=== PATIENT | female | born 1995 | race Caucasian/White ===

== ENCOUNTER → 2020-02-21 | Outpatient (CLI) | payer SELFPAY ==
[2020-02-21 08:56] VITALS: BMI 30.7
== END | disposition home or self-care (01) ==
PROVIDERS: PCP Student in an Organized Health Care Education/Training Program; Visit Provider Obstetrics & Gynecology
DX: Z12.4 Encounter for screening for malignant neoplasm of cervix (principal)

== ENCOUNTER → 2020-09-17 14:52 | Outpatient (CLI) | payer SELFPAY ==
[2020-09-17 14:34] VITALS: BMI 30.7
[2020-09-17 15:07] LABS: Absolute Lymphocyte Count 2.16 X10^3/uL (0.83-4.51); Absolute Neutrophil Count 3.4 X10^3/uL (2.0-7.7); Basophil# 0.04 X10^3/uL; Basophil% 0.6 % (0-1); Eosinophils% 6.1 % (0-5); Hematocrit 40.8 % (37-47); Hemoglobin 14.1 g/dL (12.0-15.0); Lymphocyte # 2.16 X10^3/ul (0.83-4.51); Lymphocyte % 33.1 % (19-41); Mean Corp Hgb Conc 34.6 g/dL (32-36); Mean Corpuscular Hgb 28.8 pg (27.0-32.0); Mean Corpuscular Volume 83.3 fL (81-99); Mean Platelet Vol. 9.4 fl (6.2-12.0); Monocyte# 0.49 X10^3/uL; Monocyte% 7.5 % (0-10); NRBC Flagged by Analyzer 0 % (0-5); Neutrophil # 3.42 X10^3/uL (2.7-7.7); Neutrophil % 52.5 % (47-70); Platelet Count 296 K/mm3 (150-450); RBC Distribution Width CV 11.9 % (11.6-14.6); RBC Distribution Width SD 35.8 fl (35.1-43.9); White Blood Count 6.5 K/mm3 (4.4-11.0)
[2020-09-17 15:28] LABS: Prolactin 11.8 ng/mL; Thyroid Stim Hormone (TSH) 1.94 uIU/mL (0.358-3.74)
== END ==
PROVIDERS: PCP Student in an Organized Health Care Education/Training Program; Referring Provider Nurse Practitioner Women's Health; Visit Provider Nurse Practitioner Women's Health
DX: N93.9 Abnormal uterine and vaginal bleeding, unspecified (principal); Z13.29 Encounter for screening for other suspected endocrine disorder
CPT/HCPCS: 36415; 84146; 84443; 85025

== ENCOUNTER → 2021-02-05 10:19 | Outpatient (CLI) | payer SELFPAY ==
[2021-02-05 11:36] LABS: hCG Titer Quant., Serum 29 mIU/mL (1-3)
== END ==
PROVIDERS: Nurse Practitioner Women's Health; PCP Student in an Organized Health Care Education/Training Program; Referring Provider Obstetrics & Gynecology; Visit Provider Obstetrics & Gynecology
DX: O20.0 Threatened abortion (principal)
CPT/HCPCS: 36415; 84702; 86850; 86900; 86901

== ENCOUNTER 2021-02-06 10:43 | Emergency (ER) | payer SELFPAY ==
[2021-02-06 10:44] VITALS: BP 137/85; PULSE 97; RESP 16; TEMP 35.6; O2SAT 97; BMI 30.9
--- NOTE | 2021-02-06 12:13 | US_ITS ---
STUDY: FIRST TRIMESTER OBSTETRICAL ULTRASOUND REASON FOR EXAM: Female, 25 years old miscarriage -- BLEEDING CRAMPING HCG 17 LMP: 12/28/2020. TECHNIQUE: Transvaginal TECHNICAL QUALITY: Adequate. PRIOR ULTRASOUND: None. FINDINGS: There is no demonstrated intrauterine gestational sac. There is no demonstrated yolk sac. The placenta is non-visualized. There is no demonstrated embryo ( pole). The estimated gestation age (EGA) by LMP is 5 weeks, 5 days. The estimated date of delivery (LIZ) by LMP is 10/04/2021. The uterus measures 7.6 cm x 4.5 cm x 4.2 cm. The endometrium measures 3.2 mm. There is no demonstrated uterine fibroid. The cervix is closed. The right ovary measures 4 cm x 2.1 cm x 1.8 cm. There is no right ovarian cyst. There is no visualized right adnexal mass or complex lesion. The left ovary measures 3 cm x 2.4 cm x 1.7 cm. There is no left ovarian cyst. There is no visualized left adnexal mass or complex lesion. There is no fluid in the cul de sac. US/Transvaginal w/Preg US IMPRESSION: No intrauterine gestation is seen. Beta hCG follow-up is recommended. Electronically Signed: Theodore Johnston MD at 14:05 EST , Service support ,
--- NOTE | 2021-02-06 12:13 | ED.VIS.FEGU ---
HPI HPI - Female History of Present Illness Chief Complaint: Vag Bld, Preg Informant: patient Narrative Narrative: 25-year-old female at approximately 5 and half weeks presenting to the emergency room with vaginal bleeding. Patient is seen by Dr. Baires. Due to some spotting she had an hCG level drawn yesterday as an outpatient that was only 29. She states that she started to experiencing cramping and bleeding this morning. She believes she is seeing some tissue. 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 Works at [employer] ED Constitutional Constitutional ED: Denies chills or weight loss Eyes Eyes: Denies change in vision or diplopia ENT ENT ED: Denies ear pain, rhinorrhea or sore throat Cardiovascular Cardiovascular: Denies chest pain, orthopnea, palpitations or racing heartbeat Respiratory/Chest Respiratory/Chest: Denies cough, dyspnea or orthopnea Gastrointestinal Gastrointestinal: Denies abdominal pain, diarrhea, nausea or vomiting Genitourinary Genitourinary ED: Reports other Details: Abnormal vaginal bleeding pelvic cramping ; Denies dysuria, hematuria or urinary frequency Musculoskeletal Musculoskeletal: Denies arthralgias or myalgias Integumentary Denies abscess or rash Neurologic Neurologic: Denies headache(s) or weakness Psychiatric Psychiatric: Denies anxiety, depression, suicidal ideation or suicidal thoughts Endocrine Endocrinology: Denies polydipsia, polyphagia or polyuria Allergic/Immunologic Allergic/Immunologic ED: Denies mouth swelling, tongue swelling or urticaria EXAM Physical Exam Const Vital Signs: 02/06/21 10:44 02/06/21 12:19 02/06/21 14:03 Temperature 96.0 F L Temperature Source Temporal Pulse Rate 97 72 65 Respiratory Rate 16 Blood Pressure 137/85 H 132/86 H Blood Pressure Mean 102 101 Pulse Ox 97 98 98 Oxygen Delivery Method Room Air Room Air Room Air Positive well nourished and well developed General Appearance ED: well developed HEENT Reports normocephalic, head/scalp atraumatic, TM's clear and moist mucous membranes Negative for trauma Tympanic Membrane ED: Yes TM's clear Eyes PERRL and EOMs intact bilaterally Neck no lymphadenopathy, supple and no JVD Resp normal respiratory effort and clear to auscultation bilaterally Cardio regular rate, regular rhythm and no murmurs GI normal to inspection, nondistended, normoactive bowel sounds and non-tender Palpation: soft Back/Spine no CVA tenderness and normal ROM Extremity normal to inspection General Extremety ED: Negative for edema General Extremity: Negative for edema Neuro oriented x3 and CN's II-XII intact bilaterally Sensorium / Orientation: alert Motor Exam: strength 5/5 throughout Psych mental status grossly normal Mood & Affect: Negative for depressed or tearful Skin no rashes or lesions noted and no wounds MDM MDM MDM Narrative Medical decision making narrative: hCG is down to 17 with a hemoglobin of 13.5. Pelvic ultrasound shows no intrauterine gestation. The lining of the endometrium is rather thinned. I spoke with on-call museum technician Dr. Landaverde. Plan will be outpatient follow-up return if worsening or concerns. Patient is comfortable with this plan. Lab Data Attestation: I reviewed the patient's lab results. Labs: Laboratory Results - last 24 hr 02/06/21 02/06/21 12:25 12:25 Hgb 13.5 Hct 38.4 HCG, Quant 17 H Radiography Diagnostic Testing: Clinical Impression(s) from Imaging Studies Obstetrics Ultrasound 02/06/21 12:13 IMPRESSION: No intrauterine gestation is seen. Beta hCG follow-up is recommended. Electronically Signed: Theodore Johnston MD at 14:05 EST , Service support , Discharge Plan Triage Chief Complaint: Vag Bld, Preg ED Provider: Walter Sanchez Dx/Rx/DC Orders Clinical Impression: Complete miscarriage Instructions: ED MISCARRIAGE Completed Prescriptions: No Action multivitamin Tablet 1 tab PO DAILY RF: 0 Primary Care Provider: Krystina Murphy Referrals: Lauren Tyson DO [STAFF PHYSICIAN] - As soon as possible Krystina Murphy MD [Primary Care Provider] - Disposition Disposition: Home, Self Care
[2021-02-06 12:19] VITALS: PULSE 72; O2SAT 98
[2021-02-06 12:40] LABS: Hematocrit 38.4 % (37-47); Hemoglobin 13.5 g/dL (12.0-15.0)
[2021-02-06 13:14] LABS: hCG Titer Quant., Serum 17 mIU/mL (1-3)
[2021-02-06 14:03] VITALS: BP 132/86; PULSE 65; O2SAT 98
[2021-02-06 14:55] VITALS: BP 139/85; PULSE 74; RESP 14; O2SAT 98
== END 2021-02-06 14:58 | disposition home or self-care (01) ==
PROVIDERS: Emergency Provider Emergency Medicine; PCP Student in an Organized Health Care Education/Training Program
DX: O03.9 Complete or unspecified spontaneous abortion without complication (principal)
CPT/HCPCS: 76817; 84702; 85014; 85018; 99283; A4216

== ENCOUNTER → 2021-08-18 | Outpatient (CLI) | payer SELFPAY ==
[2021-08-18 16:47] LABS: hCG Titer Quant., Serum 268 mIU/mL (1-3)
== END | disposition home or self-care (01) ==
PROVIDERS: PCP Student in an Organized Health Care Education/Training Program; Referring Provider Nurse Practitioner Women's Health; Visit Provider Nurse Practitioner Women's Health
DX: N91.2 Amenorrhea, unspecified (principal)
CPT/HCPCS: 36415; 84702

== ENCOUNTER → 2021-08-20 | Outpatient (CLI) | payer SELFPAY ==
[2021-08-20 16:40] LABS: hCG Titer Quant., Serum 851 mIU/mL (1-3)
== END | disposition home or self-care (01) ==
PROVIDERS: PCP Student in an Organized Health Care Education/Training Program; Referring Provider Nurse Practitioner Women's Health; Visit Provider Nurse Practitioner Women's Health
DX: N91.2 Amenorrhea, unspecified (principal)
CPT/HCPCS: 36415; 84702

== ENCOUNTER → 2021-09-11 | Outpatient (CLI) | payer SELFPAY | END | disposition home or self-care (01) | LOC: PAVLAB 12:22 | PROVIDERS: PCP Student in an Organized Health Care Education/Training Program; Visit Provider Obstetrics & Gynecology | DX: O20.0 Threatened abortion (principal); Z3A.00 Weeks of gestation of pregnancy not specified | CPT/HCPCS: 36415; 84702 ==

== ENCOUNTER → 2021-09-11 | Outpatient (CLI) | payer SELFPAY ==
--- NOTE | 2021-09-11 15:37 | US_ITS ---
STUDY: FIRST TRIMESTER OBSTETRICAL ULTRASOUND REASON FOR EXAM: Female, 25 years old viability--HIGH HCGS 193,000 LMP: 07/18/2021 TECHNIQUE: Transvaginal TECHNICAL QUALITY: Adequate. PRIOR ULTRASOUND: None. FINDINGS: There is visualization of a single gestational sac in a normal intrauterine position. The mean sac diameter (MSD) measures 27 mm, indicating an estimated gestational age (EGA) of 7 weeks, 5 days. The gestational sac shape is within normal limits. There is a visualized yolk sac. The yolk sac measures 4 mm. The placenta is non-visualized. There is visualization of a live embryo. The crown-rump length (CRL) measures 15 mm, indicating an estimated gestational age (EGA) of 7 weeks, 5 days. There is demonstrated cardiac activity with a heart rate of 166 bpm. The estimated gestation age (EGA) by LMP is 7 weeks, 6 days. The estimated date of delivery (LIZ) by LMP is 04/24/2022. The estimated gestation age (EGA) by US is 7 weeks, 5 days. The estimated date of delivery (LIZ) by US is 04/25/2022. The uterus measures 9.8 x 6.0 x 7.5 cm. There is no demonstrated uterine fibroid. The cervix is closed. The right ovary measures 4.2 x 1.2 x 2.6 cm. There is no right ovarian cyst. There is no visualized right adnexal mass or complex lesion. The left ovary measures 2.6 x 2.0 x 2.6 cm. There is no left ovarian cyst. There is no visualized left adnexal mass or complex lesion. There is no fluid in the cul de sac. US/Transvaginal w/Preg US IMPRESSION: Living intrauterine of 7 weeks 5 days as described above. Electronically Signed: Reilly Almaraz MD at 16:48 EDT ,
== END | disposition home or self-care (01) ==
PROVIDERS: PCP Student in an Organized Health Care Education/Training Program; Referring Provider Obstetrics & Gynecology; Visit Provider Obstetrics & Gynecology
DX: O20.0 Threatened abortion (principal); Z3A.01 Less than 8 weeks gestation of pregnancy
CPT/HCPCS: 76817

== ENCOUNTER → 2021-09-18 | Outpatient (CLI) | payer SELFPAY ==
[2021-09-18 15:08] LABS: Absolute Lymphocyte Count 2.36 X10^3/uL (0.83-4.51); Absolute Neutrophil Count 6.5 X10^3/uL (2.0-7.7); Basophil# 0.04 X10^3/uL; Basophil% 0.4 % (0-1); Eosinophil# 0.33 X10^3/uL; Eosinophils% 3.3 % (0-5); Hematocrit 34.6 % (37-47); Lymphocyte # 2.36 X10^3/ul (0.83-4.51); Lymphocyte % 23.7 % (19-41); Mean Corp Hgb Conc 34.7 g/dL (32-36); Mean Corpuscular Hgb 29.5 pg (27.0-32.0); Mean Platelet Vol. 9.3 fl (6.2-12.0); Monocyte# 0.69 X10^3/uL; Monocyte% 6.9 % (0-10); NRBC Flagged by Analyzer 0 % (0-5); Neutrophil # 6.51 X10^3/uL (2.7-7.7); Neutrophil % 65.4 % (47-70); Platelet Count 263 K/mm3 (150-450); RBC Distribution Width CV 12.1 % (11.6-14.6); RBC Distribution Width SD 37.2 fl (35.1-43.9); Red Blood Count 4.07 M/mm3 (4.2-5.4)
[2021-09-18 16:14] LABS: HIV - WCH Non-Reactive (Nonreactive); Hepatitis B Surface Antigen Non-Reactive (Nonreactive); Hepatitis C Antibody Non-Reactive (Nonreactive); Rubella IgG Reactive (Nonreactive); Syphilis Antibodies Non-reactive
[2021-09-22 20:07] LABS: Chlamydia By Nucleic Acid AMP Negative (Negative)
[2021-09-23 12:00] LABS: HPV Reflexed? NOT INDICATED
[2021-09-23 13:51] LABS: Gonococcus By Nucleic Acid AMP Negative (Negative)
== END | disposition home or self-care (01) ==
LOC: PAVLAB 14:45
PROVIDERS: PCP Student in an Organized Health Care Education/Training Program; Referring Provider Obstetrics & Gynecology; Visit Provider Obstetrics & Gynecology
DX: Z34.90 Encounter for supervision of normal pregnancy, unspecified, unspecified trimester (principal)
CPT/HCPCS: 36415; 85025; 86703; 86762; 86780; 86803; 86850; 86900; 86901; 87086; 87088; 87340; 87491; 87591; 88175; G0145

== ENCOUNTER → 2022-01-21 | Outpatient (CLI) | payer SELFPAY ==
[2022-01-21 11:39] LABS: Absolute Lymphocyte Count 1.72 X10^3/uL (0.83-4.51); Absolute Neutrophil Count 7.2 X10^3/uL (2.0-7.7); Basophil# 0.03 X10^3/uL; Basophil% 0.3 % (0-1); Eosinophil# 0.26 X10^3/uL; Eosinophils% 2.6 % (0-5); Hematocrit 33.6 % (37-47); Hemoglobin 11.5 g/dL (12.0-15.0); Lymphocyte # 1.72 X10^3/ul (0.83-4.51); Lymphocyte % 17.4 % (19-41); Mean Corp Hgb Conc 34.2 g/dL (32-36); Mean Corpuscular Hgb 30.5 pg (27.0-32.0); Mean Corpuscular Volume 89.1 fL (81-99); Monocyte# 0.58 X10^3/uL; Monocyte% 5.9 % (0-10); NRBC Flagged by Analyzer 0 % (0-5); Neutrophil % 72.9 % (47-70); Platelet Count 232 K/mm3 (150-450); RBC Distribution Width CV 12.6 % (11.6-14.6); RBC Distribution Width SD 40.6 fl (35.1-43.9); Red Blood Count 3.77 M/mm3 (4.2-5.4); White Blood Count 9.9 K/mm3 (4.4-11.0)
[2022-01-21 12:28] LABS: ALB/GLOB Ratio 0.8 RATIO (0.9-2.4); AST(SGOT) 19 U/L (15-37); Alanine Aminotransfer ALT/SGPT 35 U/L (13-56); Alkaline Phosphatase 68 U/L (45-117); Anion Gap 10 (5-15); BUN 12 mg/dL (7-18); BUN/Creat Ratio 22.2 RATIO (10-20); Calcium,Total 9.2 mg/dL (8.5-10.1); Chloride 107 mmol/L (98-107); Creatinine, Serum 0.54 mg/dL (0.55-1.02); EST Glomerular Filtration Rate 144 mL/min (>60); Est Glom Filt Rate - Afr Amer 174 mL/min (>60); Glucose 102 mg/dL (74-106); Potassium 3.9 mmol/L (3.5-5.1); Sodium Level 139 mmol/L (136-145)
== END | disposition home or self-care (01) ==
PROVIDERS: PCP Student in an Organized Health Care Education/Training Program; Referring Provider Nurse Practitioner Women's Health; Visit Provider Nurse Practitioner Women's Health
DX: O26.899 Other specified pregnancy related conditions, unspecified trimester (principal); Z3A.00 Weeks of gestation of pregnancy not specified; R10.11 Right upper quadrant pain
CPT/HCPCS: 36415; 80053; 85025

== ENCOUNTER → 2022-02-03 | Outpatient (CLI) | payer SELFPAY ==
[2022-02-03 09:54] LABS: Absolute Lymphocyte Count 1.61 X10^3/uL (0.83-4.51); Absolute Neutrophil Count 6.6 X10^3/uL (2.0-7.7); Basophil# 0.02 X10^3/uL; Basophil% 0.2 % (0-1); Eosinophil# 0.22 X10^3/uL; Eosinophils% 2.4 % (0-5); Hematocrit 32.7 % (37-47); Hemoglobin 10.9 g/dL (12.0-15.0); Lymphocyte # 1.61 X10^3/ul (0.83-4.51); Lymphocyte % 17.8 % (19-41); Mean Corp Hgb Conc 33.3 g/dL (32-36); Mean Corpuscular Hgb 29.9 pg (27.0-32.0); Mean Corpuscular Volume 89.6 fL (81-99); Mean Platelet Vol. 10.3 fl (6.2-12.0); Monocyte# 0.46 X10^3/uL; Monocyte% 5.1 % (0-10); NRBC Flagged by Analyzer 0 % (0-5); Neutrophil # 6.64 X10^3/uL (2.7-7.7); Neutrophil % 73.5 % (47-70); Platelet Count 225 K/mm3 (150-450); RBC Distribution Width CV 12.4 % (11.6-14.6); RBC Distribution Width SD 40.3 fl (35.1-43.9); Red Blood Count 3.65 M/mm3 (4.2-5.4)
[2022-02-03 10:21] LABS: Glucose Challenge Gest 1H 50g 149 mg/dL (70-140)
== END | disposition home or self-care (01) ==
LOC: PAVLAB 09:21
PROVIDERS: PCP Student in an Organized Health Care Education/Training Program; Referring Provider Nurse Practitioner Women's Health; Visit Provider Nurse Practitioner Women's Health
DX: Z13.1 Encounter for screening for diabetes mellitus (principal); Z34.90 Encounter for supervision of normal pregnancy, unspecified, unspecified trimester
CPT/HCPCS: 36415; 82950; 85025

== ENCOUNTER → 2022-02-10 | Outpatient (CLI) | payer SELFPAY ==
[2022-02-10 07:45] LABS: Glucose GTT-Gestation. Fasting 99 mg/dL (<105)
[2022-02-10 08:33] LABS: Glucose GTT-Gestational 1 Hr 191 mg/dL (<190)
[2022-02-10 09:25] LABS: Glucose GTT-Gestational 2 Hr 136 mg/dL (<165)
[2022-02-10 10:41] LABS: Glucose GTT-Gestational 3 Hr 114 L (<145)
== END | disposition home or self-care (01) ==
PROVIDERS: PCP Student in an Organized Health Care Education/Training Program; Referring Provider Nurse Practitioner Women's Health; Visit Provider Nurse Practitioner Women's Health
DX: Z13.1 Encounter for screening for diabetes mellitus (principal)
CPT/HCPCS: 36415; 82951; 82952

== ENCOUNTER 2022-03-19 11:25 | Outpatient (CLI) | payer OTHER, SELFPAY ==
[2022-03-19 11:51] VITALS: BP 128/68; PULSE 82; TEMP 36.7
[2022-03-19] MEDS: Lactated Ringers 1,000 ML 999 ML IV (12:20)
[2022-03-19 12:38] VITALS: BMI 34.4
[2022-03-19 13:17] VITALS: BP 124/82; PULSE 99
[2022-03-19] MEDS: NIFEdipine 10 MG Capsule PO (13:21)
[2022-03-19] MEDS: Betamethasone/Betamethasone 30 MG/5 ML Vial 12 MG IM (13:22)
[2022-03-19 13:32] LABS: Red Blood Cells-Urine 0 SEEN /hpf (0-5)
[2022-03-19 13:39] LABS: Color, Urine Yellow (Yellow); Glucose, Dipstick Normal (Normal); Ketone-Dipstick Negative (Negative); Leukocyte Esterase-Dipstick 25 /ul (Negative); Nitrite-Dipstick Negative (Negative); Occult Blood-Urine 25 /ul (Negative); Protein-Dipstick 30 mg/dl (Negative); Urine Bilirubin Dipstick Negative (Negative); Urine Clarity Clear (Clear); Urine Urobilinogen 1 mg/dl (Normal)
[2022-03-19 13:59] VITALS: PULSE 89; O2SAT 98
[2022-03-19 13:59] LABS: Bacteria 2+ /hpf (None Seen); Squamous Epithelial Cells - UA 0-5 SEEN /hpf (5-10)
[2022-03-19 14:00] LABS: Mucous, Urine 4+ /hpf (<or=2+); White Blood Cells 0-5 SEEN /hpf (0-5)
--- NOTE | 2022-03-19 14:52 | OB.TRI.HP_ITS ---
HPI - General HPI Narrative DAE DOAN, is a 26 @ 34 weeks 6 days who was sent to L&D after being seen in my office for prolonged monitoring to rule out labor. She complained of a brown discharge and some contractions. when checked in the office she was found to be 2/70/-2. Maternal Data Information LIZ Calculator Estimated Delivery Date Method Current WG Current Estimate 04/24/22 LMP (Certain) 34w 6d PFSH PFSH Medical History Abnormal glucose affecting Abnormal uterine bleeding (AUB) Home Medications nifedipine 10 mg capsule 20 mg PO Q6H 2 days #16 caps 03/19/22 [Rx Last Taken Unknown] vitamins-iron fumarate 65 mg iron-folic acid 1 mg tablet 1 tab PO DAILY 03/19/22 [History Last Taken 03/18/22 22:00] Allergy/AdvReac Type Severity Reaction Status Date / Time No Known Allergies Allergy Verified 03/19/22 10:40 Family History Mother Afib Social History adopted: No household members: spouse housing: house number of children: 0 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 status: employed 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 pets and animals: No leisure activities: other history of recent travel: Yes details: cruise [employer] out of state: Yes out of country: Yes sexually active: Yes Smoking Status: Never smoker alcohol intake: former details: social substance use type: does not use well-balanced diet: daily or most days caffeine: Yes eating out: rarely or never during the past year weight has: decreased > 10 lbs what type of physical activity do you participate in: none fabiola/taoist: Yazdanism seatbelt use: always do you feel safe at home: Yes additional social history: [employer]- [employer] student and works at [employer] 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 [employer] History 2 Elective abortions Hx Para 0 Spontaneous abortions 1 Hx # Term Pregnancies Ectopic pregnancies Hx # Pregnancies Multiple births # of living children Visit Details Expected Delivery Route/Plan Labor Preferences- CB/BF classes: yes labor support person: Pineda labor intervention preferences: [] pain management options preferred: epidural cut cord/dad catch: cord : yes PP control planned: discussed discussed possible routes of delivery and associated risks: [] special requests: [] Plans Covid status: discussed Flu vaccine: discussed Tdap vaccine: given Rhogam: na LARC form signed:yes Problem list reviewed and updated with the most current plan of care details and appropriate orders placed. Relevant counseling for the gestational age provided. Continue routine care and follow up unless otherwise noted in visit notes/problem list details OB Flowsheet Initial Weight: Not Recorded Date -?-?-?-?-?-?-?-?-?-?-?-?- EGA Weight BP Urine Prot -?-?-?-?-?-?-?-?-?-?-?-?- Glucose FHR FuHt Pres Dilation -?-?-?-?-?-?-?-?-?-?-?-?- Effaced St Visit Note 09/18/21 -?-?-?-?-?-?-?-?-?-?-?-?- 8w 6d 175 lb 108/60 -?-?-?-?-?-?-?-?-?-?-?-?- 170 -?-?-?-?-?-?-?-?-?-?-?-?- SM- CRL 1.9cm co ns with LMP 10/23/21 -?-?-?-?-?-?-?-?-?-?-?-?- 13w 6d 177 lb 6 oz 130/78 Nega tive -?-?-?-?-?-?-?--?-?-?-?-?- Negative 160 -?-?-?-?-?-?-?-?-?-?-?-?- SM- feeling bett er no vb cramping 11/20/21 -?-?-?-?-?-?-?-?-?-?-?-?- 17w 6d 181 lb 6 oz 124/79 -?-?-?-?-?-?-?-?-?-?-?-?- 147 -?-?-?-?-?-?-?-?-?-?-?-?- JV- anatomy scan scheduled, no complaints today, no fm yet. 12/15/21 -?-?-?-?-?-?-?-?-?-?-?-?- 21w 3d 186 lb 120/82 Negative -?-?-?-?-?-?-?-?-?-?-?-?- Negative 146 -?-?-?-?-?-?-?-?-?-?-?-?- -No Vb, LOF. G ood FM. 01/21/22 -?-?-?-?-?-?-?-?-?-?-?-?- 26w 5d 195 lb 110/76 Negative -?-?-?-?-?-?-?-?-?-?-?-?- Negative 153 -?-?-?-?-?-?-?-?-?-?-?-?- -No VB, LOF. G ood FM. Has had off and on RUQ pain and some itching of abdomen Will get labs today 02/03/22 -?-?-?-?-?-?-?-?-?-?-?-?- 28w 4d 199 lb 2 oz 130/72 Nega tive -?-?-?-?-?-?-?-?-?-?-?-?- Negative 139 28 -?-?-?-?-?-?-?-?-?-?-?-?- -No VB, LOF Go od FM. GCT pending. RUQ pain resolved except occa. tdap. 02/17/22 -?-?-?-?-?-?-?-?-?-?-?-?- 30w 4d 197 lb 8 oz 112/73 Nega tive -?-?-?-?-?-?-?-?-?-?-?-?- Negative 129 29 -?-?-?-?-?-?-?-?-?-?-?-?- JV- no lof, vagi nal bleeding, or dec fm. no complaints. passed her 3 hr. 03/04/22 -?-?-?-?-?-?-?-?-?-?-?-?- 32w 5d 203 lb 2 oz 143/83 Nega tive -?-?-?-?-?-?-?-?-?-?-?-?- Negative 136 32 -?-?-?-?-?-?-?-?-?-?-?-?- LC- no lof/vb/ct x. good fm. +sciatic pain, comfort techniques reviewed. 03/19/22 -?-?-?-?-?-?-?-?-?-?-?-?- 34w 6d 201 lb 6 oz 136/87 Nega tive -?-?-?-?-?-?-?-?-?-?-?-?- Negative 140 34 2 -?-?-?-?-?-?-?-?-?-?-?-?- 70 JV- pt c omplains of spotting and on and off contractions. after exam noted (brown dc and dilation) sending to L&D for monitoring, possible steroids. ROS Constitutional Constitutional: Reports systems reviewed and no addt'l complaints, except as documented Gastrointestinal Gastrointestinal: Denies bloating, constipation, cramping, diarrhea, nausea or vomiting Genitourinary Genitourinary: Reports other Details: Denies vaginal odor, vaginal bleeding, or vaginal discharge ; Denies difficulty urinating or flank pain NST FHR Rate Baby A Baseline: 140 Variability:: Moderate Accelerations:: 15 x 15 Decelerations:: None NST Reactive:: Yes FHR Category:: Category I Assessment & Plan (1) Threatened labor: COMMENT: to L&D for monitoring, possible fluids and steroids 34 weeks 6 days PLAN: procardia, steroids, fluids, and prolonged monitoring did not slow contractions, however cervix did not change sending home on procardia 10 mg q 6 hrs x 48 hrs and return tomorrow for second dose of celestone ptl precautions discussed. no work x 2 weeks. (2) Supervision of normal : COMMENT: PRR , LIZ 04/24/22, Spouse Walter (3) Abnormal uterine bleeding (AUB): Charges/Coding Multi Select Codes Urinary/Genital Urinary/Genital CPT Codes: 82229-25 non-stress test Interp
== END 2022-03-19 15:04 | disposition home or self-care (01) ==
LOC: WPOUT 11:30 → WP 11:58
PROVIDERS: Obstetrics & Gynecology; PCP Student in an Organized Health Care Education/Training Program; Referring Provider Obstetrics & Gynecology; Visit Provider Obstetrics & Gynecology
DX: O47.03 False labor before 37 completed weeks of gestation, third trimester (principal); Z3A.34 34 weeks gestation of pregnancy
CPT/HCPCS: 96365; 59025; 59050; 81001; 87070; 87205; 96372; 99221; J7120; G0378; J0702

== ENCOUNTER 2022-03-20 13:00 | Outpatient (CLI) | payer OTHER, SELFPAY ==
[2022-03-20 13:41] VITALS: BMI 35.5
[2022-03-20] MEDS: Betamethasone/Betamethasone 30 MG/5 ML Vial 12 MG IM (13:43)
--- NOTE | 2022-03-20 20:27 | PCM.PN.BLA ---
Progress Note patient presents to L&D for her second dose of celestone only. she expresses no concerns and the nurse administered the injection. follow up in office next week
== END 2022-03-20 13:50 | disposition home or self-care (01) ==
LOC: WP 13:07 → WPOUT 13:07
PROVIDERS: Visit Provider Obstetrics & Gynecology
DX: O09.213 Supervision of pregnancy with history of pre-term labor, third trimester (principal); Z3A.34 34 weeks gestation of pregnancy
CPT/HCPCS: 96372; J0702

== ENCOUNTER → 2022-03-27 | Outpatient (CLI) | payer OTHER, SELFPAY | END | disposition home or self-care (01) | LOC: LABSPEC 12:21 | PROVIDERS: Visit Provider Registered Nurse | DX: Z34.90 Encounter for supervision of normal pregnancy, unspecified, unspecified trimester (principal) | CPT/HCPCS: 87081 ==

== ENCOUNTER → 2022-04-14 | Outpatient (CLI) | payer OTHER, SELFPAY ==
[2022-04-14 11:54] LABS: Absolute Neutrophil Count 8.5 X10^3/uL (2.0-7.7); Basophil# 0.03 X10^3/uL; Basophil% 0.3 % (0-1); Eosinophils% 1.8 % (0-5); Hematocrit 33.7 % (37-47); Hemoglobin 11.7 g/dL (12.0-15.0); Lymphocyte % 15.3 % (19-41); Mean Corp Hgb Conc 34.7 g/dL (32-36); Mean Corpuscular Hgb 29.9 pg (27.0-32.0); Mean Corpuscular Volume 86.2 fL (81-99); Mean Platelet Vol. 10.2 fl (6.2-12.0); Monocyte# 0.67 X10^3/uL; NRBC Flagged by Analyzer 0 % (0-5); Neutrophil # 8.49 X10^3/uL (2.7-7.7); Neutrophil % 76.2 % (47-70); Platelet Count 219 K/mm3 (150-450); RBC Distribution Width CV 13.6 % (11.6-14.6); RBC Distribution Width SD 42.1 fl (35.1-43.9); Red Blood Count 3.91 M/mm3 (4.2-5.4); White Blood Count 11.1 K/mm3 (4.4-11.0)
[2022-04-14 12:04] LABS: Fibrinogen 431 mg/dl (203-444)
== END | disposition home or self-care (01) ==
LOC: PAVLAB 11:43
PROVIDERS: PCP Student in an Organized Health Care Education/Training Program; Referring Provider Obstetrics & Gynecology; Visit Provider Obstetrics & Gynecology
DX: R10.9 Unspecified abdominal pain (principal)
CPT/HCPCS: 36415; 85025; 85384

== ENCOUNTER 2022-04-24 05:54 | Inpatient (IN) | payer OTHER, SELFPAY ==
[2022-04-24] VITALS (28 sets, daily range): BP systolic 108–145; BP diastolic 59–95; PULSE 63–112; RESP 16; TEMP 36.6; O2SAT 95–99; BMI 36.7
[2022-04-24] MEDS: LACTATED RINGERS 500 ML 999 ML IV (07:45)
[2022-04-24 08:06] LABS: Absolute Lymphocyte Count 1.67 X10^3/uL (0.83-4.51); Absolute Neutrophil Count 7.4 X10^3/uL (2.0-7.7); Basophil# 0.03 X10^3/uL; Basophil% 0.3 % (0-1); Eosinophil# 0.16 X10^3/uL; Eosinophils% 1.6 % (0-5); Hematocrit 31.1 % (37-47); Hemoglobin 10.8 g/dL (12.0-15.0); Lymphocyte # 1.67 X10^3/ul (0.83-4.51); Lymphocyte % 16.5 % (19-41); Mean Corp Hgb Conc 34.7 g/dL (32-36); Mean Corpuscular Hgb 29.8 pg (27.0-32.0); Mean Corpuscular Volume 85.7 fL (81-99); Mean Platelet Vol. 10.9 fl (6.2-12.0); Monocyte# 0.79 X10^3/uL; Monocyte% 7.8 % (0-10); NRBC Flagged by Analyzer 0 % (0-5); Neutrophil # 7.42 X10^3/uL (2.7-7.7); Platelet Count 215 K/mm3 (150-450); RBC Distribution Width CV 13.8 % (11.6-14.6); Red Blood Count 3.63 M/mm3 (4.2-5.4); White Blood Count 10.2 K/mm3 (4.4-11.0)
--- NOTE | 2022-04-24 08:07 | HP.PCM.OB_ITS ---
HPI - General General Date of Admission: 04/24/22 HPI Narrative DAE DOAN, is a 26 y/o @ 40 weeks who presents to L&D for IOL, however has been ashley since 3 am and has already made cervical change per nurses, since her office visit wednesday. She is now being admitted for active labor management. Patient is requesting epidural. Maternal Data Information LIZ Calculator Estimated Delivery Date Method Current WG Current Estimate 04/24/22 LMP (Certain) 40w 0d PFSH PFSH Medical History Abnormal glucose affecting Abnormal uterine bleeding (AUB) Home Medications vitamins-iron fumarate 65 mg iron-folic acid 1 mg tablet 1 tab PO DAILY 03/19/22 [History Last Taken 04/23/22] Allergy/AdvReac Type Severity Reaction Status Date / Time No Known Allergies Allergy Verified 04/24/22 07:00 Family History Mother Afib Social History adopted: No household members: spouse housing: house number of children: 0 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 status: employed 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 pets and animals: No leisure activities: other history of recent travel: Yes details: cruise [employer] out of state: Yes out of country: Yes sexually active: Yes Smoking Status: Never smoker alcohol intake: former details: social substance use type: does not use well-balanced diet: daily or most days caffeine: Yes eating out: rarely or never during the past year weight has: decreased > 10 lbs what type of physical activity do you participate in: none fabiola/episcopalian: Lutheran seatbelt use: always do you feel safe at home: Yes additional social history: [employer]- [employer] student and works at [employer] 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 Works at [employer] History 2 Elective abortions Hx Para 0 Spontaneous abortions 1 Hx # Term Pregnancies Ectopic pregnancies Hx # Pregnancies Multiple births # of living children Visit Details Expected Delivery Route/Plan Labor Preferences- CB/BF classes: yes labor support person: Pineda labor intervention preferences: [] pain management options preferred: epidural cut cord/dad catch: cord : yes PP control planned: discussed discussed possible routes of delivery and associated risks: [] special requests: [] Plans Covid status: discussed Flu vaccine: discussed Tdap vaccine: given Rhogam: na LARC form signed:yes Problem list reviewed and updated with the most current plan of care details and appropriate orders placed. Relevant counseling for the gestational age provided. Continue routine care and follow up unless otherwise noted in visit notes/problem list details OB Flowsheet Initial Weight: Not Recorded Date -?-?-?-?-?-?-?-?-?-?-?-?- EGA Weight BP Urine Prot -?-?-?-?-?-?-?-?-?-?-?-?- Glucose FHR FuHt Pres Dilation -?-?-?-?-?-?-?-?-?-?-?-?- Effaced St Visit Note 09/18/21 -?-?-?-?-?-?-?-?-?-?-?-?- 8w 6d 175 lb 108/60 -?-?-?-?-?-?-?-?-?-?-?-?- 170 -?-?-?-?-?-?-?-?-?-?-?-?- SM- CRL 1.9cm co ns with LMP 10/23/21 -?-?-?-?-?-?-?-?-?-?-?-?- 13w 6d 177 lb 6 oz 130/78 Nega tive -?-?-?-?-?-?-?-?-?-?-?-?- Negative 160 -?-?-?-?-?-?-?-?-?-?-?-?- SM- feeling bett er no vb cramping 11/20/21 -?-?-?-?-?-?-?-?-?-?-?-?- 17w 6d 181 lb 6 oz 124/79 -?-?-?-?-?-?-?-?-?-?-?-?- 147 -?-?-?-?-?-?-?-?-?-?-?-?- JV- anatomy scan scheduled, no complaints today, no fm yet. 12/15/21 -?-?-?-?-?-?-?-?-?-?-?-?- 21w 3d 186 lb 120/82 Negative -?-?-?-?-?-?-?-?-?-?-?-?- Negative 146 -?-?-?-?-?-?-?-?-?-?-?-?- MH-No Vb, LOF. G ood FM. 01/21/22 -?-?-?-?-?-?-?-?-?-?-?-?- 26w 5d 195 lb 110/76 Negative -?-?-?-?-?-?-?-?-?-?-?-?- Negative 153 -?-?-?-?-?-?-?-?-?-?-?-?- -No VB, LOF. G ood FM. Has had off and on RUQ pain and some itching of abdomen Will get labs today 02/03/22 -?-?-?-?-?-?-?-?-?-?-?-?- 28w 4d 199 lb 2 oz 130/72 Nega tive -?-?-?-?-?-?-?-?-?-?-?-?- Negative 139 28 -?-?-?-?-?-?-?-?-?-?-?-?- -No VB, LOF Go od FM. GCT pending. RUQ pain resolved except occa. tdap. 02/17/22 -?-?-?-?-?-?-?-?-?-?-?-?- 30w 4d 197 lb 8 oz 112/73 Nega tive -?-?-?-?-?-?-?-?-?-?-?-?- Negative 129 29 -?-?-?-?-?-?-?-?-?-?-?-?- JV- no lof, vagi nal bleeding, or dec fm. no complaints. passed her 3 hr. 03/04/22 -?-?-?-?-?-?-?-?-?-?-?-?- 32w 5d 203 lb 2 oz 143/83 Nega tive -?-?-?-?-?-?-?-?-?-?-?-?- Negative 136 32 -?-?-?-?-?-?-?-?-?-?-?-?- LC- no lof/vb/ct x. good fm. +sciatic pain, comfort techniques reviewed. 03/19/22 -?-?-?-?-?-?-?-?-?-?-?-?- 34w 6d 201 lb 6 oz 136/87 Nega tive -?-?-?-?-?-?-?-?-?-?-?-?- Negative 140 34 2 -?-?-?-?-?-?-?-?-?-?-?-?- 70 JV- pt c omplains of spotting and on and off contractions. after exam noted (brown dc and dilation) sending to L&D for monitoring, possible steroids. 03/27/22 -?-?-?-?-?-?-?-?-?-?--?-?- 36w 0d 201 lb 2 oz 107/76 Nega tive -?-?-?-?-?-?-?-?-?-?-?-?- Negative 140 35 2 -?-?-?-?-?-?-?-?-?-?-?-?- 70 LC-some ctx on wednesday, none today. good fm. no vb/lof. unchanged CE. ok to return to work. GBS obtained today 04/08/22 -?-?-?-?-?-?-?-?-?-?-?-?- 37w 5d 206 lb 4 oz 125/83 Nega tive -?-?-?-?-?-?-?-?-?-?-?-?- Negative 144 35 2 -?-?-?-?-?-?-?-?-?-?-?-?- 80 -2 JV- no lof , vaginal bleeding, or dec fm. no complaints. GBS neg 04/14/22 -?-?-?-?-?-?-?-?-?-?-?-?- 38w 4d 206 lb 130/88 Negative -?-?-?-?-?-?-?-?-?-?-?-?- Negative 140 37 2 -?-?-?-?-?-?-?-?-?-?-?-?- SM- no vb lof go od fm no regular ctx SM- no vb lof good fm no reg ular ctx having left 04/22/22 -?-?-?-?-?-?-?-?-?-?-?-?- 39w 5d 210 lb 117/82 Negative -?-?-?-?-?-?-?-?-?-?-?-?- Negative 141 38 Cephalic 3 .5 -?-?-?-?-?-?-?-?-?-?-?-?- 90 -1 JV- no lof , vaginal bleeding, or dec fm. pt and her are strongly requesting a 40 week IOL. we are set for monday 04/24 for IOL if labor does not happen before then ROS Constitutional Constitutional: Denies change in weight, fatigue, fever(s), headache(s), poor appetite or weakness Eyes Eyes: Denies blurry vision, change in vision, seeing flashes or spots in vision ENT HEENT: Denies dizziness, headache(s), loss taste/smell or sore throat Cardiovascular Cardiovascular: Denies chest pain, dizziness, dyspnea, irregular heart rhythm, leg edema, palpitations, rapid heart rate or vomiting Respiratory/Chest Respiratory/Chest: Denies chest tightness, cough, dyspnea or breast pain Gastrointestinal Gastrointestinal: Denies abdominal pain, anorexia, constipation, cramping, diarrhea, hemorrhoids, vomiting or weight changes Genitourinary Genitourinary: Denies dysuria, flank pain, genital lesions, genital pain, urinary frequency or urinary urgency Musculoskeletal Musculoskeletal: Denies back pain, difficulty walking, joint pain, limited range of motion, muscle cramps or numbness Integumentary Integumentary: Denies lesions or unusual bruising Neurologic Neurologic: Denies abnormal movements, abnormal speech, dizziness, numbness, seizure-like activity or syncope Psychiatric Psychiatric: Denies anxiety, behavioral changes, change in appetite, change in libido, cognitive impairment, confusion, depression, difficulty concentrating, hallucinations or suicidal thoughts Endocrine Endocrinology: Denies excessive sweating, polydipsia or polyuria Hematologic/Lymphatic Hematologic/Lymphatic: Denies easy bleeding, easy bruising or lymphadenopathy Allergic/Immunologic Allergic/Immunologic: Denies itchy eyes, lip swelling, seasonal rhinorrhea, rhinitis, throat swelling, tongue swelling, eczemia, wheezing or asthma Vital Signs Vital Signs Vital Signs: Weight Weight: 214 lb Body Mass Index (BMI) 36.7 Physical Exam Const alert, oriented x3, no apparent distress and healthy appearing General Appearance: cooperative; Negative for anxious HEENT normocephalic Face and Sinus: normal facial exam Eyes EOMs intact bilaterally and no scleral icterus General Eye: normal appearance of both eyes Neck full ROM and supple Lymph Lymphatic: no lymphadenopathy noted Chest Chest: abnormal inspection of the chest Resp normal respiratory effort Effort and Inspection: able to speak in complete sentences Cardio regular rate GI soft to palpation and non-tender Inspection: gravid Palpation: soft; Negative for tender external exam normal Amniotic Fluid: ROM+plus Back/Spine no CVA tenderness Extremity normal to inspection, full ROM and no clubbing, cyanosis or edema General Extremity: Negative for calf tenderness or edema Skin Lesions: no lesions Rashes: no rashes Psych mental status grossly normal Labs Labs Labs: Blood Type A POSITIVE Antibody Screen NEGATIVE Hct 31.1 % (37-47) L Hgb 10.8 g/dL (12.0-15.0) L Obstetrics US Syphilis Total Ab Non-reactive Rubella IgG Antibody Reactive (Nonreactive) Hep Bs Antigen Non-Reactive (Nonreactive) Chlamydia DNA (JAIMIE) Negative (Negative) Neisseria gonorrhoeae DNA (JAIMIE) Negative (Negative) HIV 1&2 Antibody Non-Reactive (Nonreactive) Glucose 1 Hr 50 gm 149 mg/dL (70-140) H Miscellaneous Test Assessment & Plan (1) Threatened labor: COMMENT: to L&D for monitoring, possible fluids and steroids 34 weeks 6 days (2) Abnormal glucose affecting : COMMENT: needs 3 hr GTT (3) RUQ abdominal pain: COMMENT: Transient with mild itching abdomen:CMP, CBC and bile acids ordered. BILE ACIDS NORMAL (4) Hx of one miscarriage: COMMENT: Miscarriage 02/25 @ 5weeks (5) Supervision of normal : COMMENT: PRR , LIZ 04/24/22, Spouse Walter (6) : QUALIFIERS: Weeks of gestation: 39 weeks Qualified Code(s): Z3A.39 - 39 weeks gestation of COMMENT: GBS neg, anatomy nl, discussed NIPT & Carrier testing- declined (7) Abnormal uterine bleeding (AUB): PLAN: Plan Patient presents IAL, plan expectant management for , pitocin/AROM PRN if needed. Pain management: plans epidural. GBS negative Management of any complications: none I have reviewed the [facility] and made any clinically relevant updates.
[2022-04-24] MEDS: Lactated Ringers 1,000 ML 50 ML IV ×2 (09:07→12:51)
[2022-04-24] MEDS: fentaNYL-bupivacaine (epidural) 100 ML BAG EPIDURAL (09:07)
[2022-04-24] MEDS: Oxytocin 15 Units/NS 250ml 15 UNITS/250 ML IV.SOLN 2 UNITS IV (10:10)
[2022-04-24] MEDS: Oxytocin 15 Units/NS 250ml 15 UNITS/250 ML IV.SOLN 999 UNITS IV (15:50)
[2022-04-24] MEDS: Methylergonovine 0.2 MG/ML Ampul IM (15:55)
[2022-04-24] MEDS: Acetaminophen 500 MG Tablet 1000 MG PO ×2 (16:43→22:46)
--- NOTE | 2022-04-24 17:21 | OP.PCM_ITS ---
Assessment & Plan (1) Abnormal glucose affecting : COMMENT: needs 3 hr GTT (2) Supervision of normal : COMMENT: PRR , LIZ 04/24/22, Spouse Walter (3) : QUALIFIERS: Weeks of gestation: 39 weeks Qualified Code(s): Z3A.39 - 39 weeks gestation of COMMENT: GBS neg, anatomy nl, discussed NIPT & Carrier testing- declined Maternal Data Information LIZ Calculator Estimated Delivery Date Method Current WG Current Estimate 04/24/22 LMP (Certain) 40w 0d Final LIZ: 04/24/22 Final LIZ Source: LMP Gestational age: 40 weeks Vaginal Delivery Maternal Presentation Maternal Presentation: Active Labor Type of Induction: Amniotomy Operative Information Date of Procedure: 04/24/22 Pre-Operative Diagnosis: @ 40 weeks, early active labor Post-Operative Diagnosis: @ 40 weeks, early active labor Surgery / Procedure Performed: Spontaneous Vaginal Delivery Type of Anesthesia: Epidural Drain: Matos to straight drain Estimated Blood Loss: 300 Findings Description of Procedure: Patient began pushing and delivered the head in the RONN presentation. The head was delivered atraumatically. The anterior and posterior shoulders delivered without complication followed by the rest of the infant and the was placed on the maternal abdomen. Delayed cord clamping was employed for approximately 60 seconds. Cord was clamped and cut and gentle traction was applied to the cord and the placenta delivered spontaneously immediately f ollowing it was noted to be intact with three-vessel cord. The perineum and vagina were inspected and noted to have a second degree laceration. EBL was 300cc. Patient and infant tolerated delivery well. Presentation: Vertex Amniotic Membrane Rupture Type: Artificial Amniotic Fluid Description: Thick meconium Placental Delivery Description: Spontaneous Placenta Disposition: [facility] Cord Vessel Description: 3 Vessels Cord Entanglement: None A Gender: Male (1 minute): 8 (5 minute): 9 Delayed Cord Clamping: Yes Post Vaginal Delivery Medications Given After Delivery: IV Pitocin and IM Methergin Episiotomy Description: None Laceration: 2nd degree Multi Select Codes Urinary/Genital Urinary/Genital CPT Codes: 75888 Vaginal Delivery global pkg
[2022-04-24] MEDS: Naproxen 500 MG Tablet PO (18:15)
[2022-04-25 00:31] VITALS: BP 121/66; PULSE 96; RESP 16; TEMP 36.6
[2022-04-25] MEDS: Naproxen 500 MG Tablet PO ×2 (02:35→10:24)
[2022-04-25 04:35] VITALS: BP 123/57; PULSE 86; RESP 16; TEMP 36.7
[2022-04-25] MEDS: Acetaminophen 500 MG Tablet 1000 MG PO ×2 (04:49→12:29)
[2022-04-25 08:25] VITALS: BP 116/63; PULSE 92; RESP 16; TEMP 36.4
--- NOTE | 2022-04-25 09:03 | PCM.PN.OB ---
Subjective Subjective Patient doing well without complaints. Tolerating PO. Ambulating and voiding without difficulty. Feeding well. Denies chest pain, shortness of breath, calf pain/swelling, fevers, chills, lightheadedness. Objective Data Objective Data Vital Signs: Vital Signs Temp Pulse Resp BP Pulse Ox O2 Del Method 97.6 F L 92 16 116/63 98 Room Air 04/25/22 08:25 04/25/22 08:25 04/25/22 08:25 04/25/22 08:25 04/24/22 08:48 04/25/22 08:25 Oxygen Delivery Method Room Air Weight: 214 lb Body Mass Index (BMI) 36.7 Intake & Output: Intake and Output for Last 24 Hours 04/23/22 04/24/22 04/25/22 23:59 23:59 23:59 Intake Total 1407.57 / 1407.57 Output Total 800 / 800 Balance 607.57 / 607.57 Lab / Micro Data Result Diagrams: 04/24/22 07:40 Labs: Laboratory Results - last 24 hr 04/24/22 07:40: Blood Type A POSITIVE, Antibody Screen NEGATIVE ROS Constitutional Constitutional: Denies chills, fatigue, fever(s), poor appetite or weakness Eyes Eyes: Denies blurry vision, change in vision, seeing flashes or spots in vision ENT HEENT: Denies dizziness, headache(s), loss taste/smell or sore throat Cardiovascular Cardiovascular: Denies chest pain, dizziness, dyspnea, irregular heart rhythm, palpitations or rapid heart rate Respiratory/Chest Respiratory/Chest: Denies chest tightness, cough, dyspnea or breast pain Gastrointestinal Gastrointestinal: Denies abdominal pain, constipation or vomiting Genitourinary Genitourinary: Denies dysuria or flank pain Musculoskeletal Musculoskeletal: Denies difficulty walking, joint pain, limited range of motion or numbness Neurologic Neurologic: Denies abnormal movements, abnormal speech, dizziness, numbness, seizure-like activity or syncope Psychiatric Psychiatric: Denies anxiety, behavioral changes, change in appetite, confusion, depression or suicidal thoughts Physical Exam Const alert, oriented x3 and no apparent distress General Appearance: cooperative and comfortable Resp normal respiratory effort Cardio regular rate GI normal to inspection, nondistended, normoactive bowel sounds GI Narrative: uterus is firm below umbilicus Palpation: soft Back/Spine no CVA tenderness and thoraco-lumbar ROM normal Extremity normal to inspection, no clubbing, cyanosis or edema, no calf tenderness and no pedal edema Psych mental status grossly normal, thought process normal, cooperative, affect normal, speech normal, activity/motor behavior normal, denies homicidal ideation and denies suicidal ideation Assessment & Plan (1) Threatened labor: COMMENT: to L&D for monitoring, possible fluids and steroids 34 weeks 6 days (2) Abnormal glucose affecting : COMMENT: needs 3 hr GTT (3) RUQ abdominal pain: COMMENT: Transient with mild itching abdomen:CMP, CBC and bile acids ordered. BILE ACIDS NORMAL (4) Hx of one miscarriage: COMMENT: Miscarriage 02/25 @ 5weeks (5) Supervision of normal : COMMENT: PRR , LIZ 04/24/22, Spouse Walter (6) : QUALIFIERS: Weeks of gestation: 39 weeks Qualified Code(s): Z3A.39 - 39 weeks gestation of COMMENT: GBS neg, anatomy nl, discussed NIPT & Carrier testing- declined (7) Abnormal uterine bleeding (AUB): PLAN: Plan s/p PPD # 1 1. routine post delivery care 2. breast feeding- support given 3. rh positive 4. rubella immune 5. patient would like to go home today
--- NOTE | 2022-04-25 09:04 | DCINST_ITS ---
Discharge Instructions Diet Discharge Diet: No restrictions Activity Discharge Activity: Return to Normal Activity, May Not Drive (while taking narcotic pain medications.) and May Shower May resume sexual activity in: 4-6 weeks Dressing / Incision Call your doctor if your incision/area has: Continuous Slow Oozing, Sudden Increased Bleeding, Increased Pain/ Swelling, Increased Redness and Foul Smelling Discharge Follow Up Care Please Follow Up With: Lauren Tyson, When: Call [phone] to make an appointment with your doctor in 6 weeks. If you had elevated blood pressure or 4th degree laceration, you will need to be seen in 2 weeks. Test Results: Test results from this visit will be discussed in further detail at your follow- up appointment, if applicable. Discharge Plan Admission Admit Date/Time: 04/24/22 05:54 Primary Reason for Your Visit: vaginal delivery Attending Provider: Lauren Tyson Primary Care Provider: Krystina Murphy Discharge Orders/Prescriptions Prescriptions: New naproxen 500 mg tablet 500 mg PO BID PRN (Reason: pain) Qty: 30 0RF Continued vit-iron fum-folic ac 65 mg iron- 1 mg Tablet 1 tab PO DAILY Referrals / Follow Up: Krystina Murphy MD [Primary Care Provider] - Disposition Disposition (needs filled in before D/C Order can be placed): Home, Self Care
[2022-04-25] MEDS: Senna/Docusate Sodium 1 Tablet PO (10:24)
[2022-04-25 12:30] VITALS: BP 115/50; PULSE 102; RESP 16; TEMP 36.4
[2022-04-25 17:00] VITALS: BP 116/64; PULSE 98; RESP 14; TEMP 36.8
== END 2022-04-25 17:45 | disposition home or self-care (01) | DRG 807 ==
PROVIDERS: Admitting Provider Obstetrics & Gynecology; PCP Student in an Organized Health Care Education/Training Program; Visit Provider Obstetrics & Gynecology
DX: O77.0 Labor and delivery complicated by meconium in amniotic fluid (principal); Z37.0 Single live birth; O99.814 Abnormal glucose complicating childbirth; O70.1 Second degree perineal laceration during delivery; Z3A.40 40 weeks gestation of pregnancy
CPT/HCPCS: 59025; 59050; 85025; 86850; 86900; 86901; 99221; J7120; G0378

== ENCOUNTER → 2023-06-09 | Outpatient (CLI) | payer SELFPAY ==
[2023-06-15 19:15] LABS: HPV Reflexed? NOT INDICATED
== END | disposition home or self-care (01) ==
LOC: LABSPEC 16:11
PROVIDERS: PCP Student in an Organized Health Care Education/Training Program; Referring Provider Registered Nurse; Visit Provider Registered Nurse
DX: Z12.4 Encounter for screening for malignant neoplasm of cervix (principal)
CPT/HCPCS: 88175; G0145

== ENCOUNTER → 2024-03-03 | Outpatient (CLI) | payer SELFPAY ==
[2024-03-03 12:13] LABS: Absolute Lymphocyte Count 1.98 X10^3/uL (0.83-4.51); Absolute Neutrophil Count 3.2 X10^3/uL (2.0-7.7); Basophil# 0.05 X10^3/uL; Basophil% 0.8 % (0-1); Eosinophil# 0.39 X10^3/uL; Eosinophils% 6.5 % (0-5); Hematocrit 36.8 % (37-47); Hemoglobin 12.2 g/dL (12.0-15.0); Lymphocyte # 1.98 X10^3/ul (0.83-4.51); Lymphocyte % 32.8 % (19-41); Mean Corp Hgb Conc 33.2 g/dL (32-36); Mean Corpuscular Hgb 28.1 pg (27.0-32.0); Mean Corpuscular Volume 84.8 fL (81-99); Mean Platelet Vol. 9.7 fl (6.2-12.0); Monocyte# 0.38 X10^3/uL; Monocyte% 6.3 % (0-10); NRBC Flagged by Analyzer 0 % (0-5); Neutrophil # 3.22 X10^3/uL (2.7-7.7); Neutrophil % 53.4 % (47-70); Platelet Count 271 K/mm3 (150-450); RBC Distribution Width CV 12.4 % (11.6-14.6); RBC Distribution Width SD 38.5 fl (35.1-43.9); Red Blood Count 4.34 M/mm3 (4.2-5.4)
[2024-03-03 12:48] LABS: Vitamin D,25 Hydroxy 24.5 ng/mL
[2024-03-03 12:54] LABS: ALB/GLOB Ratio 1.1 RATIO (0.9-2.4); AST(SGOT) 26 U/L (15-37); Alanine Aminotransfer ALT/SGPT 44 U/L (13-56); Albumin, Serum 3.7 g/dL (3.2-5.0); Alkaline Phosphatase 54 U/L (45-117); Anion Gap 5 (5-15); BUN 16 mg/dL (7-18); BUN/Creat Ratio 23.6 RATIO (10-20); Calcium,Total 9.1 mg/dL (8.5-10.1); Chloride 110 mmol/L (98-107); Creatinine, Serum 0.68 mg/dL (0.55-1.02); EST Glomerular Filtration Rate 109 mL/min (>60); Est Glom Filt Rate - Afr Amer 132 mL/min (>60); Globulin 3.4 g/dL (2.2-4.2); Glucose 95 mg/dL (74-106); Protein, Total 7.1 g/dL (6.4-8.2); Sodium Level 142 mmol/L (136-145)
== END | disposition home or self-care (01) ==
PROVIDERS: PCP Family Medicine; Referring Provider Family Medicine; Visit Provider Family Medicine
DX: I49.9 Cardiac arrhythmia, unspecified (principal)
CPT/HCPCS: 36415; 80053; 82306; 84443; 85025

== ENCOUNTER → 2024-05-15 | Outpatient (CLI) | payer SELFPAY ==
[2024-05-15 11:36] LABS: hCG Titer Quant., Serum 6998 mIU/mL (<9 non-preg)
== END | disposition home or self-care (01) ==
LOC: PAVLAB 10:30
PROVIDERS: PCP Family Medicine; Referring Provider Advanced Practice Midwife; Visit Provider Advanced Practice Midwife
DX: O26.859 Spotting complicating pregnancy, unspecified trimester (principal); Z3A.00 Weeks of gestation of pregnancy not specified
CPT/HCPCS: 36415; 84702

== ENCOUNTER → 2024-05-17 | Outpatient (CLI) | payer SELFPAY ==
[2024-05-17 13:29] LABS: hCG Titer Quant., Serum 12708 mIU/mL (<9 non-preg)
== END | disposition home or self-care (01) ==
LOC: BWCLAB 10:57
PROVIDERS: Advanced Practice Midwife; PCP Family Medicine; Referring Provider Obstetrics & Gynecology; Visit Provider Obstetrics & Gynecology
DX: O26.859 Spotting complicating pregnancy, unspecified trimester (principal); Z3A.00 Weeks of gestation of pregnancy not specified
CPT/HCPCS: 36415; 84702

== ENCOUNTER → 2024-05-19 | Outpatient (CLI) | payer SELFPAY ==
[2024-05-19 12:48] LABS: hCG Titer Quant., Serum 19847 mIU/mL (<9 non-preg)
== END | disposition home or self-care (01) ==
PROVIDERS: Advanced Practice Midwife; PCP Family Medicine; Referring Provider Obstetrics & Gynecology; Visit Provider Obstetrics & Gynecology
DX: O26.859 Spotting complicating pregnancy, unspecified trimester (principal); Z3A.00 Weeks of gestation of pregnancy not specified
CPT/HCPCS: 36415; 84702

== ENCOUNTER → 2024-05-25 | Outpatient (CLI) | payer SELFPAY ==
--- NOTE | 2024-05-25 12:31 | US_ITS ---
PROCEDURE: TRANSVAGINAL W/PREG US 05/25/2024 REASON FOR EXAM: DATING US TECHNIQUE: Transvaginal ultrasound. FINDINGS: Comments: LMP: April 02, 2024. Number of Gestational Sacs: 1 Gestational Sac Shape: Normal Number of Fetuses: 1 Heart Rate: 127 beats per minute (average) Yolk Sac: Present and unremarkable. Placenta: Presently not well-visualized Amniotic Fluid Volume: Subjectively normal for gestational age. Uterine Abnormalities: Maternal uterus is unremarkable. Ovaries / Adnexa: Small corpus luteum cysts seen in both ovaries. DIMENSIONS: Parameter Measurement / EGA Madeline Rump Length: 7 mm/6 weeks 5 days Gestational Sac: 2.3 cm/7 weeks 2 days Yolk Sac: Visualized./ ESTIMATED GESTATIONAL AGE: By Ultrasound: 7 weeks and 0 days By LMP: 7 weeks and 4 days ESTIMATED DATE OF DELIVERY: By Ultrasound: January 11, 2025 By LMP: January 07, 2025. US/Transvaginal w/Preg US IMPRESSION: Single live intrauterine gestation with a mean gestational age of 7 weeks and 0 days. Corpus luteum cysts seen in both ovaries. Reading Location: [place] [id number]
== END | disposition home or self-care (01) ==
LOC: US 12:30
PROVIDERS: PCP Family Medicine; Referring Provider Obstetrics & Gynecology; Visit Provider Obstetrics & Gynecology
DX: N91.2 Amenorrhea, unspecified (principal)
CPT/HCPCS: 76817

== ENCOUNTER → 2024-06-05 | Outpatient (CLI) | payer SELFPAY ==
[2024-06-05 12:21] LABS: Absolute Lymphocyte Count 1.67 X10^3/uL (0.83-4.51); Absolute Neutrophil Count 4.9 X10^3/uL (2.0-7.7); Basophil# 0.03 X10^3/uL; Basophil% 0.4 % (0-1); Eosinophil# 0.16 X10^3/uL; Eosinophils% 2.2 % (0-5); Hematocrit 38.1 % (37-47); Hemoglobin 13.1 g/dL (12.0-15.0); Lymphocyte # 1.67 X10^3/ul (0.83-4.51); Lymphocyte % 23.3 % (19-41); Mean Corp Hgb Conc 34.4 g/dL (32-36); Mean Corpuscular Hgb 29.4 pg (27.0-32.0); Mean Corpuscular Volume 85.4 fL (81-99); Mean Platelet Vol. 10.1 fl (6.2-12.0); Monocyte# 0.44 X10^3/uL; Monocyte% 6.1 % (0-10); NRBC Flagged by Analyzer 0 % (0-5); Neutrophil # 4.86 X10^3/uL (2.7-7.7); Neutrophil % 67.7 % (47-70); Platelet Count 261 K/mm3 (150-450); RBC Distribution Width CV 12.8 % (11.6-14.6); RBC Distribution Width SD 39.6 fl (35.1-43.9); Red Blood Count 4.46 M/mm3 (4.2-5.4); White Blood Count 7.2 K/mm3 (4.4-11.0)
[2024-06-05 12:50] LABS: HIV Nonreactive (Nonreactive); Hepatitis B Surface Antigen Nonreactive (Nonreactive); Hepatitis C Antibody Nonreactive (Nonreactive); Syphilis Antibodies Nonreactive (Nonreactive)
[2024-06-05 12:53] LABS: Rubella IgG REAC (Nonreactive)
[2024-06-05 13:17] LABS: Hemoglobin A1c 5.2 % (<=5.6)
[2024-06-07 05:07] LABS: Chlamydia By Nucleic Acid AMP Negative (Negative); Gonococcus By Nucleic Acid AMP Negative (Negative)
== END | disposition home or self-care (01) ==
PROVIDERS: PCP Family Medicine; Referring Provider Obstetrics & Gynecology; Visit Provider Obstetrics & Gynecology
DX: O09.90 Supervision of high risk pregnancy, unspecified, unspecified trimester (principal); Z3A.00 Weeks of gestation of pregnancy not specified
CPT/HCPCS: 36415; 83036; 85025; 86703; 86762; 86780; 86803; 86850; 86900; 86901; 87086; 87088; 87340; 87491; 87591

== ENCOUNTER → 2024-10-16 | Outpatient (CLI) | payer SELFPAY ==
--- OUTSIDE RECORDS SUMMARY | 2024-10-16 08:55 | XMS RPT_ITS | CCD ---
Author Organization [facility] Care Team Providers Care Supervisor Orchard Name Role Phone ROMIE VARELA Admitting Unavailable ROMIE VARELA Attending Unavailable ROMIE VARELA Primary Care Unavailable KRYSTINA MURPHY MD Admitting Unavailable KRYSTINA MURPHY MD Attending Unavailable KRYSTINA MURPHY MD Primary Care Unavailable KRYSTINA MURPHY MD Consulting Unavailable PROVIDER, UNKNOWN Consulting Unavailable PROVIDER, UNKNOWN Consulting Unavailable Unavailable Primary Care Provider UnavailDr. Krystina Harris Primary Care Provider Dr. Krystina Murphy Referring Provider Dr. Leslie Baires Attending Provider Dr. Krystina Murphy Primary Care Provider Dr. Krystina Murphy Referring Provider Dr. Lauren Tyson Attending Provider Livan SPORTS COORDINATOR, SPORTS COORDINATOR-C Jennifer Attending Provider Dr. Krystina Murphy Primary Care Provider Dr. Krystina Murphy Referring Provider Dr. Lauren Tyson Attending Provider HAKEEM Avila Attending Provider Dr. Leslie aBires Referring Provider Dr. Leslie Baires Other Provider Dr. Krystina Murphy Primary Care Provider Dr. Krystina Murphy Referring Provider Livan SPORTS COORDINATOR, SPORTS COORDINATOR-C Jennifer Attending Provider Dr. Lauren Tyson Attending Provider [phone] Dr. Lauren Tyson Other Provider Dr. Leslie Baires Attending Provider [phone] Dr. Lauren Tyson Admit Provider Dr. Krystina Murphy Primary Care Provider Dr. Krystina Murphy Referring Provider HAKEEM Avila Attending Provider Adelina MORRIS, Dominick Primary Care Provider Dominick Awad MD Attending Provider Dominick Awad MD Referring Provider Deanna Clark CNM Attending Provider [phone] Deanna Clark CNM Referring Provider [phone] Dr. Leslie Baires MD Attending Provider Dr. Leslie Baires MD Referring Provider Adelina MORRIS, Dominick Primary Care Provider Dominick Awad MD Referring Provider Dr. Lauren Tyson DO Attending Provider [place] SPORTS COORDINATOR-C, Jennifer Attending Provider CAROLYN ESPARZA Attending Unavailable LAUREN GUZMAN Referring Unavailab le DOMINICK AWAD Primary Care Unavailable Dominick Awad MD Primary Care Provider Dr. Leslie Baires MD Attending Provider [phone] Dr. Leslie Baires MD Referring Provider [phone] Deanna Clark CNM Attending Provider Dominick Awad Primary Care Unavailable Deanna Clark Attending Unavailable Deanna Clark Referring Unavailable Dominick Awad Primary Care Unavailable Leslie Baires Attending Unavailable Leslie Baires Referring Unavailable Adelina, Chalalek Primary Care Unavailable Marcanthony, Leslie Attending Unavailable Marcanthony, Leslie Referring Unavailable Marcanthony, Leslie Attending Unavailable Marcanthony, Leslie Referring Unavailable Adelina, Chalon Primary Care Unavailable Marcanthony, Leslie Referring Unavailable Marcanthony, Leslie Attending Unavailable Adelina, Chalon Primary Care Unavailable Adelina, Chalon Primary Care Unavailable Adelina, Chalon Attending Unavailable Adelina, Chalon Referring Unavailable Deanna Clark Attending Unavailable Adelina, Chalon Referring Unavailable Adelina, Chalon Primary Care Unavailable Marcanthony, Leslie Attending Unavailable Adelina, Chalon Referring Unavailable Adelina, Chalon Primary Care Unavailable Kalisetti, Krystina Primary Care Unavailable Kalisetti, Krystina Referring Unavailable Dusty SPORTS COORDINATOR, Lu Godwin Attending Unavailabl e Marcanthony, Leslie Attending Unavailable Adelina, Chalon Referring Unavailable Adelina, Chalon Primary Care Unavailable Lauren Tyson Attending Unavailabl e Adelina, Chalon Referring Unavailable Adelina, Chalon Primary Care Unavailable Livan SPORTS COORDINATOR, Jennifer Attending Unavailable Adelina, Chalon Referring Unavailable Adelina, Chalon Primary Care Unavailable Medications Current Medications Medication Drug Class(es) Dates Sig (Normalized) Sig (Original) amoxicillin 500 mg oral capsule (1 source) Penicillin-class Antibacterial Start: 06-12-2021 End: 06-19-2021 take 1 capsule by mouth twice daily amoxicillin (POLYMOX, AMOXIL) 500 mg capsule Take 1 capsule by mouth twice daily for 7 days. 14 capsule 0 06/12/2021 06/19/2021 Active Comment on above: Take 1 capsule by [facility] twice daily for 7 days. cholecalciferol 0.025 mg oral capsule (7 sources) Vitamin D Start: 05-25-2024 take 1 capsule by mouth once daily Cholecalciferol (Vitamin D3) 25 mcg (1,000 unit) capsule Active 25 ug PO daily May 25, 2024 12:00am NIFEdipine 10 mg oral capsule (2 sources) Dihydropyridine Calcium Channel Rox Start: 03-19-2022 take 20 mg by mouth every six hours Nifedipine Active 20 MG PO EVERY 6 HOURS 16 2 March 19, 2022 12:00am Elias-Fela Solis (Nk) (4 sources) Start: 09-18-2021 Elias-Fela Solis (Nk) Active September 17, 2021 11:00pm Start: 09-18-2021 Elias-Fela Solis (Nk) A ctive September 18, 2021 12:00am Vit-Iron Fum-Folic Ac (2 sources) Start: 03-19-2022 take 1 tablet by mouth once daily before mealtime Vit-Iron Fum-Folic Ac Active 1 TABLET PO DAILY March 19, 2022 1:00am Start: 03-19-2022 take 1 tablet by amllorie th once daily before mealtime Vit-Iron Fum-Folic Ac Active 1 TABLET PO DAILY March 19, 2022 12:00am Vit-Iron Fum-Folic Ac (Prena-Tab) 65 mg iron- 1 mg Tablet (2 sources) Start: 03-19-2022 take 1 tablet by mouth once daily before mealtime Vit-Iron Fum-Folic Ac (Prena-Tab) 65 mg iron- 1 mg Tablet Active 1 TABLET PO DAILY March 19, 2022 12:00am Vit-Iron Fum-Folic Ac 65 mg iron- 1 mg Tablet (7 sources) Start: 03-19-2022 Vit-I yandel Fum-Folic Ac 65 mg iron- 1 mg Tablet Active 1 {tbl} PO DAILY March 19, 2022 1:00am Start: 03-19-2022 Vit-I yandel Fum-Folic Ac 65 mg iron- 1 mg Tablet Active 1 {tbl} PO DAILY March 19, 2022 1:00am promethazine hydrochloride 12.5 mg oral tablet (3 sources) Phenothiazine Start: 07-03-2024 take 1 tablet by mouth every six hours as needed for nausea and vomiting Promethazine 12.5 mg tablet Active 12.5 mg PO EVERY 6 HOURS as needed for nausea and vomiting 60 0 July 03, 2024 12:00am Completed/Discontinued Medications Medication Drug Class(es) Dates Sig (Normalized) Sig (Original) cephalexin 500 mg oral capsule (7 sources) Cephalosporin Antibacterial Start: 12-07-2023 End: 12-12-2023 take 1 capsule by mouth three times daily Cephalexin 500 mg capsule Discontinued 500 mg PO THREE TIMES A DAY 15 5 0 December 07, 2023 12:00am December 11, 2023 12:00am December 12, 2023 12:08am doxycycline monohydrate 100 mg oral capsule (7 sources) Tetracycline-class Drug Start: 12-07-2023 End: 12-14-2023 take 1 capsule by mouth twice daily Doxycycline Monohydrate 100 mg capsule Discontinued 100 mg PO TWICE A DAY 14 7 0 December 07, 2023 12:00am December 13, 2023 12:00am December 14, 2023 12:08am Multivitamin preparation (11 sources) Start: 09-17-2020 End: 09-17-2021 take 1 tablet by mouth once daily Multivitamin Discontinued 1 TABLET PO DAILY September 16, 2020 11:00pm September 17, 2021 3:06pm Start: 09-17-2020 End: 09-17-2021 take 1 tablet by mouth once daily Multivitamin Discontinued 1 TABLET PO DAILY September 17, 2020 12:00am September 17, 2021 4:06pm Start: 09-17-2020 take 1 tablet by mallorie th once daily Multivitamin Active 1 TABLET PO DAILY September 17, 2020 12:00am Multivitamin tablet (7 sources) Start: 09-17-2020 End: 09-17-2021 Multivitamin tablet Discontinued 1 {tbl} PO DAILY September 17, 2020 12:00am September 17, 2021 4:06pm naproxen 500 mg oral tablet (9 sources) Nonsteroidal Anti-inflammatory Drug Start: 04-25-2022 End: 06-03-2022 take 1 tablet by mouth twice daily as needed for pain Naproxen 500 mg tablet Discontinued 500 mg PO TWICE A DAY as needed for pain 30 0 April 25, 2022 1:00am June 03, 2022 3:29pm Problems Active Problems Problem Classification Problem Date Documented Date Episodic/Chronic Abdominal pain (20 sources) Right upper quadrant pain; Translations: [Right upper quadrant pain] Episodic Comment on above: Transient with mild itching abdomen:CMP, CBC and bile acids ordered. BILE ACIDS NORMAL Cardiac dysrhythmias (9 sources) Other specified cardiac arrhythmias; Translations: [Other specified cardiac dysrhythmias] Onset: 06-17-2007 06-17-2007 Chronic Comment on above: Holter monitor normal Diabetes or abnormal glucose tolerance complicating ; childbirth; or the puerperium (20 sources) Abnormal glucose level; Translations: [Abnormal glucose complicating ] Episodic Comment on above: needs 3 hr GTT Early or threatened labor (20 sources) Threatened premature labor - not delivered ; Translations: [False labor before 37 completed weeks of gestation, unspecified trimester] Episodic Comment on above: to L&D for monitorin g, possible fluids and steroids 34 weeks 6 days Immunizations and screening for infectious disease (2 sources) Contact with and (suspected) exposure to other viral communicable diseases; Translations: [Contact with and (suspected) exposure to other viral communicable diseases] Onset: 07-21-2019 Episodic Menstrual disorders (1 source) Amenorrhea, unspecified; Translations: [Amenorrhea, unspecified] Onset: 06-02-2024 Chronic Other circulatory disease (1 source) Personal history of other diseases of the circulatory system; Translations: [Personal history of other diseases of the circulatory system] Onset: 08-17-2019 Episodic Other complications of (17 sources) Maternal obesity complicating , childbirth and the puerperium, antepartum; Translations: [Obesity complicating , unspecified trimester] 06-05-2024 Chronic Comment on above: bmi 30 hga1c ordered encouraged healthy weight gain Other complications of (1 source) Obesity complicating , second trimester; Translations: [Obesity complicating , second trimester] Onset: 08-24-2024 Chronic Other complications of (1 source) Obesity complicating , unspecified trimester; Translations: [Obesity complicating , unspecified trimester] Onset: 07-03-2024 Chronic Other complications of (20 sources) High risk ; Translations: [Supervision of high risk , unspecified, unspecified trimester] 05-25-2024 Episodic Comment on above: , LIZ 01/07/25 PC : Robin SO: Pineda PRR, , LIZ PC: Robin SO: Pineda PRR, , LIZ boy shabbir PC: Robin SO: Pineda Other complications of (7 sources) Spotting per vagina in ; Translations: [Spotting complicating , unspecified trimester] 05-15-2024 Episodic Comment on above: HCGx2 Other complications of (1 source) Supervision of high risk , unspecified, second trimester; Translations: [Supervision of high risk , unspecified, second trimester] Onset: 09-18-2024 Episodic Other complications of (1 source) Supervision of high risk , unspecified, unspecified trimester; Translations: [Supervision of high risk , unspecified, unspecified trimester] Onset: 07-03-2024 Episodic Other connective tissue disease (7 sources) Pain in hallux; Translations: [Pain in right toe(s)] 05-25-2024 Episodic Other female genital disorders (18 sources) Abnormal uterine bleeding; Translations: [Abnormal uterine and vaginal bleeding, unspecified] 09-17-2020 Chronic Other female genital disorders (20 sources) Abnormal uterine and vaginal bleeding, unspecified; Translations: [Unspecified disorders of menstruation and other abnormal bleeding from female genital tract] Chronic Other lower respiratory disease (1 source) Cough; Translations: [Cough] Episodic Residual codes; unclassified (7 sources) H/O: 1 miscarriage; Translations: [Personal history of other complications of , childbirth and the puerperium] 09-17-2021 Episodic Residual codes; unclassified (12 sources) H/O: miscarriage; Translations: [Personal history of other complications of , childbirth and the puerperium] 09-17-2021 Episodic Comment on above: Miscarriage 02/25 @ 5weeks Residual codes; unclassified (1 source) 19 weeks gestation of ; Translations: [19 weeks gestation of ] Onset: 08-24-2024 Episodic Residual codes; unclassified (1 source) 12 weeks gestation of ; Translations: [12 weeks gestation of ] Onset: 07-03-2024 Episodic Skin and subcutaneous tissue infections (7 sources) Cellulitis of right toe; Translations: [Cellulitis of great toe of right foot] 05-25-2024 Episodic Spondylosis; intervertebral disc disorders; other back problems (8 sources) Pain in the coccyx; Translations: [Sacrococcygeal disorders, not elsewhere classified] 06-03-2022 Episodic Spontaneous (18 sources) Complete miscarriage; Translations: [Complete or unspecified spontaneous without complication] 02-14-2021 Episodic Unclassified (1 source) Invalid ICD10 Description; Translations: [Invalid ICD10 Description] Onset: 07-21-2019 Past or Other Problems Problem Classification Problem Date Documented Date Episodic/Chronic Allergic reactions (1 source) Inflammatory dermatosis; Translations: [Irritant contact dermatitis, unspecified cause] Onset: 11-26-2011 11-26-2011 Episodic Other complications of (1 source) Spotting complicating , unspecified trimester; Translations: [Spotting complicating , unspecified trimester] Onset: 06-05-2024 Episodic Other and delivery including normal (20 sources) Normal ; Translations: [Encounter for supervision of normal , unspecified, unspecified trimester] Onset: 06-05-2024 Episodic Comment on above: PRR , LIZ , Spouse Walter NIPT w gender & juarez ier - undecided GBS neg, anatomy nl, discussed NIPT & Carrier testing- declined NIPT w gender & juarez ier - declined NIPT w gender & juarez ier - declined, normal anatomy - consistent dates Other skin disorders (1 source) Acne vulgaris; Translations: [Acne vulgaris] Onset: 11-26-2011 11-26-2011 Episodic Other skin disorders (1 source) Changes in skin texture; Translations: [Other skin changes] Onset: 02-29-2012 02-29-2012 Episodic Residual codes; unclassified (20 sources) Personal history of other complications of , childbirth and the puerperium; Translations: [Personal history of other genital system and obstetric disorders] Onset: 06-05-2024 Episodic Residual codes; unclassified (1 source) 9 weeks gestation of ; Translations: [9 weeks gestation of ] Onset: 06-05-2024 Episodic Residual codes; unclassified (1 source) 39 weeks gestation of ; Translations: [39 weeks gestation of ] Onset: 06-05-2024 Episodic Results Test Name Value Interpretation Reference Range Facility Bus Driver/Monitor Office Visit Reporton 09-18-2024 Bus Driver/Monitor Office Visit Report [facility] [address], [address] [place] [address] OFFICE VISIT Date of Service: 09/18/24 MR#: [id number] Acct: [id number] Name: DAE DOAN Rep #: [id number] 3 : 1995 Provider: Dr. Leslie sanchez MD Age/Sex: 28/F Location: [facility] [place] Status: Signed Intake Vital Signs 08/01/24 09:42 08/24/24 11:49 09/18/24 14:01 Height 5 ft 4 in 5 ft 4 in 5 ft 4 in Weight: 190 lb 2 oz BMI 32.6 BP 121/77 H Intake Visit Reasons: 23wk ob Inspector Sheet Metal Parts Required: No Is patient in pain?: No Allergies No Known Allergies Allergy (Verified 09/18/24 14:02) Medications ???Medication ???Instructions ???Recorded ???Confirmed ???Type vitamins-iron fumarate 65 1 tab PO DAILY 3 09/18/24 History mg iron-folic acid 1 mg tablet cholecalciferol (vitamin D3) 25 25 mcg PO QDAY 05/25/24 09/18/24 H istory mcg (1,000 unit) capsule promethazine 12.5 mg tablet 12.5 mg PO Q6H PRN nausea and 06/0709/18/24 Rx vomiting #60 tabs Last Menstrual Period: 04/02/24 Zika: Zika virus screening: Negative : No PFSH PFSH Medical History care and examination Coccyx pain Pelvic and perineal pain Cellulitis of great toe of right foot Pain of right great toe Abnormal glucose affecting Abnormal uterine bleeding (AUB) Family History Mother Afib Brother Seizures Social History adopted: No household members: spouse housing: house number of children: 0 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 status: employed 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 pets and animals: No leisure activities: other history of recent travel: Yes details: cruise [place] out of state: Yes out of country: Yes sexually active: Yes Smoking Status: Never smoker alcohol intake: former details: social substance use type: does not use well-balanced diet: daily or most days caffeine: Yes Type: tea eating out: rarely or never during the past year weight has: decreased > 10 lbs what type of physical activity do you participate in: none fabiola/advent: Sabianist seatbelt use: always do you feel safe at home: Yes additional social history: [employer]- [employer] student and works at [employer] 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 Works at [employer] History 3 Elective abortions Hx Para 1 Spontaneous abortions 1 Hx # Term Pregnancies Ectopic pregnancies Hx # Pregnancies Multiple births # of living children 1 Past Pregnancies Del. Date Name GA/Weeks Outcome Route Bth Weight Infant Gen Labor Lgth Anesthesia Del [place] Provider FOB 04/24/22 Robin 40 Kaylee Langston HPI 23wk ob Details: DAE DOAN is a 28 year old who presents for routine OB visit. OB Visit LIZ Calculator Estimated Delivery Date Method Current WG Current Estimate 01/13/25 Ultrasound #1 23w 2d Other Estimates 01/07/25 LMP (Certain) 24w 1d 01/15/25 Ultrasound #2 23w 0d Expected Delivery Route/Plan Labor Preferences- CB/BF classes: [] labor support person: [] labor intervention preferences: [] pain management options preferred: [] cut cord/dad catch: [] : [] PP control planned: [] discussed possible routes of delivery and associated risks: [] special requests: [] Specific Issue/Plans Covid status: [] Flu vaccine: [] Tdap vaccine: [] Rhogam: [] LARC form signed: [] Problem list reviewed and updated with the most current plan of care details and appropriate orders placed. Relevant counseling for the gestational age provided. Continue routine care and follow up unless otherwise noted in visit notes/problem list details Initial Weight: 167 lb Date -???-???-???-???-??? -???-???-???-???-??? -???-???- EGA Weight BP Urine Prot -???-???-???-???-??? -???-???-???-???-??? -???-???- Glucose FHR FuHt Pres Dilation -???-???-???-???-??? -???-???-???-???-??? -???-???- Effaced St Visit Note 06/05/24 -???-???-???-???-??? -???-???-???-???-??? -???-???- 8w 2d 179 lb 6 oz (+12 lb 6 oz) 133/84 -???-???-???-???-??? -???-???-???-???-??? -???-???- 165 -???-???-???-???-??? -???-???-???-???-??? -???-???- Sm- CRL cons with US based LIZ 07/03/24 -???-???-???-???-??? -???-???-???-???-??? -???-???- 12w 2d 181 lb 12.8 oz (+14 lb 12.8 oz) 135/81 Negative -???-???-???-???-??? -???-???-???-???-??? -???-???- Negative 160 -???-???-???-???-??? -???-???-???-???-??? -???-???- JV- no cramp ing or spotting. planning anatomy scan with MFM. JV- no cramping or spotting. plann ing anatomy scan w (more content not included)... Normal [facility] - Chemistry and C hemistry - challengeOrdered By: Deanna Clark on 08-24-2024 Glucose Ql (U) Negative [facility] - UrinalysisOrder ed By: Deanna Clark on 08-24-2024 Protein Ql (U) Negative [facility] Bus Driver/Monitor Office Visit Reporton 08-24-2024 Bus Driver/Monitor Office Visit Report [facility] [address], [address] [place] [address] OFFICE VISIT Date of Service: 08/24/24 MR#: [id number] Acct: [id number] Name: DAE DOAN Rep #: [id number] 0 : 1995 Provider: HAKEEM Jamison ams Age/Sex: 28/F Location: [facility] [place] Status: Signed Intake Vital Signs 06/05/24 10:31 08/01/24 09:42 08/24/24 11:49 Height 5 ft 4 in 5 ft 4 in 5 ft 4 in Weight: 184 lb 8 oz 185 lb 2 oz BMI 31.6 31.7 BP 126/78 H 115/74 Intake Visit Reasons: 19wk ob *pt on vacation from 08/26 to 09/02 Chief Complaint: 19 Week OB Inspector Sheet Metal Parts Required: No Is patient in pain?: No Allergies No Known Allergies Allergy (Verified 08/24/24 11:49) Medications ???Medication ???Instructions ???Recorded ???Confirmed ???Type vitamins-iron fumarate 65 1 tab PO DAILY 3 08/24/24 History mg iron-folic acid 1 mg tablet cholecalciferol (vitamin D3) 25 25 mcg PO QDAY 05/25/24 08/24/24 H istory mcg (1,000 unit) capsule promethazine 12.5 mg tablet 12.5 mg PO Q6H PRN nausea and 06/0708/24/24 Rx vomiting #60 tabs Last Menstrual Period: 04/02/24 Zika: Zika virus screening: Negative : No PFSH PFSH Medical History care and examination Coccyx pain Pelvic and perineal pain Cellulitis of great toe of right foot Pain of right great toe Abnormal glucose affecting Abnormal uterine bleeding (AUB) Family History Mother Afib Brother Seizures Social History adopted: No household members: spouse housing: house number of children: 0 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 status: employed 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 pets and animals: No leisure activities: other history of recent travel: Yes details: cruise [place] out of state: Yes out of country: Yes sexually active: Yes Smoking Status: Never smoker alcohol intake: former details: social substance use type: does not use well-balanced diet: daily or most days caffeine: Yes Type: tea eating out: rarely or never during the past year weight has: decreased > 10 lbs what type of physical activity do you participate in: none fabiola/advent: Sabianist seatbelt use: always do you feel safe at home: Yes additional social history: [employer]ined[employer]- college student and works at [employer] 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 Date Name GA/Weeks Outcome Route Bth Weight Infant Gen Labor Lgth Anesthesia Del Locatn Provider FOB 04/24/22 Luke 40 Vande Velde HPI 19wk ob *pt on vacation from 08/26 to 09/02 Details: DAE DOAN is a 28 year old who presents for routine OB visit. OB Visit LIZ Calculator Estimated Delivery Date Method Current WG Current Estimate 01/13/25 Ultrasound #1 19w 5d Other Estimates 01/07/25 LMP (Certain) 20w 4d 01/15/25 Ultrasound #2 19w 3d Expected Delivery Route/Plan Labor Preferences- CB/BF classes: [] labor support person: [] labor intervention preferences: [] pain management options preferred: [] cut cord/dad catch: [] : [] PP control planned: [] discussed possible routes of delivery and associated risks: [] special requests: [] Specific Issue/Plans Covid status: [] Flu vaccine: [] Tdap vaccine: [] Rhogam: [] LARC form signed: [] Problem list reviewed and updated with the most current plan of care details and appropriate orders placed. Relevant counseling for the gestational age provided. Continue routine care and follow up unless otherwise noted in visit notes/problem list details Initial Weight: 167 lb Date -???-???-???-???-??? -???-???-???-???-??? -???-???- EGA Weight BP Urine Prot -???-???-???-???-??? -???-???-???-???-??? -???-???- Glucose FHR FuHt Pres Dilation -???-???-???-???-??? -???-???-???-???-??? -???-???- Effaced St Visit Note 06/05/24 -???-???-???-???-??? -???-???-???-???-??? -???-???- 8w 2d 179 lb 6 oz (+12 lb 6 oz) 133/84 -???-???-???-???-??? -???-???-???-???-??? -???-???- 165 -???-???-???-???-??? -???-???-???-???-??? -???-???- Sm- CRL cons with US based LIZ 07/03/24 -???-???-???-???-??? -???-???-???-???-??? -???-???- 12w 2d 181 lb 12.8 oz (+14 lb 12.8 oz) 135/81 Negative -???-???-???-???-??? -???-???-???-???-??? -???-???- Negative 160 -???-???-???-???-??? -???-???-???-???-??? -???-? (more content not included)... Normal [facility] - Chemistry and C hemistry - challengeOrdered By: Jennifer Licona on 08-01-2024 Glucose Ql (U) Negative [facility] - UrinalysisOrder ed By: Jennifer Licona on 08-01-2024 Protein Ql (U) Negative [facility] Bus Driver/Monitor Office Visit Reporton 08-01-2024 Bus Driver/Monitor Office Visit Report [facility] [address] [place] [address], [address] [place] [address] OFFICE VISIT Date of Service: 08/01/24 MR#: [id number] Acct: [id number] Name: DAE DOAN Rep #: [id number] : 1995 Provider: ASHLI raymundo Age/Sex: 28/F Location: [facility] [place] Status: Signed Intake Vital Signs 06/05/24 10:31 07/03/24 10:21 08/01/24 09:42 Height 5 ft 4 in 5 ft 4 in 5 ft 4 in Weight: 184 lb 8 oz BMI 31.6 BP 126/78 H Intake Visit Reasons: 16wk ob Chief Complaint: 16 Week OB Inspector Sheet Metal Parts Required: No Is patient in pain?: No Allergies No Known Allergies Allergy (Verified 08/01/24 09:42) Medications ???Medication ???Instructions ???Recorded ???Confirmed ???Type vitamins-iron fumarate 65 1 tab PO DAILY 3 08/01/24 History mg iron-folic acid 1 mg tablet cholecalciferol (vitamin D3) 25 25 mcg PO QDAY 05/25/24 08/01/24 H istory mcg (1,000 unit) capsule promethazine 12.5 mg tablet 12.5 mg PO Q6H PRN nausea and 06/0708/01/24 Rx vomiting #60 tabs Last Menstrual Period: 04/02/24 Zika: Zika virus screening: Negative : No PFSH PFSH Medical History care and examination Coccyx pain Pelvic and perineal pain Cellulitis of great toe of right foot Pain of right great toe Abnormal glucose affecting Abnormal uterine bleeding (AUB) Family History Mother Afib Brother Seizures Social History adopted: No household members: spouse housing: house number of children: 0 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 status: employed 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 pets and animals: No leisure activities: other history of recent travel: Yes details: cruise [place] out of state: Yes out of country: Yes sexually active: Yes Smoking Status: Never smoker alcohol intake: former details: social substance use type: does not use well-balanced diet: daily or most days caffeine: Yes Type: tea eating out: rarely or never during the past year weight has: decreased > 10 lbs what type of physical activity do you participate in: none fabiola/advent: Sabianist seatbelt use: always do you feel safe at home: Yes additional social history: [employer] student and works at [employer] 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 Works at [employer] History 3 Elective abortions Hx Para 0 Spontaneous abortions 1 Hx # Term Pregnancies Ectopic pregnancies Hx # Pregnancies Multiple births # of living children 1 Past Pregnancies Del. Date Name GA/Weeks Outcome Route Bth Weight Infant Gen Labor Lgth Anesthesia Del Locatn Provider FOB 04/24/22 [place] 40 Bjorne Velde HPI 16wk ob Details: DAE DOAN is a 28 year old who presents for routine OB visit. OB Visit LIZ Calculator Estimated Delivery Date Method Current WG Current Estimate 01/13/25 Ultrasound #1 16w 3d Other Estimates 01/07/25 LMP (Certain) 17w 2d 01/15/25 Ultrasound #2 16w 1d Expected Delivery Route/Plan Labor Preferences- CB/BF classes: [] labor support person: [] labor intervention preferences: [] pain management options preferred: [] cut cord/dad catch: [] : [] PP control planned: [] discussed possible routes of delivery and associated risks: [] special requests: [] Specific Issue/Plans Covid status: [] Flu vaccine: [] Tdap vaccine: [] Rhogam: [] LARC form signed: [] Problem list reviewed and updated with the most current plan of care details and appropriate orders placed. Relevant counseling for the gestational age provided. Continue routine care and follow up unless otherwise noted in visit notes/problem list details Initial Weight: 167 lb Date -???-???-???-???-??? -???-???-???-???-??? -???-???- EGA Weight BP Urine Prot -???-???-???-???-??? -???-???-???-???-??? -???-???- Glucose FHR FuHt Pres Dilation -???-???-???-???-??? -???-???-???-???-??? -???-???- Effaced St Visit Note 06/05/24 -???-???-???-???-??? -???-???-???-???-??? -???-???- 8w 2d 179 lb 6 oz (+12 lb 6 oz) 133/84 -???-???-???-???-??? -???-???-???-???-??? -???-???- 165 -???-???-???-???-??? -???-???-???-???-??? -???-???- Sm- CRL cons with US based LIZ 07/03/24 -???-???-???-???-??? -???-???-???-???-??? -???-???- 12w 2d 181 lb 12.8 oz (+14 lb 12.8 oz) 135/81 Negative -???-???-???-???-??? -???-???-???-???-??? -???-???- Negative 160 -???-???-???-???-??? -???-???-???-???-??? -???-???- JV- no cramp ing or spotting. planning anatomy scan with MFM. JV- no cramping or spot (more content not included)... Normal [facility] - Chemistry and C hemistry - challengeOrdered By: Lauren Langston on 07-03-2024 Glucose Ql (U) Negative [facility] - UrinalysisOrder ed By: Lauren Langston on 07-03-2024 Protein Ql (U) Negative [facility] Bus Driver/Monitor Office Visit Reporton 07-03-2024 Bus Driver/Monitor Office Visit Report [facility] [address], [address] [place] [address] OFFICE VISIT Date of Service: 07/03/24 MR#: [id number] Acct: [id number] Name: DAE DOAN Rep #: [id number] : 1995 Provider: Dr. 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 Required: No Is patient in pain?: No Allergies No Known Allergies Allergy (Verified 07/03/24 10:19) Medications ???Medication ???Instructions ???Recorded ???Confirmed ???Type vitamins-iron fumarate 65 1 tab PO DAILY 3 07/03/24 History mg iron-folic acid 1 mg tablet cholecalciferol (vitamin D3) 25 25 mcg PO QDAY 05/25/24 07/03/24 H istory mcg (1,000 unit) capsule promethazine 12.5 mg tablet 12.5 mg PO Q6H PRN nausea and 06/0707/03/24 Rx vomiting #60 tabs Last Menstrual Period: 04/02/24 Zika: Zika virus screening: Negative : No PFSH PFSH Medical History care and examination Coccyx pain Pelvic and perineal pain Cellulitis of great toe of right foot Pain of right great toe Abnormal glucose affecting Abnormal uterine bleeding (AUB) Family History Mother Afib Brother Seizures Social History adopted: No household members: spouse housing: house number of children: 0 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 status: employed 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 pets and animals: No leisure activities: other history of recent travel: Yes details: cruise [place] out of state: Yes out of country: Yes sexually active: Yes Smoking Status: Never smoker alcohol intake: former details: social substance use type: does not use well-balanced diet: daily or most days caffeine: Yes Type: tea eating out: rarely or never during the past year weight has: decreased > 10 lbs what type of physical activity do you participate in: none fabiola/advent: Sabianist seatbelt use: always do you feel safe at home: Yes additional social history: [employer] student and works at [employer] 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 Date Name GA/Weeks Outcome Route Bth Weight [facility] [place] 39 Vande Velde HPI 12WK OB Details: DAE DOAN is a 28 year old who presents for routine OB visit. OB Visit LIZ Calculator Estimated Delivery Date Method Current WG Current Estimate 01/13/25 Ultrasound #1 12w 2d Other Estimates 01/07/25 LMP (Certain) 13w 1d 01/15/25 Ultrasound #2 12w 0d Expected Delivery Route/Plan Labor Preferences- CB/BF classes: [] labor support person: [] labor intervention preferences: [] pain management options preferred: [] cut cord/dad catch: [] : [] PP control planned: [] discussed possible routes of delivery and associated risks: [] special requests: [] Specific Issue/Plans Covid status: [] Flu vaccine: [] Tdap vaccine: [] Rhogam: [] LARC form signed: [] Problem list reviewed and updated with the most current plan of care details and appropriate orders placed. Relevant counseling for the gestational age provided. Continue routine care and follow up unless otherwise noted in visit notes/problem list details Initial Weight: 167 lb Date -???-???-???-???-??? -???-???-???-???-??? -???-???- EGA Weight BP Urine Prot -???-???-???-???-??? -???-???-???-???-??? -???-???- Glucose FHR FuHt Pres Dilation -???-???-???-???-??? -???-???-???-???-??? -???-???- Effaced St Visit Note 06/05/24 -???-???-???-???-??? -???-???-???-???-??? -???-???- 8w 2d 179 lb 6 oz (+12 lb 6 oz) 133/84 -???-???-???-???-??? -???-???-???-???-??? -???-???- 165 -???-???-???-???-??? -???-???-???-???-??? -???-???- Sm- CRL cons with US based LIZ 07/03/24 -???-???-???-???-??? -???-???-???-???-??? -???-???- 12w 2d 181 lb 12.8 oz (+14 lb 12.8 oz) 135/81 Negative -???-???-???-???-??? -???-???-???-???-??? -???-???- Negative 160 -???-???-???-???-??? -???-???-???-???-??? -???-???- JV- no cramp ing or spotting. planning anatomy scan with MFM. JV- no crampi (more content not included)... Normal [facility] Chlamydia/GC JAIMIE aptimaon CHLAMY,NUC ACID Negative Normal Negative [facility] Comment on above: Performed By: #### L 7000.1800, M100.2200 ####[facility] [address] [place], [address] GC BY NUC ACID Negative Normal Negative [facility] Comment on above: Result Comment: Perf ormed at: =G - [facility] [address] [place], [place] [id number] Senior It Security Analyst: Laura Fall MD, Phone: [phone] Performed By: #### L 7000.1800, M100.2200 ####[facility] [address] [place], [address] Urine Cultureon 06-07-2024 URC Below infection level. Mixed Gram Positive Organisms [place] Count 1000-10,000 MIXC Mixed contaminants. Submit a new specimen if indicated. Normal [facility] Comment on above: Performed By: #### L 7000.1800, M100.2200 ####[facility] [address] [place], [address] Absolute lymphocyte countOrd ered By: Leslie Baires on 06-05-2024 Lymphocytes Auto (Unsp spec) [#/Vol] 1.67 10*3/uL 0.83-4.51 [facility] Absolute neutrophil countOrd ered By: Leslie Baires on 06-05-2024 Neutrophils (Bld) [#/Vol] 4.9 10*3/uL 2.0-7.7 [facility] Automated lymphocyte count a s percentage of total leukocytesOrdered By: Leslie Baires on 06-05-2024 Lymphocytes/100 WBC Auto (Unsp spec) 23.3 % 19-41 [facility] Basophil percentageOrdered B y: Leslie Baires on 06-05-2024 Basophils/100 WBC (Bld) 0.4 % 0-1 [facility] C. trachomatis rRNA JAIMIE+prob e Ql (Unsp spec)Ordered By: Leslie Baires on 06-05-2024 Chlamydia DNA (JAIMIE) Negative Negative [facility] CBC W/Diff, Automatedon 05-08 Absolute Lymph 1.67 X10 3/uL Normal 0.83-4.51 [facility] Comment on above: Performed By: #### L 509.4006, L100.0100, L501.9985, L3890.6301, L3890.6006, L509.8002, L3890.6102, BTS #### [facility] [address] [place], [address] Absolute Neut 4.9 X10 3/uL Normal 2.0-7.7 [facility] Comment on above: Performed By: #### L 509.4006, L100.0100, L501.9985, L3890.6301, L3890.6006, L509.8002, L3890.6102, BTS #### [facility] [address] [place], [address] Basophils/100 WBC (Bld) 0.4 % Normal 0-1 [facility] Comment on above: Performed By: #### L 509.4006, L100.0100, L501.9985, L3890.6301, L3890.6006, L509.8002, L3890.6102, BTS #### [facility] [address] [place], [address] Eosinophils/100 WBC (Bld) 2.2 % Normal 0-5 [facility] Comment on above: Performed By: #### L 509.4006, L100.0100, L501.9985, L3890.6301, L3890.6006, L509.8002, L3890.6102, BTS #### [facility] [address] [place], [address] Erythrocyte distribution width (RBC) [Ratio] 12.8 % Normal 11.6-14.6 [facility] Comment on above: Performed By: #### L 509.4006, L100.0100, L501.9985, L3890.6301, L3890.6006, L509.8002, L3890.6102, BTS #### [facility] [address] [place], [address] Hematocrit (Bld) [Volume fraction] 38.1 % Normal 37-47 [facility] Comment on above: Performed By: #### L 509.4006, L100.0100, L501.9985, L3890.6301, L3890.6006, L509.8002, L3890.6102, BTS #### [facility] [address] [place], [address] Hemoglobin (Bld) [Mass/Vol] 13.1 g/dL Normal 12.0-15.0 [facility] Comment on above: Performed By: #### L 509.4006, L100.0100, L501.9985, L3890.6301, L3890.6006, L509.8002, L3890.6102, BTS #### [facility] [address] [place], [address] IG% 0.300 Normal 0.0-0.9 [facility] Comment on above: Result Comment: IG% - Immature Granulocytes (promyelocytes, myelocytes and metamyelocytes) > 1% indicates that a LEFT SHIFT is Present. Performed By: #### L 509.4006, L100.0100, L501.9985, L3890.6301, L3890.6006, L509.8002, L3890.6102, BTS #### [facility] [address] [place], [address] Lymphocytes/100 WBC (Bld) 23.3 % Normal 19-41 [facility] Comment on above: Performed By: #### L 509.4006, L100.0100, L501.9985, L3890.6301, L3890.6006, L509.8002, L3890.6102, BTS #### [facility] [address] [place], [address] MCH (RBC) [Entitic mass] 29.4 pg Normal 27.0-32.0 [facility] Comment on above: Performed By: #### L 509.4006, L100.0100, L501.9985, L3890.6301, L3890.6006, L509.8002, L3890.6102, BTS #### [facility] [address] [place], [address] MCHC (RBC) [Mass/Vol] 34.4 g/dL Normal 32-36 [facility] Comment on above: Performed By: #### L 509.4006, L100.0100, L501.9985, L3890.6301, L3890.6006, L509.8002, L3890.6102, BTS #### [facility] [address] [place], [address] MCV (RBC) [Entitic vol] 85.4 fL Normal 81-99 [facility] Comment on above: Performed By: #### L 509.4006, L100.0100, L501.9985, L3890.6301, L3890.6006, L509.8002, L3890.6102, BTS #### [facility] [address] [place], [address] Monocytes/100 WBC (Bld) 6.1 % Normal 0-10 [facility] Comment on above: Performed By: #### L 509.4006, L100.0100, L501.9985, L3890.6301, L3890.6006, L509.8002, L3890.6102, BTS #### [facility] [address] [place], [address] Neutrophils/100 WBC (Bld) 67.7 % Normal 47-70 [facility] Comment on above: Performed By: #### L 509.4006, L100.0100, L501.9985, L3890.6301, L3890.6006, L509.8002, L3890.6102, BTS #### [facility] [address] [place], [address] Nucleated RBC (Bld) [#/Vol] 0 10*3/uL Normal 0-5 [facility] Comment on above: Performed By: #### L 509.4006, L100.0100, L501.9985, L3890.6301, L3890.6006, L509.8002, L3890.6102, BTS #### [facility] [address] [place], [address] Platelet mean volume (Bld) [Entitic vol] 10.1 fL Normal 6.2-12.0 [facility] Comment on above: Performed By: #### L 509.4006, L100.0100, L501.9985, L3890.6301, L3890.6006, L509.8002, L3890.6102, BTS #### [facility] [address] [place], [address] Platelets (Bld) [#/Vol] 261 10*3/uL Normal 150-450 [facility] Comment on above: Performed By: #### L 509.4006, L100.0100, L501.9985, L3890.6301, L3890.6006, L509.8002, L3890.6102, BTS #### [facility] [address] [place], [address] RBC (Bld) [#/Vol] 4.46 10*6/uL Normal 4.2-5.4 [facility] Comment on above: Performed By: #### L 509.4006, L100.0100, L501.9985, L3890.6301, L3890.6006, L509.8002, L3890.6102, BTS #### [facility] [address] [place], [address] RDW SD 39.6 fl Normal 35.1-43.9 [facility] Comment on above: Performed By: #### L 509.4006, L100.0100, L501.9985, L3890.6301, L3890.6006, L509.8002, L3890.6102, BTS #### [facility] [address] [place], [address] WBC (Bld) [#/Vol] 7.2 10*3/uL Normal 4.4-11.0 [facility] Comment on above: Performed By: #### L 509.4006, L100.0100, L501.9985, L3890.6301, L3890.6006, L509.8002, L3890.6102, BTS #### [facility] [address] [place], [address] Chlamydia trachomatis rRNA d etection by probe and target amplification methodOrdered By: Leslie Baires on 06-05-2024 C. trachomatis rRNA JAIMIE+probe Ql (Unsp spec) Negative Negative [facility] Eosinophil percentageOrdered By: Leslie Baires on 06-05-2024 Eosinophils/100 WBC (Bld) 2.2 % 0-5 [facility] Erythrocyte distribution wid th (RBC) [Ratio]Ordered By: Leslie Baires on 06-05-2024 Erythrocyte distribution width (RBC) [Entitic vol] 39.6 fL 35.1-43.9 [facility] Erythrocyte distribution wid th ratioOrdered By: Leslie Baires on 06-05-2024 Erythrocyte distribution width (RBC) [Ratio] 12.8 % 11.6-14.6 [facility] Erythrocyte distribution wid th standard deviationOrdered By: Leslie Baires on 06-05-2024 Erythrocyte distribution width (RBC) [Ratio] 39.6 fl 35.1-43.9 [facility] HBV surface Ag Ql (S)Ordered By: Leslie Baires on 06-05-2024 Hepatitis B Surface Antigen Non-Reactive Nonreactive [facility] Comment on above: Reactive: Presumptiv e evidence of HBV. Repeatedly reactive samples must be confirmed using a neutralization test (ElecBib + Tucks HBsAg Confirmatory Test)Non-Reactive: HBsAg not detected; does not exclude the possibility of exposure to HBV Hematocrit Auto (Bld) [Volum e fraction]Ordered By: Leslie Baires on 06-05-2024 Hematocrit (Bld) [Volume fraction] 38.1 % 37-47 [facility] Hemoglobin A1con 06-05-2024 HbA1c (Bld) [Mass fraction] 5.2 % Low <=5.6 [facility] Comment on above: Performed By: #### L 509.4006, L100.0100, L501.9985, L3890.6301, L3890.6006, L509.8002, L3890.6102, BTS ####[facility] [address] [place], [place], [id number] Hemoglobin A1c percentageOrd ered By: Leslie Baires on 06-05-2024 HbA1c (Bld) [Mass fraction] 5.2 % Low >5.7 [facility] Hemoglobin measurementOrdere d By: Leslie Baires on 06-05-2024 Hemoglobin (Bld) [Mass/Vol] 13.1 g/dL 12.0-15.0 [facility] Hepatitis C antibodyOrdered By: Leslie Baires on 06-05-2024 Hepatitis C Antibody Non-Reactive Nonreactive [facility] Comment on above: Reactive: Presumptiv e evidence of antibodies to HCV. Follow CDC recommendations for supplemental testing.Non-Reactive: Antibodies to HCV were not detected; does not exclude the possibility of exposure to HCVReactive Results are presumptive evidence of antibodies to HCV. Follow CDC recommendations for supplemental testing.Order confirmation testing: HCV Quant by PCR testing - HCVPCR lc#[id number] Non Reactive: < 0.8 Equivocal: >/= 0.8 to < 1.0 Reactive: >/= 1.0The CDC requires that a reactive/equivocal HCV antibody result be sent out for confirmation. HCV Quant by PCR testing. Immature granulocytes/100 WB C Auto (Bld)Ordered By: Leslie Baires on 06-05-2024 Immature granulocytes/100 WBC (Bld) 0.300 % 0.0-0.9 [facility] Comment on above: IG% - Immature Granu locytes (promyelocytes, myelocytes and metamyelocytes) > 1% indicates that a LEFT SHIFT is Present. L3890.6006on 06-05-2024 HIV Non-Reactive Normal Nonreactive [facility] Comment on above: Result Comment: Non- Reactive Reactive Repeatedly reactive samples must be confirmed according to CDC recommended confirmatory algorithms. The subresults for either HIVAG or AHIV can be used as an aid in the selection of the confirmation algorithm for reactive samples. Send out specimens with Reactive results to [facility] for confirmation. Order the HIV antibody detection and differentiation: lc#[id number] Performed By: #### L 509.4006, L100.0100, L501.9985, L3890.6301, L3890.6006, L509.8002, L3890.6102, BTS #### [facility] [address] [facility] [place], [place], [id number] L3890.6102on 06-05-2024 HEP B Surf Ag Non-Reactive Normal Nonreactive [facility] Comment on above: Result Comment: Reac tive: Presumptive evidence of HBV. Repeatedly reactive samples must be confirmed using a neutralization test (Ele[employer]ys HBsAg Confirmatory Test) Non-Reactive: HBsAg not detected; does not exclude the possibility of exposure to HBV Performed By: #### L 509.4006, L100.0100, L501.9985, L3890.6301, L3890.6006, L509.8002, L3890.6102, BTS #### [facility] [address] [facility] [place], [address] L3890.6301on 06-05-2024 Hepatitis C Ab Non-Reactive Normal Nonreactive [facility] Comment on above: Result Comment: Reac tive: Presumptive evidence of antibodies to HCV. Follow CDC recommendations for supplemental testing. Non-Reactive: Antibodies to HCV were not detected; does not exclude the possibility of exposure to HCV Reactive Results are presumptive evidence of antibodies to HCV. Follow CDC recommendations for supplemental testing. Order confirmation testing: HCV Quant by PCR testing - HCVPCR lc#[id number] Non Reactive: < 0.8 Equivocal: >/= 0.8 to < 1.0 Reactive: >/= 1.0 The [facility] requires that a reactive/equivocal HCV antibody result be sent out for confirmation. HCV Quant by PCR testing. Performed By: #### L 509.4006, L100.0100, L501.9985, L3890.6301, L3890.6006, L509.8002, L3890.6102, BTS #### [facility] [address] [facility] [place], [address] L509.4006on 06-05-2024 Rubella IgG REAC Normal [facility] Comment on above: Result Comment: Anti body Result: Interpretation Non-Reactive: Non-Immune Reactive: Immune The following results were obtained with the Elecsys Rubella IgG assay. Results from assays of other manufacturers cannot be used interchangeably. Performed By: #### L 509.4006, L100.0100, L501.9985, L3890.6301, L3890.6006, L509.8002, L3890.6102, BTS #### [facility] [address] [facility] [place], [address] L509.8002on 06-05-2024 Syphilis Abs Non-Reactive Normal Nonreactive [facility] Comment on above: Performed By: #### L 509.4006, L100.0100, L501.9985, L3890.6301, L3890.6006, L509.8002, L3890.6102, BTS #### [facility] [address] [place], [address] Laboratory - Microbiology an d Antimicrobial susceptibilityOrdered By: Leslie Baires on 06-05-2024 HBV surface Ag Ql (S) Non-Reactive Nonreactive [facility] Comment on above: Reactive: Presumptiv e evidence of HBV. Repeatedly reactive samples must be confirmed using a neutralization test (ElecBib + Tucks HBsAg Confirmatory Test)Non-Reactive: HBsAg not detected; does not exclude the possibility of exposure to HBV Lymphocytes Auto (Unsp spec) [#/Vol]Ordered By: Leslie Baires on 06-05-2024 Lymphocytes (Bld) [#/Vol] 1.67 10*3/uL 0.83-4.51 [facility] Lymphocytes/100 WBC Auto (Un sp spec)Ordered By: Leslie Baires on 06-05-2024 Lymphocytes/100 WBC (Bld) 23.3 % 19-41 [facility] MCV (mean corpuscular volume ) determinationOrdered By: Leslie Baires on 06-05-2024 MCV (RBC) [Entitic vol] 85.4 fL 81-99 [facility] Mean corpuscular hemoglobin (MCH) determinationOrdered By: Leslie Baires on 06-05-2024 MCH (RBC) [Entitic mass] 29.4 pg 27.0-32.0 [facility] Mean corpuscular hemoglobin concentration (MCHC) determinationOrdered By: Leslie Baires on 06-05-2024 MCHC (RBC) [Mass/Vol] 34.4 g/dL 32-36 [facility] Mean platelet volume determi nationOrdered By: Leslie Baires on 06-05-2024 Platelet mean volume (Bld) [Entitic vol] 10.1 fL 6.2-12.0 [facility] Monocyte percentageOrdered B y: Leslie Baires on 06-05-2024 Monocytes/100 WBC (Bld) 6.1 % 0-10 [facility] Neisseria gonorrhoeae nuclei c acid detection by amplified probe techniqueOrdered By: Leslie Baires on 03-31-2025 N. gonorrhoeae DNA JAIMIE+probe Ql (Unsp spec) Negative Negative [facility] Comment on above: Performed at: =[address] [id number] Director: Laura Fall MD, Phone: [phone] Neutrophil percentageOrdered By: Leslie Baires on 06-05-2024 Neutrophils/100 WBC (Bld) 67.7 % 47-70 [facility] No Panel InformationOrdered By: Leslie Baires on 06-05-2024 HIV (1&2) Antibody Non-Reactive Nonreactive [facility] Comment on above: Non-ReactiveReactive Repeatedly reactive samples must be confirmed according to CDC recommended confirmatory algorithms. The subresults for either HIVAG or AHIV can be used as an aid in the selection of the confirmation algorithm for reactive samples.Send out specimens with Reactive results to [facility] for confirmation.Order the HIV antibody detection and differentiation: #[id number] Nucleated red blood cell per centageOrdered By: Leslie Baires on 06-05-2024 Nucleated RBC/100 WBC (Bld) [Ratio] 0 % 0-5 [facility] Bus Driver/Monitor Office Visit Reporton 06-05-2024 Bus Driver/Monitor Office Visit Report [facility] [address], [address] [place] [address] OFFICE VISIT Date of Service: 06/05/24 MR#: [id number] Acct: [id number] Name: DAE DOAN Rep #: [id number] : 1995 Provider: Dr. Leslie sanchez MD Age/Sex: 28/F Location: [facility] [place] Status: Signed Intake Vital Signs 12/07/23 12:23 05/08/24 16:13 06/05/24 10:31 Height 5 ft 4 in 5 ft 4 in 5 ft 4 in Weight: 179 lb 6 oz 179 lb 6 oz BMI 30.7 30.7 BP 133/84 H Intake Visit Reasons: 9WK NOB LMP 04/02 LIZ 01/07 Chief Complaint: NEW OB LMP 07/18/21 Inspector [employer] Parts Required: No Is patient in pain?: No Feel stressed/tense/nervo us/anxious/difficult y sleeping: not at all Allergies No Known Allergies Allergy (Verified 06/05/24 10:29) Medications ???Medication ???Instructions ???Recorded ???Confirmed ???Type vitamins-iron fumarate 65 1 tab PO DAILY 3 12/07/23 History mg iron-folic acid 1 mg tablet cholecalciferol (vitamin D3) 25 25 mcg PO QDAY 05/25/24 History mcg (1,000 unit) capsule Last Menstrual Period: 04/02/24 Zika: Zika virus screening: Negative : No PFSH PFSH Medical History (Updated 06/05/24 @ 10:[address] 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 pets and animals: No leisure activities: other history of recent travel: Yes details: cruise [place] out of state: Yes out of country: Yes sexually active: Yes Smoking Status: Never smoker alcohol intake: former details: social substance use type: does not use well-balanced diet: daily or most days caffeine: Yes Type: tea eating out: rarely or never during the past year weight has: decreased > 10 lbs what type of physical activity do you participate in: none fabiola/advent: Sabianist seatbelt use: always do you feel safe at home: Yes additional social history: [employer] student and works at [employer] 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 Date Name GA/Weeks Outcome Route Bth Weight Gen Labor Lgth Anesthesia Del Locatn Provider FOB 04/24/22 Robin 40 Bjorne Ivis HPI 9WK NOB LMP 04/02 LIZ 01/07 Details: ADE DOAN is a 28 year old who presents for New OB visit. OB Visit LIZ Calculator Estimated Delivery Date Method Current WG Current Estimate 01/13/25 Ultrasound #1 8w 2d Other Estimates 01/07/25 LMP (Certain) 9w 1d 01/15/25 Ultrasound #2 8w 0d Comments: HIV: Urine Culture: Sequential Screen: NIPT Screen: Estimated Due Date: 01/07/25 Expected Delivery Route/Plan Labor Preferences- CB/BF classes: [] labor support person: [] labor intervention preferences: [] pain management options preferred: [] cut cord/dad catch: [] : [] PP control planned: [] discussed possible routes of delivery and associated risks: [] special requests: [] Specific Issue/Plans Covid status: [] Flu vaccine: [] Tdap vaccine: [] Rhogam: [] LARC form signed: [] Problem list reviewed and updated with the most current plan of care details and appropriate orders placed. Relevant counseling for the gestational age provided. Continue routine care and follow up unless otherwise noted in visit notes/problem list details Initial Weight: Not Recorded Date -???-???-???-???-??? -???-???-???-???-??? -???-???- EGA Weight BP Urine Prot -???-???-???-???-??? -???-???-???-???-??? -???-???- Glucose FHR FuHt Pres Dilation -???-???-???-???-??? -???-???-???-???-??? -???-???- Effaced St Visit Note 06/05/24 -???-???-???-???-??? -???-???-???-???-??? -???-???- 8w 2d 179 lb 6 oz 133/84 -???-???-???-???-??? -???-???-???-???-??? -???-???- 165 -???-???-???-???-??? -???-???-???-???-??? -???-???- Sm- CRL cons with US based LIZ Menstrual History Last Menstrual Period: 04/02/24 Reported LMP: definite Normal amount/duration: No Frequency in days: 31-32 days On hormonal BC at conception: No hCG+: 05/04/24 Antepartum Record Genetic (more content not included)... Normal [facility] Platelet countOrdered By: Roel Baires on 06-05-2024 Platelets (Bld) [#/Vol] 261 10*3/uL 150-450 [facility] RBC Auto (Bld) [#/Vol]Ordere d By: Leslie Baires on 06-05-2024 RBC (Bld) [#/Vol] 4.46 10*6/uL 4.2-5.4 [facility] Rubella immune status determ ination by IgG antibody assayOrdered By: Leslie Baires on 06-05-2024 Rubella IgG Antibody REAC Nonreactive [facility] Comment on above: Antibody Result: Int erpretationNon-Reactive: Non-ImmuneReactive: ImmuneThe following results were obtained with the [employer] Rubella IgG assay. Results from assays of other manufacturers cannot be used interchangeably. T. pallidum abOrdered By: Roel Baires on 06-05-2024 Syphilis Total Antibody Non-Reactive Nonreactiv e [facility] Type AND Screenon 06-05-2024 Ab SCREEN GEL Negative Normal [facility] Comment on above: Order Comment: PN Performed By: #### L 509.4006, L100.0100, L501.9985, L3890.6301, L3890.6006, L509.8002, L3890.6102, BTS ####[facility] [address] [place], [place], [id number] Urine cultureOrdered By: Ryan Baires on 06-05-2024 Bacteria identified Cx Nom (U) Positive Abnormal [facility] White blood cell (WBC) count Ordered By: Leslie Baires on 06-05-2024 WBC (Bld) [#/Vol] 7.2 10*3/uL 4.4-11.0 [facility] Transvaginal w/Preg USon Transvaginal w/Preg US [facility] Imaging Services [address] [place] [address] Transvaginal w/Preg US MR#: [id number] Acct: [id number] Name: DAE DOAN Rep #: [id number] : 1995 F 28 From: Theodore emery MD PCP: Dr. Dominick Awad MD Status: REG CLI Study: Transvaginal w/Preg US Date of Exam: 05/25/24 Exam# [id number] Ordering Dr: Leslie Baires PROCEDURE: TRANSVAGINAL W/PREG US 05/25/2024 REASON FOR EXAM: DATING US TECHNIQUE: Transvaginal ultrasound. FINDINGS: Comments: LMP: April 02, 2024. Number of Gestational Sacs: 1 Gestational Sac Shape: Normal Number of Fetuses: 1 Heart Rate: 127 beats per minute (average) Yolk Sac: Present and unremarkable. Placenta: Presently not well-visualized Amniotic Fluid Volume: Subjectively normal for gestational age. Uterine Abnormalities: Maternal uterus is unremarkable. Ovaries / Adnexa: Small corpus luteum cysts seen in both ovaries. DIMENSIONS: Parameter Measurement / EGA [place] Rump Length: 7 mm/6 weeks 5 days Gestational Sac: 2.3 cm/7 weeks 2 days Yolk Sac: Visualized./ ESTIMATED GESTATIONAL AGE: By Ultrasound: 7 weeks and 0 days By LMP: 7 weeks and 4 days ESTIMATED DATE OF DELIVERY: By Ultrasound: January 11, 2025 By LMP: January 07, 2025. US/Transvaginal w/Preg US IMPRESSION: Single live intrauterine gestation with a mean gestational age of 7 weeks and 0 days. Corpus luteum cysts seen in both ovaries. Reading Location: [place] [address] CC: Dr. Dominick Awad MD; Dr. Leslie Baires MD Supervisor [place]: Signed Normal [facility] HCG ( test) QlOrder ed By: Deanna Clark on 05-19-2024 Human Chorionic Gonadotropin, Quant mIU/mL High <9 [facility] Comment on above: Gestational Age0.2-1 Week: 5-50 mIU/mL1-2 Weeks: 50-500 mIU/mL2-3 Weeks: 100-5000 mIU/mL3-4 Weeks: 500-10,000 mIU/mL4-5 Weeks:1000-50,000 mIU/mL5-6 Weeks: 10,000-100,000 mIU/mL6-8 Weeks: 15,000-200,000 mIU/mL2-3 Months:10,000-100,000 mIU/mL Serum human chorionic gonado tropin detection for pregnancyOrdered By: Deanna Clark on 05-19-2024 HCG ( test) Ql mIU/mL High <9 [facility] Comment on above: Gestational Age0.2-1 Week: 5-50 mIU/mL1-2 Weeks: 50-500 mIU/mL2-3 Weeks: 100-5000 mIU/mL3-4 Weeks: 500-10,000 mIU/mL4-5 Weeks:1000-50,000 mIU/mL5-6 Weeks: 10,000-100,000 mIU/mL6-8 Weeks: 15,000-200,000 mIU/mL2-3 Months:10,000-100,000 mIU/mL hCG Titer Quant., Serumon HCG QUANT. mIU/mL High <9 non-preg [facility] Comment on above: Result Comment: Gest ational Age 0.2-1 Week: 5-50 mIU/mL 1-2 Weeks: 50-500 mIU/mL 2-3 Weeks: 100-5000 mIU/mL 3-4 Weeks: 500-10,000 mIU/mL 4-5 Weeks:1000-50,000 mIU/mL 5-6 Weeks: 10,000-100,000 mIU/mL 6-8 Weeks: 15,000-200,000 mIU/mL 2-3 Months:10,000-100,000 mIU/mL Performed By: #### L 700.8000 #### [facility] [address] [place], [place], [address] HCG ( test) QlOrder ed By: Deanna Clark on 05-17-2024 Human Chorionic Gonadotropin, Quant 56204 mIU/mL High <9 [facility] Comment on above: Gestational Age0.2-1 Week: 5-50 mIU/mL1-2 Weeks: 50-500 mIU/mL2-3 Weeks: 100-5000 mIU/mL3-4 Weeks: 500-10,000 mIU/mL4-5 Weeks:1000-50,000 mIU/mL5-6 Weeks: 10,000-100,000 mIU/mL6-8 Weeks: 15,000-200,000 mIU/mL2-3 Months:10,000-100,000 mIU/mL Serum human chorionic gonado tropin detection for pregnancyOrdered By: Deanna Clark on 05-17-2024 HCG ( test) Ql [address] mIU/mL High <9 [facility] Comment on above: Gestational Age0.2-1 Week: 5-50 mIU/mL1-2 Weeks: 50-500 mIU/mL2-3 Weeks: 100-5000 mIU/mL3-4 Weeks: 500-10,000 mIU/mL4-5 Weeks:1000-50,000 mIU/mL5-6 Weeks: 10,000-100,000 mIU/mL6-8 Weeks: 15,000-200,000 mIU/mL2-3 Months:10,000-100,000 mIU/mL hCG Titer Quant., Serumon HCG QUANT. 57381 mIU/mL High <9 non-preg [facility] Comment on above: Result Comment: Gest ational Age 0.2-1 Week: 5-50 mIU/mL 1-2 Weeks: 50-500 mIU/mL 2-3 Weeks: 100-5000 mIU/mL 3-4 Weeks: 500-10,000 mIU/mL 4-5 Weeks:1000-50,000 mIU/mL 5-6 Weeks: 10,000-100,000 mIU/mL 6-8 Weeks: 15,000-200,000 mIU/mL 2-3 Months:10,000-100,000 mIU/mL Performed By: #### L 700.8000 #### [facility] [address] [place], [address] HCG ( test) QlOrder ed By: Deanna Clark on 05-15-2024 Human Chorionic Gonadotropin, Quant 6998 mIU/mL High <9 [facility] Comment on above: Gestational Age0.2-1 Week: 5-50 mIU/mL1-2 Weeks: 50-500 mIU/mL2-3 Weeks: 100-5000 mIU/mL3-4 Weeks: 500-10,000 mIU/mL4-5 Weeks:1000-50,000 mIU/mL5-6 Weeks: 10,000-100,000 mIU/mL6-8 Weeks: 15,000-200,000 mIU/mL2-3 Months:10,000-100,000 mIU/mL Serum human chorionic gonado tropin detection for pregnancyOrdered By: Deanna Clark on 05-15-2024 HCG ( test) Ql 6998 mIU/mL High <9 [facility] Comment on above: Gestational Age0.2-1 Week: 5-50 mIU/mL1-2 Weeks: 50-500 mIU/mL2-3 Weeks: 100-5000 mIU/mL3-4 Weeks: 500-10,000 mIU/mL4-5 Weeks:1000-50,000 mIU/mL5-6 Weeks: 10,000-100,000 mIU/mL6-8 Weeks: 15,000-200,000 mIU/mL2-3 Months:10,000-100,000 mIU/mL hCG Titer Quant., Serumon HCG QUANT. 6998 mIU/mL High <9 non-preg [facility] Comment on above: Result Comment: Gest ational Age 0.2-1 Week: 5-50 mIU/mL 1-2 Weeks: 50-500 mIU/mL 2-3 Weeks: 100-5000 mIU/mL 3-4 Weeks: 500-10,000 mIU/mL 4-5 Weeks:1000-50,000 mIU/mL 5-6 Weeks: 10,000-100,000 mIU/mL 6-8 Weeks: 15,000-200,000 mIU/mL 2-3 Months:10,000-100,000 mIU/mL Performed By: #### L 914.4461 ####[facility] [address] [place], [address] 68-SZ-Apykzul DOrdered By: Zain Awad on 03-03-2024 Vitamin D 25-Hydroxy 24.5 ng/mL [facility] Comment on above: Vitamin D 25(OH) Sta tus Range Deficiency <20 ng/mL (50nmol/L) Insufficiency 20 - 30 ng/mL (50 - 75 nmol/L) Sufficiency 30 - 100 ng/mL (75 - 250 nmol/L) Toxicity >100 ng/mL (>250 nmol/L) Absolute neutrophil countOrd ered By: Dominick Awad on 03-03-2024 Neutrophils (Bld) [#/Vol] 3.2 10*3/uL 2.0-7.7 [facility] Albumin to globulin ratioOrd ered By: Dominick Awad on 03-03-2024 Albumin/Globulin [Mass ratio] 1.1 {ratio} 0.9-2.4 [facility] Basophil percentageOrdered B y: Dominick Awad on 03-03-2024 Basophils/100 WBC (Bld) 0.8 % 0-1 [facility] Bilirubin, totalOrdered By: Dominick Awad on 03-03-2024 Bilirubin [Mass/Vol] 1.30 mg/dL High 0.20-1.00 [facility] Comment on above: For patients on eltr ombopag therapy, use of Dimension [place] TBIL is not recommended. Blood urea nitrogen (BUN)/cr eatinine ratioOrdered By: Dominick Awad on 03-03-2024 Urea nitrogen/Creatinine [Mass ratio] 23.6 mg/mg High 10-20 [facility] CBC W/Diff, Automatedon 02-06 Absolute Lymph 1.98 X10 3/uL Normal 0.83-4.51 [facility] Comment on above: Order Comment: Order Date: 03/03/24Order Info: 0184-1 - CBCD Performed By: #### L 500.4050, L501.9520, L506.1000, L100.0100 ####[facility] [address] [place], [address] Absolute Neut 3.2 X10 3/uL Normal 2.0-7.7 [facility] Comment on above: Order Comment: Order Date: 03/03/24Order Info: 0184-1 - CBCD Performed By: #### L 500.4050, L501.9520, L506.1000, L100.0100 ####[facility] [address] [place], [address] Basophils/100 WBC (Bld) 0.8 % Normal 0-1 [facility] Comment on above: Order Comment: Order Date: 03/03/24Order Info: 4- - CBCD Performed By: #### L 500.4050, L501.9520, L506.1000, L100.0100 ####[facility] [address] [place], [address] Eosinophils/100 WBC (Bld) 6.5 % High 0-5 [facility] Comment on above: Order Comment: Order Date: 03/03/24Order Info: 183- - CBCD Performed By: #### L 500.4050, L501.9520, L506.1000, L100.0100 ####[facility] [address] [place], [address] Erythrocyte distribution width (RBC) [Ratio] 12.4 % Normal 11.6-14.6 [facility] Comment on above: Order Comment: Order Date: 03/03/24Order Info: 0184-1 - CBCD Performed By: #### L 500.4050, L501.9520, L506.1000, L100.0100 ####[facility] [address] [place], [address] Hematocrit (Bld) [Volume fraction] 36.8 % Low 37-47 [facility] Comment on above: Order Comment: Order Date: 03/03/24Order Info: 018-1 - CBCD Performed By: #### L 500.4050, L501.9520, L506.1000, L100.0100 ####[facility] [address] [place], [address] Hemoglobin (Bld) [Mass/Vol] 12.2 g/dL Normal 12.0-15.0 [facility] Comment on above: Order Comment: Order Date: 03/03/24Order Info: 018- - CBCD Performed By: #### L 500.4050, L501.9520, L506.1000, L100.0100 ####[facility] [address] [place], [address] IG% 0.200 Normal 0.0-0.9 [facility] Comment on above: Order Comment: Order Date: 03/03/24Order Info: 018- - CBCD Result Comment: IG% - Immature Granulocytes (promyelocytes, myelocytes and metamyelocytes) > 1% indicates that a LEFT SHIFT is Present. Performed By: #### L 500.4050, L501.9520, L506.1000, L100.0100 ####[facility] [address] [place], [address] Lymphocytes/100 WBC (Bld) 32.8 % Normal 19-41 [facility] Comment on above: Order Comment: Order Date: 03/03/24Order Info: 018- - CBCD Performed By: #### L 500.4050, L501.9520, L506.1000, L100.0100 ####[facility] [address] [place], [address] MCH (RBC) [Entitic mass] 28.1 pg Normal 27.0-32.0 [facility] Comment on above: Order Comment: Order Date: 03/03/24Order Info: 018- - CBCD Performed By: #### L 500.4050, L501.9520, L506.1000, L100.0100 ####[facility] [address] [place], [address] MCHC (RBC) [Mass/Vol] 33.2 g/dL Normal 32-36 [facility] Comment on above: Order Comment: Order Date: 03/03/24Order Info: 0184-1 - CBCD Performed By: #### L 500.4050, L501.9520, L506.1000, L100.0100 ####[facility] [address] [place], [address] MCV (RBC) [Entitic vol] 84.8 fL Normal 81-99 [facility] Comment on above: Order Comment: Order Date: 03/03/24Order Info: 183- - CBCD Performed By: #### L 500.4050, L501.9520, L506.1000, L100.0100 ####[facility] [address] [place], [address] Monocytes/100 WBC (Bld) 6.3 % Normal 0-10 [facility] Comment on above: Order Comment: Order Date: 03/03/24Order Info: 183- - CBCD Performed By: #### L 500.4050, L501.9520, L506.1000, L100.0100 ####[facility] [address] [place], [address] Neutrophils/100 WBC (Bld) 53.4 % Normal 47-70 [facility] Comment on above: Order Comment: Order Date: 03/03/24Order Info: 0184-1 - CBCD Performed By: #### L 500.4050, L501.9520, L506.1000, L100.0100 ####[facility] [address] [place], [address] Nucleated RBC (Bld) [#/Vol] 0 10*3/uL Normal 0-5 [facility] Comment on above: Order Comment: Order Date: 03/03/24Order Info: 0184-1 - CBCD Performed By: #### L 500.4050, L501.9520, L506.1000, L100.0100 ####[facility] [address] [place], [address] Platelet mean volume (Bld) [Entitic vol] 9.7 fL Normal 6.2-12.0 [facility] Comment on above: Order Comment: Order Date: 03/03/24Order Info: 018- - CBCD Performed By: #### L 500.4050, L501.9520, L506.1000, L100.0100 ####[facility] [address] [place], [address] Platelets (Bld) [#/Vol] 271 10*3/uL Normal 150-450 [facility] Comment on above: Order Comment: Order Date: 03/03/24Order Info: 018- - CBCD Performed By: #### L 500.4050, L501.9520, L506.1000, L100.0100 ####[facility] [address] [place], [address] RBC (Bld) [#/Vol] 4.34 10*6/uL Normal 4.2-5.4 [facility] Comment on above: Order Comment: Order Date: 03/03/24Order Info: 018- - CBCD Performed By: #### L 500.4050, L501.9520, L506.1000, L100.0100 ####[facility] [address] [place], [address] RDW SD 38.5 fl Normal 35.1-43.9 [facility] Comment on above: Order Comment: Order Date: 03/03/24Order Info: 0184-1 - CBCD Performed By: #### L 500.4050, L501.9520, L506.1000, L100.0100 ####[facility] [address] [place], [address] WBC (Bld) [#/Vol] 6.0 10*3/uL Normal 4.4-11.0 [facility] Comment on above: Order Comment: Order Date: 03/03/24Order Info: 0184-1 - CBCD Performed By: #### L 500.4050, L501.9520, L506.1000, L100.0100 ####[facility] [address] [place], [address] Carbon dioxide measurementOr dered By: Dominick Awad on 03-03-2024 CO2 [Moles/Vol] 27.0 mmol/L 21.0-32.0 [facility] Chloride measurementOrdered By: Dominick Awad on 03-03-2024 Chloride [Moles/Vol] 110 mmol/L High 98-107 [facility] Comprehensive Metabolic Prof ilon 03-03-2024 Albumin [Mass/Vol] 3.7 g/dL Normal 3.2-5.0 [facility] Comment on above: Order Comment: Order Date: 03/03/24Order Info: 0786-1 - CMPOrder Info: 3016-3 - TSH Performed By: #### L 500.4050, L501.9520, L506.1000, L100.0100 ####[facility] [address] [place], [address] Albumin/Globulin [Mass ratio] 1.1 {ratio} Normal 0.9-2.4 [facility] Comment on above: Order Comment: Order Date: 03/03/24Order Info: 0786-1 - CMPOrder Info: 3016-3 - TSH Performed By: #### L 500.4050, L501.9520, L506.1000, L100.0100 ####[facility] [address] [place], [address] ALK P 54 U/L Normal 45-117 [facility] Comment on above: Order Comment: Order Date: 03/03/24Order Info: 0786-1 - CMPOrder Info: 3016-3 - TSH Performed By: #### L 500.4050, L501.9520, L506.1000, L100.0100 ####[facility] [address] [place], [address] ALT [Catalytic activity/Vol] 44 U/L Normal 13-56 [facility] Comment on above: Order Comment: Order Date: 03/03/24Order Info: 0786-1 - CMPOrder Info: 3016-3 - TSH Performed By: #### L 500.4050, L501.9520, L506.1000, L100.0100 ####[facility] [address] [place], [address] AST [Catalytic activity/Vol] 26 U/L Normal 15-37 [facility] Comment on above: Order Comment: Order Date: 03/03/24Order Info: 0786- - CMPOrder Info: 3015-3 - TSH Performed By: #### L 500.4050, L501.9520, L506.1000, L100.0100 ####[facility] [address] [place], [address] Bilirubin [Mass/Vol] 1.30 mg/dL High 0.20-1.00 [facility] Comment on above: Order Comment: Order Date: 03/03/24Order Info: 0786- - CMPOrder Info: 3016-3 - TSH Result Comment: For patients on eltrombopag therapy, use of Dimension [place] TBIL is not recommended. Performed By: #### L 500.4050, L501.9520, L506.1000, L100.0100 ####[facility] [address] [place], [address] BUN/CRE 23.6 RATIO High 10-20 [facility] Comment on above: Order Comment: Order Date: 03/03/24Order Info: 0786-1 - CMPOrder Info: 3016-3 - TSH Performed By: #### L 500.4050, L501.9520, L506.1000, L100.0100 ####[facility] [address] [place], [address] CA,Total 9.1 mg/dL Normal 8.5-10.1 [facility] Comment on above: Order Comment: Order Date: 03/03/24Order Info: 0786 - CMPOrder Info: 3015-05 - TSH Performed By: #### L 500.4050, L501.9520, L506.1000, L100.0100 ####[facility] [address] [place], [address] Chloride [Moles/Vol] 110 mmol/L High 98-107 [facility] Comment on above: Order Comment: Order Date: 03/03/24Order Info: 785-03 - CMPOrder Info: 3015-05 - TSH Performed By: #### L 500.4050, L501.9520, L506.1000, L100.0100 ####[facility] [address] [place], [address] CO2 [Moles/Vol] 27.0 mmol/L Normal 21.0-32.0 [facility] Comment on above: Order Comment: Order Date: 03/03/24Order Info: 0786 - CMPOrder Info: 3015-05 - TSH Performed By: #### L 500.4050, L501.9520, L506.1000, L100.0100 ####[facility] [address] [place], [address] Creatinine [Mass/Vol] 0.68 mg/dL Normal 0.55-1.02 [facility] Comment on above: Order Comment: Order Date: 03/03/24Order Info: 07 - CMPOrder Info: 3015-05 - TSH Result Comment: The validity of the calculated GFR GFRAA in patients over 70 years has not been determined. Clinical correlation is essential. Performed By: #### L 500.4050, L501.9520, L506.1000, L100.0100 ####[facility] [address] [place], [address] EST GFR - AA 132 mL/min Normal >60 [facility] Comment on above: Order Comment: Order Date: 03/03/24Order Info: 0786-1 - CMPOrder Info: 3016-3 - TSH Result Comment: Afri can Mac[place] GFR Calc Performed By: #### L 500.4050, L501.9520, L506.1000, L100.0100 ####[facility] [address] [place], [address] GAP 5 Normal 5-15 [facility] Comment on above: Order Comment: Order Date: 03/03/24Order Info: 07- - CMPOrder Info: 3015-05 - TSH Performed By: #### L 500.4050, L501.9520, L506.1000, L100.0100 ####[facility] [address] [place], [address] GFR/1.73 sq M.predicted among non-blacks MDRD (S/P/Bld) [Vol rate/Area] 109 mL/min/{1.73_m2} Normal >60 [facility] Comment on above: Order Comment: Order Date: 03/03/24Order Info: 07-1 - CMPOrder Info: 3015-3 - TSH Result Comment: Non- GFR Calc Performed By: #### L 500.4050, L501.9520, L506.1000, L100.0100 ####[facility] [address] [place], [address] Globulin (S) [Mass/Vol] 3.4 g/dL Normal 2.2-4.2 [facility] Comment on above: Order Comment: Order Date: 03/03/24Order Info: [id number] - CMPOrder Info: 3016-3 - TSH Performed By: #### L 500.4050, L501.9520, L506.1000, L100.0100 ####[facility] [address] [place], [address] Glucose [Mass/Vol] 95 mg/dL Normal 74-106 [facility] Comment on above: Order Comment: Order Date: 03/03/24Order Info: 07 - CMPOrder Info: [id number] - TSH Performed By: #### L 500.4050, L501.9520, L506.1000, L100.0100 ####[facility] [address] [place], [address] Potassium [Moles/Vol] 4.0 mmol/L Normal 3.5-5.1 [facility] Comment on above: Order Comment: Order Date: 03/03/24Order Info: [id number] - CMPOrder Info: 3015-3 - TSH Performed By: #### L 500.4050, L501.9520, L506.1000, L100.0100 ####[facility] [address] [place], [address] Sodium [Moles/Vol] 142 mmol/L Normal 136-145 [facility] Comment on above: Order Comment: Order Date: 03/03/24Order Info: [id number] - CMPOrder Info: [id number] - TSH Performed By: #### L 500.4050, L501.9520, L506.1000, L100.0100 ####[facility] [address] [place], [address] T PROT 7.1 g/dL Normal 6.4-8.2 [facility] Comment on above: Order Comment: Order Date: 03/03/24Order Info: [id number] - CMPOrder Info: 3015-3 - TSH Performed By: #### L 500.4050, L501.9520, L506.1000, L100.0100 ####[facility] [address] [place], [address] Urea nitrogen [Mass/Vol] 16 mg/dL Normal 7-18 [facility] Comment on above: Order Comment: Order Date: 03/03/24Order Info: [id number] - CMPOrder Info: [id number] - TSH Performed By: #### L 500.4050, L501.9520, L506.1000, L100.0100 ####[facility] [address] [place], [address] Eosinophil percentageOrdered By: Dominick Awad on 03-03-2024 Eosinophils/100 WBC (Bld) 6.5 % High 0-5 [facility] Erythrocyte distribution wid th ratioOrdered By: Dominick Awad on 03-03-2024 Erythrocyte distribution width (RBC) [Ratio] 12.4 % 11.6-14.6 [facility] Erythrocyte distribution wid th standard deviationOrdered By: Dominick Awad on 03-03-2024 Erythrocyte distribution width (RBC) [Entitic vol] 38.5 fL 35.1-43.9 [facility] Estimated glomerular filtrat ion rate (GFR) AmericanOrdered By: Dominick Awad on 03-03-2024 Estimated GFR (MDRD) Amer 132 mL/min >60 [facility] Comment on above: GFR Calc Glomerular filtration rate ( GFR) estimationOrdered By: Dominick Awad on 03-03-2024 Estimated GFR (MDRD) Non-Af Amer 109 mL/min >60 [facility] Comment on above: Non- GFR Calc Glucose measurementOrdered B y: Dominick Awad on 03-03-2024 Glucose [Mass/Vol] 95 mg/dL 74-106 [facility] Hematocrit Auto (Bld) [Volum e fraction]Ordered By: Dominick Awad on 03-03-2024 Hematocrit (Bld) [Volume fraction] 36.8 % Low 37-47 [facility] Hemoglobin measurementOrdere d By: Dominick Awad on 03-03-2024 Hemoglobin (Bld) [Mass/Vol] 12.2 g/dL 12.0-15.0 [facility] Immature granulocytes/100 WB C Auto (Bld)Ordered By: Dominick Awad on 03-03-2024 Immature granulocytes/100 WBC (Bld) 0.200 % 0.0-0.9 [facility] Comment on above: IG% - Immature Granu locytes (promyelocytes, myelocytes and metamyelocytes) > 1% indicates that a LEFT SHIFT is Present. Laboratory - Chemistry and C hemistry - challengeOrdered By: Dominick Awad on 03-03-2024 AST [Catalytic activity/Vol] 26 U/L 15-37 [facility] Lymphocytes Auto (Unsp spec) [#/Vol]Ordered By: Dominick Awad on 03-03-2024 Lymphocytes (Bld) [#/Vol] 1.98 10*3/uL 0.83-4.51 [facility] Lymphocytes/100 WBC Auto (Un sp spec)Ordered By: Dominick Awad on 03-03-2024 Lymphocytes/100 WBC (Bld) 32.8 % 19-41 [facility] MCV (mean corpuscular volume ) determinationOrdered By: Dominick Awad on 03-03-2024 MCV (RBC) [Entitic vol] 84.8 fL 81-99 [facility] Mean corpuscular hemoglobin (MCH) determinationOrdered By: Dominick Awad on 03-03-2024 MCH (RBC) [Entitic mass] 28.1 pg 27.0-32.0 [facility] Mean corpuscular hemoglobin concentration (MCHC) determinationOrdered By: Dominick Awad on 03-03-2024 MCHC (RBC) [Mass/Vol] 33.2 g/dL 32-36 [facility] Mean platelet volume determi nationOrdered By: Dominick Awad on 03-03-2024 Platelet mean volume (Bld) [Entitic vol] 9.7 fL 6.2-12.0 [facility] Monocyte percentageOrdered B y: Dominick Awad on 03-03-2024 Monocytes/100 WBC (Bld) 6.3 % 0-10 [facility] Neutrophil percentageOrdered By: Dominick Awad on 03-03-2024 Neutrophils/100 WBC (Bld) 53.4 % 47-70 [facility] Nucleated red blood cell per centageOrdered By: Dominick Awad on 03-03-2024 Nucleated RBC/100 WBC (Bld) [Ratio] 0 % 0-5 [facility] Platelet countOrdered By: Chris Awad on 03-03-2024 Platelets (Bld) [#/Vol] 271 10*3/uL 150-450 [facility] Potassium measurementOrdered By: Dominick Awad on 03-03-2024 Potassium [Moles/Vol] 4.0 mmol/L 3.5-5.1 [facility] RBC Auto (Bld) [#/Vol]Ordere d By: Dominick Awad on 03-03-2024 RBC (Bld) [#/Vol] 4.34 10*6/uL 4.2-5.4 [facility] Serum anion gap measurementO rdered By: Dominick Awad on 03-03-2024 Anion gap [Moles/Vol] 5 mmol/L 5-15 [facility] Serum globulin measurementOr dered By: Dominick Awad on 03-03-2024 Globulin (S) [Mass/Vol] 3.4 g/dL 2.2-4.2 [facility] Serum or plasma alanine morelos otransferase (ALT) measurementOrdered By: Dominick Awad on 03-03-2024 ALT [Catalytic activity/Vol] 44 U/L 13-56 [facility] Serum or plasma albumin keren urement (mass/volume)Ordered By: Dominick Awad on 03-03-2024 Albumin [Mass/Vol] 3.7 g/dL 3.2-5.0 [facility] Serum or plasma alkaline hanna sphatase measurementOrdered By: Dominick Awad on 03-03-2024 ALP [Catalytic activity/Vol] 54 U/L 45-117 [facility] Serum or plasma calcium keren urement (mass/volume)Ordered By: Dominick Awad on 03-03-2024 Calcium [Mass/Vol] 9.1 mg/dL 8.5-10.1 [facility] Serum or plasma creatinine m easurement (mass/volume)Ordered By: Dominick Awad on 03-03-2024 Creatinine [Mass/Vol] 0.68 mg/dL 0.55-1.02 [facility] Comment on above: The validity of the calculated GFR & GFRAA in patients over 70 years has not been determined. Clinical correlation is essential. Serum or plasma urea nitroge n measurement (mass/volume)Ordered By: Renettaalek Awad on 03-03-2024 Urea nitrogen [Mass/Vol] 16 mg/dL 7-18 [facility] Sodium levelOrdered By: Renetta Dimaske on 03-03-2024 Sodium [Moles/Vol] 142 mmol/L 136-145 [facility] TSH QnOrdered By: Dominick Walsh e on 03-03-2024 Thyroid Stimulating Hormone (TSH) 1.960 uIU/mL 0.358-3.740 [facility] Thyroid Stim Hormone (TSH)on 03-03-2024 TSH 1.960 uIU/mL Normal 0.358-3.740 [facility] Comment on above: Order Comment: Order Date: 03/03/24Order Info: [id number] - CMPOrder Info: [id number] - TSH Performed By: #### L 500.4050, L501.9520, L506.1000, L100.0100 ####[facility] [address] [place], [place], [id number] Total proteinOrdered By: Tanya arreguin Adelina on 03-03-2024 Protein [Mass/Vol] 7.1 g/dL 6.4-8.2 [facility] Vitamin D,25 Hydroxyon 03-03 Vitamin D 25-OH 24.5 ng/mL Normal [facility] Comment on above: Order Comment: Order Date: 03/03/24Order Info: [id number] - [id number] Result Comment: Lyndsey min D 25(OH) Status Range Deficiency <20 ng/mL (50nmol/L) Insufficiency 20 - 30 ng/mL (50 - 75 nmol/L) Sufficiency 30 - 100 ng/mL (75 - 250 nmol/L) Toxicity >100 ng/mL (>250 nmol/L) Performed By: #### L 500.4050, L501.9520, L506.1000, L100.0100 ####[facility] [address] [place], [place], [address] White blood cell (WBC) count Ordered By: Dominick Awad on 03-03-2024 WBC (Bld) [#/Vol] 6.0 10*3/uL 4.4-11.0 [facility] Office Visit Reporton 2023 Office Visit Report [facility] [address] OFFICE VISIT Date of Service: 12/07/23 MR#: [id number] Acct: [id number] Patient: DAE DOAN Rep #: [id number] : 1995 Provider: ASHLI rios Age/Sex: 27/F Location: [facility] Status: Signed Intake Vital Signs 06/09/23 13:54 12/07/23 12:23 Height 5 ft 4 in 5 ft 4 in Weight: 180 lb BMI 30.9 BP 134/83 H Blood Pressure Location Lt brachial Position Sitting Pulse 57 L Pulse Source Monitor Temp 98.2 F Temp Source Temporal Pulse Oximetry (%) 100 Intake Visit Reasons: R GREAT TOE/INFECTION Chief Complaint: Right great toe pain Allergies No Known Allergies Allergy (Verified 12/07/23 12:25) Medications ???Medication ???Instructions ???Recorded ???Confirmed ???Type vitamins-iron fumarate 65 1 tab PO DAILY 03/19/22 12/07/23 History mg iron-folic acid 1 mg tablet cephalexin 500 mg capsule 500 mg PO TID 5 days #15 caps 12/07/23 12/07/23 Rx doxycycline monohydrate 100 mg 100 mg PO BID 7 days #14 caps 12/07/23 12/07/23 Rx capsule PFSH Medical History Abnormal glucose affecting Abnormal uterine bleeding (AUB) Family History Mother Afib Social History adopted: No household members: spouse housing: house number of children: 0 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 status: employed 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 pets and animals: No leisure activities: other history of recent travel: Yes details: cruise [place] out of state: Yes out of country: Yes sexually active: Yes Smoking Status: Never smoker alcohol intake: former details: social substance use type: does not use well-balanced diet: daily or most days caffeine: Yes eating out: rarely or never during the past year weight has: decreased > 10 lbs what type of physical activity do you participate in: none fabiola/advent: Sabianist seatbelt use: always do you feel safe at home: Yes additional social history: [employer] student and works at [employer] 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 Works at [employer] History Menstrual Ab spontaneous: 1 HPI HPI Chief Complaint: Right great toe pain Details: DAE DOAN, is a 27 F who presents to the office today for right great toe redness, pain and drainage. She has concern she may have an ingrown toe nail. She states that the pain started last week. It got much worse over the weekend while she was at work. 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 Over the past couple days the pain has gotten worse she is having difficult time putting her foot in a shoe. She has had some redness and started to have a little bit of drainage. She has an appointment with podiatry Wednesday morning. She currently is denying fever, chills, nausea, vomiting. ROS Const Constitutional: Positive for malaise; No chills, fever(s), headache(s) or change in appetite Eyes Eyes: No blurry vision or change in vision ENT ENT: No ear or mastoid pain, headache(s), difficulty swallowing or sore throat Resp Respiratory: No cough or shortness of breath Cardio Cardiology: No chest pain at rest, chest pain with exertion or shortness of breath Gastro GI: No abdominal pain, diarrhea, difficulty swallowing or nausea/dyspepsia Musc Musculoskeletal: No joint pain, limited range of motion or muscle weakness Skin Skin: Positive for sores and skin swelling Neuro Neurology: No behavioral changes or headache(s) Psych Psychiatric: No behavioral changes, No change in appetite and No difficulty concentrating Exam Const General: cooperative, healthy appearing, well developed and well groomed [facility] Head: normocephalic and atraumatic Eyes General: appearance normal, both eyes and all related structures Neck Neck: full ROM Resp Effort Inspection: normal respiratory effort and able to speak in complete sentences Musc Other: Right great toe swelling Skin Other: Right great toe erythema, warmth and swelling on the lateral aspect of the toe nail. Extremely painful to palpation. Unable to express any drainage. Neuro General: patient alert, patient awake and patient oriented x3 Extrem General: full ROM, capillary refill normal and edema (right great toe) Other: Right pedal pulse +2 Psych Appearance: grossly normal and well kempt Mental Status: mental status grossly normal Coding Level of Care Code Off vis,est,level 3 Diagnoses Cellulitis of great toe of right foot L03.031 Pain of right great toe M79.674 Assessment and Plan Assessment and Plan (1) Cellulitis of great toe of r (more content not included)... Normal [facility] Cervical or vagninal specime n microscopic examination by cytology stain (reported asOrdered By: eF Avila on 06-09-2023 Cytology report Cyto stain Doc (Cvx/Vag) Comment . [facility] Comment on above: The Pap smear is a s creening test designed to aid in thedetection of premalignant and malignant conditions of theuterine cervix. It is not a diagnostic procedure andshould not be used as the sole means of detecting cervicalcancer. Both false-positive and false-negative reports dooccur. Laboratory - CytologyOrdered By: Fe Avila on 06-09-2023 [employer] Cyto stain Nom (Cvx/Vag) [ID] Comment . [facility] Comment on above: Mir Barriga totechnologist (ASCP) Laboratory - Miscellaneous t estsOrdered By: Fe Avila on 06-09-2023 Service comment (Unsp spec) [Interp] . . [facility] No Panel InformationOrdered By: Fe Avila on 06-09-2023 Human Papillomavirus Screen Comment . [facility] Comment on above: The HPV DNA reflex zain ivey were not met with this specimenresult therefore, no HPV testing was performed.Performed at: [facility] [address] [id number] Director: Laura Fall MD, Phone: [phone] Thin prep Papanicolaou smear with manual screeningOrdered By: Fe Avila on 06-09-2023 Thin prep Papanicolaou smear with manual screening Comment . [facility] Comment on above: NEGATIVE FOR INTRAEP ITHELIAL LESION OR MALIGNANCY. This liquid based Th inPrep(R) pap test was screened withthe use of an image guided system. Absolute lymphocyte countOrd ered By: Dr. Langston on 04-24-2022 Lymphocytes Auto (Unsp spec) [#/Vol] 1.67 10*3/uL 0.83-4.51 [facility] Basophil percentageOrdered B y: Dr. Langston on 04-24-2022 Basophils/100 WBC (Bld) 0.3 % 0-1 [facility] Eosinophils/100 WBC (Bld) 1.6 % 0-5 [facility] Neutrophils (Bld) [#/Vol] 7.4 10*3/uL 2.0-7.7 [facility] Neutrophils/100 WBC (Bld) 73.0 % 47-70 [facility] WBC (Bld) [#/Vol] 10.2 10*3/uL 4.4-11.0 [facility] Blood erythrocytes count (nu mber/volume)Ordered By: Dr. Langston on 04-24-2022 RBC (Bld) [#/Vol] 3.63 10*6/uL 4.2-5.4 [facility] Blood hemoglobin measurement (mass/volume)Ordered By: Dr. Langston on 04-24-2022 Hemoglobin (Bld) [Mass/Vol] 10.8 g/dL 12.0-15.0 [facility] Blood lymphocytes/100 leukoc ytesOrdered By: Dr. Langston on 04-24-2022 Lymphocytes/100 WBC (Bld) 16.5 % 19-41 [facility] Blood monocytes/100 leukocyt esOrdered By: Dr. Langston on 04-24-2022 Monocytes/100 WBC (Bld) 7.8 % 0-10 [facility] Blood platelet mean volumeOr dered By: Dr. Langston on 04-24-2022 Platelet mean volume (Bld) [Entitic vol] 10.9 fL 6.2-12.0 [facility] Determination of erythrocyte mean corpuscular volume (MCV)Ordered By: Dr. Langston on 04-24-2022 MCV (RBC) [Entitic vol] 85.7 fL 81-99 [facility] Hematocrit Auto (Bld) [Volum e fraction]Ordered By: Dr. Langston on 04-24-2022 Hematocrit (Bld) [Volume fraction] 31.1 % 37-47 [facility] Laboratory - Hematology and Cell countsOrdered By: Dr. Langston on 04-24-2022 Erythrocyte distribution width (RBC) [Entitic vol] 43.0 fL 35.1-43.9 [facility] Erythrocyte distribution width (RBC) [Ratio] 13.8 % 11.6-14.6 [facility] Immature granulocytes/100 WBC (Bld) 0.800 % 0.0-0.9 [facility] Comment on above: IG% - Immature Granu locytes (promyelocytes, myelocytes and metamyelocytes) > 1% indicates that a LEFT SHIFT is Present. MCH (RBC) [Entitic mass] 29.8 pg 27.0-32.0 [facility] Nucleated RBC/100 WBC (Bld) [Ratio] 0 % 0-5 [facility] MCHC Auto (RBC) [Mass/Vol]Or dered By: Dr. Langston on 04-24-2022 MCHC (RBC) [Mass/Vol] 34.7 g/dL 32-36 [facility] Platelets bldOrdered By: Dr. Langston on 04-24-2022 Platelets (Bld) [#/Vol] 215 10*3/uL 150-450 [facility] Laboratory - Chemistry and C hemistry - challengeon 04-22-2022 Glucose Ql (U) Negative [facility] Laboratory - Urinalysison Protein Ql (U) Negative [facility] Absolute lymphocyte countOrd ered By: Dr. Baires on 04-14-2022 Lymphocytes Auto (Unsp spec) [#/Vol] 1.70 10*3/uL 0.83-4.51 [facility] Basophil percentageOrdered B y: Dr. Baires on 04-14-2022 Basophils/100 WBC (Bld) 0.3 % 0-1 [facility] Eosinophils/100 WBC (Bld) 1.8 % 0-5 [facility] Neutrophils (Bld) [#/Vol] 8.5 10*3/uL 2.0-7.7 [facility] Neutrophils/100 WBC (Bld) 76.2 % 47-70 [facility] WBC (Bld) [#/Vol] 11.1 10*3/uL 4.4-11.0 [facility] Blood erythrocytes count (nu mber/volume)Ordered By: Dr. Baires on 04-14-2022 RBC (Bld) [#/Vol] 3.91 10*6/uL 4.2-5.4 [facility] Blood hemoglobin measurement (mass/volume)Ordered By: Dr. Baires on 04-14-2022 Hemoglobin (Bld) [Mass/Vol] 11.7 g/dL 12.0-15.0 [facility] Blood lymphocytes/100 leukoc ytesOrdered By: Dr. Baires on 04-14-2022 Lymphocytes/100 WBC (Bld) 15.3 % 19-41 [facility] Blood monocytes/100 leukocyt esOrdered By: Dr. Baires on 04-14-2022 Monocytes/100 WBC (Bld) 6.0 % 0-10 [facility] Blood platelet mean volumeOr dered By: Dr. Baires on 04-14-2022 Platelet mean volume (Bld) [Entitic vol] 10.2 fL 6.2-12.0 [facility] Determination of erythrocyte mean corpuscular volume (MCV)Ordered By: Dr. Baires on 04-14-2022 MCV (RBC) [Entitic vol] 86.2 fL 81-99 [facility] Hematocrit Auto (Bld) [Volum e fraction]Ordered By: Dr. Baires on 04-14-2022 Hematocrit (Bld) [Volume fraction] 33.7 % 37-47 [facility] Laboratory - Chemistry and C hemistry - challengeon 04-14-2022 Glucose Ql (U) Negative [facility] Laboratory - Hematology and Cell countsOrdered By: Dr. Baires on 04-14-2022 Erythrocyte distribution width (RBC) [Entitic vol] 42.1 fL 35.1-43.9 [facility] Erythrocyte distribution width (RBC) [Ratio] 13.6 % 11.6-14.6 [facility] Immature granulocytes/100 WBC (Bld) 0.400 % 0.0-0.9 [facility] Comment on above: IG% - Immature Granu locytes (promyelocytes, myelocytes and metamyelocytes) > 1% indicates that a LEFT SHIFT is Present. MCH (RBC) [Entitic mass] 29.9 pg 27.0-32.0 [facility] Nucleated RBC/100 WBC (Bld) [Ratio] 0 % 0-5 [facility] Laboratory - Urinalysison Protein Ql (U) Negative [facility] MCHC Auto (RBC) [Mass/Vol]Or dered By: Dr. Baires on 04-14-2022 MCHC (RBC) [Mass/Vol] 34.7 g/dL 32-36 [facility] No Panel InformationOrdered By: Dr. Baires on 04-14-2022 Fibrinogen 431 mg/dl 203-444 [facility] Platelets bldOrdered By: Dr. Baires on 04-14-2022 Platelets (Bld) [#/Vol] 219 10*3/uL 150-450 [facility] Laboratory - Chemistry and C hemistry - challengeon 04-08-2022 Glucose Ql (U) Negative [facility] Laboratory - Urinalysison Protein Ql (U) Negative [facility] No Panel InformationOrdered By: Fe Avila on 03-30-2022 Group B Streptococcus Culture Group B Beta Streptococcus is not isolated. [facility] Laboratory - Chemistry and C hemistry - challengeon 03-27-2022 Glucose Ql (U) Negative [facility] Laboratory - Urinalysison Protein Ql (U) Negative [facility] Thin prep Papanicolaou smear with manual screeningOrdered By: Dr. Langston on 03-22-2022 Thin prep Papanicolaou smear with manual screening Neisseria or beta-hemolytic Streptococcus isolated. [facility] Gram stain for investigation of transfusion reactionOrdered By: Dr. Langston on 03-20-2022 Microscopic observation Gram stain Nom (Unsp spec) [facility] Basophil percentageOrdered B y: Dr. Langston on 03-19-2022 Basophil percentage 0-5 SEEN /hpf 0-5 [facility] Bilirubin Test strip Ql (U)O rdered By: Dr. Langston on 03-19-2022 Bilirubin Ql (U) Negative Negative [facility] Ketones Test strip Ql (U)Ord ered By: Dr. Langston on 03-19-2022 Ketones Ql (U) Negative Negative [facility] Laboratory - Chemistry and C hemistry - challengeon 03-19-2022 Glucose Ql (U) Negative [facility] Laboratory - Urinalysison Protein Ql (U) Negative [facility] Mucus LM Ql (Urine sed)Order ed By: Dr. Langston on 03-19-2022 Mucus Ql (Urine sed) 4+ /hpf [facility] Nitrite Test strip Ql (U)Ord ered By: Dr. Langston on 03-19-2022 Nitrite Ql (U) Negative Negative [facility] Protein Test strip Ql (U)Ord ered By: Dr. Langston on 03-19-2022 Protein Ql (U) 30 mg/dl Negative [facility] Squamous epithelial cells de tection in urine sediment by light microscopyOrdered By: Dr. Langston on 03-19-2022 Epithelial cells.squamous LM Ql (Urine sed) 0-5 SEEN /hpf 5-10 [facility] Urine blood detectionOrdered By: Dr. Langston on 03-19-2022 RBC Ql (U) 25 /ul Negative [facility] RBC Ql (U) 0 SEEN /hpf 0-5 [facility] Urine clarityOrdered By: Dr. Langston on 03-19-2022 Clarity (U) Clear Clear [facility] Urine color determinationOrd ered By: Dr. Langston on 03-19-2022 Color (U) Yellow Yellow [facility] Urine glucose detectionOrder ed By: Dr. Langston on 03-19-2022 Glucose Ql (U) Normal mg/dl Normal [facility] Urine leukocyte esterase det ection by dipstickOrdered By: Dr. Langston on 03-19-2022 Leukocyte esterase Test strip Ql (U) 25 /ul Negative [facility] Urine pHOrdered By: Dr. Uri godwin on 03-19-2022 pH (U) 6.0 [pH] 5.0 - 8.0 [facility] Urine sediment bacteria coun t by microscopy (number/high power field)Ordered By: Dr. Langston on 03-19-2022 Bacteria LM.HPF (Urine sed) [#/Area] 2 /[HPF] None Seen [facility] Urine specific gravity measu rementOrdered By: Dr. Langston on 03-19-2022 Specific gravity (U) [Rel density] 1.020 1.002-1.030 [facility] Urobilinogen Auto test strip Ql (U)Ordered By: Dr. Langston on 03-19-2022 Urobilinogen Ql (U) 1 mg/dl Normal [facility] Laboratory - Chemistry and C hemistry - challengeon 03-04-2022 Glucose Ql (U) Negative [facility] Laboratory - Urinalysison Protein Ql (U) Negative [facility] Laboratory - Chemistry and C hemistry - challengeon 02-17-2022 Glucose Ql (U) Negative [facility] Laboratory - Urinalysison Protein Ql (U) Negative [facility] Quantitative serum or plasma 3 hour gestational glucose tolerance panelOrdered By: Jennifer Licona on 02-10-2022 Glucose tolerance 3 hours gestational panel See comment [facility] Comment on above: FASTING 99 Col: 08/27 0656GLUCOSE TOLERANCE TEST FOR Reference Interval GESTATIONAL DIABETES Fasting <105 mg/dL 1 hour <190 mg/dl 2 hour <165 mg/dl 3 hour <145 mg/dl 1 HR GLU 191 H Col: 02/10/22 0802 2 HR GLU 136 Col: 02/10/22 0902 3 HR GLU 114 Col: 02/10/22 1002 Absolute lymphocyte countOrd ered By: Jennifer Licona on 02-03-2022 Lymphocytes Auto (Unsp spec) [#/Vol] 1.61 10*3/uL 0.83-4.51 [facility] Basophil percentageOrdered B y: Jennifer Licona on 02-03-2022 Basophils/100 WBC (Bld) 0.2 % 0-1 [facility] Eosinophils/100 WBC (Bld) 2.4 % 0-5 [facility] Neutrophils (Bld) [#/Vol] 6.6 10*3/uL 2.0-7.7 [facility] Neutrophils/100 WBC (Bld) 73.5 % 47-70 [facility] WBC (Bld) [#/Vol] 9.0 10*3/uL 4.4-11.0 [facility] Blood erythrocytes count (nu mber/volume)Ordered By: Jennifer Licona on 02-03-2022 RBC (Bld) [#/Vol] 3.65 10*6/uL 4.2-5.4 [facility] Blood hemoglobin measurement (mass/volume)Ordered By: Jennifer Licona on 02-03-2022 Hemoglobin (Bld) [Mass/Vol] 10.9 g/dL 12.0-15.0 [facility] Blood lymphocytes/100 leukoc ytesOrdered By: Jennifer Licona on 02-03-2022 Lymphocytes/100 WBC (Bld) 17.8 % 19-41 [facility] Blood monocytes/100 leukocyt esOrdered By: Jennifer Licona on 02-03-2022 Monocytes/100 WBC (Bld) 5.1 % 0-10 [facility] Blood platelet mean volumeOr dered By: Jennifer Licona on 02-03-2022 Platelet mean volume (Bld) [Entitic vol] 10.3 fL 6.2-12.0 [facility] Determination of erythrocyte mean corpuscular volume (MCV)Ordered By: Jennifer Licona on 02-03-2022 MCV (RBC) [Entitic vol] 89.6 fL 81-99 [facility] Gestational diabetes screen 1-hour screen with 50g oral glucose loadOrdered By: Jennifer Licona on 02-03-2022 Glucose 1 Hr post 50 g glucose PO [Mass/Vol] 149 mg/dL 70-140 [facility] Hematocrit Auto (Bld) [Volum e fraction]Ordered By: Jennifer Licona on 02-03-2022 Hematocrit (Bld) [Volume fraction] 32.7 % 37-47 [facility] Laboratory - Chemistry and C hemistry - challengeon 02-03-2022 Glucose Ql (U) Negative [facility] Laboratory - Hematology and Cell countsOrdered By: Jennifer Licona on 02-03-2022 Erythrocyte distribution width (RBC) [Entitic vol] 40.3 fL 35.1-43.9 [facility] Erythrocyte distribution width (RBC) [Ratio] 12.4 % 11.6-14.6 [facility] Immature granulocytes/100 WBC (Bld) 1.000 % 0.0-0.9 [facility] Comment on above: IG% - Immature Granu locytes (promyelocytes, myelocytes and metamyelocytes) > 1% indicates that a LEFT SHIFT is Present. MCH (RBC) [Entitic mass] 29.9 pg 27.0-32.0 [facility] Nucleated RBC/100 WBC (Bld) [Ratio] 0 % 0-5 [facility] Laboratory - Urinalysison Protein Ql (U) Negative [facility] MCHC Auto (RBC) [Mass/Vol]Or dered By: Jennifer Licona on 02-03-2022 MCHC (RBC) [Mass/Vol] 33.3 g/dL 32-36 [facility] Platelets bldOrdered By: Rachele villa Livan on 02-03-2022 Platelets (Bld) [#/Vol] 225 10*3/uL 150-450 [facility] Absolute lymphocyte countOrd ered By: Jennifer Licona on 01-21-2022 Lymphocytes Auto (Unsp spec) [#/Vol] 1.72 10*3/uL 0.83-4.51 [facility] Basophil percentageOrdered B y: Jennifer Licona on 01-21-2022 Basophils/100 WBC (Bld) 0.3 % 0-1 [facility] Bilirubin [Mass/Vol] 0.80 mg/dL 0.20-1.00 [facility] Comment on above: For patients on eltr ombopag therapy, use of Dimension [place] TBIL is not recommended. Chloride [Moles/Vol] 107 mmol/L 98-107 [facility] Eosinophils/100 WBC (Bld) 2.6 % 0-5 [facility] Glucose [Mass/Vol] 102 mg/dL 74-106 [facility] Comment on above: Fasting Glucose resu lt from 100 to 125 mg/dL suggests IMPAIRED HOMEOSTASIS per A.D.A. criteria. Neutrophils (Bld) [#/Vol] 7.2 10*3/uL 2.0-7.7 [facility] Neutrophils/100 WBC (Bld) 72.9 % 47-70 [facility] Potassium [Moles/Vol] 3.9 mmol/L 3.5-5.1 [facility] Protein [Mass/Vol] 7.0 g/dL 6.4-8.2 [facility] Sodium [Moles/Vol] 139 mmol/L 136-145 [facility] WBC (Bld) [#/Vol] 9.9 10*3/uL 4.4-11.0 [facility] Blood erythrocytes count (nu mber/volume)Ordered By: Jennifer Licona on 01-21-2022 RBC (Bld) [#/Vol] 3.77 10*6/uL 4.2-5.4 [facility] Blood hemoglobin measurement (mass/volume)Ordered By: Jennifer Licona on 01-21-2022 Hemoglobin (Bld) [Mass/Vol] 11.5 g/dL 12.0-15.0 [facility] Blood lymphocytes/100 leukoc ytesOrdered By: Jennifer Licona on 01-21-2022 Lymphocytes/100 WBC (Bld) 17.4 % 19-41 [facility] Blood monocytes/100 leukocyt esOrdered By: Jennifer Licona on 01-21-2022 Monocytes/100 WBC (Bld) 5.9 % 0-10 [facility] Blood platelet mean volumeOr dered By: Jennifer Licona on 01-21-2022 Platelet mean volume (Bld) [Entitic vol] 10.0 fL 6.2-12.0 [facility] Determination of erythrocyte mean corpuscular volume (MCV)Ordered By: Jennifer Licona on 01-21-2022 MCV (RBC) [Entitic vol] 89.1 fL 81-99 [facility] Hematocrit Auto (Bld) [Volum e fraction]Ordered By: Jennifer Licona on 01-21-2022 Hematocrit (Bld) [Volume fraction] 33.6 % 37-47 [facility] Laboratory - Chemistry and C hemistry - challengeOrdered By: Jennifer Licona on 01-21-2022 ALP [Catalytic activity/Vol] 68 U/L 45-117 [facility] ALT [Catalytic activity/Vol] 35 U/L 13-56 [facility] CO2 [Moles/Vol] 22.0 mmol/L 21.0-32.0 [facility] Globulin (S) [Mass/Vol] 4.0 g/dL 2.2-4.2 [facility] Urea nitrogen/Creatinine [Mass ratio] 22.2 mg/mg 10-20 [facility] Laboratory - Chemistry and C hemistry - challengeon 01-21-2022 Glucose Ql (U) Negative [facility] Laboratory - Hematology and Cell countsOrdered By: Jennifer Licona on 01-21-2022 Erythrocyte distribution width (RBC) [Entitic vol] 40.6 fL 35.1-43.9 [facility] Erythrocyte distribution width (RBC) [Ratio] 12.6 % 11.6-14.6 [facility] Immature granulocytes/100 WBC (Bld) 0.900 % 0.0-0.9 [facility] Comment on above: IG% - Immature Granu locytes (promyelocytes, myelocytes and metamyelocytes) > 1% indicates that a LEFT SHIFT is Present. MCH (RBC) [Entitic mass] 30.5 pg 27.0-32.0 [facility] Nucleated RBC/100 WBC (Bld) [Ratio] 0 % 0-5 [facility] Laboratory - Urinalysison Protein Ql (U) Negative [facility] MCHC Auto (RBC) [Mass/Vol]Or dered By: Jennifer Licona on 01-21-2022 MCHC (RBC) [Mass/Vol] 34.2 g/dL 32-36 [facility] No Panel InformationOrdered By: Jennifer Licona on 01-21-2022 Estimated GFR (MDRD) Amer 174 mL/min >60 [facility] Comment on above: GFR Calc Estimated GFR (MDRD) Non-Af Amer 144 mL/min >60 [facility] Comment on above: Non- GFR Calc Miscellaneous Test See comment [facility] Comment on above: TEST RESULT LIMITSBi le Acids, Fractionated LCMS Ursodeoxycholic Acids <0.10 umol/L Reference Range: All Ages: <1.9 Cholic Acids 1.2 umol/L Reference Range: All Ages: <2.2 Chenodeoxycholic Acids 0.40 umol/L Reference Range: All Ages: <5.8 Deoxycholic Acids 0.80 umol/L Reference Range: All Ages: <3.3 Total Bile Acids 2.4 umol/L This test was developed and its performance characteristics determined by [facility]. It has not been cleared or approved by the Food and Drug Administration. Reference Range: All Ages: <9.2 TESTING PERFORMED AT [facility]. ORIGINAL REPORT ON FILE IN LAB CONTAINS ADDITIONAL TEST SITE INFORMATION. Platelets bldOrdered By: Rachele Licona on 01-21-2022 Platelets (Bld) [#/Vol] 232 10*3/uL 150-450 [facility] Serum or plasma albumin keren urement (mass/volume)Ordered By: Jennifer Licona on 01-21-2022 Albumin [Mass/Vol] 3.0 g/dL 3.2-5.0 [facility] Serum or plasma albumin/glob ulin mass ratioOrdered By: Jennifer Licona on 01-21-2022 Albumin/Globulin [Mass ratio] 0.8 {ratio} 0.9-2.4 [facility] Serum or plasma calcium keren urement (mass/volume)Ordered By: Jennifer Licona on 01-21-2022 Calcium [Mass/Vol] 9.2 mg/dL 8.5-10.1 [facility] Serum or plasma creatinine m easurement (mass/volume)Ordered By: Jennifer Licona on 01-21-2022 Creatinine [Mass/Vol] 0.54 mg/dL 0.55-1.02 [facility] Comment on above: The validity of the calculated GFR & GFRAA in patients over 70 years has not been determined. Clinical correlation is essential. Serum or plasma urea nitroge n measurement (mass/volume)Ordered By: Jennifer Licona on 01-21-2022 Urea nitrogen [Mass/Vol] 12 mg/dL 7-18 [facility] Thin prep Papanicolaou smear with manual screeningOrdered By: Jennifer Licona on 01-21-2022 Thin prep Papanicolaou smear with manual screening 19 U/L 15-37 [facility] Thin prep Papanicolaou smear with manual screening 10 5-15 [facility] Laboratory - Chemistry and C hemistry - challengeon 12-15-2021 Glucose Ql (U) Negative [facility] Work Phone: Laboratory - Urinalysison Protein Ql (U) Negative [facility] Work Phone: Laboratory - Chemistry and C hemistry - challengeon 10-23-2021 Glucose Ql (U) Negative [facility] Work Phone: Laboratory - Urinalysison Protein Ql (U) Negative [facility] Work Phone: Absolute lymphocyte counton 09-18-2021 Lymphocytes Auto (Unsp spec) [#/Vol] 2.36 10*3/uL 0.83-4.51 [facility] Work Phone: Basophil percentageon 2021 Basophils/100 WBC (Bld) 0.4 % 0-1 [facility] Work Phone: Eosinophils/100 WBC (Bld) 3.3 % 0-5 [facility] Work Phone: Neutrophils (Bld) [#/Vol] 6.5 10*3/uL 2.0-7.7 [facility] Work Phone: Neutrophils/100 WBC (Bld) 65.4 % 47-70 [facility] Work Phone: WBC (Bld) [#/Vol] 10.0 10*3/uL 4.4-11.0 [facility] Work Phone: Blood erythrocytes count (nu mber/volume)on 09-18-2021 RBC (Bld) [#/Vol] 4.07 10*6/uL 4.2-5.4 [facility] Work Phone: [phone] Blood hemoglobin measurement (mass/volume)on 09-18-2021 Hemoglobin (Bld) [Mass/Vol] 12.0 g/dL 12.0-15.0 [facility] Work Phone: [phone] Blood lymphocytes/100 leukoc yteson 09-18-2021 Lymphocytes/100 WBC (Bld) 23.7 % 19-41 [facility] Work Phone: [phone] Blood monocytes/100 leukocyt eson 09-18-2021 Monocytes/100 WBC (Bld) 6.9 % 0-10 [facility] Work Phone: [phone] Blood platelet mean volumeon 09-18-2021 Platelet mean volume (Bld) [Entitic vol] 9.3 fL 6.2-12.0 [facility] Work Phone: [phone] Determination of erythrocyte mean corpuscular volume (MCV)on 09-18-2021 MCV (RBC) [Entitic vol] 85.0 fL 81-99 [facility] Work Phone: [phone] HIV 1 and HIV-2 antibody ass ay with HIV-1 p24 antigen detectionon 09-18-2021 HIV 1+2 Ab+HIV1 p24 Ag IA Ql Non-Reactive Nonreactive [facility] Work Phone: [phone] Hematocrit Auto (Bld) [Volum e fraction]on 09-18-2021 Hematocrit (Bld) [Volume fraction] 34.6 % 37-47 [facility] Work Phone: [phone] Laboratory - Hematology and Cell countson 09-18-2021 Erythrocyte distribution width (RBC) [Entitic vol] 37.2 fL 35.1-43.9 [facility] Work Phone: [phone] Erythrocyte distribution width (RBC) [Ratio] 12.1 % 11.6-14.6 [facility] Work Phone: [phone] Immature granulocytes/100 WBC (Bld) 0.300 % 0.0-0.9 [facility] Work Phone: [phone] Comment on above: IG% - Immature Granu locytes (promyelocytes, myelocytes and metamyelocytes) > 1% indicates that a LEFT SHIFT is Present. MCH (RBC) [Entitic mass] 29.5 pg 27.0-32.0 [facility] Work Phone: [phone] Nucleated RBC/100 WBC (Bld) [Ratio] 0 % 0-5 [facility] Work Phone: [phone] MCHC Auto (RBC) [Mass/Vol]on 09-18-2021 MCHC (RBC) [Mass/Vol] 34.7 g/dL 32-36 [facility] Work Phone: No Panel Informationon 09-18 Hepatitis B Surface Antigen Non-Reactive Nonreactive [facility] Work Phone: [phone] Hepatitis C Antibody Non-Reactive Nonreactive [facility] Work Phone: [phone] Comment on above: Non Reactive: < 0.8 Equivocal: >/= 0.8 to < 1.0 Reactive: >/= 1.0The CDC recommends that a reactive/equivocal HCV antibody result be followed up by the HCV Nucleic Acid Amplificationtest (786240) Rubella IgG Antibody Reactive Nonreactive [facility] Work Phone: Comment on above: Antibody Results Int erpretation of Immune Status Non Reactive Presumed Non-Immune Equivocal Equivocal Reactive Presumed Immune Platelets bldon 09-18-2021 Platelets (Bld) [#/Vol] 263 10*3/uL 150-450 [facility] Work Phone: [phone] Serum Treponema species anti body detectionon 09-18-2021 Treponema sp Ab Ql (S) Non-Reactive [facility] Work Phone: [phone] Serum or plasma choriogonado tropin detectionon 09-11-2021 HCG ( test) Ql 933192 mIU/mL <4 [facility] Work Phone: [phone] Comment on above: hCG levels with Gest ational AgeGestational Age hCG mIU/mL (IU/L)0.2 - 1 week 5 - 501-2 weeks 50 - 5002-3 weeks 100 - 40646-7 weeks 500 - 608891-7 weeks 1000 - 796848-1 weeks 22263 - 100,0006-8 weeks 86708 - 200,0002-3 months 30093 - 100,000 Serum or plasma choriogonado tropin detectionon 08-20-2021 HCG ( test) Ql 851 mIU/mL <4 [facility] Work Phone: Comment on above: hCG levels with Gest ational AgeGestational Age hCG mIU/mL (IU/L)0.2 - 1 week 5 - 501-2 weeks 50 - 5002-3 weeks 100 - 37772-2 weeks 500 - 835920-2 weeks 1000 - 350673-9 weeks 32568 - 100,0006-8 weeks 49131 - 200,0002-3 months 86837 - 100,000 Serum or plasma choriogonado tropin detectionon 08-18-2021 HCG ( test) Ql 268 mIU/mL <4 [facility] Work Phone: Comment on above: hCG levels with Gest ational AgeGestational Age hCG mIU/mL (IU/L)0.2 - 1 week 5 - 501-2 weeks 50 - 5002-3 weeks 100 - 54930-9 weeks 500 - 626888-6 weeks 1000 - 772221-3 weeks 12439 - 100,0006-8 weeks 59460 - 200,0002-3 months 92499 - 100,000 CNOVon 06-12-2021 CNOV Office Visit (UCWSTR) DAE MIDDLETON ([id number]) 1995 F Date Time Provider Department 06/12/21 7:45 PM ROMANA ROCHA [facility] During your visit today, we recorded the following information about you: Temperature Pulse Respiration Blood pressure 98.2 degrees 71/minute 18/minute 122/80 Weight 75.8 kg Romana Rocha APRN.CNP 06/12/2021 7:47 PM Signed CC: Patient presents with: Cough: cough, St, MINA and bilateral ear pain x 1 week HPI: Dae Middleton is a 25 year old female who presents to the office with complaint of respiratory symptoms, cough, nonproductive, sore throat and ear symptoms for a week. Symptoms are worsening Associated symptoms includes ear pain and ear pressure . Denies fever, nausea, vomiting and diarrhea. Treatments tried include nothing so far. with no relief of symptoms. Sick contacts: unknown. History of asthma, frequent episodes of bronchitis, chronic bronchitis, bronchiectasis or COPD: No Smoker: No Seasonal/environment al allergies: No The ROS is otherwise negative. The patient's pmh, medications, allergies, and past visits are reviewed. PHYSICAL EXAM: BP 122/80 Pulse 71 Temp 36.8 ?C (98.2 ?F) (Tympanic) Resp 18 Wt 75.8 kg (167 lb 3.2 oz) LMP 12/16/2013 SpO2 98% General appearance: alert, cooperative, pleasant, in no acute distress Head: Normocephalic Eyes: EOM's intact, conjunctiva pink and moist, no icterus, sclera white, non-injected Ears: Right ear: External ear/canal- Normal, TM - clear with good landmarks. Left ear: External ear/canal- Normal, TM - clear with good landmarks Oropharynx:moist without lesions, No erythema, exudates or tonsillar hypertrophy. Heart: Negative. RRR without obvious murmur, gallop, or rubs. No ectopy. Lungs: clear to auscultation, without rales or wheeze, good air exchange PAST MEDICAL HISTORY Diagnosis Date - Cardiac dysrhythmia, unspecified - PMH - PAST MEDICAL HISTORY OF Color Vision - Normal PAST SURGICAL HISTORY Procedure Laterality Date - NONE ALLERGIES Patient has no known allergies. MEDICATIONS amoxicillin (POLYMOX, AMOXIL) 500 mg capsule Take 1 capsule by mouth twice daily for 7 days. FAMILY HISTORY Problem Relation Age of Onset - None Mother - None Father - Heart Sister sister had heart murmur as Social History Tobacco Use - Smoking status: Never Smoker - Smokeless tobacco: Never Used Substance Use Topics - Alcohol use: No - Drug use: No ASSESSMENT/PLAN: 1. Cough - ICD9: 786.2, ICD10: R05.9 Prescription instructions reviewed with patient as applicable. Amoxicillin bid for 7 days. Potential red flag symptoms discussed with the patient. Reviewed appropriate action plan to take if red flag symptoms occur. Patient agreeable to treatment plan. Romana Rocha APRN.ART HISTORY PROFESSOR Referring Provider: GINA UNGER [[id number]] Allergies As of Date: 06/12/2021 (No Known Allergies) Date Reviewed: 06/12/2021 Reviewed by: Rosa Smith LPN - Fully Assessed Reason for Visit: Cough [28] Cmt: cough, St, MINA and bilateral ear pain x 1 week Primary Visit Diagnosis:Cough [R05.9] Order(s):amoxicillin (POLYMOX, AMOXIL) 500 mg capsuleTake 1 capsule by mouth twice daily for 7 days.Disp: 14 capsuleRfl: 0 Prescriptions as of 06/12/2021 - amoxicillin (POLYMOX, AMOXIL) 500 mg capsule Take 1 capsule by mouth twice daily for 7 days. Problem List As Of Date 06/12/2021 Noted Resolved CARDIAC DYSRHYTHMIAS NEC [I49.8] 06/17/2007 Acne Vulgaris: Grade III to IV Inflammatory [L7*11/26/2011 Irritant dermatitis: potential [L24.9] 11/26/2011 Postinflammatory skin changes [R23.8] 02/29/2012 Prescriptions ordered this encounter Disp Refills Start End AMOXICILLIN 500 MG CAPSULE 14 c* 0 06/12/2021 06/19/2021 Route: ORAL Sig: Take 1 capsule by mouth twice daily for 7 days. Encounter Status:Closed by ROMANA ROCHA on 06/12/21 Normal [facility] CBC + DIFFon 08-17-2019 Basophils (Bld) [#/Vol] 0.00 x10EE3/UL Normal 0.00 - 0 .10 [facility] Comment on above: Performed By: #### 2 [id number] #### [address] [address] Basophils/100 WBC (Bld) 0.9 % Normal 0.0 - 2.0 [facility] Comment on above: Performed By: #### 2 14408 #### [address] [address] CBC + DIFF Normal [facility] Comment on above: Result Comment: CBC- COMPLETE BLOOD COUNT Performed By: #### 2 00502 #### [place] [address],[place] [address] Eosinophils (Bld) [#/Vol] 0.60 x10EE3/UL High 0.00 - 0.50 [facility] Comment on above: Performed By: #### 2 55521 #### [facility],[address] [place], [place] [id number] Eosinophils/100 WBC (Bld) 12.6 % High 0.0 - 7.0 [facility] Comment on above: Performed By: #### 2 96972 #### [facility],[address] [place] [address] Erythrocyte distribution width (RBC) [Ratio] 13.7 % Normal 12.0 - 15.6 [facility] Comment on above: Performed By: #### 2 04836 #### [place] [address] Hematocrit (Bld) [Volume fraction] 39.0 % Normal 34.0 - 46.0 [facility] Comment on above: Performed By: #### 2 80611 #### [place] [id number] Hemoglobin (Bld) [Mass/Vol] 13.3 g/dL Normal 12.0 - 16.0 [facility] Comment on above: Performed By: #### 2 83332 #### [facility],[address] [place] [address] Lymphocytes (Bld) [#/Vol] 1.80 x10EE3/UL Normal 0.80 - 2.80 [facility] Comment on above: Performed By: #### 2 04674 #### [address] [address] Lymphocytes/100 WBC (Bld) 37.8 % Normal 20.0 - 45.0 [facility] Comment on above: Performed By: #### 2 09356 #### [place] [id number] MANUAL DIFF N/A Normal [facility] Comment on above: Performed By: #### 2 52481 #### [facility],[address] [place] [address] MCH (RBC) [Entitic mass] 29 pg Normal 27 - 33 [facility] Comment on above: Performed By: #### 2 48244 #### [facility],[address] [place] [address] MCHC (RBC) [Mass/Vol] 34 X10 3 Normal 32 - 36 [facility] Comment on above: Performed By: #### 2 69547 #### [facility],[address] [place], [place] [id number] MCV (RBC) [Entitic vol] 84 fL Normal 80 - 99 [facility] Comment on above: Performed By: #### 2 31734 #### [facility],[address] [place], [place] [phone] Monocytes (Bld) [#/Vol] 0.30 x10EE3/UL Normal 0.20 - 1 .00 [facility] Comment on above: Performed By: #### 2 22289 #### [facility],[address] [place] [address] MONOS % 7.0 % Normal 0.0 - 10.0 [facility] Comment on above: Performed By: #### 2 23141 #### [facility],[address] [place], [place] [phone] Morphology Keshawn (Bld) [Interp] N/A Normal [facility] Comment on above: Performed By: #### 2 90604 #### [facility],[address] [place], [place] [phone] Neutrophils (Bld) [#/Vol] 2.00 x10EE3/UL Normal 1.50 - 7.10 [facility] Comment on above: Performed By: #### 2 14599 #### [facility],[address] [place] [address] Neutrophils/100 WBC (Bld) 41.7 % Low 46.0 - 76.0 [facility] Comment on above: Performed By: #### 2 65970 #### [facility],[address] [place], [place] [phone] Platelet mean volume (Bld) [Entitic vol] 8.2 fL Normal 6.6 - 10.5 [facility] Comment on above: Result Comment: AUTO MATED DIFFERENTIAL Performed By: #### 2 23239 #### [facility],[address] [place], [place] [phone] Platelets (Bld) [#/Vol] 262 x10EE3/UL Normal 150 - 450 [facility] Comment on above: Performed By: #### 2 88374 #### [facility],[address] [place] [address] RBC (Bld) [#/Vol] 4.65 x 10EE6/UL Normal 4.10 - 5.30 [facility] Comment on above: Performed By: #### 2 74640 #### [facility],[address] [place] [address] WBC (Bld) [#/Vol] 4.8 x 10EE3/UL Normal 4.5 - 10.8 [facility] Comment on above: Performed By: #### 2 00194 #### [facility],[address] [place], [place] [id number] CMP with eGFRon 08-17-2019 Age - Reported 23 years Normal [facility] Comment on above: Performed By: #### 2 27126 #### [facility],[address] [place] [address] Albumin [Mass/Vol] 4.4 g/dL Normal 3.4 - 4.8 [facility] Comment on above: Performed By: #### 2 80844 #### [facility],[address] [place], [place] [phone] Albumin/Globulin [Mass ratio] 1.6 {ratio} Normal 0.9 - 1.6 [facility] Comment on above: Performed By: #### 2 80435 #### [facility],[address] [place] [address]1975 ALK PHOS 42 U/L Normal 38 - 126 [facility] Comment on above: Performed By: #### 2 75294 #### [facility],[address] [place] [address]309 ALT/SGPT 12 U/L Normal 8 - 35 [facility] Comment on above: Performed By: #### 2 39691 #### [facility],[address] [place] [address] Anion gap [Moles/Vol] 10 mmol/L Normal 10 - 20 [facility] Comment on above: Performed By: #### 2 36037 #### [facility],[address] [place] [address]130 AST/SGOT 14 U/L Normal 13 - 39 [facility] Comment on above: Performed By: #### 2 70334 #### [facility],[address] [place] [address] B/C RATIO 24 ratio Normal 0 - 30 [facility] Comment on above: Performed By: #### 2 93395 #### [facility],[address] [place] [address] Bilirubin [Mass/Vol] 1.4 mg/dL Normal 0.0 - 1.5 [facility] Comment on above: Performed By: #### 2 78083 #### [facility],[address] [place] [address] Calcium [Mass/Vol] 9.5 mg/dL Normal 8.6 - 10.2 [facility] Comment on above: Performed By: #### 2 50751 #### [facility],[address] [place] [address] Chloride [Moles/Vol] 103 mmol/L Normal 98 - 107 [facility] Comment on above: Performed By: #### 2 14935 #### [facility],[address] [place] [address] CO2 [Moles/Vol] 27.4 mmol/L Normal 21.0 - 31.0 [facility] Comment on above: Performed By: #### 2 80761 #### [facility],[address] [place] [address] Creatinine [Mass/Vol] 0.7 mg/dL Normal 0.6 - 1.2 [facility] Comment on above: Performed By: #### 2 79627 #### [facility],[address] [place] [address] GFR/1.73 sq M predicted among non-blacks MDRD (S/P/Bld) [Vol rate/Area] Normal [facility] Comment on above: Result Comment: COMP REHENSIVE METABOLIC PANEL Performed By: #### 2 [id number] #### [facility],[address] [place] [address] 73886 GFR/1.73 sq M predicted among non-blacks MDRD (S/P/Bld) [Vol rate/Area] mL/min/{1.73_m2} Normal 60 - 999 [facility] Comment on above: Result Comment: ACCO RDING TO THE NATIONAL KIDNEY DISEASE EDUCATION PROGRAM(NKDE), A NORMAL eGFR IS A VALUE GREATER THAN OR EQUAL TO 60 ML/MIN/1.73 SQ METERS. CHRONIC KIDNEY DISEASE: <60mL/MIN/1.73 SQ METERS KIDNEY FAILURE: <15mL/MIN/1.73 SQ METERS THIS TEST SHOULD ONLY BE USED FOR PATIENTS 18 YEARS OF AGE AND OLDER. Performed By: #### 2 [id number] #### [facility],[address] [place] [address] 72374 Globulin (S) [Mass/Vol] 2.7 g/dL Normal 1.5 - 3.8 [facility] Comment on above: Performed By: #### 2 [id number] #### [facility] [place] [address] 84669 Glucose [Mass/Vol] 101 mg/dL Normal 74 - 106 [facility] Comment on above: Performed By: #### 2 [id number] #### [facility],[address] [place] [address] 60924 Potassium [Moles/Vol] 4.1 mmol/L Normal 3.5 - 5.1 [facility] Comment on above: Performed By: #### 2 [id number] #### [facility],[address] [place] [address] 29470 Protein [Mass/Vol] 7.1 g/dL Normal 6.4 - 8.3 [facility] Comment on above: Performed By: #### 2 [id number] #### [facility],[address] [place] [address] 61110 Sodium [Moles/Vol] 136 mmol/L Normal 136 - 145 [facility] Comment on above: Performed By: #### 2 [id number] #### [facility],[address] [place] [address] 96643 Urea nitrogen [Mass/Vol] 17 mg/dL Normal 6 - 20 [facility] Comment on above: Performed By: #### 2 [id number] #### [facility],[address] [place] [address] 94568 LIPID PROFILEon 08-17-2019 Cholesterol [Mass/Vol] 182 mg/dL Normal 0 - 200 [facility] Comment on above: Performed By: #### 2 [id number] #### [facility],[address] [place] [address] 17255 Cholesterol in HDL [Mass/Vol] 40 mg/dL Normal 40 - 60 [facility] Comment on above: Performed By: #### 2 [id number] #### [facility],[address] [place] [address] 54137 Cholesterol in LDL [Mass/Vol] 123 mg/dL Normal 0 - 129 [facility] Comment on above: Performed By: #### 2 [id number] #### [facility],[address] [place] [address] 86651 Cholesterol.total/Choles terol in HDL [Mass ratio] 4.6 {ratio} Normal 0.0 - 5.0 [facility] Comment on above: Performed By: #### 2 [id number] #### [facility],[address] [place] [address] 04867 Lipid 1996 panel Normal [facility] Comment on above: Result Comment: LIPI D PROFILE Performed By: #### 2 [id number] #### [facility],[address] [place] [address] 95906 Triglyceride [Mass/Vol] 96 mg/dL Normal 0 - 150 [facility] Comment on above: Performed By: #### 2 [id number] #### [facility],[address] [place] [address] 17395 CORONAVIRUS [CCL]on 07-22-19 COVID 19 Result SPORTS COORDINATOR Positive Abnormal [facility] Comment on above: Result Comment: Posi tive for COVID19 (SARS CoV2) by PCR.(*) This test was developed and its performance characteristics determined by [facility] [place]. This test has been authorized by FDA under an Emergency Use Authorization (EUA). This test has been validated in accordance with the FDA's Guidance Document Policy for Diagnostics Testing in Laboratories Certified to Perform High Complexity Testing under CLIA prior to Emergency use Authorization for Coronavirus Disease 2019 during the Public Health Emergency issued on May 06, 2019. [facility] [address] [place] [address] Tahir Rodriguez III, M.D. [id number] Performed By: #### 2 [id number] #### [facility],[address] [place] [address] 59149 COVID 19 Source SPORTS COORDINATOR SPORTS COORDINATOR SWAB Normal [facility] Comment on above: Result Comment: Call ed to and read back by: Mike Clark [facility] 07/22/192022 Terese Millard Performed By: #### 2 [id number] #### [facility],[address] [place] [address] 77605 Coronavirus 2019on 0 COVID 19 Source SPORTS COORDINATOR Normal [facility] Comment on above: Result Comment: SPORTS COORDINATOR S WAB Called to and read back by: Mike Clark [facility] 07/22/192022 ELena Millard COVID 19 Result SPORTS COORDINATOR Abnormal Negative for COVID19 (SARS CoV2) by PCR. [facility] Comment on above: Result Comment: Posi tive for This test was developed and its performance characteristics determined by [facility]'s [facility] [place]. This test has been authorized by FDA under an Emergency Use Authorization (EUA). This test has been validated in accordance with the FDA's Guidance Document Policy for Diagnostics Testing in Laboratories Certified to Perform High Complexity Testing under CLIA prior to Emergency use Authorization for Coronavirus Disease 2019 during the Public Health Emergency issued on May 06, 2019. COVID19 (SARS This test was developed and its performance characteristics determined by [facility] [place]. This test has been authorized by FDA under an Emergency Use Authorization (EUA). This test has been validated in accordance with the FDA's Guidance Document Policy for Diagnostics Testing in Laboratories Certified to Perform High Complexity Testing under CLIA prior to Emergency use Authorization for Coronavirus Disease 2019 during the Public Health Emergency issued on May 06, 2019. CoV2) by This test was developed and its performance characteristics determined by [facility] [place]. This test has been authorized by FDA under an Emergency Use Authorization (EUA). This test has been validated in accordance with the FDA's Guidance Document Policy for Diagnostics Testing in Laboratories Certified to Perform High Complexity Testing under CLIA prior to Emergency use Authorization for Coronavirus Disease 2019 during the Public Health Emergency issued on May 06, 2019. PCR.(*) This test was developed and its performance characteristics determined by [facility] [place]. This test has been authorized by FDA under an Emergency Use Authorization (EUA). This test has been validated in accordance with the FDA's Guidance Document Policy for Diagnostics Testing in Laboratories Certified to Perform High Complexity Testing under CLIA prior to Emergency use Authorization for Coronavirus Disease 2019 during the Public Health Emergency issued on May 06, 2019. Culture, urine Bacteria identified Cx Nom (U) Positive [facility] Work Phone: Gram stain for investigation of transfusion reaction Microscopic observation Gram stain Nom (Unsp spec) [facility] Work Phone: Vital Signs Date Time Vital Sign Value Performing Clinician Faci lity 09-18-2024 14:01-0400 Body height 162.56 cm Dominick Awad MD Work Phone: [facility] 09-18-2024 14:01-0400 Body mass index (BMI) [Ratio] 32.6 kg/m2 Dominick Awad MD Work Phone: [facility] 09-18-2024 14:01-0400 Body weight 86.23 kg Dominick Awad MD Work Phone: [facility] 09-18-2024 14:01-0400 Diastolic blood pressure 77 mm[Hg] Dominick Awad MD Work Phone: [facility] 09-18-2024 14:01-0400 Systolic blood pressure 121 mm[Hg] Dominick Awad MD Work Phone: [facility] 08-24-2024 11:49-0400 Body height 162.56 cm Dominick Awad MD Work Phone: [facility] 08-24-2024 11:49-0400 Body mass index (BMI) [Ratio] 31.7 kg/m2 Dominick Awad MD Work Phone: [facility] 08-24-2024 11:49-0400 Body weight 83.97 kg Dominick Awad MD Work Phone: [facility] 08-24-2024 11:49-0400 Diastolic blood pressure 74 mm[Hg] Dominick Awad MD Work Phone: [facility] 08-24-2024 11:49-0400 Systolic blood pressure 115 mm[Hg] Dominick Awad MD Work Phone: [facility] 08-01-2024 09:42-0400 Body height 162.56 cm Dominick Awad MD Work Phone: [facility] 08-01-2024 09:42-0400 Body mass index (BMI) [Ratio] 31.6 kg/m2 Dominick Awad MD Work Phone: [facility] 08-01-2024 09:42-0400 Body weight 83.68 kg Dominick Awad MD Work Phone: [facility] 08-01-2024 09:42-0400 Diastolic blood pressure 78 mm[Hg] Dominick Awad MD Work Phone: 3(432)637-693616 [address] 08-01-2024 09:42-0400 Systolic blood pressure 126 mm[Hg] Dominick Awad MD Work Phone: 6(287)178-969616 [address] 07-03-2024 10:40-0400 Body weight 82.46 kg Dominick Awad MD Work Phone: 5(746)011-001216 [address] 07-03-2024 10:20-0400 Diastolic blood pressure 81 mm[Hg] Dominick Awad MD Work Phone: [facility] 07-03-2024 10:20-0400 Systolic blood pressure 135 mm[Hg] Dominick Awad MD Work Phone: 1(118)822-568116 [address] 06-05-2024 10:31-0400 Body height 162.56 cm Dominick Awad MD Work Phone: [facility] 06-05-2024 10:31-0400 Body mass index (BMI) [Ratio] 30.7 kg/m2 Dominick Awad MD Work Phone: [facility] 06-05-2024 10:31-0400 Body weight 81.36 kg Dominick Awad MD Work Phone: 6(440)328-178354 [place] [address] 06-05-2024 10:31-0400 Diastolic blood pressure 84 mm[Hg] Dominick Awad MD Work Phone: 8(578)300-607154 [place] [address] 06-05-2024 10:31-0400 Systolic blood pressure 133 mm[Hg] Dominick Awad MD Work Phone: [facility] 06-09-2023 13:54-0400 Body height 162.[address] Krystina Murphy Work Phone: [facility] 06-09-2023 13:53-0400 Body mass index (BMI) [Ratio] 32.8 kg/m2 Dr. Krystina Murphy Work Phone: [facility] 06-09-2023 13:53-0400 Body weight 86.[address] Krystina Murphy Work Phone: [facility] 06-09-2023 13:53-0400 Diastolic blood pressure 82 mm[Hg] Dr. Krystina Murphy Work Phone: [facility] 06-09-2023 13:53-0400 Systolic blood pressure 117 mm[Hg] Dr. Krystina Murphy Work Phone: [facility] 04-25-2022 17:00-0500 Body temperature 98.2 [degF] Dr. Krystina Murphy Work Phone: [facility] 04-25-2022 17:00-0500 Diastolic blood pressure 64 mm[Hg] Dr. Krystina Murphy Work Phone: [facility] 04-25-2022 17:00-0500 Heart rate 98 /min Dr. Krystina Murphy Work Phone: [facility] 04-25-2022 17:00-0500 Respiratory rate 14 /min Dr. Krystina Murphy Work Phone: [facility] 04-25-2022 17:00-0500 Systolic blood pressure 116 mm[Hg] Dr. Krystnia Murphy Work Phone: [facility] 04-24-2022 08:48-0500 SaO2% (BldA) [Mass fraction] 98 % Dr. Krystina Murphy Work Phone: [facility] 04-24-2022 06:59-0500 Body height 162.[address] Krystina Murphy Work Phone: [facility] 04-24-2022 06:59-0500 Body mass index (BMI) [Ratio] 36.7 kg/m2 Dr. Krystina Murphy Work Phone: [facility] 04-24-2022 06:59-0500 Body weight 97.[address] Krystina Murphy Work Phone: [facility] 04-22-2022 10:30-0500 Body height 162.[address] Krystina Murphy Work Phone: [facility] 04-22-2022 10:30-0500 Body mass index (BMI) [Ratio] 36 kg/m2 Dr. Krystina Murphy Work Phone: [facility] 04-22-2022 10:30-0500 Body weight 95.[address] Krystina Murphy Work Phone: [facility] 04-22-2022 10:30-0500 Diastolic blood pressure 82 mm[Hg] Dr. Krystina Murphy Work Phone: [facility] 04-22-2022 10:30-0500 Systolic blood pressure 117 mm[Hg] Dr. Krystina Murphy Work Phone: [facility] 04-14-2022 10:43-0500 Body mass index (BMI) [Ratio] 35.3 kg/m2 Dr. Krystina Murphy Work Phone: [facility] 04-14-2022 10:43-0500 Body weight 93.[address] Krystina Murphy Work Phone: [facility] 04-14-2022 10:43-0500 Diastolic blood pressure 88 mm[Hg] Dr. Krystina Murphy Work Phone: [facility] 04-14-2022 10:43-0500 Systolic blood pressure 130 mm[Hg] Dr. Krystina Murphy Work Phone: [facility] 04-08-2022 10:21-0500 Body mass index (BMI) [Ratio] 35.4 kg/m2 Dr. Krystina Murphy Work Phone: [facility] 04-08-2022 10:21-0500 Body weight 93.[address] Krystina Murphy Work Phone: [facility] 04-08-2022 10:21-0500 Diastolic blood pressure 83 mm[Hg] Dr. Krystina Murphy Work Phone: [facility] 04-08-2022 10:21-0500 Systolic blood pressure 125 mm[Hg] Dr. Krystina Murphy Work Phone: [facility] 03-27-2022 10:18-0500 Body mass index (BMI) [Ratio] 34.5 kg/m2 Dr. Krystina Murphy Work Phone: [facility] 03-27-2022 10:18-0500 Body weight 91.[address] Krystina Murphy Work Phone: [facility] 03-27-2022 10:18-0500 Diastolic blood pressure 76 mm[Hg] Dr. Krystina Murphy Work Phone: [facility] 03-27-2022 10:18-0500 Systolic blood pressure 107 mm[Hg] Dr. Krystina Murphy Work Phone: [facility] 03-20-2022 13:41-0500 Body height 162.[address] Krystina Murphy Work Phone: [facility] Work Phone: 03-20-2022 13:41-0500 Body mass index (BMI) [Ratio] 35.5 kg/m2 Dr. Krystina Murphy Work Phone: [facility] 03-20-2022 13:41-0500 Body weight [address] Krystina Murphy Work Phone: [facility] 03-19-2022 13:59-0500 Heart rate 89 /min Dr. Krystina Murphy Work Phone: 9(098)412-795154 [place] [address] 03-19-2022 13:59-0500 SaO2% (BldA) [Mass fraction] 98 % Dr. Krystina Murphy Work Phone: 0(506)728-500054 [place] [address] 03-19-2022 13:17-0500 Diastolic blood pressure 82 mm[Hg] Dr. Krystina Murphy Work Phone: 4(118)959-491591 [address] 03-19-2022 13:17-0500 Systolic blood pressure 124 mm[Hg] Dr. Krystina Murphy Work Phone: 1(960)208-426654 [place] [address] 03-19-2022 12:38-0500 Body mass index (BMI) [Ratio] 34.4 kg/m2 Dr. Krystina Murphy Work Phone: 5(435)841-387354 [place] [address] 03-19-2022 12:38-0500 Body weight 91.[address] Krystina Murphy Work Phone: 6(471)769-571854 [place] [address] 03-19-2022 11:51-0500 Body temperature 98 [degF] Dr. Krystina Murphy Work Phone: 1(662)026-697454 [place] [address] 03-19-2022 10:41-0500 Body mass index (BMI) [Ratio] 34.5 kg/m2 Dr. Krystina Murphy Work Phone: 0(001)374-627154 [place] [address] 03-19-2022 10:41-0500 Body weight 91.[address] Krystina Murphy Work Phone: 7(294)925-372654 [place] [address] 03-19-2022 10:41-0500 Diastolic blood pressure 87 mm[Hg] Dr. Krystina Murphy Work Phone: [facility] 03-19-2022 10:41-0500 Systolic blood pressure 136 mm[Hg] Dr. Krystina Murphy Work Phone: [facility] 03-04-2022 10:36-0500 Body mass index (BMI) [Ratio] 34.8 kg/m2 Dr. Krystina Murphy Work Phone: [facility] 03-04-2022 10:36-0500 Body weight 92.[address] Krystina Murphy Work Phone: 0(797)492-416954 [place] [address] 03-04-2022 10:36-0500 Diastolic blood pressure 83 mm[Hg] Dr. Krystina Murphy Work Phone: [facility] 03-04-2022 10:36-0500 Systolic blood pressure 143 mm[Hg] Dr. Krystina Murphy Work Phone: [facility] 02-17-2022 11:50-0500 Body height 162.[address] Krystina Murphy Work Phone: [facility] Work Phone: 02-17-2022 11:48-0500 Body mass index (BMI) [Ratio] 33.9 kg/m2 Dr. Krystina Murphy Work Phone: [facility] 02-17-2022 11:48-0500 Body weight 89.[address] Krystina Murphy Work Phone: [facility] 02-17-2022 11:48-0500 Diastolic blood pressure 73 mm[Hg] Dr. Krystina Murphy Work Phone: [facility] 02-17-2022 11:48-0500 Systolic blood pressure 112 mm[Hg] Dr. Krystina Murphy Work Phone: [facility] 02-03-2022 09:35-0500 Body height 162.[address] Krystina Murphy Work Phone: [facility] Work Phone: 02-03-2022 09:35-0500 Body mass index (BMI) [Ratio] 34.2 kg/m2 Dr. Krystina Murphy Work Phone: [facility] 02-03-2022 09:35-0500 Body weight 90.[address] Krystina Murphy Work Phone: [facility] 02-03-2022 09:35-0500 Diastolic blood pressure 72 mm[Hg] Dr. Krystina Murphy Work Phone: [facility] 02-03-2022 09:35-0500 Systolic blood pressure 130 mm[Hg] Dr. Krystina Murphy Work Phone: [facility] 01-21-2022 10:50-0500 Body mass index (BMI) [Ratio] 33.5 kg/m2 Dr. Krystina Murphy Work Phone: [facility] 01-21-2022 10:50-0500 Body weight 88.[address] Krystina Murphy Work Phone: [facility] 01-21-2022 10:50-0500 Diastolic blood pressure 76 mm[Hg] Dr. Krystina Murphy Work Phone: [facility] 01-21-2022 10:50-0500 Systolic blood pressure 110 mm[Hg] Dr. Krystina Murphy Work Phone: [facility] 12-15-2021 16:09-0400 Body mass index (BMI) [Ratio] 31.9 kg/m2 Dr. Krystina Murphy Work Phone: [facility] Work Phone: 12-15-2021 16:09-0400 Body weight 84.[address] Krystina Murphy Work Phone: [facility] Work Phone: 12-15-2021 16:09-0400 Diastolic blood pressure 82 mm[Hg] Dr. Krystina Murphy Work Phone: [facility] Work Phone: 12-15-2021 16:09-0400 Systolic blood pressure 120 mm[Hg] Dr. Krystina Murphy Work Phone: [facility] Work Phone: 11-20-2021 13:38-0400 Body mass index (BMI) [Ratio] 31.1 kg/m2 Dr. Krystina Murphy Work Phone: [facility] Work Phone: 11-20-2021 13:38-0400 Body weight 82.[address] Krystina Murphy Work Phone: [facility] Work Phone: 11-20-2021 13:38-0400 Diastolic blood pressure 79 mm[Hg] Dr. Krystina Murphy Work Phone: [facility] Work Phone: 11-20-2021 13:38-0400 Systolic blood pressure 124 mm[Hg] Dr. Krystina Murphy Work Phone: [facility] Work Phone: 10-23-2021 15:48-0400 Body mass index (BMI) [Ratio] 30.4 kg/m2 Dr. Krystina Murphy Work Phone: [facility] Work Phone: 10-23-2021 15:48-0400 Body weight 80.[address] Krystina Murphy Work Phone: [facility] Work Phone: 10-23-2021 15:48-0400 Diastolic blood pressure 78 mm[Hg] Dr. Krystina Murphy Work Phone: [facility] Work Phone: 10-23-2021 15:48-0400 Systolic blood pressure 130 mm[Hg] Dr. Krystina Murphy Work Phone: [facility] Work Phone: 09-18-2021 14:30-0400 Body weight 79.[address] Krystina Murphy Work Phone: [facility] Work Phone: 09-18-2021 13:52-0400 Body height 162.[address] Krystina Murphy Work Phone: [facility] Work Phone: 09-18-2021 13:52-0400 Diastolic blood pressure 60 mm[Hg] Dr. Krystina Murphy Work Phone: [facility] Work Phone: 09-18-2021 13:52-0400 Systolic blood pressure 108 mm[Hg] Dr. Krystina Murphy Work Phone: [facility] Work Phone: 06-12-2021 19:37-0400 Body temperature 98.2 [degF] Romana Rocha APRN.ART HISTORY PROFESSOR Work Phone: [facility] 06-12-2021 19:37-0400 Body weight 75.84 kg Romana Rocha APRN.ART HISTORY PROFESSOR Work Phone: [facility] 06-12-2021 19:37-0400 Diastolic blood pressure 80 mm[Hg] Romana Rocha APRN.ART HISTORY PROFESSOR Work Phone: [facility] 06-12-2021 19:37-0400 Heart rate 71 /min Romana Rocha APRN.ART HISTORY PROFESSOR Work Phone: [facility] 06-12-2021 19:37-0400 Respiratory rate 18 /min Romana Rocha APRN.ART HISTORY PROFESSOR Work Phone: [facility] 06-12-2021 19:37-0400 SaO2% (BldA) [Mass fraction] 98 % Romana Rocha 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 Work Phone: [facility] 06-12-2021 19:37-0400 Systolic blood pressure 122 mm[Hg] Romana Rocha APRN.ART HISTORY PROFESSOR Work Phone: [facility] Encounters Encounter Date Encounter Type Care Provider Facility Start: 09-18-2024 End: 09-18-[address] Leslie Baires MD -[facility] Work Phone: Start: 09-18-2024 End: 09-18-2024 ambulatory Dominick Awad MD Work Phone: -[facility] Start: 08-24-2024 End: 08-24-2024 Patient encounter procedure Deanna lCark CNM -[facility] Work Phone: Start: 08-24-2024 End: 08-24-2024 ambulatory Dominick Awad MD Work Phone: [facility] Work Phone: Start: 08-17-2024 End: 08-17-2024 ambulatory [facility] Start: 08-01-2024 End: 08-01-2024 Patient encounter procedure Jennifer CORNELIUS -[facility] Work Phone: Start: 08-01-2024 End: 08-01-2024 ambulatory Dominick Awad MD Work Phone: [facility] Work Phone: Start: 07-03-2024 End: 07-03-[address] Lauren Tyson DO -[facility] Work Phone: Start: 07-03-2024 End: 07-03-2024 ambulatory Lauren Tyson Facility:[facility] Start: 06-05-2024 End: 06-05-[address] Leslie Baires MD -[facility] Work Phone: Start: 06-05-2024 End: 06-05-2024 ambulatory Dominick Awad MD Work Phone: [facility] Work Phone: Start: 06-05-2024 End: 06-05-2024 ambulatory Leslie Baires Facility:[facility] Start: 05-25-2024 End: 05-25-2024 ambulatory Dominick Awad MD Work Phone: [facility] Work Phone: Start: 05-25-2024 End: 05-25-[address] Leslie Baires MD -Ultrasound, [facility] Work Phone: Start: 05-25-2024 End: 05-25-2024 ambulatory Leslie Baires Facility:[facility] Start: 05-19-2024 End: 05-19-2024 ambulatory Dominick Awad MD Work Phone: [facility] Work Phone: Start: 05-19-2024 End: 05-19-[address] Leslie Baires MD -Lab, [facility] Start: 05-19-2024 End: 05-19-2024 ambulatory Dominick Awad Facility:[facility] Start: 05-17-2024 End: 05-17-[address] Leslie Baires MD -Lab, [facility] Start: 05-17-2024 End: 05-17-2024 ambulatory Dominick Awad Facility:[facility] Start: 05-15-2024 End: 05-15-2024 ambulatory Dominick Awad MD Work Phone: [facility] Work Phone: Start: 05-15-2024 End: 05-15-2024 Patient encounter procedure Deanna Clark CNM -Laboratory, [facility] Start: 05-15-2024 End: 05-15-2024 ambulatory Chalon Adelina Facility:[facility] Start: 03-03-2024 End: 03-03-[address] Dominick Awad MD -Laboratory, [place] Work Phone: Start: 03-03-2024 End: 03-03-2024 ambulatory Dominick Awad Facility:[facility] Start: 12-07-2023 End: 12-07-2023 ambulatory Krystina Murphy Facility:[facility] Start: 06-09-2023 End: 06-09-[address] Krystina Murphy Work Phone: [facility] Work Phone: Start: 06-09-2023 End: 06-09-[address] Krystina Murphy Work Phone: [facility]-Laboratory, Specimen Work Phone: Start: 06-09-2023 End: 06-09-[address] Krystina Murphy Work Phone: [facility] Work Phone: Start: 04-25-2022 Non-patient / Non-visit Dr. Georgia Murphy Work Phone: [facility] Start: 04-24-2022 Non-patient / Non-visit Dr. Georgia Murphy Work Phone: [facility] Start: 04-24-2022 End: 04-25-2022 Evaluation and management of inpatient Dr. Krystina Murphy Work Phone: [facility] Start: 04-22-2022 End: 04-22-[address] Krystina Murphy Work Phone: [facility] Start: 04-14-2022 End: 04-14-[address] Krystina Murphy Work Phone: [facility] Work Phone: Start: 04-14-2022 End: 04-14-[address] Krystina Murphy Work Phone: [facility] [facility] Start: 04-14-2022 End: 04-14-[address] Krystina Murphy Work Phone: [facility] Start: 04-08-2022 End: 04-08-[address] Krystina Murphy Work Phone: [facility] Start: 03-27-2022 End: 03-27-[address] [facility] Start: 03-27-2022 End: 03-27-[address] Krystina Murphy Work Phone: [facility] Start: 03-20-2022 Non-patient / Non-visit Dr. Georgia Murphy Work Phone: [facility] Start: 03-20-2022 End: 03-20-[address] Krystina Murphy Work Phone: [facility] Work Phone: Start: 03-20-2022 End: 03-20-[address] Kryst[facility] Start: 03-19-2022 Non-patient / Non-visit Dr. Georgia Murphy Work Phone: [facility] Start: 03-19-2022 End: 03-19-[address] Krystina Murphy Work Phone: [facility], Outpatients Start: 03-19-2022 End: 03-19-[address] Krystina Murphy Work Phone: [facility] Start: 03-04-2022 End: 03-04-[address] Krystina Murphy Work Phone: [facility] Start: 02-17-2022 End: 02-17-[address] Krystina Murphy Work Phone: [facility] Start: 02-10-2022 End: 02-10-[address] Krystina Murphy Work Phone: [facility] Work Phone: Start: 02-10-2022 End: 02-10-[address] Krystina Murphy Work Phone: [facility]Laboratory Start: 02-03-2022 End: 02-03-[address] Krystina Murphy Work Phone: [facility] Work Phone: Start: 02-03-2022 End: 02-03-[address] Krystina Murphy Work Phone: [facility] Start: 01-21-2022 End: 01-21-[address] Krystina Murphy Work Phone: [facility] Work Phone: Start: 01-21-2022 End: 01-21-[address] Krystina Murphy Work Phone: [facility] Start: 12-15-2021 End: 12-15-[address] Krystina Murphy Work Phone: [facility] Start: 11-20-2021 End: 11-20-[address] Krystina Murphy Work Phone: [facility] Start: 10-23-2021 End: 10-23-[address] Krystina Murphy Work Phone: [facility] Start: 09-18-2021 End: 09-18-[address] Krystina Murphy Work Phone: [facility] Start: 09-11-2021 End: 09-11-2021 Patient encounter procedure [facility] Start: 09-11-2021 End: 09-11-2021 Patient encounter procedure [facility] Start: 08-20-2021 End: 08-20-2021 Patient encounter procedure [facility] Start: 08-18-2021 End: 08-18-2021 Patient encounter procedure [facility] Start: 06-12-2021 End: 06-12-2021 Patient encounter procedure Romana Rocha APRN.[facility] Work Phone: [facility] Comment on above: Cough (Primary Dx) Start: 08-17-2019 Encounter for genera l adult medical examination without abnormal findings [facility] Start: 08-17-2019 End: 08-17-2019 [facility] Start: 07-21-2019 End: 07-21-2019 Patient encounter procedure ROMIE Suresh [facility] Procedures Date Procedure Procedure Detail Performing Clinician Start: 06-05-2024 Urine culture Dominick edmond MD Work Phone: Start: 06-05-2024 Hepatitis C antibody measurement Dominick Awad MD Work Phone: Comment on above: Reactive: Presumptiv e evidence of antibodies to HCV. Follow CDC recommendations for supplemental testing.Non-Reactive: Antibodies to HCV were not detected; does not exclude the possibility of exposure to HCVReactive Results are presumptive evidence of antibodies to HCV. Follow CDC recommendations for supplemental testing.Order confirmation testing: HCV Quant by PCR testing - HCVPCR #[id number] Non Reactive: < 0.8 Equivocal: >/= 0.8 to < 1.0 Reactive: >/= 1.0The CDC requires that a reactive/equivocal HCV antibody result be sent out for confirmation. HCV Quant by PCR testing. Start: 06-05-2024 Rubella IgG measurement Dominick Awad MD Work Phone: Comment on above: Antibody Result: Int erpretationNon-Reactive: Non- ImmuneReactive: ImmuneThe following results were obtained with the [employer] Rubella IgG assay. Results from assays of other manufacturers cannot be used interchangeably. Start: 06-05-2024 Serologic test for syphilis Dominick Awad MD Work Phone: Start: 05-25-2024 Transvaginal obstetr ic ultrasonography Dominick Awad MD Work Phone: Start: 09-11-2021 Transvaginal obstetr ic ultrasonography Cytopathology proced ure, preparation of smear, genital source Dr. Krystina Murphy Work Phone: Group B Streptococcu s Culture Dr. Krystina Murphy Work Phone: Investigation of tra nsfusion reaction Dr. Krystina Murphy Work Phone: Investigation of tra nsfusion reaction Dr. Krystina Murphy Work Phone: Urine culture Dr. Krystina haddad Work Phone: Plan of Treatment Date Care Activity Detail Author Start: 06-09-2023 Microscopic observation [Identifier] in Cervix by Cyto stain.thin prep [facility] Start: 04-25-2022 Patient discharge [facility] Start: 04-24-2022 Administration of medication [facility] Start: 04-24-2022 Application of ice collar, cap or bag [facility] Start: 04-24-2022 Catheterization of vein [facility] Start: 04-24-2022 Introduction of urinary catheter [facility] Start: 04-24-2022 Measuring intake and output [facility] Start: 04-24-[address] [facility] Start: 04-24-2022 Procedure discontinued [facility] Start: 04-24-2022 Provision of activity privileges [facility] Start: 04-24-2022 Vital signs measurements [facility] Start: 04-24-2022 [facility] Start: 04-24-2022 Admission procedure [facility] Start: 03-19-2022 Iv infusion therapy/prophylaxis /dx 1st to 1 hr THER/PROPH/DIAG IV INF INIT [facility] Start: 03-19-2022 Source specific culture [facility] Work Phone: Start: 03-19-2022 Nonstress test [facility] Start: 03-19-2022 Obstetric monitoring [facility] Start: 03-19-2022 Vital signs measurements [facility] Start: 03-19-2022 [facility] Start: 03-19-2022 Patient discharge [facility] Start: 11-06-2021 Influenza vaccination [facility]FLUENZA (Season Ended) [facility] Start: 09-18-2021 Chlamydia deoxyribonucleic acid detection [facility] Work Phone: Start: 09-18-2021 Liquid based cervical cytology screening [facility] Work Phone: Start: 12-20-2015 PAP TESTING PAP TESTING [facility] Start: 2012 HEPATITIS C SCREENING HEPATITIS C SCREENING [facility] Start: 2012 HIV SCREENING HIV SCREENING [facility] Start: 2008 PEDS TO ADULT TRANSITION ANNUAL ASSESSMENT PEDS TO ADULT TRANSITION ANNUAL ASSESSMENT [facility] Start: 2006 Adult depression screening assessment DEPRESSION SCREENING [facility] Start: 2006 PEDS TO ADULT TRANSITION INITIAL DISCUSSION PEDS TO ADULT TRANSITION INITIAL DISCUSSION [facility] Start: 2005 HPV VACCINE (1 - 2-dose series) HPV VACCINE (1 - 2-dose series) [facility] Start: 2005 Urine microalbumin profile DTAP,TDAP,TD (6 - Tdap) [facility] Start: 12-20-1999 COVID-19 VACCINE (1) COVID-19 VACCINE (1) [facility] CBC W Auto Different ial panel - Blood [facility] Cytopathology proced ure, preparation of smear, genital source Genital Culture [facility] Work Phone: Drugs identified in Urine by Screen method [facility] Work Phone: Measurement of gluco se 2 hours after glucose challenge for glucose tolerance test [facility] Neisseria gonorrhoea e rRNA [Presence] in Unspecified specimen by JAIMIE with probe detection [facility] Work Phone: Path report.final Dx Spec [facility] Work Phone: Patient Education Kick Counts Understanding Labor ED False Labor OB Triage: Return to Hospital or Notify Physician if you Experience: [facility] Work Phone: Patient referral [facility] Work Phone: PCR test for Chlamyd ia trachomatis [facility] Work Phone: Serologic test for syphilis [facility] Immunizations Immunization Date Immunization Notes Care Provider Antony hicks 02-03-2022 tetanus toxoid, redu tasai diphtheria toxoid, and acellular pertussis vaccine, adsorbed Dr. Krystina Murphy Work Phone: [facility] 06-18-2001 Chicken Pox (disease) Cornelia Rocha APRN.[employer] H[employer] PROFESSOR Work Phone: [facility] Work Phone: 10-19-2000 diphtheria, tetanus toxoids and acellular pertussis vaccine Romana Rocha APRN.[employer] PROFESSOR Work Phone: [facility] Work Phone: 10-19-2000 hepatitis B vaccine, pediatric or pediatric/adolescent dosage Romana Rocha APRN.[employer] HISTORY PROFESSOR Work Phone: [facility] Work Phone: 10-19-2000 measles, mumps and rubella virus vaccine Romana Rocha APRN.[employer] HISTORY PROFESSOR Work Phone: [facility] Work Phone: 10-19-2000 poliovirus vaccine, inactivated Romana Rocha APRN.[employer] HISTORY PROFESSOR Work Phone: [facility] Work Phone: 03-29-2000 hepatitis B vaccine, pediatric or pediatric/adolescent dosage Romana Rocha APRN.[facility] Work Phone: [facility] Work Phone: 06-27-1998 diphtheria, tetanus toxoids and pertussis vaccine Romana Rocha APRN.[facility] Work Phone: [facility] Work Phone: 06-27-1998 haemophilus influenz ae type b vaccine, HbOC conjugate Romana Rocha APRN.[facility] Work Phone: [facility] Work Phone: 06-27-1998 hepatitis B vaccine, pediatric or pediatric/adolescent dosage Romana Rocha APRN.[facility] Work Phone: [facility] Work Phone: 06-27-1998 trivalent poliovirus vaccine, live, oral Romana Rocha APRN.[facility] Work Phone: [facility] Work Phone: 08-31-1996 measles, mumps and rubella virus vaccine Romana Rocha APRN.[facility] Work Phone: [facility] Work Phone: 02-21-1996 diphtheria, tetanus toxoids and pertussis vaccine Romana Rocha APRN.[facility] Work Phone: [facility] Work Phone: 02-21-1996 haemophilus influenz ae type b vaccine, HbOC conjugate Romana Rocha APRN.[facility] Work Phone: [facility] Work Phone: 09-17-1995 diphtheria, tetanus toxoids and pertussis vaccine Romana Rocha APRN.[facility] Work Phone: [facility] Work Phone: 09-17-1995 haemophilus influenz ae type b vaccine, HbOC conjugate Romana Rocha APRN.[facility] Work Phone: [facility] Work Phone: 09-17-1995 trivalent poliovirus vaccine, live, oral Romana Rocha MAKI.ART HISTORY PROFESSOR Work Phone: [facility] Work Phone: 02-12-1995 diphtheria, tetanus toxoids and pertussis vaccine Romana Rocha MAKI.[employer] HISTORY PROFESSOR Work Phone: [facility] Work Phone: 02-12-1995 haemophilus influenz ae type b vaccine, HbOC conjugate Romana James MAKI.[employer] HISTORY PROFESSOR Work Phone: [facility] Work Phone: 02-12-1995 trivalent poliovirus vaccine, live, oral Romana Rocha MAKI.[employer] HISTORY PROFESSOR Work Phone: [facility] Work Phone: Payers Date Payer Category Payer Unknown [id number] 2023 Self-pay [id number] 1995 Unknown [id number] 2.16.84 [id number] Unknown [id number] Unknown [id number] Unknown [facility] [id number] Unknown [id number] Unknown [id number] 2.16.8 [id number] Unknown [id number] 2.16.8 [id number] Unknown [id number] 2.16.8 [id number] Unknown [id number] 2.16.8 [id number] Unknown [id number] 2.16.8 [id number] Unknown [id number] 2.16.8 [id number] Unknown [id number] 2.16.8 [id number] Unknown [id number] 2.16.8 [id number] Unknown [id number] 2.16.8 [id number] Unknown [id number] 2.16.8 [id number] Unknown [id number] 2.16.8 [id number] Unknown [id number] 2.16.8 [id number] Social History Date Type Detail Facility [facility]: [facility] Start: 06-12-2021 Alcohol intake Current non-dr powers of alcohol (finding) [facility] Start: 1995 Sex Assigned At Not on file [facility] Start: 02-12-2021 End: 06-09-2023 Tobacco smoking status NHIS Unknown if ever smoked [facility] Start: 1995 Sex Assigned At Female [facility] Start: 05-25-2024 End: 06-07-2024 Sex Female (finding) [facility] Goals Date Patient Goal Desired Activity /State Clinical Notes 06-12-2021 to 09-18-2024 Note Date & Type Note Facility 09-18-2024 Progress note [facility] 09-18-2024 Progress note Note Date/Time September 18, 2024 2:42pm [facility] [address], [address] [place] [address] OFFICE VISIT Date of Service: 09/18/24 MR#: [id number] Acct: [id number] Name: DAE DOAN Rep #: [id number] : 1995 Provider: Dr. 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 Is patient in pain?: No Allergies No Known Allergies Allergy (Verified 09/18/24 14:02) Medications ?Medication ?Instructions ?Recorded ?Confirmed ?Type vitamins-iron fumarate 65 1 tab PO DAILY preg tiarra 03/19/22 09/18/24 History mg iron-folic acid 1 mg tablet cholecalciferol (vitamin D3) 25 25 mcg PO QDAY 5 09/18/24 History mcg (1,000 unit) capsule promethazine 12.5 mg tablet 12.5 mg PO Q6H PRN nausea and 07/03/24 09/18/24 Rx vomiting #60 tabs Last Menstrual Period: 04/02/24 Zika: Zika virus screening: Negative : No PFSH PFSH Medical History care and examination Coccyx pain Pelvic and perineal pain Cellulitis of great toe of right foot Pain of right great toe Abnormal glucose affecting Abnormal uterine bleeding (AUB) Family History Mother Afib Brother Seizures Social History adopted: No household members: spouse housing: house number of children: 0 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 status: employed 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 pets and animals: No leisure activities: other history of recent travel: Yes details: cruise [employer] out of state: Yes out of country: Yes sexually active: Yes Smoking Status: Never smoker alcohol intake: former details: social substance use type: does not use well-balanced diet: daily or most days caffeine: Yes Type: tea eating out: rarely or never during the past year weight has: decreased > 10 lbs what type of physical activity do you participate in: none fabiola/advent: Sabianist seatbelt use: always do you feel safe at home: Yes additional social history: [employer] student and works at [employer] 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 Works at [employer] History 3 Elective abortions Hx Para 1 Spontaneous abortions 1 Hx # Term Pregnancies Ectopic pregnancies Hx # Pregnancies Multiple births # of living children 1 Past Pregnancies Del. Date Name GA/Weeks Outcome Route Bth Weight Infant Gen Labor Lgth Anesthesia Del Locatn Provider FOB 04/24/22 Luke 40 Bjorne Velde HPI 23wk ob Details: DAE DOAN is a 28 year old who presents for routine OB visit. OB Visit LIZ Calculator Estimated Delivery Date Method Current WG Current Estimate 01/13/25 Ultrasound #1 23w 2d Other Estimates 01/07/25 LMP (Certain) 24w 1d 01/15/25 Ultrasound #2 23w 0d Expected Delivery Route/Plan Labor Preferences- CB/BF classes: [] labor support person: [] labor intervention preferences: [] pain management options preferred: [] cut cord/dad catch: [] : [] PP control planned: [] discussed possible routes of delivery and associated risks: [] special requests: [] Specific Issue/Plans Covid status: [] Flu vaccine: [] Tdap vaccine: [] Rhogam: [] LARC form signed: [] Problem list reviewed and updated with the most current plan of care details and appropriate orders placed. Relevant counseling for the gestational age provided. Continue routine care and follow up unless otherwise noted in visit notes/problem list details Initial Weight: 167 lb Date -?-?-?-?-?-?-?--?-?-?-?-?- EGA Weight BP Urine Prot -?-?-?-?-?-?-?-?-?-?-?-?- Glucose FHR FuHt Pres Dilation -?-?-?-?-?-?-?-?-?-?-?-?- Effaced St Visit Note 06/05/24 -?-?-?-?-?-?-?-?-?-?-?-?- 8w 2d 179 lb 6 oz (+12 lb 6 oz) 133/84 -?-?-?-?-?-?-?-?-?-?-?-?- 165 -?-?-?-?-?-?-?-?-?-?-?-?- Sm- CRL cons wit h US based LIZ 07/03/24 -?-?-?-?-?-?-?-?-?-?-?-?- 12w 2d 181 lb 12.8 oz (+14 lb 12.8 oz) 135/81 Negative -?-?-?-?-?-?-?-?-?-?-?-?- Negative 160 -?-?-?-?-?-?-?-?-?-?-?-?- JV- no cramping or spotting. planning anatomy scan with MFM. JV- no cramping or spotting. planning anatomy scan with MFM. promethazine sent to [facility] 08/01/24 -?-?-?-?-?-?-?-?-?-?-?-?- 16w 3d 184 lb 8 oz (+17 lb 8 oz) 126/78 Negative -?-?-?-?-?-?-?-?-?-?-?-?- Negative 157 -?-?-?-?-?-?-?-?-?-?-?-?- MH-No VB. No flu tters. Nausea improving. Br US confirm FHT. 08/24/24 -?-?-?-?-?-?-?-?-?-?-?-?- 19w 5d 185 lb 2 oz (+18 lb 2 oz) 115/74 Negative -?-?-?-?-?-?-?-?-?-?-?-?- Negative 140 -?-?-?-?-?-?-?-?-?-?-?-?- KW- no vb/crampi ng. + flutters. declines AFP screening. anatomy US reviewed 09/18/24 -?-?-?-?-?-?-?-?-?-?-?-?- 23w 2d 190 lb 2 oz (+23 lb 2 oz) 121/77 Negative -?-?-?-?-?-?-?-?-?-?-?-?- Negative 140 23 -?-?--?-?-?-?-?-?-?-?-?-?- SM- no vb lof go od fm co some cramping ACOG First Trimester First Trimester: Discussed Second Trimester Second Trimester: Signs and Symptoms of Labor, Selecting a care provider, Reproductive Life Planning & Contreception, Care Planning, Depression/Anxiety and Intimate Partner Violence; Discussed Tobacco Cessation Third Trimester Third Trimester: Pain Management Plans, Labor support person(s), Immediate Larc, Circumcision preference, Movement Monitoring, Signs and Symptoms of Preeclampsia, Labor Signs and Family Medical Leave or Disability Forms Results POC Urinalysis 2 Dip (Clinic) Office Urine Glucose Negative Last Edit by Jennifer Johnson on 09/18/24 14:11 Office Urine Protein Negative Last Edit by Jennifer Johnson on 09/18/24 14:11 Coding Level of Care Code OB Routine Diagnoses Obesity affecting in second trimester, unspecified obesity type O99.212 Obesity type affecting : unspecified obesity Trimester: second trimester Supervision of high risk in second trimester O. Trimester: second trimester 23 weeks gestation of Z3A.23 Weeks of gestation: 23 weeks Assessment and Plan Assessment and Plan (1) Obesity affecting : Status: Acute Qualifiers: Obesity type affecting : unspecified obesity Trimester: second trimester Qualified Code(s): O99.212 - Obesity complicating , second trimester Comment: bmi 30 hga1c ordered encouraged healthy weight gain (2) Supervision of high-risk : Status: Acute Qualifiers: Trimester: second trimester Qualified Code(s): O09.92 - Supervision of high risk , unspecified, second trimester Comment: PRR, , LIZ 01/07/25 marv shea PC: Robin SO: Pineda (3) : Status: Acute Qualifiers: Weeks of gestation: 23 weeks Qualified Code(s): Z3A.23 - 23 weeks gestation of Comment: NIPT w gender & carrier - declined, normal anatomy - consistent dates Orders: Orders POC Urinalysis 2 Dip (Clinic) Today O09.92 - Supervision of high risk , unspecified, second trimester Glucose Challenge Gest 1H 50g Today O09.92 - Supervision of high risk , unspecified, second trimester, Z13.1 - Encounter for screening for diabetes mellitus HIV Today O09.92 - Supervision of high risk , unspecified, second trimester Syphilis Antibodies Today O09.92 - Supervision of high risk , unspecified, second trimester CBC W/Diff, Automated Today O09.92 - Supervision of high risk , unspecified, second trimester 09/18/24 1442 <Electronically signed by Leslie venegas MD> Date _ Leslie Baires [facility] Signature: Date (if applicable) CC: ~ [facility] Work Phone: 1(700) 240-259106-19-2025 Progress [facility] [address], [facility] [address] [place] [address] OFFICE VISIT Date of Service: 08/24/24 MR#: [id number] Acct: [id number] Name: DAE DOAN Rep #: [id number] : 1995 Provider: HAKEEM Clark Age/Sex: 28/F Location: [facility] Status: Signed Intake Vital Signs 06/05/24 10:31 08/01/24 09:42 08/24/24 11:49 Height 5 ft 4 in 5 ft 4 in 5 ft 4 in Weight: 184 lb 8 oz 185 lb 2 oz BMI 31.6 31.7 BP 126/78 H 115/74 Intake Visit Reasons: 19wk ob *pt on vacation from 08/26 to 09/02 Chief Complaint: 19 Week OB Inspector Sheet Metal Parts Required: No Is patient in pain?: No Allergies No Known Allergies Allergy (Verified 08/24/24 11:49) Medications ?Medication ?Instructions ?Recorded ?Confirmed ?Type vitamins-iron fumarate 65 1 tab PO DAILY preg tiarra 03/19/22 08/24/24 H istory mg iron-folic acid 1 mg tablet cholecalciferol (vitamin D3) 25 25 mcg PO QDAY 5 08/24/24 History mcg (1,000 unit) capsule promethazine 12.5 mg tablet 12.5 mg PO Q6H PRN nausea and 07/03/24 08/24/24 Rx vomiting #60 tabs Last Menstrual Period: 04/02/24 Zika: Zika virus screening: Negative : No PFSH PFSH Medical History care and examination Coccyx pain Pelvic and perineal pain Cellulitis of great toe of right foot Pain of right great toe Abnormal glucose affecting Abnormal uterine bleeding (AUB) Family History Mother Afib Brother Seizures Social History adopted: No household members: spouse housing: house number of children: 0 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 status: employed 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 pets and animals: No leisure activities: other history of recent travel: Yes details: cruise [employer] out of state: Yes out of country: Yes sexually active: Yes Smoking Status: Never smoker alcohol intake: former details: social substance use type: does not use well-balanced diet: daily or most days caffeine: Yes Type: tea eating out: rarely or never during the past year weight has: decreased > 10 lbs what type of physical activity do you participate in: none fabiola/advent: Sabianist seatbelt use: always do you feel safe at home: Yes additional social history: [employer] student and works at [employer] 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 Date Name GA/Weeks Outcome Route Bth Weight Gen Labor Lgth Anesthesia Del Locatn Provider FOB 04/24/22 [place] 40 Bjorne Velkehinde HPI 19wk ob *pt on vacation from 08/26 to 09/02 Details: DAE DOAN is a 28 year old who presents for routine OB visit. OB Visit LIZ Calculator Estimated Delivery Date Method Current WG Current Estimate 01/13/25 Ultrasound #1 19w 5d Other Estimates 01/07/25 LMP (Certain) 20w 4d 01/15/25 Ultrasound #2 19w 3d Expected Delivery Route/Plan Labor Preferences- CB/BF classes: [] labor support person: [] labor intervention preferences: [] pain management options preferred: [] cut cord/dad catch: [] : [] PP control planned: [] discussed possible routes of delivery and associated risks: [] special requests: [] Specific Issue/Plans Covid status: [] Flu vaccine: [] Tdap vaccine: [] Rhogam: [] LARC form signed: [] Problem list reviewed and updated with the most current plan of care details and appropriate ordersplaced. Relevant counseling for the gestational age provided. Continue routine care and follow up unless otherwise noted in visit notes/problem list details Initial Weight: 167 lb Date -?-?-?-?-?-?-?-?-?-?-?-?- EGA Weight BP Urine Prot -?-?-?-?-?-?-?-?-?-?-?-?- Glucose FHR FuHt Pres Dilation -?-?-?-?-?-?-?-?-?-?-?-?- Effaced St Visit Note 06/05/24 -?-?-?-?-?-?-?-?-?-?-?-?- 8w 2d 179 lb 6 oz (+12 lb 6 oz) 133/84 -?-?-?-?-?-?-?-?-?-?-?-?- 165 -?-?-?-?-?-?-?-?-?-?-?-?- Sm- CRL cons wit h US based LIZ 07/03/24 -?-?-?-?-?-?-?-?-?-?-?-?- 12w 2d 181 lb 12.8 oz (+14 lb 12.8 oz) 135/81 Negative -?-?-?-?-?-?-?-?-?-?-?-?- Negative 160 -?-?-?-?-?-?-?-?-?-?-?-?- JV- no cramping or spotting. planning anatomy scan with MFM. JV- no cramping or spotting. planning anatomy scan with MFM. promethazine sent to [facility] 08/01/24 -?-?-?-?-?-?-?-?-?-?-?-?- 16w 3d 184 lb 8 oz (+17 lb 8 oz) 126/78 Negative -?-?-?-?-?-?-?-?-?-?-?-?- Negative 157 -?-?-?-?-?-?-?-?-?-?-?-?- MH-No VB. No flu tters. Nausea improving. Br US confirm FHT. 08/24/24 -?-?-?-?-?-?-?-?-?-?-?-?- 19w 5d 185 lb 2 oz (+18 lb 2 oz) 115/74 Negative -?-?-?-?-?-?-?-?-?-?-?-?- Negative 140 -?-?-?-?-?-?-?-?-?-?-?-?- KW- no vb/crampi ng. + flutters. declines AFP screening. anatomy US reviewed ACOG First Trimester First Trimester: Discussed Second Trimester Second Trimester: Signs and Symptoms of Labor, Selecting a care provider, Reproductive Life Planning & Contreception, Care Planning, Depression/Anxiety and Intimate Partner Violence; Discussed Tobacco Cessation Third Trimester Third Trimester: Pain Management Plans, Labor support person(s), Immediate Larc, Circumcision preference, Movement Monitoring, Signs and Symptoms of Preeclampsia, Labor Signs and Family Medical Leave or Disability Forms ROS Const Reports system reviewed and no additional complaints, except as documented Eyes Reports system reviewed and no additional complaints, except as documented ENT Reports system reviewed and no additional complaints, except as documented Card Reports system reviewed and no additional complaints, except as documented Resp Reports system reviewed and no additional complaints, except as documented GI Reports system reviewed and no additional complaints, except as documented, Denies nausea and Denies vomiting Reports system reviewed and no additional complaints, except as documented Musc Reports system reviewed and no additional complaints, except as documented Skin/Breast Reports system reviewed and no additional complaints, except as documented Neuro Yes system reviewed and no additional complaints, except as documented Psych Reports system reviewed and no additional complaints, except as documented Endo Reports system reviewed and no additional complaints, except as documented Silver/Lymph Reports system reviewed and no additional complaints, except as documented Aller/Immun Reports system reviewed and no additional complaints, except as documented Exam Const General: cooperative, healthy appearing and no acute distress Orientation: alert, awake and oriented x3 Neck Neck: normal visual inspection and full ROM Resp Effort & Inspection: normal respiratory effort, able to speak in complete sentences and symmetric chest movement GI Inspection: normal to inspection Palpation: soft and other Other: gravid Skin General: no rashes or lesions noted Neuro General: patient alert, patient awake and patient oriented x3 Cognition: normal cognition Speech: speech normal Gait: normal gait Motor: muscle tone normal throughout Extrem General: normal to inspection and full ROM Psych Appearance: grossly normal Mental Status: mental status grossly normal Mood: congruent mood Affect: normal affect Speech and Movement: speech and movement normal Attitude: cooperative Thought Process: normal Thought Content: normal Judgment: judgment good Results POC Urinalysis 2 Dip (Clinic) Office Urine Glucose Negative Last Edit by Julia Doan on 08/24/24 12 :02 Office Urine Protein Negative Last Edit by Julia Doan on 08/24/24 12 :02 Coding Level of Care Code OB Routine Diagnoses 19 weeks gestation of Z3A.19 Weeks of gestation: 19 weeks Supervision of high risk in second trimester O09.92 Trimester: second trimester Obesity affecting in second trimester, unspecified obesity type O99.212 Obesity type affecting : unspecified obesity Trimester: second trimester Assessment and Plan Assessment and Plan (1) : Status: Acute Qualifiers: Weeks of gestation: 19 weeks Qualified Code(s): Z3A.19 - 19 weeks gestation of Comment: NIPT w gender & carrier - declined, normal anatomy - consistent dates (2) Supervision of high-risk : Status: Acute Qualifiers: Trimester: second trimester Qualified Code(s): O09.92 - Supervision of high risk , unspecified, second trimester Comment: PRR, , LIZ 01/07/25 PC: Robin SO: Pineda (3) Obesity affecting : Status: Acute Qualifiers: Obesity type affecting : unspecified obesity Trimester: second trimester Qualified Code(s): O99.212 - Obesity complicating , second trimester Comment: bmi 30 hga1c ordered encouraged healthy weight gain Orders: Orders POC Urinalysis 2 Dip (Clinic) Today Plan Details Additional Comments: ACOG trimester education reviewed and updated. see problem list details for updated plan management information and see below for orders placed atthis visit. GA appropriate handout given. 08/24/24 1202 s CNM> Date _ Deanna Clark HAKEEM Cosigner Signature: Date (if applicable) CC: ~ [facility]03-31-2025 Evaluation note* Diagnosis Onset Date Resolution Status Admit Date Obesity affecting acute June 05, 2024 10:23am resolved June 05 10:23am Supervision of high-risk acute June 05, 2024 10:23am Hx of one miscarriage resolved Mar 2024 10:23am Supervision of normal resolved June 05, 2024 10:23am [facility] Work Phone: 1(645) 382-912303-31-2025 Evaluation note* Diagnosis Onset Date Resolution Status Admit Date Obesity affecting acute June 05, 2024 10:23am resolved June 05 10:23am Supervision of high-risk acute June 05, 2024 10:23am Hx of one miscarriage resolved Mar 2024 10:23am Supervision of normal resolved June 05, 2024 10:23am Obesity affecting acute July 03, 2024 10:15am acute July 03 10:15am Supervision of high-risk acute July 03, 2024 10:15am Obesity affecting acute August 01, 2024 9:39am acute August 01, 2024 9:39am Supervision of high-risk acute August 01, 2024 9 :39am [facility] Work Phone: 1(457) 211-228003-31-2025 Evaluation note* Diagnosis Onset Date Resolution Status Admit Date Obesity affecting acute June 05, 2024 10:23am resolved June 05 10:23am Supervision of high-risk acute June 05, 2024 10:23am Hx of one miscarriage resolved Mar 2024 10:23am Supervision of normal resolved June 05, 2024 10:23am Obesity affecting acute July 03, 2024 10:15am acute July 03 10:15am Supervision of high-risk acute July 03, 2024 10:15am Obesity affecting acute August 01, 2024 9:39am acute August 01, 2024 9:39am Supervision of high-risk acute August 01, 2024 9 :39am Obesity affecting acute August 24, 2024 11:47am acute August 24 11:47am Supervision of high-risk acute August 24, 2024 11:47am [facility] Work Phone: 1(515) 816-138703-31-2025 Evaluation note* Diagnosis Onset Date Resolution Status Admit Date Obesity affecting acute June 05, 2024 10:23am resolved June 05 10:23am Supervision of high-risk acute June 05, 2024 10:23am Hx of one miscarriage resolved Mar 2024 10:23am Supervision of normal resolved June 05, 2024 10:23am Obesity affecting acute July 03, 2024 10:15am acute July 03 10:15am Supervision of high-risk acute July 03, 2024 10:15am Obesity affecting acute August 01, 2024 9:39am acute August 01, 2024 9:39am Supervision of high-risk acute August 01, 2024 9 :39am Obesity affecting acute August 24, 2024 11:47am acute August 24 11:47am Supervision of high-risk acute August 24, 2024 11:47am Obesity affecting acute September 18, 2024 1:54pm acute September 18 1:54pm Supervision of high-risk acute September 18, 2024 1:54pm [facility] Work Phone: 1(664) 667-654703-20-2025 Radiology Diagnostic study note [facility] Imaging Services [address] [place] [address] Transvaginal w/Preg US MR#: [id number] Acct: [id number] Name: DAE DOAN Rep #: [id number] : 1995 F 28 From: Ángel Johnston MD PCP: Dr. Dominick Awad MD Status: REG CL I Study:Transvaginal w/Preg US Date of Exam: 05/25/24 Exam# [id number] Ordering Dr: Leslie Pillai MD PROCEDURE: TRANSVAGINAL W/PREG US 05/25/2024 REASON FOR EXAM: DATING US TECHNIQUE: Transvaginal ultrasound. FINDINGS: Comments: LMP: April 02, 2024. Number of Gestational Sacs: 1 Gestational Sac Shape: Normal Number of Fetuses: 1 Heart Rate: 127 beats per minute (average) Yolk Sac: Present and unremarkable. Placenta: Presently not well-visualized Amniotic Fluid Volume: Subjectively normal for gestational age. Uterine Abnormalities: Maternal uterus is unremarkable. Ovaries / Adnexa: Small corpus luteum cysts seen in both ovaries. DIMENSIONS: Parameter Measurement / EGA [place] Rump Length: 7 mm/6 weeks 5 days Gestational Sac: 2.3 cm/7 weeks 2 days Yolk Sac: Visualized./ ESTIMATED GESTATIONAL AGE: By Ultrasound: 7 weeks and 0 days By LMP: 7 weeks and 4 days ESTIMATED DATE OF DELIVERY: By Ultrasound: January 11, 2025 By LMP: January 07, 2025. US/Transvaginal w/Preg US IMPRESSION: Single live intrauterine gestation with a mean gestational age of 7 weeks and 0 days. Corpus luteum cysts seen in both ovaries. Reading Location: [facility]--1 CC: Dr. Dominick Awad MD; Dr. Leslie Baires MD ~ Supervisor [place]: Signed [facility]04-03-2024 NotePap Smear Specimen AdequacyApril 2023 4:33pmComment.Satisfactory for evaluation. Endocervical and/or squamous metaplasticcells (endocervical component)are present.[facility] INTERFACED A#[id number] County HospitalComment on above:Satisfactory for evaluation. Endocervical and/or squamous metaplasticcells (endocervical component)are present.04-25-[address] Langston [facility] April 25, 2022 9:05am Note Date/Time April 25, 2022 9:04am [facility] Medical Records Department [address] [place] [address] Instructions for Home/Discharge Instructions 04/25/2204 MR#: [id number] Acct: [id number] Name: DAE DOAN Rep #:[id number] : 1995 26 From: Lauren Tyson DO PCP: Dr. Krystina Murphy MD Status:A DM IN Discharge Instructions Diet Discharge Diet: No restrictions Activity Discharge Activity: Return to Normal Activity, May Not Drive (while taking narcotic pain medications.) and May Shower May resume sexual activity in: 4-6 weeks Dressing / Incision Call your doctor if your incision/area has: Continuous Slow Oozing, Sudden Increased Bleeding, Increased Pain/ Swelling, Increased Redness and Foul Smelling Discharge Follow Up Care Please Follow Up With: Lauren Tyson DO When: Call [phone] to make an appointment with your doctor in 6 weeks. If you had elevated blood pressure or 4th degree laceration, you will need to be seen in 2 weeks. Test Results: Test results from this visit will be discussed in further detail at your follow- up appointment, if applicable. Discharge Plan Admission Admit Date/Time: 04/24/22 05:54 Primary Reason for Your Visit: vaginal delivery Attending Provider: Lauren Tyson Primary Care Provider: Krystina Murphy Discharge Orders/Prescriptions Prescriptions: New naproxen 500 mg tablet 500 mg PO BID PRN (Reason: pain) Qty: 30 0RF Continued vit-iron fum-folic ac 65 mg iron- 1 mg Tablet 1 tab PO DAILY Referrals / Follow Up: Krystina Murphy MD [Primary Care Provider] - Disposition Disposition (needs filled in before D/C Order can be placed): Home, Self Care 04/25/22 09<Electronically signed by Lauren Tyson DO>Lauren Tyson DO CC: Dr. Krystina Murphy MD ~ Signed [facility] Work Phone: 1(418) 205-835002-18-[address] Langston [facility] April 25, 2022 9:04am Note Date/Time April 25, 2022 9:04am [facility] Medical Records Department [address] [place] [address] Progress Note - OBGYN 04/25/22 0903 MR#: [id number] Acct: [id number] Name: DAE DOAN Rep #:[id number] : 1995 26 From: Lauren Tyson DO PCP: Dr. Krystina Murphy MD Status:A DM IN Location: [facility]-2 Subjective Subjective Patient doing well without complaints. Tolerating PO. Ambulating and voiding without difficulty. Feeding well. Denies chest pain, shortness of breath, calf pain/swelling, fevers, chills, lightheadedness. Objective Data Objective Data Vital Signs: Vital Signs Temp Pulse Resp BP Pulse Ox O2 Del Method 97.6 F L 92 16 116/63 98 Room Air 04/25/22 08:25 04/25/22 08:25 04/25/22 08:25 04/25/22 08:25 04/24/22 08:48 04/25/22 08:25 Oxygen Delivery Method Room Air Weight: 214 lb Body Mass Index (BMI) 36.7 Intake & Output: Intake and Output for Last 24 Hours 04/23/22 04/24/22 04/25/22 23:59 23:59 23:59 Intake Total 1407.57 / 1407.57 Output Total 800 / 800 Balance 607.57 / 607.57 Lab / Micro Data Result Diagrams: 04/24/22 07:40 Labs: Laboratory Results - last 24 hr 04/24/22 07:40: Blood Type A POSITIVE, Antibody Screen NEGATIVE ROS Constitutional Constitutional: Denies chills, fatigue, fever(s), poor appetite or weakness Eyes Eyes: Denies blurry vision, change in vision, seeing flashes or spots in vision ENT HEENT: Denies dizziness, headache(s), loss taste/smell or sore throat Cardiovascular Cardiovascular: Denies chest pain, dizziness, dyspnea, irregular heart rhythm, palpitations or rapid heart rate Respiratory/Chest Respiratory/Chest: Denies chest tightness, cough, dyspnea or breast pain Gastrointestinal Gastrointestinal: Denies abdominal pain, constipation or vomiting Genitourinary Genitourinary: Denies dysuria or flank pain Musculoskeletal Musculoskeletal: Denies difficulty walking, joint pain, limited range of motion or numbness Neurologic Neurologic: Denies abnormal movements, abnormal speech, dizziness, numbness, seizure-like activity or syncope Psychiatric Psychiatric: Denies anxiety, behavioral changes, change in appetite, confusion, depression or suicidal thoughts Physical Exam Const alert, oriented x3 and no apparent distress General Appearance: cooperative and comfortable Resp normal respiratory effort Cardio regular rate GI normal to inspection, nondistended, normoactive bowel sounds GI Narrative: uterus is firm below umbilicus Palpation: soft Back/Spine no CVA tenderness and thoraco-lumbar ROM normal Extremity normal to inspection, no clubbing, cyanosis or edema, no calf tenderness and no pedal edema Psych mental status grossly normal, thought process normal, cooperative, affect normal, speech normal, activity/motor behavior normal, denies homicidal ideationand denies suicidal ideation Assessment & Plan (1) Threatened labor: COMMENT: to L&D for monitoring, possible fluids and steroids 34 weeks 6 days (2) Abnormal glucose affecting : COMMENT: needs 3 hr GTT (3) RUQ abdominal pain: COMMENT: Transient with mild itching abdomen:CMP, CBC and bile acids ordered. BILE ACIDS NORMAL (4) Hx of one miscarriage: COMMENT: Miscarriage 02/25 @ 5weeks (5) Supervision of normal : COMMENT: PRR , LIZ 04/24/22, Spouse Walter (6) : QUALIFIERS: Weeks of gestation: 39 weeks Qualified Code(s): Z3A.39 - 39 weeks gestation of COMMENT: GBS neg, anatomy nl, discussed NIPT & Carrier testing- declined (7) Abnormal uterine bleeding (AUB): PLAN: Plan s/p PPD # 1 1. routine post delivery care 2. breast feeding- support given 3. rh positive 4. rubella immune 5. patient would like to go home today 04/25/22 0904 <Electronically signed by Lauren Tyson DO> Cosigner Signature (if applicable): CC: ~ Signed [facility] Work Phone: 1(249) 880-919602-17-2023 Procedure [facility] 04-24-2022 History and physical note Author Dr. Langston [facility] April 24, 2022 8:11am Note Date/Time April 24, 2022 8:11am [facility] Medical Records Department [address] [place] [address] H&P Exam - MAKE UP EDITOR 04/24/22 0807 MR#: [id number] Acct: [id number] Name: DAE DOAN Rep #:[id number] : 1995 26 From: Lauren Tyson DO PCP: Dr. Krystina Murphy MD Status:A DM IN Location: [id number] HPI - General General Date of Admission: 04/24/22 HPI Narrative DAE DOAN, is a 26 y/o @ 40 weeks who presents to L&D for IOL, however has been ashley since 3 am and has already made cervical change per nurses,since her office visit wednesday. She is now being admitted for active labor management. Patient is requesting epidural. Maternal Data Information LIZ Calculator Estimated Delivery Date Method Current WG Current Estimate 04/24/22 LMP (Certain) 40w 0d PFSH PFSH Medical History Abnormal glucose affecting Abnormal uterine bleeding (AUB) Home Medications vitamins-iron fumarate 65 mg iron-folic acid 1 mg tablet 1 tab PO DAILYpregnancy 03/19/22 [History Last Taken 04/23/22] Allergy/AdvReac Type Severity Reaction Status Date / Time No Known Allergies Allergy Verified 04/24/22 07:00 Family History Mother Afib Social History adopted: No household members: spouse housing: house number of children: 0 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 status: employed 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 pets and animals: No leisure activities: other history of recent travel: Yes details: [place] out of state: Yes out of country: Yes sexually active: Yes Smoking Status: Never smoker alcohol intake: former details: social substance use type: does not use well-balanced diet: daily or most days caffeine: Yes eating out: rarely or never during the past year weight has: decreased > 10 lbs what type of physical activity do you participate in: none fabiola/advent: Sabianist seatbelt use: always do you feel safe at home: Yes additional social history: Pineda- college student and works at [employer] 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 Works at [employer] History 2 Elective abortions Hx Para 0 Spontaneous abortions 1 Hx # Term Pregnancies Ectopic pregnancies Hx # Pregnancies Multiple births # of living children Visit Details Expected Delivery Route/Plan Labor Preferences- CB/BF classes: yes labor support person: Pineda labor intervention preferences: [] pain management options preferred: epidural cut cord/dad catch: cord : yes PP control planned: discussed discussed possible routes of delivery and associated risks: [] special requests: [] Plans Covid status: discussed Flu vaccine: discussed Tdap vaccine: given Rhogam: na LARC form signed:yes Problem list reviewed and updated with the most current plan of care details and appropriate orders placed. Relevant counseling for the gestational age provided. Continue routine care and follow up unless otherwise noted in visit notes/problem list details OB Flowsheet Initial Weight: Not Recorded Date -?-?-?-?-?-?-?-?-?-?-?-?- EGA Weight BP Urine Prot -?-?-?-?-?-?-?-?-?-?-?-?- Glucose FHR FuHt Pres Dilation -?-?-?-?-?-?-?-?-?-?-?-?- Effaced St Visit Note 09/18/21 -?-?-?-?-?-?-?-?-?-?-?-?- 8w 6d 175 lb 108/60 -?-?-?-?-?-?-?-?-?-?-?-?- 170 -?-?-?-?-?-?-?-?-?-?-?-?- SM- CRL 1.9cm co ns with LMP 10/23/21 -?-?-?-?-?-?-?-?-?-?-?-?- 13w 6d 177 lb 6 oz 130/78 Nega tive -?-?-?-?-?-?-?-?-?-?-?-?- Negative 160 -?-?-?-?-?-?-?-?-?-?-?-?- SM- feeling bett er no vb cramping 11/20/21 -?-?-?-?-?-?-?-?-?-?-?-?- 17w 6d 181 lb 6 oz 124/79 -?-?-?-?-?-?-?-?-?-?-?-?- 147 -?-?-?-?-?-?-?-?-?-?-?-?- JV- anatomy scan scheduled, no complaints today, no fm yet. 12/15/21 -?-?-?-?-?-?-?-?-?-?-?-?- 21w 3d 186 lb 120/82 Negative -?-?-?-?-?-?-?-?-?-?-?-?- Negative 146 -?-?-?-?-?-?-?-?-?-?-?-?- -No Vb, LOF. G ood FM. 01/21/22 -?-?-?-?-?-?-?-?-?-?-?-?- 26w 5d 195 lb 110/76 Negative -?-?-?-?-?-?-?-?-?-?-?-?- Negative 153 -?-?-?-?-?-?-?-?-?-?-?-?- -No VB, LOF. G ood FM. Has had off and on RUQ pain and some itching of abdomen Will get labs today 02/03/22 -?-?-?-?-?-?-?-?-?-?-?-?- 28w 4d 199 lb 2 oz 130/72 Nega tive -?-?-?-?-?-?-?-?-?-?-?-?- Negative 139 28 -?-?-?-?-?-?-?-?-?-?-?-?- -No VB, LOF Go od FM. GCT pending. RUQ pain resolved except occa. tdap. 02/17/22 -?-?-?-?-?-?-?-?-?-?-?-?- 30w 4d 197 lb 8 oz 112/73 Nega tive -?-?-?-?-?-?-?-?-?-?-?-?- Negative 129 29 -?-?-?-?-?-?-?-?-?-?-?-?- JV- no lof, vagi nal bleeding, or dec fm. no complaints. passed her 3 hr. 03/04/22 -?-?-?-?-?-?-?-?-?-?-?-?- 32w 5d 203 lb 2 oz 143/83 Nega tive -?-?-?-?-?-?-?-?-?-?-?-?- Negative 136 32 -?-?-?-?-?-?-?-?-?-?-?-?- LC- no lof/vb/ct x. good fm. +sciatic pain, comfort techniques reviewed. 03/19/22 -?-?-?-?-?-?-?-?-?-?-?-?- 34w 6d 201 lb 6 oz 136/87 Nega tive -?-?-?-?-?-?-?-?-?-?-?-?- Negative 140 34 2 -?-?-?-?-?-?-?-?-?-?-?-?- 70 JV- pt c omplains of spotting and on and off contractions. after exam noted (brown dc and dilation) sending to L&D for monitoring, possible steroids. 03/27/22 -?-?-?-?-?-?-?--?-?-?-?-?- 36w 0d 201 lb 2 oz 107/76 Nega tive -?-?-?-?-?-?-?-?-?-?-?-?- Negative 140 35 2 -?-?-?-?-?-?-?-?-?-?-?-?- 70 LC-some ctx on wednesday, none today. good fm. no vb/lof. unchanged CE. ok to return to work. GBS obtained today 04/08/22 -?-?-?-?-?-?-?-?-?-?-?-?- 37w 5d 206 lb 4 oz 125/83 Nega tive -?-?-?-?-?-?-?-?-?-?-?-?- Negative 144 35 2 -?-?-?-?-?-?-?-?-?-?-?-?- 80 -2 JV- no lof , vaginal bleeding, or dec fm. no complaints. GBS neg 04/14/22 -?-?-?-?-?-?-?-?-?-?-?-?- 38w 4d 206 lb 130/88 Negative -?-?-?-?-?-?-?-?-?-?-?-?- Negative 140 37 2 -?-?-?-?-?-?-?-?-?-?-?-?- SM- no vb lof go od fm no regular ctx SM- no vb lof good fm no reg ular ctx having left 04/22/22 -?-?-?-?-?-?-?-?-?-?-?-?- 39w 5d 210 lb 117/82 Negative -?-?-?-?-?-?-?-?-?-?-?-?- Negative 141 38 Cephalic 3 .5 -?-?-?-?-?-?-?-?-?-?-?-?- 90 -1 JV- no lof , vaginal bleeding, or dec fm. pt and her are strongly requesting a 40 week IOL. we are set for monday 04/24 for IOL if labor does not happen before then ROS Constitutional Constitutional: Denies change in weight, fatigue, fever(s), headache(s), poor appetite or weakness Eyes Eyes: Denies blurry vision, change in vision, seeing flashes or spots in vision ENT HEENT: Denies dizziness, headache(s), loss taste/smell or sore throat Cardiovascular Cardiovascular: Denies chest pain, dizziness, dyspnea, irregular heart rhythm, leg edema, palpitations, rapid heart rate or vomiting Respiratory/Chest Respiratory/Chest: Denies chest tightness, cough, dyspnea or breast pain Gastrointestinal Gastrointestinal: Denies abdominal pain, anorexia, constipation, cramping, diarrhea, hemorrhoids, vomiting or weight changes Genitourinary Genitourinary: Denies dysuria, flank pain, genital lesions, genital pain, urinary frequency or urinary urgency Musculoskeletal Musculoskeletal: Denies back pain, difficulty walking, joint pain, limited range of motion, muscle cramps or numbness Integumentary Integumentary: Denies lesions or unusual bruising Neurologic Neurologic: Denies abnormal movements, abnormal speech, dizziness, numbness, seizure-like activity or syncope Psychiatric Psychiatric: Denies anxiety, behavioral changes, change in appetite, change in libido, cognitive impairment, confusion, depression, difficulty concentrating, hallucinations or suicidal thoughts Endocrine Endocrinology: Denies excessive sweating, polydipsia or polyuria Hematologic/Lymphatic Hematologic/Lymphatic: Denies easy bleeding, easy bruising or lymphadenopathy Allergic/Immunologic Allergic/Immunologic: Denies itchy eyes, lip swelling, seasonal rhinorrhea, rhinitis, throat swelling, tongue swelling, eczemia, wheezing or asthma Vital Signs Vital Signs Vital Signs: Weight Weight: 214 lb Body Mass Index (BMI) 36.7 Physical Exam Const alert, oriented x3, no apparent distress and healthy appearing General Appearance: cooperative; Negative for anxious HEENT normocephalic Face and Sinus: normal facial exam Eyes EOMs intact bilaterally and no scleral icterus General Eye: normal appearance of both eyes Neck full ROM and supple Lymph Lymphatic: no lymphadenopathy noted Chest Chest: abnormal inspection of the chest Resp normal respiratory effort Effort and Inspection: able to speak in complete sentences Cardio regular rate GI soft to palpation and non-tender Inspection: gravid Palpation: soft; Negative for tender external exam normal Amniotic Fluid: ROM+plus Back/Spine no CVA tenderness Extremity normal to inspection, full ROM and no clubbing, cyanosis or edema General Extremity: Negative for calf tenderness or edema Skin Lesions: no lesions Rashes: no rashes Psych mental status grossly normal Labs Labs Labs: Blood Type A POSITIVE Antibody Screen NEGATIVE Hct 31.1 % (37-47) L Hgb 10.8 g/dL (12.0-15.0) L Obstetrics US Syphilis Total Ab Non-reactive Rubella IgG Antibody Reactive (Nonreactive) Hep Bs Antigen Non-Reactive (Nonreactive) Chlamydia DNA (JAIMIE) Negative (Negative) Neisseria gonorrhoeae DNA (JAIMIE) Negative (Negative) HIV 1&2 Antibody Non-Reactive (Nonreactive) Glucose 1 Hr 50 gm 149 mg/dL (70-140) H Miscellaneous Test Assessment & Plan (1) Threatened labor: COMMENT: to L&D for monitoring, possible fluids and steroids 34 weeks 6 days (2) Abnormal glucose affecting : COMMENT: needs 3 hr GTT (3) RUQ abdominal pain: COMMENT: Transient with mild itching abdomen:CMP, CBC and bile acids ordered. BILE ACIDS NORMAL (4) Hx of one miscarriage: COMMENT: Miscarriage 02/25 @ 5weeks (5) Supervision of normal : COMMENT: PRR , LIZ 04/24/22, Spouse Walter (6) : QUALIFIERS: Weeks of gestation: 39 weeks Qualified Code(s): Z3A.39 - 39 weeks gestation of COMMENT: GBS neg, anatomy nl, discussed NIPT & Carrier testing- declined (7) Abnormal uterine bleeding (AUB): PLAN: Plan Patient presents IAL, plan expectant management for , pitocin/AROM PRN if needed. Pain management: plans epidural. GBS negative Management of any complications: none I have reviewed the [facility] and made any clinically relevant updates. 04/24/22 0811 <Electronically signed by Lauren Tyson DO> Cosigner Signature (if applicable): CC: Dr. Lauren Tyson DO; Dr. Krystina Murphy MD~ Signed [facility] Work Phone: 1(718) 347-734004-07-2022 NoteHNO ID: [id number] Author: Romana Rocha APRN.[facility] Service: ? Author Type: Nurse Practitioner Type: Progress Notes Filed: 06/12/2021 7:47 PM Note Text: CC: Patient presents with: Cough: cough, St, MINA and bilateral ear pain x 1 week HPI: Dae Middleton is a 25 year old female who presents to the office with complaint of respiratory symptoms, cough, nonproductive, sore throat and ear symptoms for a week. Symptoms are worsening Associated symptoms includes ear pain and ear pressure . Denies fever, nausea, vomiting and diarrhea. Treatments tried include nothing so far. with no relief of symptoms. Sick contacts: unknown. History of asthma, frequent episodes of bronchitis, chronic bronchitis, bronchiectasis or COPD: No Smoker: No Seasonal/environmental allergies: No The ROS is otherwise negative. The patient's pmh, medications, allergies, and past visits are reviewed. PHYSICAL EXAM: BP 122/80 Pulse 71 Temp 36.8 ?C (98.2 ?F) (Tympanic) Resp 18 Wt 75.8 kg (167 lb 3.2 oz) LMP 12/16/2013 SpO2 98% General appearance: alert, cooperative, pleasant, in no acute distress Head: Normocephalic Eyes: EOM's intact, conjunctiva pink and moist, no icterus, sclera white, non-injected Ears: Right ear: External ear/canal- Normal, TM - clear with good landmarks. Left ear: External ear/canal- Normal, TM - clear with good landmarks Oropharynx:moist without lesions, No erythema, exudates or tonsillar hypertrophy. Heart: Negative. RRR without obvious murmur, gallop, or rubs. No ectopy. Lungs: clear to auscultation, without rales or wheeze, good air exchange PAST MEDICAL HISTORY Diagnosis Date - Cardiac dysrhythmia, unspecified - PMH - PAST MEDICAL HISTORY OF Color Vision - Normal PAST SURGICAL HISTORY Procedure Laterality Date - NONE ALLERGIES Patient has no known allergies. MEDICATIONS amoxicillin (POLYMOX, AMOXIL) 500 mg capsule Take 1 capsule by mouth twice daily for 7 days. FAMILY HISTORY Problem Relation Age of Onset - None Mother - None Father - Heart Sister sister had heart murmur as Social History Tobacco Use - Smoking status: Never Smoker - Smokeless tobacco: Never Used Substance Use Topics - Alcohol use: No - Drug use: No ASSESSMENT/PLAN: 1. Cough - ICD9: 786.2, ICD10: R05.9 Prescription instructions reviewed with patient as applicable. Amoxicillin bid for 7 days. Potential red flag symptoms discussed with the patient. Reviewed appropriate action plan to take if red flag symptoms occur. Patient agreeable to treatment plan. Romana Rocha APRN.[facility]04-07-2022 History of Present illness Narrative* Rmoana Rocha APRN.KI - 06/12/2021 7:39 PM EDT CC: Patient presents with: Cough: cough, St, MINA and bilateral ear pain x 1 week HPI: Dae Middleton is a 25 year old female who presents to the office with complaint of respiratory symptoms, cough, nonproductive, sore throat and ear symptoms for a week. Symptoms are worsening Associated symptoms includes ear pain and ear pressure . Denies fever, nausea, vomiting and diarrhea. Treatments tried include nothing so far. with no relief of symptoms. Sick contacts: unknown. History of asthma, frequent episodes of bronchitis, chronic bronchitis, bronchiectasis or COPD: No Smoker: No Seasonal/environmental allergies: No The ROS is otherwise negative. The patient's pmh, medications, allergies, and past visits are reviewed. PHYSICAL EXAM: BP 122/80 Pulse 71 Temp 36.8 C (98.2 F) (Tympanic) Resp 18 Wt 75.8 kg (167 lb 3.2 oz) LMP1 SpO2 98% General appearance: alert, cooperative, pleasant, in no acute distress Head: Normocephalic Eyes: EOM's intact, conjunctiva pink and moist, no icterus, sclera white, non-injected Ears: Right ear: External ear/canal- Normal, TM - clear with good landmarks. Left ear: External ear/canal- Normal, TM - clear with good landmarks Oropharynx:moist without lesions, No erythema, exudates or tonsillar hypertrophy. Heart: Negative. RRR without obvious murmur, gallop, or rubs. No ectopy. Lungs: clear to auscultation, without rales or wheeze, good air exchange PAST MEDICAL HISTORY Diagnosis Date Cardiac dysrhythmia, unspecified PMH - PAST MEDICAL HISTORY OF Color Vision - Normal PAST SURGICAL HISTORY Procedure Laterality Date NONE ALLERGIES Patient has no known allergies. MEDICATIONS amoxicillin (POLYMOX, AMOXIL) 500 mg capsule Take 1 capsule by mouth twice daily for 7 days. FAMILY HISTORY Problem Relation Age of Onset None Mother None Father Heart Sister sister had heart murmur as Social History Tobacco Use Smoking status: Never Smoker Smokeless tobacco: Never Used Substance Use Topics Alcohol use: No Drug use: No ASSESSMENT/PLAN: 1. Cough - ICD9: 786.2, ICD10: R05.9 Prescription instructions reviewed with patient as applicable. Amoxicillin bid for 7 days. Potential red flag symptoms discussed with the patient. Reviewed appropriate action plan to take if red flagsymptoms occur. Patient agreeable to treatment plan. Romana Rocha APRN.CNP [facility] Diagnosis Cough- Primary documented in this encounter [facility] noteNo assessment information availableWTogus [facility] Work Phone: evaluation note* Diagnosis Onset Date Resolution Status Hx of one miscarriage acute acute Supervision of normal [facility] Work Phone: evaluation note* Diagnosis Onset Date Resolution Status Abnormal uterine bleeding (AUB) acute Hx of one miscarriage acute acute Supervision of normal acute Abnormal uterine bleeding (AUB) acute Hx of one miscarriage acute acute Supervision of normal acute Hx of one miscarriage acute acute Supervision of normal acute acute RUQ abdominal pain acute Supervision of normal acute acute Supervision of normal [facility] Work Phone: evaluation note* Diagnosis Onset Date Resolution Status Abnormal uterine bleeding (AUB) acute Hx of one miscarriage acute acute Supervision of normal acute Abnormal uterine bleeding (AUB) acute Hx of one miscarriage acute acute Supervision of normal acute Hx of one miscarriage acute acute Supervision of normal acute acute RUQ abdominal pain acute Supervision of normal acute acute Supervision of normal acute Abnormal glucose affecting acute Abnormal uterine bleeding (AUB) acute Hx of one miscarriage acute acute RUQ abdominal pain acute Supervision of normal acute [facility] Work Phone: evaluation note* Diagnosis Onset Date Resolution Status Abnormal uterine bleeding (AUB) acute Hx of one miscarriage acute acute Supervision of normal acute Hx of one miscarriage acute acute Supervision of normal acute acute RUQ abdominal pain acute Supervision of normal acute acute Supervision of normal acute Abnormal glucose affecting acute Abnormal uterine bleeding (AUB) acute Hx of one miscarriage acute acute RUQ abdominal pain acute Supervision of normal acute Abnormal glucose affecting acute Abnormal uterine bleeding (AUB) acute Hx of one miscarriage acute acute RUQ abdominal pain acute Supervision of normal acute Abnormal glucose affecting acute Abnormal uterine bleeding (AUB) acute Hx of one miscarriage acute acute RUQ abdominal pain acute Supervision of normal acute Threatened labor acu te Abnormal uterine bleeding (AUB) acute Supervision of normal acute Threatened labor acu te [facility] Work Phone: Evaluation note* Diagnosis Onset Date Resolution Status acute RUQ abdominal pain acute Supervision of normal acute acute Supervision of normal acute Abnormal glucose affecting acute Abnormal uterine bleeding (AUB) acute Hx of one miscarriage acute acute RUQ abdominal pain acute Supervision of normal acute Abnormal glucose affecting acute Abnormal uterine bleeding (AUB) acute Hx of one miscarriage acute acute RUQ abdominal pain acute Supervision of normal acute Abnormal glucose affecting acute Abnormal uterine bleeding (AUB) acute Hx of one miscarriage acute acute RUQ abdominal pain acute Supervision of normal acute Threatened labor acu te Abnormal uterine bleeding (AUB) acute Supervision of normal acute Threatened labor acu te Abnormal glucose affecting acute Abnormal uterine bleeding (AUB) acute Hx of one miscarriage acute acute RUQ abdominal pain acute Supervision of normal acute Threatened labor acu te Abnormal glucose affecting acute Abnormal uterine bleeding (AUB) acute Hx of one miscarriage acute acute RUQ abdominal pain acute Supervision of normal acute Threatened labor acu te Abnormal glucose affecting acute Abnormal uterine bleeding (AUB) acute Hx of one miscarriage acute acute RUQ abdominal pain acute Supervision of normal acute Threatened labor acu te Abnormal glucose affecting acute Abnormal uterine bleeding (AUB) acute Hx of one miscarriage acute acute RUQ abdominal pain acute Supervision of normal acute Threatened labor acu te [facility] Work Phone: Evaluation note* Diagnosis Onset Date Resolution Status acute RUQ abdominal pain acute Supervision of normal acute acute Supervision of normal acute Abnormal glucose affecting acute Abnormal uterine bleeding (AUB) acute Hx of one miscarriage acute acute RUQ abdominal pain acute Supervision of normal acute Abnormal glucose affecting acute Abnormal uterine bleeding (AUB) acute Hx of one miscarriage acute acute RUQ abdominal pain acute Supervision of normal acute Abnormal glucose affecting acute Abnormal uterine bleeding (AUB) acute Hx of one miscarriage acute acute RUQ abdominal pain acute Supervision of normal acute Threatened labor acu te Abnormal uterine bleeding (AUB) acute Supervision of normal acute Threatened labor acu te Abnormal glucose affecting acute Abnormal uterine bleeding (AUB) acute Hx of one miscarriage acute acute RUQ abdominal pain acute Supervision of normal acute Threatened labor acu te Abnormal glucose affecting acute Abnormal uterine bleeding (AUB) acute Hx of one miscarriage acute acute RUQ abdominal pain acute Supervision of normal acute Threatened labor acu te Abnormal glucose affecting acute Abnormal uterine bleeding (AUB) acute Hx of one miscarriage acute acute RUQ abdominal pain acute Supervision of normal acute Threatened labor acu te Abnormal glucose affecting acute Abnormal uterine bleeding (AUB) acute Hx of one miscarriage acute acute RUQ abdominal pain acute Supervision of normal acute Threatened labor acu te Abnormal glucose affecting acute Abnormal uterine bleeding (AUB) acute Hx of one miscarriage acute acute RUQ abdominal pain acute Supervision of normal acute Threatened labor acu te [facility] Work Phone: Evaluation note* Diagnosis Onset Date Resolution Status Encounter for routine gynecological examination noneactive [facility] Work Phone: Progress note Author Deanna Clark [facility] Note Date/Time August 24, 2024 12:0 2pm [facility] [address] [place] [address], [address] [place] [address] OFFICE VISIT Date of Service: 08/24/24 MR#: [id number] Acct: [id number] Name: DAE DOAN Rep #: [id number] : 1995 Provider: HAKEEM Clark Age/Sex: 28/F Location: [facility] Status: Signed Intake Vital Signs 06/05/24 10:31 08/01/24 09:42 08/24/24 11:49 Height 5 ft 4 in 5 ft 4 in 5 ft 4 in Weight: 184 lb 8 oz 185 lb 2 oz BMI 31.6 31.7 BP 126/78 H 115/74 Intake Visit Reasons: 19wk ob *pt on vacation from 08/26 to 09/02 Chief Complaint: 19 Week OB Inspector [employer] Required: No Is patient in pain?: No Allergies No Known Allergies Allergy (Verified 08/24/24 11:49) Medications ?Medication ?Instructions ?Recorded ?Confirmed ?Type vitamins-iron fumarate 65 1 tab PO DAILY preg tiarra 03/19/22 08/24/24 H istory mg iron-folic acid 1 mg tablet cholecalciferol (vitamin D3) 25 25 mcg PO QDAY 5 08/24/24 History mcg (1,000 unit) capsule promethazine 12.5 mg tablet 12.5 mg PO Q6H PRN nausea and 07/03/24 08/24/24 Rx vomiting #60 tabs Last Menstrual Period: 04/02/24 Zika: Zika virus screening: Negative : No PFSH PFSH Medical History care and examination Coccyx pain Pelvic and perineal pain Cellulitis of great toe of right foot Pain of right great toe Abnormal glucose affecting Abnormal uterine bleeding (AUB) Family History Mother Afib Brother Seizures Social History adopted: No household members: spouse housing: house number of children: 0 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 status: employed 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 pets and animals: No leisure activities: other history of recent travel: Yes details: cruise [place] out of state: Yes out of country: Yes sexually active: Yes Smoking Status: Never smoker alcohol intake: former details: social substance use type: does not use well-balanced diet: daily or most days caffeine: Yes Type: tea eating out: rarely or never during the past year weight has: decreased > 10 lbs what type of physical activity do you participate in: none fabiola/advent: Sabianist seatbelt use: always do you feel safe at home: Yes additional social history: [email or web address]- [employer] student and works at [employer] 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 Date Name GA/Weeks Outcome Route Bth Weight Infant Gen Labor Lgth Anesthesia Del Locatn Provider FOB 04/24/22 Robin 40 Bjorne Ivis HPI 19wk ob *pt on vacation from 08/26 to 09/02 Details: DAE DOAN is a 28 year old who presents for routine OB visit. OB Visit LIZ Calculator Estimated Delivery Date Method Current WG Current Estimate 01/13/25 Ultrasound #1 19w 5d Other Estimates 01/07/25 LMP (Certain) 20w 4d 01/15/25 Ultrasound #2 19w 3d Expected Delivery Route/Plan Labor Preferences- CB/BF classes: [] labor support person: [] labor intervention preferences: [] pain management options preferred: [] cut cord/dad catch: [] : [] PP control planned: [] discussed possible routes of delivery and associated risks: [] special requests: [] Specific Issue/Plans Covid status: [] Flu vaccine: [] Tdap vaccine: [] Rhogam: [] LARC form signed: [] Problem list reviewed and updated with the most current plan of care details and appropriate orders placed. Relevant counseling for the gestational age provided. Continue routine care and follow up unless otherwise noted in visit notes/problem list details Initial Weight: 167 lb Date -?-?-?-?-?-?-?-?-?-?-?-?- EGA Weight BP Urine Prot -?-?-?-?-?-?-?-?-?-?-?-?- Glucose FHR FuHt Pres Dilation -?-?-?-?-?-?-?-?-?-?-?-?- Effaced St Visit Note 06/05/24 -?-?-?-?-?-?-?-?-?-?-?-?- 8w 2d 179 lb 6 oz (+12 lb 6 oz) 133/84 -?-?-?-?-?-?-?-?-?-?-?-?- 165 -?-?-?-?-?-?-?-?-?-?-?-?- Sm- CRL cons wit h US based LIZ 07/03/24 -?-?-?-?-?-?-?-?-?-?-?-?- 12w 2d 181 lb 12.8 oz (+14 lb 12.8 oz) 135/81 Negative -?-?-?-?-?-?-?-?-?-?-?-?- Negative 160 -?-?-?-?-?-?-?-?-?-?-?-?- JV- no cramping or spotting. planning anatomy scan with MFM. SULLIVAN- no cramping or spotting. planning anatomy scan with MFM. promethazine sent to [facility] 08/01/24 -?-?-?-?-?-?-?-?-?-?-?-?- 16w 3d 184 lb 8 oz (+17 lb 8 oz) 126/78 Negative -?-?-?-?-?-?-?-?-?-?-?-?- Negative 157 -?-?-?-?-?-?-?-?-?-?-?-?- MH-No VB. No flu tters. Nausea improving. Br US confirm FHT. 08/24/24 -?-?-?-?-?-?-?-?-?-?-?-?- 19w 5d 185 lb 2 oz (+18 lb 2 oz) 115/74 Negative -?-?-?-?-?-?-?-?-?-?-?-?- Negative 140 -?-?-?-?-?-?-?-?-?-?-?-?- KW- no vb/crampi ng. + flutters. declines AFP screening. anatomy US reviewed ACOG First Trimester First Trimester: Discussed Second Trimester Second Trimester: Signs and Symptoms of Labor, Selecting a care provider, Reproductive Life Planning & Contreception, Care Planning, Depression/Anxiety and Intimate Partner Violence; Discussed Tobacco Cessation Third Trimester Third Trimester: Pain Management Plans, Labor support person(s), Immediate Larc, Circumcision preference, Movement Monitoring, Signs and Symptoms of Preeclampsia, Labor Signs and Family Medical Leave or Disability Forms ROS Const Reports system reviewed and no additional complaints, except as documented Eyes Reports system reviewed and no additional complaints, except as documented ENT Reports system reviewed and no additional complaints, except as documented Card Reports system reviewed and no additional complaints, except as documented Resp Reports system reviewed and no additional complaints, except as documented GI Reports system reviewed and no additional complaints, except as documented, Denies nausea and Denies vomiting Reports system reviewed and no additional complaints, except as documented Musc Reports system reviewed and no additional complaints, except as documented Skin/Breast Reports system reviewed and no additional complaints, except as documented Neuro Yes system reviewed and no additional complaints, except as documented Psych Reports system reviewed and no additional complaints, except as documented Endo Reports system reviewed and no additional complaints, except as documented Silver/Lymph Reports system reviewed and no additional complaints, except as documented Aller/Immun Reports system reviewed and no additional complaints, except as documented Exam Const General: cooperative, healthy appearing and no acute distress Orientation: alert, awake and oriented x3 Neck Neck: normal visual inspection and full ROM Resp Effort & Inspection: normal respiratory effort, able to speak in complete sentences and symmetric chest movement GI Inspection: normal to inspection Palpation: soft and other Other: gravid Skin General: no rashes or lesions noted Neuro General: patient alert, patient awake and patient oriented x3 Cognition: normal cognition Speech: speech normal Gait: normal gait Motor: muscle tone normal throughout Extrem General: normal to inspection and full ROM Psych Appearance: grossly normal Mental Status: mental status grossly normal Mood: congruent mood Affect: normal affect Speech and Movement: speech and movement normal Attitude: cooperative Thought Process: normal Thought Content: normal Judgment: judgment good Results POC Urinalysis 2 Dip (Clinic) Office Urine Glucose Negative Last Edit by Julia Doan on 08/24/24 12 :02 Office Urine Protein Negative Last Edit by Julia Doan on 08/24/24 12 :02 Coding Level of Care Code OB Routine Diagnoses 19 weeks gestation of Z3A.19 Weeks of gestation: 19 weeks Supervision of high risk in second trimester O09.92 Trimester: second trimester Obesity affecting in second trimester, unspecified obesity type O99.212 Obesity type affecting : unspecified obesity Trimester: second trimester Assessment and Plan Assessment and Plan (1) : Status: Acute Qualifiers: Weeks of gestation: 19 weeks Qualified Code(s): Z3A.19 - 19 weeks gestation of Comment: NIPT w gender & carrier - declined, normal anatomy - consistent dates (2) Supervision of high-risk : Status: Acute Qualifiers: Trimester: second trimester Qualified Code(s): O09.92 - Supervision of high risk , unspecified, second trimester Comment: PRR, , LIZ 01/07/25 PC: Robin SO: Pineda (3) Obesity affecting : Status: Acute Qualifiers: Obesity type affecting : unspecified obesity Trimester: second trimester Qualified Code(s): O99.212 - Obesity complicating , second trimester Comment: bmi 30 hga1c ordered encouraged healthy weight gain Orders: Orders POC Urinalysis 2 Dip (Clinic) Today Plan Details Additional Comments: ACOG trimester education reviewed and updated. see problem list details for updated plan management information and see below for orders placed at this visit. GA appropriate handout given. 08/24/24 1202 <Electronically signed by Deanna mccord CNM> Date _ Deanna Clark CNM Cosigner Signature: Date (if applicable) CC: ~ [facility] Work Phone: Reason for referral (narrative)No reason for referral information availableWTogus [facility] Medical Center Work Phone: Summary Purpose Family History No Family History Records Found Relationship Condition Age at Onset Recorded Date/T jaspal mother Atrial fibrillation Unknown Relationship Condition Age at Onset Recorded Date/T jaspal mother Atrial fibrillation Unknown brother Seizure Unknown Advance Directives No Advanced Directives Records Found Advance Directive Response Recorded Date/ Time Living Will No February 06 12:28pm Power of Lion Tamer No February 06, 2021 12:28pm Advance Directive Response Recorded Date/ Time Living Will No February 06 11:28am Power of Lion Tamer No February 06, 2021 11:28am Advance Directive Response Recorded Date/ Time Name of Medical Power of Lion Tamer Tj Doan April 24, 2022 7:42am Living Will Yes April 24 023 7:42am Power of Lion Tamer Yes April 24, 2022 7:42am Advance Directive Response Recorded Date/ Time Living Will Yes April 24 023 8:42am Power of Lion Tamer Yes April 24, 2022 8:42am Chief Complaint and Reason for Visit Chief Complaint E ORDER THREATENED Chief Complaint E ORDER THREATENED NOB LMP 07/18/21 Reason for Visit Hx of one miscarriag e Supervision of normal Chief Complaint 13 WK OB 18 WK OB 22 WK OB 26 WK OB ONE HR GLUCOSE 28 WK OB/GLUCOSE Reason for Visit Abnormal uterine ble eding (AUB) Hx of one miscarriage Supervision of normal Abnormal uterine bleeding (AUB) Hx of one miscarriage Supervision of normal Hx of one miscarriage Supervision of normal RUQ abdominal pain Supervision of normal Supervision of normal Chief Complaint 13 WK OB 18 WK OB 22 WK OB 26 WK OB ONE HR GLUCOSE 28 WK OB/GLUCOSE SCREEN FOR GESTATIONAL DM Reason for Visit Abnormal uterine ble eding (AUB) Hx of one miscarriage Supervision of normal Abnormal uterine bleeding (AUB) Hx of one miscarriage Supervision of normal Hx of one miscarriage Supervision of normal RUQ abdominal pain Supervision of normal Supervision of normal Chief Complaint 13 WK OB 18 WK OB 22 WK OB 26 WK OB ONE HR GLUCOSE 28 WK OB/GLUCOSE SCREEN FOR GESTATIONAL DM 30 WK OB Reason for Visit Abnormal uterine ble eding (AUB) Hx of one miscarriage Supervision of normal Abnormal uterine bleeding (AUB) Hx of one miscarriage Supervision of normal Hx of one miscarriage Supervision of normal RUQ abdominal pain Supervision of normal Supervision of normal Abnormal glucose affecting Abnormal uterine bleeding (AUB) Hx of one miscarriage RUQ abdominal pain Supervision of normal Chief Complaint 18 WK OB 22 WK OB 26 WK OB ONE HR GLUCOSE 28 WK OB/GLUCOSE SCREEN FOR GESTATIONAL DM 30 WK OB 32 WK OB 34 wk ob RULE OUT PRE-TERM LABOR RULE OUT PRE-TERM LABOR CELESTONE INJECTION Reason for Visit Abnormal uterine ble eding (AUB) Hx of one miscarriage Supervision of normal Hx of one miscarriage Supervision of normal RUQ abdominal pain Supervision of normal Supervision of normal Abnormal glucose affecting Abnormal uterine bleeding (AUB) Hx of one miscarriage RUQ abdominal pain Supervision of normal Abnormal glucose affecting Abnormal uterine bleeding (AUB) Hx of one miscarriage RUQ abdominal pain Supervision of normal Abnormal glucose affecting Abnormal uterine bleeding (AUB) Hx of one miscarriage RUQ abdominal pain Supervision of normal Threatened labor Abnormal uterine bleeding (AUB) Supervision of normal Threatened labor Chief Complaint 26 WK OB ONE HR GLUCOSE 28 WK OB/GLUCOSE SCREEN FOR GESTATIONAL DM 30 WK OB 32 WK OB 34 wk ob RULE OUT PRE-TERM LABOR RULE OUT PRE-TERM LABOR CELESTONE INJECTION CELESTONE INJECTION 36 wk 37 WK OB 38 WK OB EORDERS 39 WK OB Reason for Visit RUQ abdominal pain Supervision of normal Supervision of normal Abnormal glucose affecting Abnormal uterine bleeding (AUB) Hx of one miscarriage RUQ abdominal pain Supervision of normal Abnormal glucose affecting Abnormal uterine bleeding (AUB) Hx of one miscarriage RUQ abdominal pain Supervision of normal Abnormal glucose affecting Abnormal uterine bleeding (AUB) Hx of one miscarriage RUQ abdominal pain Supervision of normal Threatened labor Abnormal uterine bleeding (AUB) Supervision of normal Threatened labor Abnormal glucose affecting Abnormal uterine bleeding (AUB) Hx of one miscarriage RUQ abdominal pain Supervision of normal Threatened labor Abnormal glucose affecting Abnormal uterine bleeding (AUB) Hx of one miscarriage RUQ abdominal pain Supervision of normal Threatened labor Abnormal glucose affecting Abnormal uterine bleeding (AUB) Hx of one miscarriage RUQ abdominal pain Supervision of normal Threatened labor Abnormal glucose affecting Abnormal uterine bleeding (AUB) Hx of one miscarriage RUQ abdominal pain Supervision of normal Threatened labor Chief Complaint 26 WK OB ONE HR GLUCOSE 28 WK OB/GLUCOSE SCREEN FOR GESTATIONAL DM 30 WK OB 32 WK OB 34 wk ob RULE OUT PRE-TERM LABOR RULE OUT PRE-TERM LABOR CELESTONE INJECTION CELESTONE INJECTION 36 wk 37 WK OB 38 WK OB EORDERS 39 WK OB VAG DELIVERY INDUCTION VAG DELIVERY Reason for Visit RUQ abdominal pain Supervision of normal Supervision of normal Abnormal glucose affecting Abnormal uterine bleeding (AUB) Hx of one miscarriage RUQ abdominal pain Supervision of normal Abnormal glucose affecting Abnormal uterine bleeding (AUB) Hx of one miscarriage RUQ abdominal pain Supervision of normal Abnormal glucose affecting Abnormal uterine bleeding (AUB) Hx of one miscarriage RUQ abdominal pain Supervision of normal Threatened labor Abnormal uterine bleeding (AUB) Supervision of normal Threatened labor Abnormal glucose affecting Abnormal uterine bleeding (AUB) Hx of one miscarriage RUQ abdominal pain Supervision of normal Threatened labor Abnormal glucose affecting Abnormal uterine bleeding (AUB) Hx of one miscarriage RUQ abdominal pain Supervision of normal Threatened labor Abnormal glucose affecting Abnormal uterine bleeding (AUB) Hx of one miscarriage RUQ abdominal pain Supervision of normal Threatened labor Abnormal glucose affecting Abnormal uterine bleeding (AUB) Hx of one miscarriage RUQ abdominal pain Supervision of normal Threatened labor Abnormal glucose affecting Abnormal uterine bleeding (AUB) Hx of one miscarriage RUQ abdominal pain Supervision of normal Threatened labor Chief Complaint 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 Reason for Visit Encounter for routin e gynecological examination Chief Complaint Admit Date NO CODES- IRREGULAR HEART BEAT March 03, 2024 11:10am Amenorrhea May 25, 2024 12: 27pm Chief Complaint Admit Date NO CODES- IRREGULAR HEART BEAT March 03, 2024 11:10am Amenorrhea May 25, 2024 12: 27pm 9WK NOB LMP 04/02 LIZ 01/07June 05 10:23am Reason for Visit Admit Date Obesity affecting June 05, 2024 10:23am June 05, 2024 10: 23am Supervision of high-risk June 05, 2024 10:23am Hx of one miscarriage June 05, 2024 1 0:23am Supervision of normal June 052024 10:23am Chief Complaint Admit Date Amenorrhea May 25, 2024 12: 27pm 9WK NOB LMP 04/02 LIZ 01/07June 05 10:23am 12WK OB July 03, 2024 10: 15am 16wk ob August 01, 2024 9:39a m Reason for Visit Admit Date Obesity affecting June 05, 2024 10:23am June 05, 2024 10: 23am Supervision of high-risk June 05, 2024 10:23am Hx of one miscarriage June 05, 2024 1 0:23am Supervision of normal June 052024 10:23am Obesity affecting July 03, 2024 10:15am July 03, 2024 10: 15am Supervision of high-risk July 03, 2024 10:15am Obesity affecting August 01 9:39am August 01, 2024 9:39a m Supervision of high-risk July 072024 9:39am Chief Complaint Admit Date Amenorrhea May 25, 2024 12: 27pm 9WK NOB LMP 04/02 LIZ 01/07June 05 10:23am 12WK OB July 03, 2024 10: 15am 16wk ob August 01, 2024 9:39a m 19wk ob *pt on vacation from 08/26 to August 24, 2024 11:47am Reason for Visit Admit Date Obesity affecting June 05, 2024 10:23am June 05, 2024 10: 23am Supervision of high-risk June 05, 2024 10:23am Hx of one miscarriage June 05, 2024 1 0:23am Supervision of normal June 052024 10:23am Obesity affecting July 03, 2024 10:15am July 03, 2024 10: 15am Supervision of high-risk July 03, 2024 10:15am Obesity affecting August 01 9:39am August 01, 2024 9:39a m Supervision of high-risk July 072024 9:39am Obesity affecting August 24 11:47am August 24, 2024 11:4 7am Supervision of high-risk August 24, 2024 11:47am Chief Complaint Admit Date Amenorrhea May 25, 2024 12: 27pm 9WK NOB LMP 04/02 LIZ 01/07June 05 10:23am 12WK OB July 03, 2024 10: 15am 16wk ob August 01, 2024 9:39a m 19wk ob *pt on vacation from 08/26 to August 24, 2024 11:47am 23wk ob September 18, 2024 1:54 pm Reason for Visit Admit Date Obesity affecting June 05, 2024 10:23am June 05, 2024 10: 23am Supervision of high-risk June 05, 2024 10:23am Hx of one miscarriage June 05, 2024 1 0:23am Supervision of normal June 052024 10:23am Obesity affecting July 03, 2024 10:15am July 03, 2024 10: 15am Supervision of high-risk July 03, 2024 10:15am Obesity affecting August 01 9:39am August 01, 2024 9:39a m Supervision of high-risk July 072024 9:39am Obesity affecting August 24 11:47am August 24, 2024 11:4 7am Supervision of high-risk August 24, 2024 11:47am Obesity affecting September 18, 025 1:54pm September 18, 2024 1:54 pm Supervision of high-risk September 18, 2024 1:54pm Additional Source Comments INFORMATION SOURCE (unrecogn ized section and content) DATE CREATED AUTHOR 07/23/2019 [facility] DATE CREATED AUTHOR AUTHOR'S ORGANIZ ATION 08/17/2019 [facility] DATE CREATED AUTHOR AUTHOR'S ORGANIZ ATION 06/15/2021 [facility] DATE CREATED AUTHOR AUTHOR'S ORGANIZ ATION 08/19/2024 [facility] DATE CREATED AUTHOR AUTHOR'S ORGANIZ ATION 09/22/2024 [facility] Source Comments (unrecognize d section and content) In the event this informatio n is protected by the Federal Confidentiality of Alcohol and Drug Abuse Patient Records regulations: The Federal rules restrict any use of the information to criminally investigate or prosecute any alcohol or drug abuse patient.[facility] Reason for Visit (unrecogniz ed section and content) Reason Comments Cough cough, St, [place] and bi lateral ear pain x 1 week Specialty Diagnoses / Procedures Referred By Contac t Referred To Contact URGENT CARE CLINIC Diagnoses Sore throat, headache, cough Procedures Sore throat, headache, cough 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, 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, 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 [address] [place] [address] [facility] [address] [place] [address] Referral ID Status Reason Start Date Expiration Date Visits Requested Visits Authorized [id number] Pending Review OON/Self Pay Override 06/12/2021 09/10/2021 1 1 Goals (unrecognized section and content) Goals may be documented in a n alternate sectionGoals may be documented in an alternate sectionGoals may be documented in an alternate sectionGoals may be documented in an alternate sectionGoals may be documented in an alternate sectionGoals may be documented in an alternate sectionGoals may be documented in an alternate sectionGoals may be documented in an alternate sectionGoals may be documented in an alternate sectionGoals may be documented in an alternate sectionGoals may be documented in an alternate sectionGoals may be documented in an alternate sectionGoals may be documented in an alternate sectionGoals may be documented in an alternate sectionGoals may be documented in an alternate sectionGoals may be documented in an alternate sectionGoals may be documented in an alternate section Care Teams (unrecognized sec tion and content) Team Status: Active Member Role Status Dates Dr. Omega Serna MD Family Provider Active Dr. Krystina Murphy MD Primary Care Provider Active Team Status: Inactive Member Role Status Dates Dr. Krystina Murphy MD Primary Care Provider, Refer ring Provider Active Jennifer Licona SPORTS COORDINATOR, SPORTS COORDINATOR-C Attending Provider Active Team Status: Inactive Member Role Status Dates Dr. Krystina Murphy MD Primary Care Provider, Refer ring Provider Active Dr. Lauren Tyson DO Attending Provider Activ e Team Status: Inactive Member Role Status Dates Dr. Krystina Murphy MD Primary Care Provider, Refer ring Provider Active Fe Avila CNM Attending Provider Active Team Status: Inactive Member Role Status Dates Dr. Krystina Murphy MD Referring Provider Active Dr. Lauren Tyson DO Attending Provider Activ e Team Status: Inactive Member Role Status Dates Dr. Krystina Murphy MD Referring Provider Active Dr. Leslie Baires MD Attending Provider Active Team Status: Active Member Role Status Dates Dr. Krystina Murphy MD Primary Care Provider Active Dr. Leslie Baires MD Referring Provider, Other Provider Active Dr. Lauren Tyson DO Attending Provider Activ e Team Status: Active Member Role Status Dates Dr. Lauren Tyson DO Attending Provider, Othe r Provider Active Team Status: Inactive Member Role Status Dates Fe Avila CNM Attending Provider Active Team Status: Inactive Member Role Status Dates Dr. Krystina Murphy MD Primary Care Provider Active Jennifer Licona SPORTS COORDINATOR, SPORTS COORDINATOR-C Attending Provider, Referring Provider Active Team Status: Inactive Member Role Status Dates Dr. Krystina Murphy MD Primary Care Provider Active Dr. Leslie Baires MD Attending Provider, Referr ing Provider Active Team Status: Inactive Member Role Status Dates Dr. Lauren Tyson DO Attending Provider Activ e Team Status: Active Member Role Status Dates Dr. Krystina Murphy MD Primary Care Provider Active Dr. Lauren Tyson DO Admit Prov ider, Attending Provider, Other Provider Active Team Status: Inactive Member Role Status Dates Dr. Krystina Murphy MD Primary Care Provider Active Dr. Lauren Tyson DO Admit Provider, Attendin g Provider Active Team Status: Inactive Member Role Status Dates Dr. Krystina Murphy MD Primary Care Provider Active Fe Avila CNM Attending Provider, Referring Pr ovider Active Team Status: Active Member Role Status Dates Dominick Awad MD Primary Care Provider Active Team Status: Inactive Member Role Status Dates Dominick Awad MD Primary Care Provider Active St art: March 03, 2024 End: March 03, 2024 Dominick Awad MD Attending Provider Active Start : March 03, 2024 End: March 03, 2024 Dominick Awad MD Referring Provider Active Start : March 03, 2024 End: March 03, 2024 Team Status: Inactive Member Role Status Leeanna Awad MD Primary Care Provider Active St art: May 15, 2024 End: May 15, 2024 Deanna Clark CNM Attending Provider Active S tart: May 15, 2024 End: May 15, 2024 Deanna Clark CNM Referring Provider Active S tart: May 15, 2024 End: May 15, 2024 Team Status: Active Member Role Status Leeanna Awad MD Primary Care Provider Active St art: May 17, 2024 Dr. Leslie Baires MD Attending Provider Active Start: May 17, 2024 Dr. Leslie Baires MD Referring Provider Active Start: May 17, 2024 Team Status: Active Member Role Status Leeanna Awad MD Primary Care Provider Active St art: May 19, 2024 Dr. Leslie Baires MD Attending Provider Active Start: May 19, 2024 Dr. Leslie Baires MD Referring Provider Active Start: May 19, 2024 Team Status: Active Member Role Status Leeanna Awad MD Primary Care Provider Active St art: May 25, 2024 Dr. Leslie Baires MD Attending Provider Active Start: May 25, 2024 Dr. Leslie Baires MD Referring Provider Active Start: May 25, 2024 Team Status: Inactive Member Role Status Leeanna Awad MD Primary Care Provider Active St art: May 17, 2024 End: May 17, 2024 Dr. Leslie Baires MD Attending Provider Active Start: May 17, 2024 End: May 17, 2024 Dr. Leslie Baires MD Referring Provider Active Start: May 17, 2024 End: May 17, 2024 Team Status: Inactive Member Role Status Leeanna Awad MD Primary Care Provider Active St art: May 19, 2024 End: May 19, 2024 Dr. Leslie Baires MD Attending Provider Active Start: May 19, 2024 End: May 19, 2024 Dr. Leslie Baires MD Referring Provider Active Start: May 19, 2024 End: May 19, 2024 Team Status: Inactive Member Role Status Leeanna Awad MD Primary Care Provider Active St art: May 25, 2024 End: May 25, 2024 Dr. Leslie Baires MD Attending Provider Active Start: May 25, 2024 End: May 25, 2024 Dr. Leslie Baires MD Referring Provider Active Start: May 25, 2024 End: May 25, 2024 Team Status: Inactive Member Role Status Leeanna Awad MD Primary Care Provider Active St art: June 05, 2024 End: June 05, 2024 Dominick Awad MD Referring Provider Active Start : June 05, 2024 End: June 05, 2024 Dr. Leslie Baires MD Attending Provider Active Start: June 05, 2024 End: June 05, 2024 Team Status: Inactive Member Role Status Leeanna Awad MD Primary Care Provider Active St art: June 05, 2024 End: June 05, 2024 Dr. Leslie Baires MD Attending Provider Active Start: June 05, 2024 End: June 05, 2024 Dr. Leslie Baires MD Referring Provider Active Start: June 05, 2024 End: June 05, 2024 Team Status: Inactive Member Role Status Leeanna Awad MD Primary Care Provider Active St art: July 03, 2024 End: July 03, 2024 Dominick Awad MD Referring Provider Active Start : July 03, 2024 End: July 03, 2024 Dr. Lauren Tyson DO Attending Provider Activ e Start: July 03, 2024 End: July 03, 2024 Team Status: Inactive Member Role Status Leeanna Awad MD Primary Care Provider Active St art: August 01, 2024 End: August 01, 2024 Dominick Awad MD Referring Provider Active Start : August 01, 2024 End: August 01, 2024 Jennifer Licona NP, SPORTS COORDINATOR-C Attending Provider Active Start: August 01, 2024 End: August 01, 2024 Team Status: Inactive Member Role Status Leeanna Awad MD Primary Care Provider Active St art: August 24, 2024 End: August 24, 2024 Dominick Awad MD Referring Provider Active Start : August 24, 2024 End: August 24, 2024 Deanna Clark CNM Attending Provider Active S tart: August 24, 2024 End: August 24, 2024 Team Status: Active Member Role/Relationship Status Leeanna Awad MD Primary Care Provider Active Team Status: Inactive Member Role/Relationship Status Leeanna Awad MD Primary Care Provider Active St art: May 25, 2024 End: May 25, 2024 Dr. Leslie Baires MD Attending Provider Active Start: May 25, 2024 End: May 25, 2024 Dr. Leslie Baires MD Referring Provider Active Start: May 25, 2024 End: May 25, 2024 Team Status: Inactive Member Role/Relationship Status Leeanna Awad MD Primary Care Provider Active St art: June 05, 2024 End: June 05, 2024 Dominick Awad MD Referring Provider Active Start : June 05, 2024 End: June 05, 2024 Dr. Leslie Baires MD Attending Provider Active Start: June 05, 2024 End: June 05, 2024 Team Status: Inactive Member Role/Relationship Status Leeanna Awad MD Primary Care Provider Active St art: June 05, 2024 End: June 05, 2024 Dr. Leslie Baires MD Attending Provider Active Start: June 05, 2024 End: June 05, 2024 Dr. Leslie Baires MD Referring Provider Active Start: June 05, 2024 End: June 05, 2024 Team Status: Inactive Member Role/Relationship Status Leeanna Awad MD Primary Care Provider Active St art: July 03, 2024 End: July 03, 2024 Dominick Awad MD Referring Provider Active Start : July 03, 2024 End: July 03, 2024 Dr. Lauren Tyson DO Attending Provider Activ e Start: July 03, 2024 End: July 03, 2024 Team Status: Inactive Member Role/Relationship Status Leeanna Awad MD Primary Care Provider Active St art: August 01, 2024 End: August 01, 2024 Dominick Awad MD Referring Provider Active Start : August 01, 2024 End: August 01, 2024 Jennifer Licona NP, SPORTS COORDINATOR-C Attending Provider Active Start: August 01, 2024 End: August 01, 2024 Team Status: Inactive Member Role/Relationship Status Leeanna Awad MD Primary Care Provider Active St art: August 24, 2024 End: August 24, 2024 Dominick Awad MD Referring Provider Active Start : August 24, 2024 End: August 24, 2024 Deanna Clark CNM Attending Provider Active S tart: August 24, 2024 End: August 24, 2024 Team Status: Inactive Member Role/Relationship Status Leeanna Awad MD Primary Care Provider Active St art: September 18, 2024 End: September 18, 2024 Domincik Awad MD Referring Provider Active Start : September 18, 2024 End: September 18, 2024 Dr. Leslie Baires MD Attending Provider Active Start: September 18, 2024 End: September 18, 2024 FOR RECORDS PERTAINING TO PATIENTS WHO ARE OR HAVE BEEN ENROLLED IN A CHEMICAL DEPENDENCY/SUBSTANCEABUSE PROGRAM, SOME INFORMATION MAY BE OMITTED. This clinical summary was aggregated from multiple sources. Caution should be exercised in using it in the provision of clinical care. This summary normalizes information from multiple sources, and as a consequence, information in this document may materially change the coding, format and clinical context of patient data. In addition, data may be omitted in some cases. CLINICAL DECISIONS SHOULD BE BASED ON THE PRIMARY CLINICAL RECORDS. [facility] [employer] [facility]. provides no warranty or guarantee of the accuracy or completeness of information in this document.
--- OUTSIDE RECORDS SUMMARY | 2024-10-16 08:55 | XMS RPT_ITS | CCD ---
Author Organization [facility] Care Team Providers Care Campus Supervisor Name Role Phone ROMIE VARELA Admitting Unavailable ROMIE VARELA Attending Unavailable ROMIE VARELA Primary Care Unavailable KRYSTINA MURPHY MD Admitting Unavailable KRYSTINA MURPHY MD Attending Unavailable KRYSTINA MURPHY MD Primary Care Unavailable KRYSTIAN MURPHY MD Consulting Unavailable PROVIDER, UNKNOWN Consulting Unavailable PROVIDER, UNKNOWN Consulting Unavailable Unavailable Primary Care Provider UnavailDr. Krystina Harris Primary Care Provider Dr. Krystina Murphy Referring Provider Dr. Leslie Baires Attending Provider Dr. Krystina Murphy Primary Care Provider Dr. Krystina Murphy Referring Provider Dr. Lauren Tyson Attending Provider Livan FLOWER CUTTER, FLOWER CUTTER-C Jennifer Attending Provider Dr. Krystina Murphy Primary Care Provider Dr. Krystina Murphy Referring Provider Dr. Lauren Tyson Attending Provider HAKEEM Avila Attending Provider Dr. Leslie Baires Referring Provider Dr. Leslie Baires Other Provider Dr. Krystina Murphy Primary Care Provider Dr. Krystina Murphy Referring Provider Livan FLOWER CUTTER, FLOWER CUTTER-C Jennifer Attending Provider Dr. Lauren Tyson Attending [...] Provider Dr. Leslie Baires MD Referring Provider [phone] Adelina MORRIS, Dominick Primary Care Provider Dominick Awad MD Referring Provider Dr. Lauren Tyson DO Attending Provider Washburn FLOWER CUTTER-C, Jennifer Attending Provider CAROLYN ESPARZA Attending Unavailable LAUREN GUZMAN Referring Unavailab le DOMINICK AWAD Primary Care Unavailable Dominick Awad MD Primary Care Provider Dr. Leslie Baires MD Attending Provider Dr. Leslie Baires MD Referring Provider [phone] Deanna Clark CNM Attending Provider Dominick Awad [...] Care Unavailable Kalisetti, Krystina Referring Unavailable Dusty FLOWER CUTTER, Lu Godwin Attending Unavailabl e Marcanthony, Leslie Attending Unavailable Adelina, Chalon Referring Unavailable Adelina, Chalon Primary Care Unavailable Lauren Tyson Attending Unavailabl e Adelina, Chalon Referring Unavailable Adelina, Chalon Primary Care Unavailable Livan FLOWER CUTTER, Jennifer Attending Unavailable Adelina, Chalon Referring Unavailable [...] Comment on above: Take 1 capsule by [facility] twice daily for 7 days. cholecalciferol 0.025 [...] HOURS 16 2 March 19, 2022 12:00am Hall (Nk) (4 sources) Start: 09-18-2021 Hall (Nk) Active September 17, 2021 11:00pm Start: 09-18-2021 Hall (Nk) A ctive September 18, 2021 12:00am Vit-Iron Fum-Folic Ac (2 sources) Start: 03-19-2022 take 1 tablet by mouth once daily before mealtime Vit-Iron Fum-Folic Ac Active 1 TABLET PO DAILY March 19, 2022 1:00am Start: 03-19-2022 take 1 tablet by mallorie th once daily before mealtime Vit-Iron Fum-Folic [...] Test Name Value Interpretation Reference Range Facility [facility] Office Visit Reporton 09-18-2024 [facility] Office Visit Report [facility] [address], [address] [place] [address] OFFICE VISIT Date of Service: 09/18/24 MR#: [id number] Acct: [id number] Name: DAE DOAN Rep #: [id number] : 1995 Provider: Dr. 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 pets and animals: No leisure activities: other history of recent travel: Yes details: cruise [employer] out of state: Yes out of country: Yes sexually active: Yes Smoking Status: Never smoker alcohol intake: former details: social substance use type: does not use well-balanced diet: daily or most days caffeine: Yes Type: tea eating out: rarely or never during the past year weight has: decreased > 10 lbs what type of physical activity do you participate in: none fabiola/pentecostal: Spiritism seatbelt use: always do you feel safe at home: Yes additional social history: [employer] 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 Normal [facility] Laboratory - Chemistry and C hemistry - challengeOrdered By: Deanna Clark on 08-24-2024 Glucose Ql (U) Negative [facility] - UrinalysisOrder ed By: Deanna Clark on 08-24-2024 Protein Ql (U) Negative [facility] Office Visit Reporton 08-24-2024 [facility] Office Visit Report [facility] [address], [address] [place] [address] OFFICE VISIT Date of Service: 08/24/24 MR#: [id number] Acct: [id number] Name: DAE DOAN Rep #: [id number] : 1995 Provider: HAKEEM Jamison ams Age/Sex: 28/F Location: [facility] [place] Status: Signed Intake Vital Signs 06/05/24 10:31 08/01/24 09:42 08/24/24 11:49 Height 5 ft 4 in 5 ft 4 in 5 ft 4 in Weight: 184 lb 8 oz 185 lb 2 oz BMI 31.6 31.7 BP 126/78 H 115/74 Intake Visit Reasons: 19wk ob *pt on vacation from 08/26 to 09/02 Chief Complaint: 19 Week OB Global Coordinator Required: No Is patient in pain?: No [...] occupational status: employed 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 pets and animals: No leisure activities: other history of recent travel: Yes details: cruise [employer] out of state: Yes out of country: Yes sexually active: Yes Smoking Status: Never smoker alcohol intake: former details: social substance use type: does not use well-balanced diet: daily or most days caffeine: Yes Type: tea eating out: rarely or never during the past year weight has: decreased > 10 lbs what type of physical activity do you participate in: none fabiola/pentecostal: Spiritism seatbelt use: always do you feel safe at home: Yes additional social history: [employer]- 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 -???-???-???-???-??? -???-???- 12w 2d 181 lb 12.8 oz (+14 lb 12.8 oz) 135/81 Negative -???-???-???-???-??? -???-???-???-???-??? -???-???- Negative 160 -???-???-???-???-??? -???-???-???-???-??? -???-? (more content not included)... Normal [facility] - Chemistry and C hemistry - challengeOrdered By: Jennifer Licona on 08-01-2024 Glucose Ql (U) Negative [facility] - UrinalysisOrder ed By: Jennifer Licona on 08-01-2024 Protein Ql (U) Negative [facility] Office Visit Reporton 08-01-2024 [facility] Office Visit Report [facility] [address] [place] [address], [address] [place] [address] OFFICE VISIT Date of Service: 08/01/24 MR#: [id number] Acct: [id number] Name: DAE DOAN Rep #: [id number] : 1995 Provider: ASHLI raymundo Age/Sex: 28/F Location: [facility] [place] Status: Signed Intake Vital Signs 06/05/24 10:31 07/03/24 10:21 08/01/24 09:42 Height 5 ft 4 in 5 ft 4 in 5 ft 4 in Weight: 184 lb 8 oz BMI 31.6 BP 126/78 H Intake Visit Reasons: 16wk ob Chief Complaint: 16 Week OB Global Coordinator Required: No Is patient in pain?: No [...] occupational status: employed 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 pets and animals: No leisure activities: other history of recent travel: Yes details: cruise [employer] out of state: Yes out of country: Yes sexually active: Yes Smoking Status: Never smoker alcohol intake: former details: social substance use type: does not use well-balanced diet: daily or most days caffeine: Yes Type: tea eating out: rarely or never during the past year weight has: decreased > 10 lbs what type of physical activity do you participate in: none fabiola/pentecostal: Spiritism seatbelt use: always do you feel safe at home: Yes additional social history: [employer] 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 Normal [facility] - Chemistry and C hemistry - challengeOrdered By: Lauren Langston on 07-03-2024 Glucose Ql (U) Negative [facility] - UrinalysisOrder ed By: Lauren Langston on 07-03-2024 Protein Ql (U) Negative [facility] Office Visit Reporton 07-03-2024 [facility] Office Visit Report [facility] [address], [address] [place] [address] OFFICE VISIT Date of Service: 07/03/24 MR#: [id number] Acct: [id number] Name: DAE DOAN Rep #: [id number] : 1995 Provider: Dr. 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 pets and animals: No leisure activities: other history of recent travel: Yes details: cruise [employer] out of state: Yes out of country: Yes sexually active: Yes Smoking Status: Never smoker alcohol intake: former details: social substance use type: does not use well-balanced diet: daily or most days caffeine: Yes Type: tea eating out: rarely or never during the past year weight has: decreased > 10 lbs what type of physical activity do you participate in: none fabiola/pentecostal: Spiritism seatbelt use: always do you feel safe at home: Yes additional social history: [employer] 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 Date Name GA/Weeks Outcome Route Bth Weight [facility] Luke 40 Vande [...] no crampi (more content not included)... Normal [facility] Chlamydia/GC JAIMIE aptimaon CHLAMY,NUC ACID Negative Normal Negative [facility] Comment on above: Performed By: #### L 7000.1800, M100.2200 ####[facility] [address] [place], [address] GC BY NUC ACID Negative Normal Negative [facility] Comment on above: Result Comment: Perf ormed at: =G - [facility] [address] [place], [place] [id number] Superintendent Warehouse: Laura Fall MD, Phone: [phone] Performed By: #### L 7000.1800, M100.2200 ####[facility] [address] [place], [address] Urine Cultureon 06-07-2024 URC Below infection level. Mixed Gram Positive Organisms [place] Count 1000-10,000 MIXC Mixed contaminants. Submit a new specimen if indicated. Normal [facility] Comment on above: Performed By: #### L 7000.1800, M100.2200 ####[facility] [address] [place], [address] Absolute lymphocyte countOrd ered By: Leslie Baires on 06-05-2024 Lymphocytes Auto (Unsp spec) [#/Vol] 1.67 10*3/uL 0.83-4.51 [facility] Absolute neutrophil countOrd ered By: Leslie Baires on 06-05-2024 Neutrophils (Bld) [#/Vol] 4.9 10*3/uL 2.0-7.7 [facility] Automated lymphocyte count a s percentage of total leukocytesOrdered By: Leslie Baires on 06-05-2024 Lymphocytes/100 WBC Auto (Unsp spec) 23.3 % 19-41 [facility] Basophil percentageOrdered B y: Leslie Baires on 06-05-2024 Basophils/100 WBC (Bld) 0.4 % 0-1 [facility] C. trachomatis rRNA JAIMIE+prob e Ql (Unsp spec)Ordered By: Leslie Baires on 06-05-2024 Chlamydia DNA (JAIMIE) Negative Negative [facility] CBC W/Diff, Automatedon 05-08 Absolute Lymph 1.67 X10 3/uL Normal 0.83-4.51 [facility] Comment on above: Performed By: #### L 509.4006, L100.0100, L501.9985, L3890.6301, L3890.6006, L509.8002, L3890.6102, BTS #### [facility] [address] [place], [address] Absolute Neut 4.9 X10 3/uL Normal 2.0-7.7 [facility] Comment on above: Performed By: #### L 509.4006, L100.0100, L501.9985, L3890.6301, L3890.6006, L509.8002, L3890.6102, BTS #### [facility] [address] [place], [address] Basophils/100 WBC (Bld) 0.4 % Normal 0-1 [facility] Comment on above: Performed By: #### L 509.4006, L100.0100, L501.9985, L3890.6301, L3890.6006, L509.8002, L3890.6102, BTS #### [facility] [address] [place], [address] Eosinophils/100 WBC (Bld) 2.2 % Normal 0-5 [facility] Comment on above: Performed By: #### L 509.4006, L100.0100, L501.9985, L3890.6301, L3890.6006, L509.8002, L3890.6102, BTS #### [facility] [address] [place], [address] Erythrocyte distribution width (RBC) [Ratio] 12.8 % Normal 11.6-14.6 [facility] Comment on above: Performed By: #### L 509.4006, L100.0100, L501.9985, L3890.6301, L3890.6006, L509.8002, L3890.6102, BTS #### [facility] [address] [place], [address] Hematocrit (Bld) [Volume fraction] 38.1 % Normal 37-47 [facility] Comment on above: Performed By: #### L 509.4006, L100.0100, L501.9985, L3890.6301, L3890.6006, L509.8002, L3890.6102, BTS #### [facility] [address] [place], [address] Hemoglobin (Bld) [Mass/Vol] 13.1 g/dL Normal 12.0-15.0 [facility] Comment on above: Performed By: #### L 509.4006, L100.0100, L501.9985, L3890.6301, L3890.6006, L509.8002, L3890.6102, BTS #### [facility] [address] [place], [address] IG% 0.300 Normal 0.0-0.9 [facility] Comment on above: Result Comment: IG% - Immature Granulocytes (promyelocytes, myelocytes and metamyelocytes) > 1% indicates that a LEFT SHIFT is Present. Performed By: #### L 509.4006, L100.0100, L501.9985, L3890.6301, L3890.6006, L509.8002, L3890.6102, BTS #### [facility] [address] [place], [address] Lymphocytes/100 WBC (Bld) 23.3 % Normal 19-41 [facility] Comment on above: Performed By: #### L 509.4006, L100.0100, L501.9985, L3890.6301, L3890.6006, L509.8002, L3890.6102, BTS #### [facility] [address] [place], [address] MCH (RBC) [Entitic mass] 29.4 pg Normal 27.0-32.0 [facility] Comment on above: Performed By: #### L 509.4006, L100.0100, L501.9985, L3890.6301, L3890.6006, L509.8002, L3890.6102, BTS #### [facility] [address] [place], [address] MCHC (RBC) [Mass/Vol] 34.4 g/dL Normal 32-36 [facility] Comment on above: Performed By: #### L 509.4006, L100.0100, L501.9985, L3890.6301, L3890.6006, L509.8002, L3890.6102, BTS #### [facility] [address] [place], [address] MCV (RBC) [Entitic vol] 85.4 fL Normal 81-99 [facility] Comment on above: Performed By: #### L 509.4006, L100.0100, L501.9985, L3890.6301, L3890.6006, L509.8002, L3890.6102, BTS #### [facility] [address] [place], [address] Monocytes/100 WBC (Bld) 6.1 % Normal 0-10 [facility] Comment on above: Performed By: #### L 509.4006, L100.0100, L501.9985, L3890.6301, L3890.6006, L509.8002, L3890.6102, BTS #### [facility] [address] [place], [address] Neutrophils/100 WBC (Bld) 67.7 % Normal 47-70 [facility] Comment on above: Performed By: #### L 509.4006, L100.0100, L501.9985, L3890.6301, L3890.6006, L509.8002, L3890.6102, BTS #### [facility] [address] [place], [address] Nucleated RBC (Bld) [#/Vol] 0 10*3/uL Normal 0-5 [facility] Comment on above: Performed By: #### L 509.4006, L100.0100, L501.9985, L3890.6301, L3890.6006, L509.8002, L3890.6102, BTS #### [facility] [address] [place], [address] Platelet mean volume (Bld) [Entitic vol] 10.1 fL Normal 6.2-12.0 [facility] Comment on above: Performed By: #### L 509.4006, L100.0100, L501.9985, L3890.6301, L3890.6006, L509.8002, L3890.6102, BTS #### [facility] [address] [place], [address] Platelets (Bld) [#/Vol] 261 10*3/uL Normal 150-450 [facility] Comment on above: Performed By: #### L 509.4006, L100.0100, L501.9985, L3890.6301, L3890.6006, L509.8002, L3890.6102, BTS #### [facility] [address] [place], [address] RBC (Bld) [#/Vol] 4.46 10*6/uL Normal 4.2-5.4 [facility] Comment on above: Performed By: #### L 509.4006, L100.0100, L501.9985, L3890.6301, L3890.6006, L509.8002, L3890.6102, BTS #### [facility] [address] [place], [address] RDW SD 39.6 fl Normal 35.1-43.9 [facility] Comment on above: Performed By: #### L 509.4006, L100.0100, L501.9985, L3890.6301, L3890.6006, L509.8002, L3890.6102, BTS #### [facility] [address] [place], [address] WBC (Bld) [#/Vol] 7.2 10*3/uL Normal 4.4-11.0 [facility] Comment on above: Performed By: #### L 509.4006, L100.0100, L501.9985, L3890.6301, L3890.6006, L509.8002, L3890.6102, BTS #### [facility] [address] [place], [address] Chlamydia trachomatis rRNA d etection by probe and target amplification methodOrdered By: Leslie Baires on 06-05-2024 C. trachomatis rRNA JAIMIE+probe Ql (Unsp spec) Negative Negative [facility] Eosinophil percentageOrdered By: Leslie Baires on 06-05-2024 Eosinophils/100 WBC (Bld) 2.2 % 0-5 [facility] Erythrocyte distribution wid th (RBC) [Ratio]Ordered By: Leslie Baires on 06-05-2024 Erythrocyte distribution width (RBC) [Entitic vol] 39.6 fL 35.1-43.9 [facility] Erythrocyte distribution wid th ratioOrdered By: Leslie Baires on 06-05-2024 Erythrocyte distribution width (RBC) [Ratio] 12.8 % 11.6-14.6 [facility] Erythrocyte distribution wid th standard deviationOrdered By: Leslie Baires on 06-05-2024 Erythrocyte distribution width (RBC) [Ratio] 39.6 fl 35.1-43.9 [facility] HBV surface Ag Ql (S)Ordered By: Leslie Baires on 06-05-2024 Hepatitis B Surface Antigen Non-Reactive Nonreactive [facility] Comment on above: Reactive: Presumptiv e evidence of HBV. Repeatedly reactive samples must be confirmed using a neutralization test ([employer] HBsAg Confirmatory Test)Non-Reactive: HBsAg not detected; does not exclude the possibility of exposure to HBV Hematocrit Auto (Bld) [Volum e fraction]Ordered By: Leslie Baires on 06-05-2024 Hematocrit (Bld) [Volume fraction] 38.1 % 37-47 [facility] Hemoglobin A1con 06-05-2024 HbA1c (Bld) [Mass fraction] 5.2 % Low <=5.6 [facility] Comment on above: Performed By: #### L 509.4006, L100.0100, L501.9985, L3890.6301, L3890.6006, L509.8002, L3890.6102, BTS ####[facility] [address] [place], [place], [id number] Hemoglobin A1c percentageOrd ered By: Leslie Baires on 06-05-2024 HbA1c (Bld) [Mass fraction] 5.2 % Low >5.7 [facility] Hemoglobin measurementOrdere d By: Leslie Baires on 06-05-2024 Hemoglobin (Bld) [Mass/Vol] 13.1 g/dL 12.0-15.0 [facility] Hepatitis C antibodyOrdered By: Leslie Baires on 06-05-2024 Hepatitis C Antibody Non-Reactive Nonreactive [facility] Comment on above: Reactive: Presumptiv e evidence of antibodies to HCV. Follow CDC recommendations for supplemental testing.Non-Reactive: Antibodies to HCV were not detected; does not exclude the possibility of exposure to HCVReactive Results are presumptive evidence of antibodies to HCV. Follow CDC recommendations for supplemental testing.Order confirmation testing: HCV Quant by PCR testing - HCVPCR lc#[id number] Non Reactive: < 0.8 Equivocal: >/= 0.8 to < 1.0 Reactive: >/= 1.0The CDC requires that a reactive/equivocal HCV antibody result be sent out for confirmation. HCV Quant by PCR testing. Immature granulocytes/100 WB C Auto (Bld)Ordered By: Leslie Baires on 06-05-2024 Immature granulocytes/100 WBC (Bld) 0.300 % 0.0-0.9 [facility] Comment on above: IG% - Immature Granu locytes (promyelocytes, myelocytes and metamyelocytes) > 1% indicates that a LEFT SHIFT is Present. L3890.6006on 06-05-2024 HIV Non-Reactive Normal Nonreactive [facility] Comment on above: Result Comment: Non- Reactive Reactive Repeatedly reactive samples must be confirmed according to CDC recommended confirmatory algorithms. The subresults for either HIVAG or AHIV can be used as an aid in the selection of the confirmation algorithm for reactive samples. Send out specimens with Reactive results to [facility] for confirmation. Order the HIV antibody detection and differentiation: lc#[id number] Performed By: #### L 509.4006, L100.0100, L501.9985, L3890.6301, L3890.6006, L509.8002, L3890.6102, BTS #### [facility] [employer] [facility] [employer] [facility] [employer] [facility] [place], [place], [id number] L3890.6102on 06-05-2024 HEP B Surf Ag Non-Reactive Normal Nonreactive [facility] Comment on above: Result Comment: Reac tive: Presumptive evidence of HBV. Repeatedly reactive samples must be confirmed using a neutralization test ([employer] HBsAg Confirmatory Test) Non-Reactive: HBsAg not detected; does not exclude the possibility of exposure to HBV Performed By: #### L 509.4006, L100.0100, L501.9985, L3890.6301, L3890.6006, L509.8002, L3890.6102, BTS #### [facility] [address] [facility] [place], [address] L3890.6301on 06-05-2024 Hepatitis C Ab Non-Reactive Normal Nonreactive [facility] Comment on above: Result Comment: Reac tive: Presumptive evidence of antibodies to HCV. Follow CDC recommendations for supplemental testing. Non-Reactive: Antibodies to HCV were not detected; does not exclude the possibility of exposure to HCV Reactive Results are presumptive evidence of antibodies to HCV. Follow CDC recommendations for supplemental testing. Order confirmation testing: HCV Quant by PCR testing - HCVPCR lc#[id number] Non Reactive: < 0.8 Equivocal: >/= 0.8 to < 1.0 Reactive: >/= 1.0 [facility] requires that a reactive/equivocal HCV antibody result be sent out for confirmation. HCV Quant by PCR testing. Performed By: #### L 509.4006, L100.0100, L501.9985, L3890.6301, L3890.6006, L509.8002, L3890.6102, BTS #### [facility] [address] [facility] [place], [address] L509.4006on 06-05-2024 Rubella IgG REAC Normal [facility] [facility] Comment on above: Result Comment: Anti body Result: Interpretation Non-Reactive: Non-Immune Reactive: Immune The following results were obtained with the Elecsys Rubella IgG assay. Results from assays of other manufacturers cannot be used interchangeably. Performed By: #### L 509.4006, L100.0100, L501.9985, L3890.6301, L3890.6006, L509.8002, L3890.6102, BTS #### [facility] [address] [place], [address] L509.8002on 06-05-2024 Syphilis Abs Non-Reactive Normal Nonreactive [facility] Comment on above: Performed By: #### L 509.4006, L100.0100, L501.9985, L3890.6301, L3890.6006, L509.8002, L3890.6102, BTS #### [facility] [address] [place], [address] Laboratory - Microbiology an d Antimicrobial susceptibilityOrdered By: Leslie Baires on 06-05-2024 HBV surface Ag Ql (S) Non-Reactive Nonreactive [facility] Comment on above: Reactive: Presumptiv e evidence of HBV. Repeatedly reactive samples must be confirmed using a neutralization test ([employer] HBsAg Confirmatory Test)Non-Reactive: HBsAg not detected; does not exclude the possibility of exposure to HBV Lymphocytes Auto (Unsp spec) [#/Vol]Ordered By: Leslie Baires on 06-05-2024 Lymphocytes (Bld) [#/Vol] 1.67 10*3/uL 0.83-4.51 [facility] Lymphocytes/100 WBC Auto (Un sp spec)Ordered By: Leslie Baires on 06-05-2024 Lymphocytes/100 WBC (Bld) 23.3 % 19-41 [facility] MCV (mean corpuscular volume ) determinationOrdered By: Leslie Baires on 06-05-2024 MCV (RBC) [Entitic vol] 85.4 fL 81-99 [facility] Mean corpuscular hemoglobin (MCH) determinationOrdered By: Leslie Baires on 06-05-2024 MCH (RBC) [Entitic mass] 29.4 pg 27.0-32.0 [facility] Mean corpuscular hemoglobin concentration (MCHC) determinationOrdered By: Leslie Baires on 06-05-2024 MCHC (RBC) [Mass/Vol] 34.4 g/dL 32-36 [facility] Mean platelet volume determi nationOrdered By: Leslie Baires on 06-05-2024 Platelet mean volume (Bld) [Entitic vol] 10.1 fL 6.2-12.0 [facility] Monocyte percentageOrdered B y: Leslie Baires on 06-05-2024 Monocytes/100 WBC (Bld) 6.1 % 0-10 [facility] Neisseria gonorrhoeae nuclei c acid detection by amplified probe techniqueOrdered By: Leslie Baires on 03-31-2025 N. gonorrhoeae DNA JAIMIE+probe Ql (Unsp spec) Negative Negative [facility] Comment on above: Performed at: =[address]Curt[address]una [address] [id number] Director: Laura Fall MD, Phone: [phone] Neutrophil percentageOrdered By: Leslie Baires on 06-05-2024 Neutrophils/100 WBC (Bld) 67.7 % 47-70 [facility] No Panel InformationOrdered By: Leslie Baires on 06-05-2024 HIV (1&2) Antibody Non-Reactive Nonreactive [facility] Comment on above: Non-ReactiveReactive Repeatedly reactive samples must be confirmed according to CDC recommended confirmatory algorithms. The subresults for either HIVAG or AHIV can be used as an aid in the selection of the confirmation algorithm for reactive samples.Send out specimens with Reactive results to [facility] for confirmation.Order the HIV antibody detection and differentiation: #[id number] Nucleated red blood cell per centageOrdered By: Leslie Baires on 06-05-2024 Nucleated RBC/100 WBC (Bld) [Ratio] 0 % 0-5 [facility] [employer] Office Visit Reporton 06-05-2024 [employer] Office Visit Report [facility] [address], [address] [place] [address] OFFICE VISIT Date of Service: 06/05/24 MR#: [id number] Acct: [id number] Name: DAE DOAN Rep #: [id number] : 1995 Provider: Dr. 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 pets and animals: No leisure activities: other history of recent travel: Yes details: cruise [employer] out of state: Yes out of country: Yes sexually active: Yes Smoking Status: Never smoker alcohol intake: former details: social substance use type: does not use well-balanced diet: daily or most days caffeine: Yes Type: tea eating out: rarely or never during the past year weight has: decreased > 10 lbs what type of physical activity do you participate in: none fabiola/pentecostal: Spiritism seatbelt use: always do you feel safe at home: Yes additional social history: [employer] 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 Date Name GA/Weeks Outcome Route Bth Weight Gen Labor Lgth Anesthesia Del Locatn Provider FOB 04/24/22 Robin 40 Bjorne Ivis HPI 9WK NOB LMP 04/02 LIZ 01/07 Details: DAE DOAN is a 28 year [...] Record Genetic (more content not included)... Normal [facility] Platelet countOrdered By: Roel Baires on 06-05-2024 Platelets (Bld) [#/Vol] 261 10*3/uL 150-450 [facility] RBC Auto (Bld) [#/Vol]Ordere d By: Leslie Baires on 06-05-2024 RBC (Bld) [#/Vol] 4.46 10*6/uL 4.2-5.4 [facility] Rubella immune status determ ination by IgG antibody assayOrdered By: Leslie Baires on 06-05-2024 Rubella IgG Antibody REAC Nonreactive [facility] Comment on above: Antibody Result: Int erpretationNon-Reactive: Non-ImmuneReactive: ImmuneThe following results were obtained with the Elecsys Rubella IgG assay. Results from assays of other manufacturers cannot be used interchangeably. T. pallidum abOrdered By: Roel Baires on 06-05-2024 Syphilis Total Antibody Non-Reactive Nonreactiv e [facility] Type AND Screenon 06-05-2024 Ab SCREEN GEL Negative Normal [facility] Comment on above: Order Comment: PN Performed By: #### L 509.4006, L100.0100, L501.9985, L3890.6301, L3890.6006, L509.8002, L3890.6102, BTS ####[facility] [address] [place], [place], [id number] Urine cultureOrdered By: Ryan Baires on 06-05-2024 Bacteria identified Cx Nom (U) Positive Abnormal [facility] White blood cell (WBC) count Ordered By: Leslie Baires on 06-05-2024 WBC (Bld) [#/Vol] 7.2 10*3/uL 4.4-11.0 [facility] Transvaginal w/Preg USon Transvaginal w/Preg US [facility] [address] [place] [address] Transvaginal w/Preg US MR#: [id number] Acct: [id number] Name: DAE DOAN Rep #: [id number] : 1995 F 28 From: Theodore emery MD PCP: Dr. Dominick Awad MD Status: REG CLI Study: Transvaginal w/Preg US Date of Exam: 05/25/24 Exam# [id number] Ordering Dr: Leslie Baires PROCEDURE: TRANSVAGINAL W/PREG [...] both ovaries. DIMENSIONS: Parameter Measurement / EGA Eighty Four Rump Length: 7 mm/6 weeks 5 days [...] cysts seen in both ovaries. Reading Location: [place] [address] CC: Dr. Dominick Awad MD; Dr. Leslie Baires MD Supplemental Nurse: Signed Normal [facility] HCG ( test) QlOrder ed By: Deanna Clark on 05-19-2024 Human Chorionic Gonadotropin, Quant mIU/mL High <9 [facility] Comment on above: Gestational Age0.2-1 Week: 5-50 mIU/mL1-2 Weeks: 50-500 mIU/mL2-3 Weeks: 100-5000 mIU/mL3-4 Weeks: 500-10,000 mIU/mL4-5 Weeks:1000-50,000 mIU/mL5-6 Weeks: 10,000-100,000 mIU/mL6-8 Weeks: 15,000-200,000 mIU/mL2-3 Months:10,000-100,000 mIU/mL Serum human chorionic gonado tropin detection for pregnancyOrdered By: Deanna Clark on 05-19-2024 HCG ( test) Ql mIU/mL High <9 [facility] Comment on above: Gestational Age0.2-1 Week: 5-50 mIU/mL1-2 Weeks: 50-500 mIU/mL2-3 Weeks: 100-5000 mIU/mL3-4 Weeks: 500-10,000 mIU/mL4-5 Weeks:1000-50,000 mIU/mL5-6 Weeks: 10,000-100,000 mIU/mL6-8 Weeks: 15,000-200,000 mIU/mL2-3 Months:10,000-100,000 mIU/mL hCG Titer Quant., Serumon HCG QUANT. mIU/mL High <9 non-preg [facility] Comment on above: Result Comment: Gest ational Age 0.2-1 Week: 5-50 mIU/mL 1-2 Weeks: 50-500 mIU/mL 2-3 Weeks: 100-5000 mIU/mL 3-4 Weeks: 500-10,000 mIU/mL 4-5 Weeks:1000-50,000 mIU/mL 5-6 Weeks: 10,000-100,000 mIU/mL 6-8 Weeks: 15,000-200,000 mIU/mL 2-3 Months:10,000-100,000 mIU/mL Performed By: #### L 700.8000 #### [facility] [address] [place], [place], [address] HCG ( test) QlOrder ed By: Deanna Clark on 05-17-2024 Human Chorionic Gonadotropin, Quant 78830 mIU/mL High <9 [facility] Comment on above: Gestational Age0.2-1 Week: 5-50 mIU/mL1-2 Weeks: 50-500 mIU/mL2-3 Weeks: 100-5000 mIU/mL3-4 Weeks: 500-10,000 mIU/mL4-5 Weeks:1000-50,000 mIU/mL5-6 Weeks: 10,000-100,000 mIU/mL6-8 Weeks: 15,000-200,000 mIU/mL2-3 Months:10,000-100,000 mIU/mL Serum human chorionic gonado tropin detection for pregnancyOrdered By: Deanna Clark on 05-17-2024 H[place] ( [place]) [place]l [address] mIU/mL High <9 [facility] Comment on above: Gestational Age0.2-1 Week: 5-50 mIU/mL1-2 Weeks: 50-500 mIU/mL2-3 Weeks: 100-5000 mIU/mL3-4 Weeks: 500-10,000 mIU/mL4-5 Weeks:1000-50,000 mIU/mL5-6 Weeks: 10,000-100,000 mIU/mL6-8 Weeks: 15,000-200,000 mIU/mL2-3 Months:10,000-100,000 mIU/mL hCG Titer Quant., Serumon HCG QUANT. 75888 mIU/mL High <9 non-preg [facility] Comment on above: Result Comment: Gest ational Age 0.2-1 Week: 5-50 mIU/mL 1-2 Weeks: 50-500 mIU/mL 2-3 Weeks: 100-5000 mIU/mL 3-4 Weeks: 500-10,000 mIU/mL 4-5 Weeks:1000-50,000 mIU/mL 5-6 Weeks: 10,000-100,000 mIU/mL 6-8 Weeks: 15,000-200,000 mIU/mL 2-3 Months:10,000-100,000 mIU/mL Performed By: #### L 700.8000 #### [facility] [address] [place], [address] HCG ( test) QlOrder ed By: Deanna Clark on 05-15-2024 Human Chorionic Gonadotropin, Quant 6998 mIU/mL High <9 [facility] Comment on above: Gestational Age0.2-1 Week: 5-50 mIU/mL1-2 Weeks: 50-500 mIU/mL2-3 Weeks: 100-5000 mIU/mL3-4 Weeks: 500-10,000 mIU/mL4-5 Weeks:1000-50,000 mIU/mL5-6 Weeks: 10,000-100,000 mIU/mL6-8 Weeks: 15,000-200,000 mIU/mL2-3 Months:10,000-100,000 mIU/mL Serum human chorionic gonado tropin detection for pregnancyOrdered By: Deanna Clark on 05-15-2024 HCG ( test) Ql 6998 mIU/mL High <9 [facility] Comment on above: Gestational Age0.2-1 Week: 5-50 mIU/mL1-2 Weeks: 50-500 mIU/mL2-3 Weeks: 100-5000 mIU/mL3-4 Weeks: 500-10,000 mIU/mL4-5 Weeks:1000-50,000 mIU/mL5-6 Weeks: 10,000-100,000 mIU/mL6-8 Weeks: 15,000-200,000 mIU/mL2-3 Months:10,000-100,000 mIU/mL hCG Titer Quant., Serumon HCG QUANT. 6998 mIU/mL High <9 non-preg [facility] Comment on above: Result Comment: Gest ational Age 0.2-1 Week: 5-50 mIU/mL 1-2 Weeks: 50-500 mIU/mL 2-3 Weeks: 100-5000 mIU/mL 3-4 Weeks: 500-10,000 mIU/mL 4-5 Weeks:1000-50,000 mIU/mL 5-6 Weeks: 10,000-100,000 mIU/mL 6-8 Weeks: 15,000-200,000 mIU/mL 2-3 Months:10,000-100,000 mIU/mL Performed By: #### L 662.0306 ####[facility] [address] [place], [address] [id number]-Xlwofao DOrdered By: Zain Awad on 03-03-2024 Vitamin D 25-Hydroxy 24.5 ng/mL [facility] Comment on above: Vitamin D 25(OH) Sta tus Range Deficiency <20 ng/mL (50nmol/L) Insufficiency 20 - 30 ng/mL (50 - 75 nmol/L) Sufficiency 30 - 100 ng/mL (75 - 250 nmol/L) Toxicity >100 ng/mL (>250 nmol/L) Absolute neutrophil countOrd ered By: Dominick Awad on 03-03-2024 Neutrophils (Bld) [#/Vol] 3.2 10*3/uL 2.0-7.7 [facility] Albumin to globulin ratioOrd ered By: Dominick Awad on 03-03-2024 Albumin/Globulin [Mass ratio] 1.1 {ratio} 0.9-2.4 [facility] Basophil percentageOrdered B y: Dominick Awad on 03-03-2024 Basophils/100 WBC (Bld) 0.8 % 0-1 [facility] Bilirubin, totalOrdered By: Dominick Awad on 03-03-2024 Bilirubin [Mass/Vol] 1.30 mg/dL High 0.20-1.[address] [facility] Comment on above: For patients on eltr ombopag therapy, use of Dimension [place] TBIL is not recommended. Blood urea nitrogen (BUN)/cr eatinine ratioOrdered By: Dominick Awad on 03-03-2024 Urea nitrogen/Creatinine [Mass ratio] 23.6 mg/mg High 10-20 [facility] CBC W/Diff, Automatedon 02-06 Absolute Lymph 1.98 X10 3/uL Normal 0.83-4.51 [facility] Comment on above: Order Comment: Order Date: 03/03/24Order Info: 0184-1 - CBCD Performed By: #### L 500.4050, L501.9520, L506.1000, L100.0100 ####[facility] [address] [place], [address] Absolute Neut 3.2 X10 3/uL Normal 2.0-7.7 [facility] Comment on above: Order Comment: Order Date: 03/03/24Order Info: 0184-1 - CBCD Performed By: #### L 500.4050, L501.9520, L506.1000, L100.0100 ####[facility] [address] [place], [address] Basophils/100 WBC (Bld) 0.8 % Normal 0-1 [facility] Comment on above: Order Comment: Order Date: 03/03/24Order Info: 4- - CBCD Performed By: #### L 500.4050, L501.9520, L506.1000, L100.0100 ####[facility] [address] [place], [address] Eosinophils/100 WBC (Bld) 6.5 % High 0-5 [facility] Comment on above: Order Comment: Order Date: 03/03/24Order Info: 183- - CBCD Performed By: #### L 500.4050, L501.9520, L506.1000, L100.0100 ####[facility] [address] [place], [address] Erythrocyte distribution width (RBC) [Ratio] 12.4 % Normal 11.6-14.6 [facility] Comment on above: Order Comment: Order Date: 03/03/24Order Info: 0184-1 - CBCD Performed By: #### L 500.4050, L501.9520, L506.1000, L100.0100 ####[facility] [address] [place], [address] Hematocrit (Bld) [Volume fraction] 36.8 % Low 37-47 [facility] Comment on above: Order Comment: Order Date: 03/03/24Order Info: 018-1 - CBCD Performed By: #### L 500.4050, L501.9520, L506.1000, L100.0100 ####[facility] [address] [place], [address] Hemoglobin (Bld) [Mass/Vol] 12.2 g/dL Normal 12.0-15.0 [facility] Comment on above: Order Comment: Order Date: 03/03/24Order Info: 018- - CBCD Performed By: #### L 500.4050, L501.9520, L506.1000, L100.0100 ####[facility] [address] [place], [address] IG% 0.200 Normal 0.0-0.9 [facility] Comment on above: Order Comment: Order Date: 03/03/24Order Info: 018- - CBCD Result Comment: IG% - Immature Granulocytes (promyelocytes, myelocytes and metamyelocytes) > 1% indicates that a LEFT SHIFT is Present. Performed By: #### L 500.4050, L501.9520, L506.1000, L100.0100 ####[facility] [address] [place], [address] Lymphocytes/100 WBC (Bld) 32.8 % Normal 19-41 [facility] Comment on above: Order Comment: Order Date: 03/03/24Order Info: 018- - CBCD Performed By: #### L 500.4050, L501.9520, L506.1000, L100.0100 ####[facility] [address] [place], [address] MCH (RBC) [Entitic mass] 28.1 pg Normal 27.0-32.0 [facility] Comment on above: Order Comment: Order Date: 03/03/24Order Info: 018- - CBCD Performed By: #### L 500.4050, L501.9520, L506.1000, L100.0100 ####[facility] [address] [place], [address] MCHC (RBC) [Mass/Vol] 33.2 g/dL Normal 32-36 [facility] Comment on above: Order Comment: Order Date: 03/03/24Order Info: 0184-1 - CBCD Performed By: #### L 500.4050, L501.9520, L506.1000, L100.0100 ####[facility] [address] [place], [address] MCV (RBC) [Entitic vol] 84.8 fL Normal 81-99 [facility] Comment on above: Order Comment: Order Date: 03/03/24Order Info: 183- - CBCD Performed By: #### L 500.4050, L501.9520, L506.1000, L100.0100 ####[facility] [address] [place], [address] Monocytes/100 WBC (Bld) 6.3 % Normal 0-10 [facility] Comment on above: Order Comment: Order Date: 03/03/24Order Info: 183- - CBCD Performed By: #### L 500.4050, L501.9520, L506.1000, L100.0100 ####[facility] [address] [place], [address] Neutrophils/100 WBC (Bld) 53.4 % Normal 47-70 [facility] Comment on above: Order Comment: Order Date: 03/03/24Order Info: 0184-1 - CBCD Performed By: #### L 500.4050, L501.9520, L506.1000, L100.0100 ####[facility] [address] [place], [address] Nucleated RBC (Bld) [#/Vol] 0 10*3/uL Normal 0-5 [facility] Comment on above: Order Comment: Order Date: 03/03/24Order Info: 0184-1 - CBCD Performed By: #### L 500.4050, L501.9520, L506.1000, L100.0100 ####[facility] [address] [place], [address] Platelet mean volume (Bld) [Entitic vol] 9.7 fL Normal 6.2-12.0 [facility] Comment on above: Order Comment: Order Date: 03/03/24Order Info: 018- - CBCD Performed By: #### L 500.4050, L501.9520, L506.1000, L100.0100 ####[facility] [address] [place], [address] Platelets (Bld) [#/Vol] 271 10*3/uL Normal 150-450 [facility] Comment on above: Order Comment: Order Date: 03/03/24Order Info: 018- - CBCD Performed By: #### L 500.4050, L501.9520, L506.1000, L100.0100 ####[facility] [address] [place], [address] RBC (Bld) [#/Vol] 4.34 10*6/uL Normal 4.2-5.4 [facility] Comment on above: Order Comment: Order Date: 03/03/24Order Info: 018- - CBCD Performed By: #### L 500.4050, L501.9520, L506.1000, L100.0100 ####[facility] [address] [place], [address] RDW SD 38.5 fl Normal 35.1-43.9 [facility] Comment on above: Order Comment: Order Date: 03/03/24Order Info: 0184-1 - CBCD Performed By: #### L 500.4050, L501.9520, L506.1000, L100.0100 ####[facility] [address] [place], [address] WBC (Bld) [#/Vol] 6.0 10*3/uL Normal 4.4-11.0 [facility] Comment on above: Order Comment: Order Date: 03/03/24Order Info: 0184-1 - CBCD Performed By: #### L 500.4050, L501.9520, L506.1000, L100.0100 ####[facility] [address] [place], [address] Carbon dioxide measurementOr dered By: Dominick Awad on 03-03-2024 CO2 [Moles/Vol] 27.0 mmol/L 21.0-32.0 [facility] Chloride measurementOrdered By: Dominick Awad on 03-03-2024 Chloride [Moles/Vol] 110 mmol/L High 98-[address] [facility] Comprehensive Metabolic Prof ilon 03-03-2024 Albumin [Mass/Vol] 3.7 g/dL Normal 3.2-5.0 [facility] Comment on above: Order Comment: Order Date: 03/03/24Order Info: 0786-1 - CMPOrder Info: 3016-3 - TSH Performed By: #### L 500.4050, L501.9520, L506.1000, L100.0100 ####[facility] [address] [place], [address] Albumin/Globulin [Mass ratio] 1.1 {ratio} Normal 0.9-2.4 [facility] Comment on above: Order Comment: Order Date: 03/03/24Order Info: 0786-1 - CMPOrder Info: 3016-3 - TSH Performed By: #### L 500.4050, L501.9520, L506.1000, L100.0100 ####[facility] [address] [place], [address] ALK P 54 U/L Normal 45-117 [facility] Comment on above: Order Comment: Order Date: 03/03/24Order Info: 0786-1 - CMPOrder Info: 3016-3 - TSH Performed By: #### L 500.4050, L501.9520, L506.1000, L100.0100 ####[facility] [address] [place], [address] ALT [Catalytic activity/Vol] 44 U/L Normal 13-56 [facility] Comment on above: Order Comment: Order Date: 03/03/24Order Info: 0786-1 - CMPOrder Info: 3016-3 - TSH Performed By: #### L 500.4050, L501.9520, L506.1000, L100.0100 ####[facility] [address] [place], [address] AST [Catalytic activity/Vol] 26 U/L Normal 15-37 [facility] Comment on above: Order Comment: Order Date: 03/03/24Order Info: 0786- - CMPOrder Info: 3015-3 - TSH Performed By: #### L 500.4050, L501.9520, L506.1000, L100.0100 ####[facility] [address] [place], [address] Bilirubin [Mass/Vol] 1.30 mg/dL High 0.20-1.[address] [facility] Comment on above: Order Comment: Order Date: 03/03/24Order Info: 0786- - CMPOrder Info: 3016-3 - TSH Result Comment: For patients on eltrombopag therapy, use of Dimension [place] TBIL is not recommended. Performed By: #### L 500.4050, L501.9520, L506.1000, L100.0100 ####[facility] [address] [place], [address] BUN/CRE 23.6 RATIO High 10-20 [facility] Comment on above: Order Comment: Order Date: 03/03/24Order Info: 0786-1 - CMPOrder Info: 3016-3 - TSH Performed By: #### L 500.4050, L501.9520, L506.1000, L100.0100 ####[facility] [address] [place], [address] CA,Total 9.1 mg/dL Normal 8.5-10.1 [facility] Comment on above: Order Comment: Order Date: 03/03/24Order Info: 0786 - CMPOrder Info: 3015-05 - TSH Performed By: #### L 500.4050, L501.9520, L506.1000, L100.0100 ####[facility] [address] [place], [address] Chloride [Moles/Vol] 110 mmol/L High 98-[address] [facility] Comment on above: Order Comment: Order Date: 03/03/24Order Info: 785-03 - CMPOrder Info: 3015-05 - TSH Performed By: #### L 500.4050, L501.9520, L506.1000, L100.0100 ####[facility] [address] [place], [address] CO2 [Moles/Vol] 27.0 mmol/L Normal 21.0-32.0 [facility] Comment on above: Order Comment: Order Date: 03/03/24Order Info: 0786 - CMPOrder Info: 3015-05 - TSH Performed By: #### L 500.4050, L501.9520, L506.1000, L100.0100 ####[facility] [address] [place], [address] Creatinine [Mass/Vol] 0.68 mg/dL Normal 0.55-1.02 [facility] Comment on above: Order Comment: Order Date: 03/03/24Order Info: 07 - CMPOrder Info: 3015-05 - TSH Result Comment: The validity of the calculated GFR GFRAA in patients over 70 years has not been determined. Clinical correlation is essential. Performed By: #### L 500.4050, L501.9520, L506.1000, L100.0100 ####[facility] [address] [place], [address] EST GFR - AA 132 mL/min Normal >60 [facility] Comment on above: Order Comment: Order Date: 03/03/24Order Info: 0786-1 - CMPOrder Info: 3016-3 - TSH Result Comment: Afri can Congolese GFR Calc Performed By: #### L 500.4050, L501.9520, L506.1000, L100.0100 ####[facility] [address] [place], [address] GAP 5 Normal 5-15 [facility] Comment on above: Order Comment: Order Date: 03/03/24Order Info: 07- - CMPOrder Info: 3015-05 - TSH Performed By: #### L 500.4050, L501.9520, L506.1000, L100.0100 ####[facility] [address] [place], [address] GFR/1.73 sq M.predicted among non-blacks MDRD (S/P/Bld) [Vol rate/Area] 109 mL/min/{1.73_m2} Normal >60 [facility] Comment on above: Order Comment: Order Date: 03/03/24Order Info: 07-1 - CMPOrder Info: 3015-3 - TSH Result Comment: Non- GFR Calc Performed By: #### L 500.4050, L501.9520, L506.1000, L100.0100 ####[facility] [address] [place], [address] Globulin (S) [Mass/Vol] 3.4 g/dL Normal 2.2-4.2 [facility] Comment on above: Order Comment: Order Date: 03/03/24Order Info: [id number] - CMPOrder Info: [id number] - TSH Performed By: #### L [id number], L501.9520, L506.1000, L100.0100 ####[facility] [address] [place], [address] Glucose [Mass/Vol] 95 mg/dL Normal 74-106 [facility] Comment on above: Order Comment: Order Date: 03/03/24Order Info: 07 - CMPOrder Info: [id number] - TSH Performed By: #### L [id number], L501.9520, L506.1000, L100.0100 ####[facility] [address] [place], [address] Potassium [Moles/Vol] 4.0 mmol/L Normal 3.5-5.1 [facility] Comment on above: Order Comment: Order Date: 03/03/24Order Info: [id number] - CMPOrder Info: [id number] - TSH Performed By: #### L [id number], [id number], L506.1000, L100.0100 ####[facility] [address] [place], [address] Sodium [Moles/Vol] 142 mmol/L Normal 136-145 [facility] Comment on above: Order Comment: Order Date: 03/03/24Order Info: [id number] - CMPOrder Info: [id number] - TSH Performed By: #### L [id number], [id number], L506.1000, L100.0100 ####[facility] [address] [place], [address] T PROT 7.1 g/dL Normal 6.4-8.2 [facility] Comment on above: Order Comment: Order Date: 03/03/24Order Info: [id number] - CMPOrder Info: [id number] - TSH Performed By: #### L [id number], [id number], L506.1000, L100.0100 ####[facility] [address] [place], [address] Urea nitrogen [Mass/Vol] 16 mg/dL Normal 7-18 [facility] Comment on above: Order Comment: Order Date: 03/03/24Order Info: [id number] - CMPOrder Info: [id number] - TSH Performed By: #### L [id number], [id number], L506.1000, L100.0100 ####[facility] [address] [place], [address] Eosinophil percentageOrdered By: Dominick Awad on 03-03-2024 Eosinophils/100 WBC (Bld) 6.5 % High 0-5 [facility] Erythrocyte distribution wid th ratioOrdered By: Dominick Awad on 03-03-2024 Erythrocyte distribution width (RBC) [Ratio] 12.4 % 11.6-14.6 [facility] Erythrocyte distribution wid th standard deviationOrdered By: Dominick Awad on 03-03-2024 Erythrocyte distribution width (RBC) [Entitic vol] 38.5 fL 35.1-43.9 [facility] Estimated glomerular filtrat ion rate (GFR) AmericanOrdered By: Dominick Awad on 03-03-2024 Estimated GFR (MDRD) Amer 132 mL/min >60 [facility] Comment on above: GFR Calc Glomerular filtration rate ( GFR) estimationOrdered By: Dominick Awad on 03-03-2024 Estimated GFR (MDRD) Non-Af Amer 109 mL/min >60 [facility] Comment on above: Non- GFR Calc Glucose measurementOrdered B y: Dominick Awad on 03-03-2024 Glucose [Mass/Vol] 95 mg/dL 74-106 [facility] Hematocrit Auto (Bld) [Volum e fraction]Ordered By: Dominick Awad on 03-03-2024 Hematocrit (Bld) [Volume fraction] 36.8 % Low 37-47 [facility] Hemoglobin measurementOrdere d By: Dominick Awad on 03-03-2024 Hemoglobin (Bld) [Mass/Vol] 12.2 g/dL 12.0-15.0 [facility] Immature granulocytes/100 WB C Auto (Bld)Ordered By: Dominick Awad on 03-03-2024 Immature granulocytes/100 WBC (Bld) 0.200 % 0.0-0.9 [facility] Comment on above: IG% - Immature Granu locytes (promyelocytes, myelocytes and metamyelocytes) > 1% indicates that a LEFT SHIFT is Present. Laboratory - Chemistry and C hemistry - challengeOrdered By: Dominick Awad on 03-03-2024 AST [Catalytic activity/Vol] 26 U/L 15-37 [facility] Lymphocytes Auto (Unsp spec) [#/Vol]Ordered By: Dominick Awad on 03-03-2024 Lymphocytes (Bld) [#/Vol] 1.98 10*3/uL 0.83-4.51 [facility] Lymphocytes/100 WBC Auto (Un sp spec)Ordered By: Dominick Awad on 03-03-2024 Lymphocytes/100 WBC (Bld) 32.8 % 19-41 [facility] MCV (mean corpuscular volume ) determinationOrdered By: Dominick Awad on 03-03-2024 MCV (RBC) [Entitic vol] 84.8 fL 81-99 [facility] Mean corpuscular hemoglobin (MCH) determinationOrdered By: Dominick Awad on 03-03-2024 MCH (RBC) [Entitic mass] 28.1 pg 27.0-32.0 [facility] Mean corpuscular hemoglobin concentration (MCHC) determinationOrdered By: Dominick Awad on 03-03-2024 MCHC (RBC) [Mass/Vol] 33.2 g/dL 32-36 [facility] Mean platelet volume determi nationOrdered By: Dominick Awad on 03-03-2024 Platelet mean volume (Bld) [Entitic vol] 9.7 fL 6.2-12.0 [facility] Monocyte percentageOrdered B y: Dominick Awad on 03-03-2024 Monocytes/100 WBC (Bld) 6.3 % 0-10 [facility] Neutrophil percentageOrdered By: Dominick Awad on 03-03-2024 Neutrophils/100 WBC (Bld) 53.4 % 47-70 [facility] Nucleated red blood cell per centageOrdered By: Dominick Awad on 03-03-2024 Nucleated RBC/100 WBC (Bld) [Ratio] 0 % 0-5 [facility] Platelet countOrdered By: Chris Awad on 03-03-2024 Platelets (Bld) [#/Vol] 271 10*3/uL 150-450 [facility] Potassium measurementOrdered By: Dominick Awad on 03-03-2024 Potassium [Moles/Vol] 4.0 mmol/L 3.5-5.1 [facility] RBC Auto (Bld) [#/Vol]Ordere d By: Dominick Awad on 03-03-2024 RBC (Bld) [#/Vol] 4.34 10*6/uL 4.2-5.4 [facility] Serum anion gap measurementO rdered By: Dominick Awad on 03-03-2024 Anion gap [Moles/Vol] 5 mmol/L 5-15 [facility] Serum globulin measurementOr dered By: Dominick Awad on 03-03-2024 Globulin (S) [Mass/Vol] 3.4 g/dL 2.2-4.2 [facility] Serum or plasma alanine morelos otransferase (ALT) measurementOrdered By: Dominick Awad on 03-03-2024 ALT [Catalytic activity/Vol] 44 U/L 13-56 [facility] Serum or plasma albumin keren urement (mass/volume)Ordered By: Dominick Awad on 03-03-2024 Albumin [Mass/Vol] 3.7 g/dL 3.2-5.0 [facility] Serum or plasma alkaline hanna sphatase measurementOrdered By: Dominick Awad on 03-03-2024 ALP [Catalytic activity/Vol] 54 U/L 45-117 [facility] Serum or plasma calcium keren urement (mass/volume)Ordered By: Dominick Awad on 03-03-2024 Calcium [Mass/Vol] 9.1 mg/dL 8.5-10.1 [facility] Serum or plasma creatinine m easurement (mass/volume)Ordered By: Dominick Awad on 03-03-2024 Creatinine [Mass/Vol] 0.68 mg/dL 0.55-1.02 [facility] Comment on above: The validity of the calculated GFR & GFRAA in patients over 70 years has not been determined. Clinical correlation is essential. Serum or plasma urea nitroge n measurement (mass/volume)Ordered By: Renettaalek Awad on 03-03-2024 Urea nitrogen [Mass/Vol] 16 mg/dL 7-18 [facility] Sodium levelOrdered By: Renetta Dimaske on 03-03-2024 Sodium [Moles/Vol] 142 mmol/L 136-145 [facility] TSH QnOrdered By: Dominick Walsh e on 03-03-2024 Thyroid Stimulating Hormone (TSH) 1.960 uIU/mL 0.358-3.740 [facility] Thyroid Stim Hormone (TSH)on 03-03-2024 TSH 1.960 uIU/mL Normal 0.358-3.740 [facility] Comment on above: Order Comment: Order Date: 03/03/24Order Info: [id number] - CMPOrder Info: [id number] - TSH Performed By: #### L [id number], L501.9520, L506.1000, L100.0100 ####[facility] [address] [place], [place], [id number] Total proteinOrdered By: Tanya arreguin Adelina on 03-03-2024 Protein [Mass/Vol] 7.1 g/dL 6.4-8.2 [facility] Vitamin D,25 Hydroxyon 03-03 Vitamin D 25-OH 24.5 ng/mL Normal [facility] Comment on above: Order Comment: Order Date: 03/03/24Order Info: [id number] - [id number] Result Comment: Lyndsey min D 25(OH) Status Range Deficiency <20 ng/mL (50nmol/L) Insufficiency 20 - 30 ng/mL (50 - 75 nmol/L) Sufficiency 30 - 100 ng/mL (75 - 250 nmol/L) Toxicity >100 ng/mL (>250 nmol/L) Performed By: #### L [id number], L501.9520, L506.1000, L100.0100 ####[facility] [address] [place], [place], [address] White blood cell (WBC) count Ordered By: Dominick Awad on 03-03-2024 WBC (Bld) [#/Vol] 6.0 10*3/uL 4.4-11.0 [facility] Office Visit Reporton 2023 Office Visit Report [facility] [place] [address] OFFICE VISIT Date of Service: 12/07/23 MR#: [id number] Acct: [id number] Patient: DAE DOAN Rep #: [id number] : 1995 Provider: ASHLI rios Age/Sex: 27/F Location: [facility] Status: Signed Intake Vital Signs [...] occupational status: employed 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 [employer] Female Reproductive History Menstrual Ab spontaneous: [...] healthy appearing, well developed and well groomed [facility] Head: normocephalic and atraumatic Eyes General: appearance [...] of r (more content not included)... Normal [facility] Cervical or vagninal specime n microscopic examination by cytology stain (reported asOrdered By: Fe Avila on 06-09-2023 Cytology report Cyto stain Doc (Cvx/Vag) Comment . [facility] Comment on above: The Pap smear is a s creening test designed to aid in thedetection of premalignant and malignant conditions of theuterine cervix. It is not a diagnostic procedure andshould not be used as the sole means of detecting cervicalcancer. Both false-positive and false-negative reports dooccur. Laboratory - CytologyOrdered By: Fe Avila on 06-09-2023 Shop Laborer Cyto stain Nom (Cvx/Vag) [ID] Comment . [facility] Comment on above: Mir Barriga totechnologist (ASCP) Laboratory - Miscellaneous t estsOrdered By: Fe Avila on 06-09-2023 Service comment (Unsp spec) [Interp] . . [facility] No Panel InformationOrdered By: Fe Avila on 06-09-2023 Human Papillomavirus Screen Comment . [facility] Comment on above: The HPV DNA reflex zain ivey were not met with this specimenresult therefore, no HPV testing was performed.Performed at: [facility] [address] [id number] Director: Laura Fall MD, Phone: [phone] Thin prep Papanicolaou smear with manual screeningOrdered By: Fe Avila on 06-09-2023 Thin prep Papanicolaou smear with manual screening Comment . [facility] Comment on above: NEGATIVE FOR INTRAEP ITHELIAL LESION OR MALIGNANCY. This liquid based Th inPrep(R) pap test was screened withthe use of an image guided system. Absolute lymphocyte countOrd ered By: Dr. Langston on 04-24-2022 Lymphocytes Auto (Unsp spec) [#/Vol] 1.67 10*3/uL 0.83-4.51 [facility] Basophil percentageOrdered B y: Dr. Langston on 04-24-2022 Basophils/100 WBC (Bld) 0.3 % 0-1 [facility] Eosinophils/100 WBC (Bld) 1.6 % 0-5 [facility] Neutrophils (Bld) [#/Vol] 7.4 10*3/uL 2.0-7.7 [facility] Neutrophils/100 WBC (Bld) 73.0 % 47-70 [facility] WBC (Bld) [#/Vol] 10.2 10*3/uL 4.4-11.0 [facility] Blood erythrocytes count (nu mber/volume)Ordered By: Dr. Langston on 04-24-2022 RBC (Bld) [#/Vol] 3.63 10*6/uL 4.2-5.4 [facility] Blood hemoglobin measurement (mass/volume)Ordered By: Dr. Langston on 04-24-2022 Hemoglobin (Bld) [Mass/Vol] 10.8 g/dL 12.0-15.0 [facility] Blood lymphocytes/100 leukoc ytesOrdered By: Dr. Langston on 04-24-2022 Lymphocytes/100 WBC (Bld) 16.5 % 19-41 [facility] Blood monocytes/100 leukocyt esOrdered By: Dr. Langston on 04-24-2022 Monocytes/100 WBC (Bld) 7.8 % 0-10 [facility] Blood platelet mean volumeOr dered By: Dr. Langston on 04-24-2022 Platelet mean volume (Bld) [Entitic vol] 10.9 fL 6.2-12.0 [facility] Determination of erythrocyte mean corpuscular volume (MCV)Ordered By: Dr. Langston on 04-24-2022 MCV (RBC) [Entitic vol] 85.7 fL 81-99 [facility] Hematocrit Auto (Bld) [Volum e fraction]Ordered By: Dr. Langston on 04-24-2022 Hematocrit (Bld) [Volume fraction] 31.1 % 37-47 [facility] Laboratory - Hematology and Cell countsOrdered By: Dr. Langston on 04-24-2022 Erythrocyte distribution width (RBC) [Entitic vol] 43.0 fL 35.1-43.9 [facility] Erythrocyte distribution width (RBC) [Ratio] 13.8 % 11.6-14.6 [facility] Immature granulocytes/100 WBC (Bld) 0.800 % 0.0-0.9 [facility] Comment on above: IG% - Immature Granu locytes (promyelocytes, myelocytes and metamyelocytes) > 1% indicates that a LEFT SHIFT is Present. MCH (RBC) [Entitic mass] 29.8 pg 27.0-32.0 [facility] Nucleated RBC/100 WBC (Bld) [Ratio] 0 % 0-5 [facility] MCHC Auto (RBC) [Mass/Vol]Or dered By: Dr. Langston on 04-24-2022 MCHC (RBC) [Mass/Vol] 34.7 g/dL 32-36 [facility] Platelets bldOrdered By: Dr. Langston on 04-24-2022 Platelets (Bld) [#/Vol] 215 10*3/uL 150-450 [facility] Laboratory - Chemistry and C hemistry - challengeon 04-22-2022 Glucose Ql (U) Negative [facility] Laboratory - Urinalysison Protein Ql (U) Negative [facility] Absolute lymphocyte countOrd ered By: Dr. Baires on 04-14-2022 Lymphocytes Auto (Unsp spec) [#/Vol] 1.70 10*3/uL 0.83-4.51 [facility] Basophil percentageOrdered B y: Dr. Baires on 04-14-2022 Basophils/100 WBC (Bld) 0.3 % 0-1 [facility] Eosinophils/100 WBC (Bld) 1.8 % 0-5 [facility] Neutrophils (Bld) [#/Vol] 8.5 10*3/uL 2.0-7.7 [facility] Neutrophils/100 WBC (Bld) 76.2 % 47-70 [facility] WBC (Bld) [#/Vol] 11.1 10*3/uL 4.4-11.0 [facility] Blood erythrocytes count (nu mber/volume)Ordered By: Dr. Baires on 04-14-2022 RBC (Bld) [#/Vol] 3.91 10*6/uL 4.2-5.4 [facility] Blood hemoglobin measurement (mass/volume)Ordered By: Dr. Baires on 04-14-2022 Hemoglobin (Bld) [Mass/Vol] 11.7 g/dL 12.0-15.0 [facility] Blood lymphocytes/100 leukoc ytesOrdered By: Dr. Baires on 04-14-2022 Lymphocytes/100 WBC (Bld) 15.3 % 19-41 [facility] Blood monocytes/100 leukocyt esOrdered By: Dr. Baires on 04-14-2022 Monocytes/100 WBC (Bld) 6.0 % 0-10 [facility] Blood platelet mean volumeOr dered By: Dr. Baires on 04-14-2022 Platelet mean volume (Bld) [Entitic vol] 10.2 fL 6.2-12.0 [facility] Determination of erythrocyte mean corpuscular volume (MCV)Ordered By: Dr. Baires on 04-14-2022 MCV (RBC) [Entitic vol] 86.2 fL 81-99 [facility] Hematocrit Auto (Bld) [Volum e fraction]Ordered By: Dr. Baires on 04-14-2022 Hematocrit (Bld) [Volume fraction] 33.7 % 37-47 [facility] Laboratory - Chemistry and C hemistry - challengeon 04-14-2022 Glucose Ql (U) Negative [facility] Laboratory - Hematology and Cell countsOrdered By: Dr. Baires on 04-14-2022 Erythrocyte distribution width (RBC) [Entitic vol] 42.1 fL 35.1-43.9 [facility] Erythrocyte distribution width (RBC) [Ratio] 13.6 % 11.6-14.6 [facility] Immature granulocytes/100 WBC (Bld) 0.400 % 0.0-0.9 [facility] Comment on above: IG% - Immature Granu locytes (promyelocytes, myelocytes and metamyelocytes) > 1% indicates that a LEFT SHIFT is Present. MCH (RBC) [Entitic mass] 29.9 pg 27.0-32.0 [facility] Nucleated RBC/100 WBC (Bld) [Ratio] 0 % 0-5 [facility] Laboratory - Urinalysison Protein Ql (U) Negative [facility] MCHC Auto (RBC) [Mass/Vol]Or dered By: Dr. Baires on 04-14-2022 MCHC (RBC) [Mass/Vol] 34.7 g/dL 32-36 [facility] No Panel InformationOrdered By: Dr. Baires on 04-14-2022 Fibrinogen 431 mg/dl 203-444 [facility] Platelets bldOrdered By: Dr. Baires on 04-14-2022 Platelets (Bld) [#/Vol] 219 10*3/uL 150-450 [facility] Laboratory - Chemistry and C hemistry - challengeon 04-08-2022 Glucose Ql (U) Negative [facility] Laboratory - Urinalysison Protein Ql (U) Negative [facility] No Panel InformationOrdered By: Fe Avila on 03-30-2022 Group B Streptococcus Culture Group B Beta Streptococcus is not isolated. [facility] Laboratory - Chemistry and C hemistry - challengeon 03-27-2022 Glucose Ql (U) Negative [facility] Laboratory - Urinalysison Protein Ql (U) Negative [facility] Thin prep Papanicolaou smear with manual screeningOrdered By: Dr. Langston on 03-22-2022 Thin prep Papanicolaou smear with manual screening Neisseria or beta-hemolytic Streptococcus isolated. [facility] Gram stain for investigation of transfusion reactionOrdered By: Dr. Langston on 03-20-2022 Microscopic observation Gram stain Nom (Unsp spec) [facility] Basophil percentageOrdered B y: Dr. Langston on 03-19-2022 Basophil percentage 0-5 SEEN /hpf 0-5 [facility] Bilirubin Test strip Ql (U)O rdered By: Dr. Langston on 03-19-2022 Bilirubin Ql (U) Negative Negative [facility] Ketones Test strip Ql (U)Ord ered By: Dr. Langston on 03-19-2022 Ketones Ql (U) Negative Negative [facility] Laboratory - Chemistry and C hemistry - challengeon 03-19-2022 Glucose Ql (U) Negative [facility] Laboratory - Urinalysison Protein Ql (U) Negative [facility] Mucus LM Ql (Urine sed)Order ed By: Dr. Langston on 03-19-2022 Mucus Ql (Urine sed) 4+ /hpf [facility] Nitrite Test strip Ql (U)Ord ered By: Dr. Langston on 03-19-2022 Nitrite Ql (U) Negative Negative [facility] Protein Test strip Ql (U)Ord ered By: Dr. Langston on 03-19-2022 Protein Ql (U) 30 mg/dl Negative [facility] Squamous epithelial cells de tection in urine sediment by light microscopyOrdered By: Dr. Langston on 03-19-2022 Epithelial cells.squamous LM Ql (Urine sed) 0-5 SEEN /hpf 5-10 [facility] Urine blood detectionOrdered By: Dr. Langston on 03-19-2022 RBC Ql (U) 25 /ul Negative [facility] RBC Ql (U) 0 SEEN /hpf 0-5 [facility] Urine clarityOrdered By: Dr. Langston on 03-19-2022 Clarity (U) Clear Clear [facility] Urine color determinationOrd ered By: Dr. Langston on 03-19-2022 Color (U) Yellow Yellow [facility] Urine glucose detectionOrder ed By: Dr. Langston on 03-19-2022 Glucose Ql (U) Normal mg/dl Normal [facility] Urine leukocyte esterase det ection by dipstickOrdered By: Dr. Langston on 03-19-2022 Leukocyte esterase Test strip Ql (U) 25 /ul Negative [facility] Urine pHOrdered By: Dr. Uri godwin on 03-19-2022 pH (U) 6.0 [pH] 5.0 - 8.0 [facility] Urine sediment bacteria coun t by microscopy (number/high power field)Ordered By: Dr. Langston on 03-19-2022 Bacteria LM.HPF (Urine sed) [#/Area] 2 /[HPF] None Seen [facility] Urine specific gravity measu rementOrdered By: Dr. Langston on 03-19-2022 Specific gravity (U) [Rel density] 1.020 1.002-1.030 [facility] Urobilinogen Auto test strip Ql (U)Ordered By: Dr. Langston on 03-19-2022 Urobilinogen Ql (U) 1 mg/dl Normal [facility] Laboratory - Chemistry and C hemistry - challengeon 03-04-2022 Glucose Ql (U) Negative [facility] Laboratory - Urinalysison Protein Ql (U) Negative [facility] Laboratory - Chemistry and C hemistry - challengeon 02-17-2022 Glucose Ql (U) Negative [facility] Laboratory - Urinalysison Protein Ql (U) Negative [facility] Quantitative serum or plasma 3 hour gestational glucose tolerance panelOrdered By: Jennifer Licona on 02-10-2022 Glucose tolerance 3 hours gestational panel See comment [facility] Comment on above: FASTING 99 Col: [...] Auto (Unsp spec) [#/Vol] 1.61 10*3/uL 0.83-4.51 [facility] Basophil percentageOrdered B y: Jennifer Licona on 02-03-2022 Basophils/100 WBC (Bld) 0.2 % 0-1 [facility] Eosinophils/100 WBC (Bld) 2.4 % 0-5 [facility] Neutrophils (Bld) [#/Vol] 6.6 10*3/uL 2.0-7.7 [facility] Neutrophils/100 WBC (Bld) 73.5 % 47-70 [facility] WBC (Bld) [#/Vol] 9.0 10*3/uL 4.4-11.0 [facility] Blood erythrocytes count (nu mber/volume)Ordered By: Jennifer Licona on 02-03-2022 RBC (Bld) [#/Vol] 3.65 10*6/uL 4.2-5.4 [facility] Blood hemoglobin measurement (mass/volume)Ordered By: Jennifer Licona on 02-03-2022 Hemoglobin (Bld) [Mass/Vol] 10.9 g/dL 12.0-15.0 [facility] Blood lymphocytes/100 leukoc ytesOrdered By: Jennifer Licona on 02-03-2022 Lymphocytes/100 WBC (Bld) 17.8 % 19-41 [facility] Blood monocytes/100 leukocyt esOrdered By: Jennifer Licona on 02-03-2022 Monocytes/100 WBC (Bld) 5.1 % 0-10 [facility] Blood platelet mean volumeOr dered By: Jennifer Licona on 02-03-2022 Platelet mean volume (Bld) [Entitic vol] 10.3 fL 6.2-12.0 [facility] Determination of erythrocyte mean corpuscular volume (MCV)Ordered By: Jennifer Licona on 02-03-2022 MCV (RBC) [Entitic vol] 89.6 fL 81-99 [facility] Gestational diabetes screen 1-hour screen with 50g oral glucose loadOrdered By: Jennifer Licona on 02-03-2022 Glucose 1 Hr post 50 g glucose PO [Mass/Vol] 149 mg/dL 70-140 [facility] Hematocrit Auto (Bld) [Volum e fraction]Ordered By: Jennifer Licona on 02-03-2022 Hematocrit (Bld) [Volume fraction] 32.7 % 37-47 [facility] Laboratory - Chemistry and C hemistry - challengeon 02-03-2022 Glucose Ql (U) Negative [facility] Laboratory - Hematology and Cell countsOrdered By: Jennifer Licona on 02-03-2022 Erythrocyte distribution width (RBC) [Entitic vol] 40.3 fL 35.1-43.9 [facility] Erythrocyte distribution width (RBC) [Ratio] 12.4 % 11.6-14.6 [facility] Immature granulocytes/100 WBC (Bld) 1.000 % 0.0-0.9 [facility] Comment on above: IG% - Immature Granu locytes (promyelocytes, myelocytes and metamyelocytes) > 1% indicates that a LEFT SHIFT is Present. MCH (RBC) [Entitic mass] 29.9 pg 27.0-32.0 [facility] Nucleated RBC/100 WBC (Bld) [Ratio] 0 % 0-5 [facility] Laboratory - Urinalysison Protein Ql (U) Negative [facility] MCHC Auto (RBC) [Mass/Vol]Or dered By: Jennifer Licona on 02-03-2022 MCHC (RBC) [Mass/Vol] 33.3 g/dL 32-36 [facility] Platelets bldOrdered By: Rachele villa Livan on 02-03-2022 Platelets (Bld) [#/Vol] 225 10*3/uL 150-450 [facility] Absolute lymphocyte countOrd ered By: Jennifer Licona on 01-21-2022 Lymphocytes Auto (Unsp spec) [#/Vol] 1.72 10*3/uL 0.83-4.51 [facility] Basophil percentageOrdered B y: Jennifer Licona on 01-21-2022 Basophils/100 WBC (Bld) 0.3 % 0-1 [facility] Bilirubin [Mass/Vol] 0.80 mg/dL 0.20-1.[address] [facility] Comment on above: For patients on eltr ombopag therapy, use of Dimension [place] TBIL is not recommended. Chloride [Moles/Vol] 107 mmol/L 98-[address] [facility] Eosinophils/100 WBC (Bld) 2.6 % 0-5 [facility] Glucose [Mass/Vol] 102 mg/dL 74-106 [facility] Comment on above: Fasting Glucose resu lt from 100 to 125 mg/dL suggests IMPAIRED HOMEOSTASIS per A.D.A. criteria. Neutrophils (Bld) [#/Vol] 7.2 10*3/uL 2.0-7.7 [facility] [facility] Neut[facility]/100 WBC (Bld) 72.9 % 47-70 [facility] Potassium [Moles/Vol] 3.9 mmol/L 3.5-5.1 [facility] Protein [Mass/Vol] 7.0 g/dL 6.4-8.2 [facility] Sodium [Moles/Vol] 139 mmol/L 136-145 [facility] WBC (Bld) [#/Vol] 9.9 10*3/uL 4.4-11.0 [facility] Blood erythrocytes count (nu mber/volume)Ordered By: Jennifer Licona on 01-21-2022 RBC (Bld) [#/Vol] 3.77 10*6/uL 4.2-5.4 [facility] Blood hemoglobin measurement (mass/volume)Ordered By: Jennifer Licona on 01-21-2022 Hemoglobin (Bld) [Mass/Vol] 11.5 g/dL 12.0-15.0 [facility] Blood lymphocytes/100 leukoc ytesOrdered By: Jennifer Licona on 01-21-2022 Lymphocytes/100 WBC (Bld) 17.4 % 19-41 [facility] Blood monocytes/100 leukocyt esOrdered By: Jennifer Licona on 01-21-2022 Monocytes/100 WBC (Bld) 5.9 % 0-10 [facility] Blood platelet mean volumeOr dered By: Jennifer Licona on 01-21-2022 Platelet mean volume (Bld) [Entitic vol] 10.0 fL 6.2-12.0 [facility] Determination of erythrocyte mean corpuscular volume (MCV)Ordered By: Jennifer Licona on 01-21-2022 MCV (RBC) [Entitic vol] 89.1 fL 81-99 [facility] Hematocrit Auto (Bld) [Volum e fraction]Ordered By: Jennifer Licona on 01-21-2022 Hematocrit (Bld) [Volume fraction] 33.6 % 37-47 [facility] Laboratory - Chemistry and C hemistry - challengeOrdered By: Jennifer Licona on 01-21-2022 ALP [Catalytic activity/Vol] 68 U/L 45-117 [facility] ALT [Catalytic activity/Vol] 35 U/L 13-56 [facility] CO2 [Moles/Vol] 22.0 mmol/L 21.0-32.0 [facility] Globulin (S) [Mass/Vol] 4.0 g/dL 2.2-4.2 [facility] Urea nitrogen/Creatinine [Mass ratio] 22.2 mg/mg 10-20 [facility] Laboratory - Chemistry and C hemistry - challengeon 01-21-2022 Glucose Ql (U) Negative [facility] Laboratory - Hematology and Cell countsOrdered By: Jennifer Licona on 01-21-2022 Erythrocyte distribution width (RBC) [Entitic vol] 40.6 fL 35.1-43.9 [facility] Erythrocyte distribution width (RBC) [Ratio] 12.6 % 11.6-14.6 [facility] Immature granulocytes/100 WBC (Bld) 0.900 % 0.0-0.9 [facility] Comment on above: IG% - Immature Granu locytes (promyelocytes, myelocytes and metamyelocytes) > 1% indicates that a LEFT SHIFT is Present. MCH (RBC) [Entitic mass] 30.5 pg 27.0-32.0 [facility] Nucleated RBC/100 WBC (Bld) [Ratio] 0 % 0-5 [facility] Laboratory - Urinalysison Protein Ql (U) Negative [facility] MCHC Auto (RBC) [Mass/Vol]Or dered By: Jennifer Licona on 01-21-2022 MCHC (RBC) [Mass/Vol] 34.2 g/dL 32-36 [facility] No Panel InformationOrdered By: Jennifer Licona on 01-21-2022 Estimated GFR (MDRD) Amer 174 mL/min >60 [facility] Comment on above: GFR Calc Estimated GFR (MDRD) Non-Af Amer 144 mL/min >60 [facility] Comment on above: Non- GFR Calc Miscellaneous Test See comment [facility] Comment on above: TEST RESULT LIMITSBi le Acids, Fractionated LCMS Ursodeoxycholic Acids <0.10 umol/L Reference Range: All Ages: <1.9 Cholic Acids 1.2 umol/L Reference Range: All Ages: <2.2 Chenodeoxycholic Acids 0.40 umol/L Reference Range: All Ages: <5.8 Deoxycholic Acids 0.80 umol/L Reference Range: All Ages: <3.3 Total Bile Acids 2.4 umol/L This test was developed and its performance characteristics determined by [facility]. It has not been cleared or approved by the Food and Drug Administration. Reference Range: All Ages: <9.2 TESTING PERFORMED AT [employer]. ORIGINAL REPORT ON FILE IN LAB CONTAINS ADDITIONAL TEST SITE INFORMATION. Platelets bldOrdered By: Rachele Licona on 01-21-2022 Platelets (Bld) [#/Vol] 232 10*3/uL 150-450 [facility] Serum or plasma albumin keren urement (mass/volume)Ordered By: Jennifer Licona on 01-21-2022 Albumin [Mass/Vol] 3.0 g/dL 3.2-5.0 [facility] Serum or plasma albumin/glob ulin mass ratioOrdered By: Jennifer Licona on 01-21-2022 Albumin/Globulin [Mass ratio] 0.8 {ratio} 0.9-2.4 [facility] Serum or plasma calcium keren urement (mass/volume)Ordered By: Jennifer Licona on 01-21-2022 Calcium [Mass/Vol] 9.2 mg/dL 8.5-10.1 [facility] Serum or plasma creatinine m easurement (mass/volume)Ordered By: Jennifer Licona on 01-21-2022 Creatinine [Mass/Vol] 0.54 mg/dL 0.55-1.02 [facility] Comment on above: The validity of the calculated GFR & GFRAA in patients over 70 years has not been determined. Clinical correlation is essential. Serum or plasma urea nitroge n measurement (mass/volume)Ordered By: Jennifer Licona on 01-21-2022 Urea nitrogen [Mass/Vol] 12 mg/dL 7-18 [facility] Thin prep Papanicolaou smear with manual screeningOrdered By: Jennifer Licona on 01-21-2022 Thin prep Papanicolaou smear with manual screening 19 U/L 15-37 [facility] Thin prep Papanicolaou smear with manual screening 10 5-15 [facility] Laboratory - Chemistry and C hemistry - challengeon 12-15-2021 Glucose Ql (U) Negative [facility] Work Phone: Laboratory - Urinalysison Protein Ql (U) Negative [facility] Work Phone: Laboratory - Chemistry and C hemistry - challengeon 10-23-2021 Glucose Ql (U) Negative [facility] Work Phone: Laboratory - Urinalysison Protein Ql (U) Negative [facility] Work Phone: Absolute lymphocyte counton 09-18-2021 Lymphocytes Auto (Unsp spec) [#/Vol] 2.36 10*3/uL 0.83-4.51 [facility] Work Phone: Basophil percentageon 2021 Basophils/100 WBC (Bld) 0.4 % 0-1 [facility] Work Phone: Eosinophils/100 WBC (Bld) 3.3 % 0-5 [facility] Work Phone: Neutrophils (Bld) [#/Vol] 6.5 10*3/uL 2.0-7.7 [facility] Work Phone: Neutrophils/100 WBC (Bld) 65.4 % 47-70 [facility] Work Phone: WBC (Bld) [#/Vol] 10.0 10*3/uL 4.4-11.0 [facility] Work Phone: Blood erythrocytes count (nu mber/volume)on 09-18-2021 RBC (Bld) [#/Vol] 4.07 10*6/uL 4.2-5.4 [facility] Work Phone: [phone] Blood hemoglobin measurement (mass/volume)on 09-18-2021 Hemoglobin (Bld) [Mass/Vol] 12.0 g/dL 12.0-15.0 [facility] Work Phone: [phone] Blood lymphocytes/100 leukoc yteson 09-18-2021 Lymphocytes/100 WBC (Bld) 23.7 % 19-41 [facility] Work Phone: [phone] Blood monocytes/100 leukocyt eson 09-18-2021 Monocytes/100 WBC (Bld) 6.9 % 0-10 [facility] Work Phone: [phone] Blood platelet mean volumeon 09-18-2021 Platelet mean volume (Bld) [Entitic vol] 9.3 fL 6.2-12.0 [facility] Work Phone: [phone] Determination of erythrocyte mean corpuscular volume (MCV)on 09-18-2021 MCV (RBC) [Entitic vol] 85.0 fL 81-99 [facility] Work Phone: [phone] HIV 1 and HIV-2 antibody ass ay with HIV-1 p24 antigen detectionon 09-18-2021 HIV 1+2 Ab+HIV1 p24 Ag IA Ql Non-Reactive Nonreactive [facility] Work Phone: [phone] Hematocrit Auto (Bld) [Volum e fraction]on 09-18-2021 Hematocrit (Bld) [Volume fraction] 34.6 % 37-47 [facility] Work Phone: [phone] Laboratory - Hematology and Cell countson 09-18-2021 Erythrocyte distribution width (RBC) [Entitic vol] 37.2 fL 35.1-43.9 [facility] Work Phone: [phone] Erythrocyte distribution width (RBC) [Ratio] 12.1 % 11.6-14.6 [facility] Work Phone: [phone] Immature granulocytes/100 WBC (Bld) 0.300 % 0.0-0.9 [facility] Work Phone: [phone] Comment on above: IG% - Immature Granu locytes (promyelocytes, myelocytes and metamyelocytes) > 1% indicates that a LEFT SHIFT is Present. MCH (RBC) [Entitic mass] 29.5 pg 27.0-32.0 [facility] Work Phone: [phone] Nucleated RBC/100 WBC (Bld) [Ratio] 0 % 0-5 [facility] Work Phone: [phone] MCHC Auto (RBC) [Mass/Vol]on 09-18-2021 MCHC (RBC) [Mass/Vol] 34.7 g/dL 32-36 [facility] Work Phone: No Panel Informationon 09-18 Hepatitis B Surface Antigen Non-Reactive Nonreactive [facility] Work Phone: [phone] Hepatitis C Antibody Non-Reactive Nonreactive [facility] Work Phone: [phone] Comment on above: Non Reactive: < 0.8 Equivocal: >/= 0.8 to < 1.0 Reactive: >/= 1.0The CDC recommends that a reactive/equivocal HCV antibody result be followed up by the HCV Nucleic Acid Amplificationtest (501628) Rubella IgG Antibody Reactive Nonreactive [facility] Work Phone: Comment on above: Antibody Results Int erpretation of Immune Status Non Reactive Presumed Non-Immune Equivocal Equivocal Reactive Presumed Immune Platelets bldon 09-18-2021 Platelets (Bld) [#/Vol] 263 10*3/uL 150-450 [facility] Work Phone: [phone] Serum Treponema species anti body detectionon 09-18-2021 Treponema sp Ab Ql (S) Non-Reactive [facility] Work Phone: [phone] Serum or plasma choriogonado tropin detectionon 09-11-2021 HCG ( test) Ql 040301 mIU/mL <4 [facility] Work Phone: [phone] Comment on above: hCG levels with Gest ational AgeGestational Age hCG mIU/mL (IU/L)0.2 - 1 week 5 - 501-2 weeks 50 - 5002-3 weeks 100 - 59115-4 weeks 500 - 379500-1 weeks 1000 - 069489-5 weeks 97809 - 100,0006-8 weeks 98735 - 200,0002-3 months 52748 - 100,000 Serum or plasma choriogonado tropin detectionon 08-20-2021 HCG ( test) Ql 851 mIU/mL <4 [facility] Work Phone: Comment on above: hCG levels with Gest ational AgeGestational Age hCG mIU/mL (IU/L)0.2 - 1 week 5 - 501-2 weeks 50 - 5002-3 weeks 100 - 35377-6 weeks 500 - 382327-6 weeks 1000 - 880770-8 weeks 72582 - 100,0006-8 weeks 74665 - 200,0002-3 months 11296 - 100,000 Serum or plasma choriogonado tropin detectionon 08-18-2021 HCG ( test) Ql 268 mIU/mL <4 [facility] Work Phone: Comment on above: hCG levels with Gest ational AgeGestational Age hCG mIU/mL (IU/L)0.2 - 1 week 5 - 501-2 weeks 50 - 5002-3 weeks 100 - 81663-7 weeks 500 - 672005-5 weeks 1000 - 871873-6 weeks 35988 - 100,0006-8 weeks 77689 - 200,0002-3 months 05943 - 100,000 CNOVon 06-12-2021 CNOV Office Visit (UCWSTR) DAE MIDDLETON ([id number]) 1995 F Date Time Provider Department 06/12/21 7:45 PM ROMANA ROCHA [facility] During your visit today, we [...] Patient agreeable to treatment plan. Romana Rocha APRN.[employer] Referring Provider: GINA UNGER [[id number]] Allergies As of Date: 06/12/2021 (No Known [...] Status:Closed by ROMANA ROCHA on 06/12/21 Normal [facility] CBC + DIFFon 08-17-2019 Basophils (Bld) [#/Vol] 0.00 x10EE3/UL Normal 0.00 - 0 .10 [facility] Comment on above: Performed By: #### 2 64298 #### [address] [address] Basophils/100 WBC (Bld) 0.9 % Normal 0.0 - 2.0 [facility] Comment on above: Performed By: #### 2 30616 #### [address] [address] CBC + DIFF Normal [facility] Comment on above: Result Comment: CBC- COMPLETE BLOOD COUNT Performed By: #### 2 82398 #### [place] [address],[place] [address] Eosinophils (Bld) [#/Vol] 0.60 x10EE3/UL High 0.00 - 0.50 [facility] Comment on above: Performed By: #### 2 99597 #### [facility],[address] [place], [place] [id number] Eosinophils/100 WBC (Bld) 12.6 % High 0.0 - 7.0 [facility] Comment on above: Performed By: #### 2 55321 #### [facility],[address] [place] [address] Erythrocyte distribution width (RBC) [Ratio] 13.7 % Normal 12.0 - 15.6 [facility] Comment on above: Performed By: #### 2 08358 #### [place] [address] Hematocrit (Bld) [Volume fraction] 39.0 % Normal 34.0 - 46.0 [facility] Comment on above: Performed By: #### 2 69345 #### [place] [id number] Hemoglobin (Bld) [Mass/Vol] 13.3 g/dL Normal 12.0 - 16.0 [facility] Comment on above: Performed By: #### 2 50064 #### [facility],[address] [place] [address] Lymphocytes (Bld) [#/Vol] 1.80 x10EE3/UL Normal 0.80 - 2.80 [facility] Comment on above: Performed By: #### 2 67206 #### [address] [address] Lymphocytes/100 WBC (Bld) 37.8 % Normal 20.0 - 45.0 [facility] Comment on above: Performed By: #### 2 51647 #### [place] [id number] MANUAL DIFF N/A Normal [facility] Comment on above: Performed By: #### 2 44677 #### [facility],[address] [place] [address] MCH (RBC) [Entitic mass] 29 pg Normal 27 - 33 [facility] Comment on above: Performed By: #### 2 11677 #### [facility],[address] [place] [address] MCHC (RBC) [Mass/Vol] 34 X10 3 Normal 32 - 36 [facility] Comment on above: Performed By: #### 2 92380 #### [facility],[address] [place], [place] [id number] MCV (RBC) [Entitic vol] 84 fL Normal 80 - 99 [facility] Comment on above: Performed By: #### 2 08551 #### [facility],[address] [place], [place] [id number] Monocytes (Bld) [#/Vol] 0.30 x10EE3/UL Normal 0.20 - 1 .00 [facility] Comment on above: Performed By: #### 2 21288 #### [facility],[address] [place] [address] MONOS % 7.0 % Normal 0.0 - 10.0 [facility] Comment on above: Performed By: #### 2 45619 #### [facility],[address] [place], [place] [id number] Morphology Keshawn (Bld) [Interp] N/A Normal [facility] Comment on above: Performed By: #### 2 83726 #### [facility],[address] [place], [place] [id number] Neutrophils (Bld) [#/Vol] 2.00 x10EE3/UL Normal 1.50 - 7.10 [facility] Comment on above: Performed By: #### 2 98598 #### [facility],[address] [place] [address] Neutrophils/100 WBC (Bld) 41.7 % Low 46.0 - 76.0 [facility] Comment on above: Performed By: #### 2 66781 #### [facility],[address] [place], [place] [id number] Platelet mean volume (Bld) [Entitic vol] 8.2 fL Normal 6.6 - 10.5 [facility] Comment on above: Result Comment: AUTO MATED DIFFERENTIAL Performed By: #### 2 97575 #### [facility],[address] [place], [place] [address] Platelets (Bld) [#/Vol] 262 x10EE3/UL Normal 150 - 450 [facility] Comment on above: Performed By: #### 2 26325 #### [facility],[address] [place] [address] RBC (Bld) [#/Vol] 4.65 x 10EE6/UL Normal 4.10 - 5.30 [facility] Comment on above: Performed By: #### 2 98603 #### [facility],[address] [place] [address] WBC (Bld) [#/Vol] 4.8 x 10EE3/UL Normal 4.5 - 10.8 [facility] Comment on above: Performed By: #### 2 24944 #### [facility],[address] [place], [place] [id number] CMP with eGFRon 08-17-2019 Age - Reported 23 years Normal [facility] Comment on above: Performed By: #### 2 87091 #### [facility],[address] [place] [address] Albumin [Mass/Vol] 4.4 g/dL Normal 3.4 - 4.8 [facility] Comment on above: Performed By: #### 2 15511 #### [facility],[address] [place], [place] [id number] Albumin/Globulin [Mass ratio] 1.6 {ratio} Normal 0.9 - 1.6 [facility] Comment on above: Performed By: #### 2 08584 #### [facility],[address] [place] [address] ALK PHOS 42 U/L Normal 38 - 126 [facility] Comment on above: Performed By: #### 2 94474 #### [facility],[address] [place] [address] ALT/SGPT 12 U/L Normal 8 - 35 [facility] Comment on above: Performed By: #### 2 57561 #### [facility],[address] [place] [address] Anion gap [Moles/Vol] 10 mmol/L Normal 10 - 20 [facility] Comment on above: Performed By: #### 2 19331 #### [facility],[address] [place] [address]60 AST/SGOT 14 U/L Normal 13 - 39 [facility] Comment on above: Performed By: #### 2 59456 #### [facility],[address] [place] [address] B/C RATIO 24 ratio Normal 0 - 30 [facility] Comment on above: Performed By: #### 2 30861 #### [facility],[address] [place] [address] Bilirubin [Mass/Vol] 1.4 mg/dL Normal 0.0 - 1.5 [facility] Comment on above: Performed By: #### 2 05710 #### [facility],[address] [place] [address] Calcium [Mass/Vol] 9.5 mg/dL Normal 8.6 - 10.2 [facility] Comment on above: Performed By: #### 2 62322 #### [facility],[address] [place] [address] Chloride [Moles/Vol] 103 mmol/L Normal 98 - 107 [facility] Comment on above: Performed By: #### 2 11873 #### [facility],[address] [place] [address] CO2 [Moles/Vol] 27.4 mmol/L Normal 21.0 - 31.0 [facility] Comment on above: Performed By: #### 2 24550 #### [facility],[address] [place] [address] Creatinine [Mass/Vol] 0.7 mg/dL Normal 0.6 - 1.2 [facility] Comment on above: Performed By: #### 2 86553 #### [facility],[address] [place] [address] GFR/1.73 sq M predicted among non-blacks MDRD (S/P/Bld) [Vol rate/Area] Normal [facility] Comment on above: Result Comment: COMP REHENSIVE METABOLIC PANEL Performed By: #### 2 40884 #### [facility],[address] [place] [address] GFR/1.73 sq M predicted among non-blacks MDRD (S/P/Bld) [Vol rate/Area] mL/min/{1.73_m2} Normal 60 - 999 [facility] Comment on above: Result Comment: ACCO RDING TO THE NATIONAL KIDNEY DISEASE EDUCATION PROGRAM(NKDE), A NORMAL eGFR IS A VALUE GREATER THAN OR EQUAL TO 60 ML/MIN/1.73 SQ METERS. CHRONIC KIDNEY DISEASE: <60mL/MIN/1.73 SQ METERS KIDNEY FAILURE: <15mL/MIN/1.73 SQ METERS THIS TEST SHOULD ONLY BE USED FOR PATIENTS 18 YEARS OF AGE AND OLDER. Performed By: #### 2 65131 #### [facility],[address] [place] [address] Globulin (S) [Mass/Vol] 2.7 g/dL Normal 1.5 - 3.8 [facility] Comment on above: Performed By: #### 2 60485 #### [facility] [place] [address] Glucose [Mass/Vol] 101 mg/dL Normal 74 - 106 [facility] Comment on above: Performed By: #### 2 26958 #### [facility],[address] [place] [address] Potassium [Moles/Vol] 4.1 mmol/L Normal 3.5 - 5.1 [facility] Comment on above: Performed By: #### 2 27563 #### [facility],[address] [place] [address] Protein [Mass/Vol] 7.1 g/dL Normal 6.4 - 8.3 [facility] Comment on above: Performed By: #### 2 46388 #### [facility],[address] [place] [address] Sodium [Moles/Vol] 136 mmol/L Normal 136 - 145 [facility] Comment on above: Performed By: #### 2 46371 #### [facility],[address] [place] [address] Urea nitrogen [Mass/Vol] 17 mg/dL Normal 6 - 20 [facility] Comment on above: Performed By: #### 2 90524 #### [facility],[address] [place] [address] LIPID PROFILEon 08-17-2019 Cholesterol [Mass/Vol] 182 mg/dL Normal 0 - 200 [facility] Comment on above: Performed By: #### 2 06103 #### [facility],[address] [place] [address] Cholesterol in HDL [Mass/Vol] 40 mg/dL Normal 40 - 60 [facility] Comment on above: Performed By: #### 2 76366 #### [facility],[address] [place] [address] Cholesterol in LDL [Mass/Vol] 123 mg/dL Normal 0 - 129 [facility] Comment on above: Performed By: #### 2 74847 #### [facility],[address] [place] [address] Cholesterol.total/Choles terol in HDL [Mass ratio] 4.6 {ratio} Normal 0.0 - 5.0 [facility] Comment on above: Performed By: #### 2 63813 #### [facility],[address] [place] [address] Lipid 1996 panel Normal [facility] Comment on above: Result Comment: LIPI D PROFILE Performed By: #### 2 46968 #### [facility],[address] [place] [address] Triglyceride [Mass/Vol] 96 mg/dL Normal 0 - 150 [facility] Comment on above: Performed By: #### 2 52601 #### [facility],[address] [place] [address] CORONAVIRUS [CCL]on 07-22-19 COVID 19 Result FLOWER CUTTER Positive Abnormal [facility] Comment on above: Result Comment: Posi tive for COVID19 (SARS CoV2) by PCR.(*) This test was developed and its performance characteristics determined by [facility] [place]. This test has been authorized by FDA under an Emergency Use Authorization (EUA). This test has been validated in accordance with the FDA's Guidance Document Policy for Diagnostics Testing in Laboratories Certified to Perform High Complexity Testing under CLIA prior to Emergency use Authorization for Coronavirus Disease 2019 during the Public Health Emergency issued on May 06, 2019. [facility] [address] [place] [address] Tahir Rodriguez III, M.D. [id number] Performed By: #### 2 35997 #### [facility],[address] [place] [address] COVID 19 Source FLOWER CUTTER FLOWER CUTTER SWAB Normal [facility] Comment on above: Result Comment: Call ed to and read back by: Mike Clark [facility] 07/22/192022 Terese Millard Performed By: #### 2 71512 #### [facility],[address] [place] [address] Coronavirus 2019on 0 COVID 19 Source FLOWER CUTTER Normal [facility] Comment on above: Result Comment: FLOWER CUTTER S WAB Called to and read back by: Mike Clark [facility] 07/22/192022 ELena Millard COVID 19 Result FLOWER CUTTER Abnormal Negative for COVID19 (SARS CoV2) by PCR. [facility] Comment on above: Result Comment: Posi tive for This test was developed and its performance characteristics determined by [facility] [place]. This test has been authorized by FDA [...] developed and its performance characteristics determined by [facility] [place]. This test has been authorized by FDA [...] developed and its performance characteristics determined by [facility] [place]. This test has been authorized by FDA [...] developed and its performance characteristics determined by [facility] [place]. This test has been authorized by FDA [...] urine Bacteria identified Cx Nom (U) Positive [facility] Work Phone: Gram stain for investigation of transfusion reaction Microscopic observation Gram stain Nom (Unsp spec) [facility] Work Phone: Vital Signs Date Time Vital Sign Value Performing Clinician Faci lity 09-18-2024 14:01-0400 Body height 162.56 cm Dominick Awad MD Work Phone: [facility] 09-18-2024 14:01-0400 Body mass index (BMI) [Ratio] 32.6 kg/m2 Dominick Awad MD Work Phone: [facility] [facility] 09-18-2024 14:01-0400 Body weight 86.23 kg Dominick Awad MD Work Phone: [facility] 09-18-2024 14:01-0400 Diastolic blood pressure 77 mm[Hg] Dominick Awad MD Work Phone: [facility] 09-18-2024 14:01-0400 Systolic blood pressure 121 mm[Hg] Dominick Awad MD Work Phone: [facility] 08-24-2024 11:49-0400 Body height 162.56 cm Dominick Awad MD Work Phone: [facility] 08-24-2024 11:49-0400 Body mass index (BMI) [Ratio] 31.7 kg/m2 Dominick Awad MD Work Phone: [facility] 08-24-2024 11:49-0400 Body weight 83.97 kg Dominick Awad MD Work Phone: [facility] 08-24-2024 11:49-0400 Diastolic blood pressure 74 mm[Hg] Dominick Awad MD Work Phone: [facility] 08-24-2024 11:49-0400 Systolic blood pressure 115 mm[Hg] Dominick Awad MD Work Phone: [facility] 08-01-2024 09:42-0400 Body height 162.56 cm Dominick Awad MD Work Phone: [facility] 08-01-2024 09:42-0400 Body mass index (BMI) [Ratio] 31.6 kg/m2 Dominick Awad MD Work Phone: [facility] 08-01-2024 09:42-0400 Body weight 83.68 kg Dominick Awad MD Work Phone: [facility] 08-01-2024 09:42-0400 Diastolic blood pressure 78 mm[Hg] Dominick Awad MD Work Phone: 9(818)978-814281 [address] 08-01-2024 09:42-0400 Systolic blood pressure 126 mm[Hg] Dominick Awad MD Work Phone: 0(672)873-749081 [address] 07-03-2024 10:40-0400 Body weight 82.46 kg Dominick Awad MD Work Phone: 5(266)437-375281 [address] 07-03-2024 10:20-0400 Diastolic blood pressure 81 mm[Hg] Dominick Awad MD Work Phone: [facility] 07-03-2024 10:20-0400 Systolic blood pressure 135 mm[Hg] Dominick Awad MD Work Phone: 5(668)878-442181 [address] 06-05-2024 10:31-0400 Body height 162.56 cm Dominick Awad MD Work Phone: [facility] 06-05-2024 10:31-0400 Body mass index (BMI) [Ratio] 30.7 kg/m2 Dominick Awad MD Work Phone: [facility] 06-05-2024 10:31-0400 Body weight 81.36 kg Dominick Awad MD Work Phone: 3(145)230-634866 [place] [address] 06-05-2024 10:31-0400 Diastolic blood pressure 84 mm[Hg] Dominick Awad MD Work Phone: 9(636)303-081966 [place] [address] 06-05-2024 10:31-0400 Systolic blood pressure 133 mm[Hg] Dominick Awad MD Work Phone: [facility] 06-09-2023 13:54-0400 Body height 162.[address] Krystina Murphy Work Phone: [facility] 06-09-2023 13:53-0400 Body mass index (BMI) [Ratio] 32.8 kg/m2 Dr. Krystina Murphy Work Phone: [facility] 06-09-2023 13:53-0400 Body weight 86.[address] Krystina Murphy Work Phone: [facility] 06-09-2023 13:53-0400 Diastolic blood pressure 82 mm[Hg] Dr. Krystina Murphy Work Phone: [facility] 06-09-2023 13:53-0400 Systolic blood pressure 117 mm[Hg] Dr. Krystina Murphy Work Phone: [facility] 04-25-2022 17:00-0500 Body temperature 98.2 [degF] Dr. Krystina Murphy Work Phone: [facility] 04-25-2022 17:00-0500 Diastolic blood pressure 64 mm[Hg] Dr. Krystina Murphy Work Phone: [facility] 04-25-2022 17:00-0500 Heart rate 98 /min Dr. Krystina Murphy Work Phone: [facility] 04-25-2022 17:00-0500 Respiratory rate 14 /min Dr. Krystina Murphy Work Phone: [facility] 04-25-2022 17:00-0500 Systolic blood pressure 116 mm[Hg] Dr. Krystina Murphy Work Phone: [facility] 04-24-2022 08:48-0500 SaO2% (BldA) [Mass fraction] 98 % Dr. Krystina Murphy Work Phone: [facility] 04-24-2022 06:59-0500 Body height 162.[address] Krystina Murphy Work Phone: [facility] 04-24-2022 06:59-0500 Body mass index (BMI) [Ratio] 36.7 kg/m2 Dr. Krystina Murphy Work Phone: [facility] 04-24-2022 06:59-0500 Body weight 97.[address] Krystina Murphy Work Phone: [facility] 04-22-2022 10:30-0500 Body height 162.[address] Krystina Murphy Work Phone: [facility] 04-22-2022 10:30-0500 Body mass index (BMI) [Ratio] 36 kg/m2 Dr. Krystina Murphy Work Phone: [facility] 04-22-2022 10:30-0500 Body weight 95.[address] Krystina Murphy Work Phone: [facility] 04-22-2022 10:30-0500 Diastolic blood pressure 82 mm[Hg] Dr. Krystina Murphy Work Phone: [facility] 04-22-2022 10:30-0500 Systolic blood pressure 117 mm[Hg] Dr. Krystina Murphy Work Phone: [facility] 04-14-2022 10:43-0500 Body mass index (BMI) [Ratio] 35.3 kg/m2 Dr. Krystina Murphy Work Phone: [facility] 04-14-2022 10:43-0500 Body weight 93.[address] Krystina Murphy Work Phone: [facility] 04-14-2022 10:43-0500 Diastolic blood pressure 88 mm[Hg] Dr. Krystina Murphy Work Phone: [facility] 04-14-2022 10:43-0500 Systolic blood pressure 130 mm[Hg] Dr. Krystina Murphy Work Phone: [facility] 04-08-2022 10:21-0500 Body mass index (BMI) [Ratio] 35.4 kg/m2 Dr. Krystina Murphy Work Phone: [facility] 04-08-2022 10:21-0500 Body weight 93.[address] Krystina Murphy Work Phone: [facility] 04-08-2022 10:21-0500 Diastolic blood pressure 83 mm[Hg] Dr. Krystina Murphy Work Phone: [facility] 04-08-2022 10:21-0500 Systolic blood pressure 125 mm[Hg] Dr. Krystina Murphy Work Phone: [facility] 03-27-2022 10:18-0500 Body mass index (BMI) [Ratio] 34.5 kg/m2 Dr. Krystina Murphy Work Phone: [facility] 03-27-2022 10:18-0500 Body weight 91.[address] Krystina Murphy Work Phone: [facility] 03-27-2022 10:18-0500 Diastolic blood pressure 76 mm[Hg] Dr. Krystina Murphy Work Phone: [facility] 03-27-2022 10:18-0500 Systolic blood pressure 107 mm[Hg] Dr. Krystina Murphy Work Phone: [facility] 03-20-2022 13:41-0500 Body height 162.[address] Krystina Murphy Work Phone: [facility] Work Phone: 03-20-2022 13:41-0500 Body mass index (BMI) [Ratio] 35.5 kg/m2 Dr. Krystina Murphy Work Phone: [facility] 03-20-2022 13:41-0500 Body weight [address] Krystina Murphy Work Phone: [facility] 03-19-2022 13:59-0500 Heart rate 89 /min Dr. Krystina Murphy Work Phone: 5(415)214-383379 [place] [address] 03-19-2022 13:59-0500 SaO2% (BldA) [Mass fraction] 98 % Dr. Krystina Murphy Work Phone: 6(812)977-165779 [place] [address] 03-19-2022 13:17-0500 Diastolic blood pressure 82 mm[Hg] Dr. Krystina Murphy Work Phone: 8(305)971-134000 [address] 03-19-2022 13:17-0500 Systolic blood pressure 124 mm[Hg] Dr. Krystina Murphy Work Phone: 3(898)579-010279 [place] [address] 03-19-2022 12:38-0500 Body mass index (BMI) [Ratio] 34.4 kg/m2 Dr. Krystina Murphy Work Phone: 7(707)793-219279 [place] [address] 03-19-2022 12:38-0500 Body weight 91.[address] Krystina Murphy Work Phone: 3(642)456-437379 [place] [address] 03-19-2022 11:51-0500 Body temperature 98 [degF] Dr. Krystina Murphy Work Phone: 3(804)989-234079 [place] [address] 03-19-2022 10:41-0500 Body mass index (BMI) [Ratio] 34.5 kg/m2 Dr. Krystina Murphy Work Phone: 3(945)191-945179 [place] [address] 03-19-2022 10:41-0500 Body weight 91.[address] Krystina Murphy Work Phone: 4(525)539-114979 [place] [address] 03-19-2022 10:41-0500 Diastolic blood pressure 87 mm[Hg] Dr. Krystina Murphy Work Phone: [facility] 03-19-2022 10:41-0500 Systolic blood pressure 136 mm[Hg] Dr. Krystina Murphy Work Phone: [facility] 03-04-2022 10:36-0500 Body mass index (BMI) [Ratio] 34.8 kg/m2 Dr. Krystina Murphy Work Phone: [facility] 03-04-2022 10:36-0500 Body weight 92.[address] Krystina Murphy Work Phone: 8(456)493-314779 [place] [address] 03-04-2022 10:36-0500 Diastolic blood pressure 83 mm[Hg] Dr. Krystina Murphy Work Phone: [facility] 03-04-2022 10:36-0500 Systolic blood pressure 143 mm[Hg] Dr. Krystina Murphy Work Phone: [facility] 02-17-2022 11:50-0500 Body height 162.[address] Krystina Murphy Work Phone: [facility] Work Phone: 02-17-2022 11:48-0500 Body mass index (BMI) [Ratio] 33.9 kg/m2 Dr. Krystina Murphy Work Phone: [facility] 02-17-2022 11:48-0500 Body weight 89.[address] Krystina Murphy Work Phone: [facility] 02-17-2022 11:48-0500 Diastolic blood pressure 73 mm[Hg] Dr. Krystina Murphy Work Phone: [facility] 02-17-2022 11:48-0500 Systolic blood pressure 112 mm[Hg] Dr. Krystina Murphy Work Phone: [facility] 02-03-2022 09:35-0500 Body height 162.[address] Krystina Murphy Work Phone: [facility] Work Phone: 02-03-2022 09:35-0500 Body mass index (BMI) [Ratio] 34.2 kg/m2 Dr. Krystina Murphy Work Phone: [facility] 02-03-2022 09:35-0500 Body weight 90.[address] Krystina Murphy Work Phone: [facility] 02-03-2022 09:35-0500 Diastolic blood pressure 72 mm[Hg] Dr. Krystina Murphy Work Phone: [facility] 02-03-2022 09:35-0500 Systolic blood pressure 130 mm[Hg] Dr. Krystina Murphy Work Phone: [facility] 01-21-2022 10:50-0500 Body mass index (BMI) [Ratio] 33.5 kg/m2 Dr. Krystina Murphy Work Phone: [facility] 01-21-2022 10:50-0500 Body weight 88.[address] Krystina Murphy Work Phone: [facility] 01-21-2022 10:50-0500 Diastolic blood pressure 76 mm[Hg] Dr. Krystina Murphy Work Phone: [facility] 01-21-2022 10:50-0500 Systolic blood pressure 110 mm[Hg] Dr. Krystina Murphy Work Phone: [facility] 12-15-2021 16:09-0400 Body mass index (BMI) [Ratio] 31.9 kg/m2 Dr. Krystina Murphy Work Phone: [facility] Work Phone: 12-15-2021 16:09-0400 Body weight 84.[address] Krystina Murphy Work Phone: [facility] Work Phone: 12-15-2021 16:09-0400 Diastolic blood pressure 82 mm[Hg] Dr. Krystina Murphy Work Phone: [facility] Work Phone: 12-15-2021 16:09-0400 Systolic blood pressure 120 mm[Hg] Dr. Krystina Murphy Work Phone: [facility] Work Phone: 11-20-2021 13:38-0400 Body mass index (BMI) [Ratio] 31.1 kg/m2 Dr. Krystina Murphy Work Phone: [facility] Work Phone: 11-20-2021 13:38-0400 Body weight 82.[address] Krystina Murphy Work Phone: [facility] Work Phone: 11-20-2021 13:38-0400 Diastolic blood pressure 79 mm[Hg] Dr. Krystina Murphy Work Phone: [facility] Work Phone: 11-20-2021 13:38-0400 Systolic blood pressure 124 mm[Hg] Dr. Krystina Murphy Work Phone: [facility] Work Phone: 10-23-2021 15:48-0400 Body mass index (BMI) [Ratio] 30.4 kg/m2 Dr. Krystina Murphy Work Phone: [facility] Work Phone: 10-23-2021 15:48-0400 Body weight 80.[address] Krystina Murphy Work Phone: [facility] Work Phone: 10-23-2021 15:48-0400 Diastolic blood pressure 78 mm[Hg] Dr. Krystina Murphy Work Phone: [facility] Work Phone: 10-23-2021 15:48-0400 Systolic blood pressure 130 mm[Hg] Dr. Krystina Murphy Work Phone: [facility] Work Phone: 09-18-2021 14:30-0400 Body weight 79.[address] Krystina Murphy Work Phone: [facility] Work Phone: 09-18-2021 13:52-0400 Body height 162.[address] Krystina Murphy Work Phone: [facility] Work Phone: 09-18-2021 13:52-0400 Diastolic blood pressure 60 mm[Hg] Dr. Krystina Murphy Work Phone: [facility] Work Phone: 09-18-2021 13:52-0400 Systolic blood pressure 108 mm[Hg] Dr. Krystina Murphy Work Phone: [facility] Work Phone: 06-12-2021 19:37-0400 Body temperature 98.2 [degF] Romana Rocha APRN.[employer] Work Phone: [facility] 06-12-2021 19:37-0400 Body weight 75.84 kg Romana Rocha APRN.[employer] Work Phone: [facility] 06-12-2021 19:37-0400 Diastolic blood pressure 80 mm[Hg] Romana Rocha APRN.[employer] Work Phone: [facility] 06-12-2021 19:37-0400 Heart rate 71 /min Romana Rocha APRN.[employer] Work Phone: [facility] 06-12-2021 19:37-0400 Respiratory rate 18 /min Romana Rocha APRN.[employer] Work Phone: [facility] 06-12-2021 19:37-0400 SaO2% (BldA) [Mass fraction] 98 % Romana Rocha [employer]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 Leslie Baires MD -[facility] Work Phone: Start: 09-18-2024 End: 09-18-2024 ambulatory Dominick Awad MD Work Phone: -[facility] Start: 08-24-2024 End: 08-24-2024 Patient encounter procedure Deanna Clark CNM -[facility] Work Phone: Start: 08-24-2024 End: 08-24-2024 ambulatory Dominick Awad MD Work Phone: [facility] Work Phone: Start: 08-17-2024 End: 08-17-2024 ambulatory CAROLYN [facility] Start: 08-01-2024 End: 08-01-2024 Patient encounter procedure Jennifer CORNELIUS -[facility] Work Phone: Start: 08-01-2024 End: 08-01-2024 ambulatory Dominick Awad MD Work Phone: [facility] Work Phone: Start: 07-03-2024 End: 07-03-[address] Lauren Tyson DO -[facility] Work Phone: Start: 07-03-2024 End: 07-03-2024 ambulatory Lauren Tyson Facility:[facility] [place] Start: 06-05-2024 End: 06-05-[address] Leslie Baires MD -[facility] Work Phone: Start: 06-05-2024 End: 06-05-2024 ambulatory Dominick Awad MD Work Phone: [facility] Work Phone: Start: 06-05-2024 End: 06-05-2024 ambulatory Leslie Baires Facility:[facility] Start: 05-25-2024 End: 05-25-2024 ambulatory Dominick Awad MD Work Phone: [facility] Work Phone: Start: 05-25-2024 End: 05-25-[address] Leslie Baires MD -Ultrasound, [facility] Work Phone: Start: 05-25-2024 End: 05-25-2024 ambulatory Leslie Baires Facility:[facility] Start: 05-19-2024 End: 05-19-2024 ambulatory Dominick Awad MD Work Phone: [facility] Work Phone: Start: 05-19-2024 End: 05-19-[address] Leslie Baires MD -Lab, [facility] Start: 05-19-2024 End: 05-19-2024 ambulatory Dominick Awad Facility:[facility] Start: 05-17-2024 End: 05-17-[address] Leslie Baires MD -Lab, [facility] Start: 05-17-2024 End: 05-17-2024 ambulatory Dominick Awad Facility:[facility] Start: 05-15-2024 End: 05-15-2024 ambulatory Dominick Awad MD Work Phone: [facility] Work Phone: Start: 05-15-2024 End: 05-15-2024 Patient encounter procedure Deanna Clark CNM -[facility], [facility] Start: 05-15-2024 End: 05-15-2024 ambulatory Chalon Adelina Facility:[facility] Start: 03-03-2024 End: 03-03-[address] Dominick Awad MD -Laboratory, [place] Work Phone: Start: 03-03-2024 End: 03-03-2024 ambulatory Dominick Awad Facility:[facility] Start: 12-07-2023 End: 12-07-2023 ambulatory Krystina Murphy Facility:[facility] [place] Start: 06-09-2023 End: 06-09-[address] Krystina Murphy Work Phone: [facility] Work Phone: Start: 06-09-2023 End: 06-09-[address] Krystina Murphy Work Phone: [facility]Laboratory, Specimen Work Phone: Start: 06-09-2023 End: 06-09-[address] Krystina Murphy Work Phone: [facility] Work Phone: Start: 04-25-2022 Non-patient / Non-visit Dr. Georgia Murphy Work Phone: [facility] Start: 04-24-2022 Non-patient / Non-visit Dr. Georgia Murphy Work Phone: [facility] Start: 04-24-2022 End: 04-25-2022 Evaluation and management of inpatient Dr. Krystina Murphy Work Phone: [facility] Start: 04-22-2022 End: 04-22-[address] Krystina Murphy Work Phone: [facility] Start: 04-14-2022 End: 04-14-[address] Krystina Murphy Work Phone: [facility] Work Phone: Start: 04-14-2022 End: 04-14-[address] [facility] Start: 04-14-2022 End: 04-14-[address] Krystina Murphy Work Phone: [facility] Start: 04-08-2022 End: 04-08-[address] Krystina Murphy Work Phone: [facility] Start: 03-27-2022 End: 03-27-[address] [facility] Start: 03-27-2022 End: 03-27-[address] Krystina Murphy Work Phone: [facility] Start: 03-20-2022 Non-patient / Non-visit Dr. Georgia Murphy Work Phone: [facility] Start: 03-20-2022 End: 03-20-[address] Krystina Murphy Work Phone: [facility] Work Phone: Start: 03-20-2022 End: 03-20-[address] [facility] Start: 03-19-2022 Non-patient / Non-visit Dr. Georgia Murphy Work Phone: [facility] Start: 03-19-2022 End: 03-19-[address] Krystina Murphy Work Phone: [facility] Out[facility] Start: 03-19-2022 End: 03-19-[address] Krystina Murphy Work Phone: [facility] Start: 03-04-2022 End: 03-04-[address] Krystina Murphy Work Phone: [facility] Start: 02-17-2022 End: 02-17-[address] Krystina Murphy Work Phone: [facility] Start: 02-10-2022 End: 02-10-[address] Krystina Murphy Work Phone: [facility] Work Phone: Start: 02-10-2022 End: 02-10-[address] Krystina Murphy Work Phone: [facility] Start: 02-03-2022 End: 02-03-[address] Krystina Murphy Work Phone: [facility] Work Phone: Start: 02-03-2022 End: 02-03-[address] Krystina Murphy Work Phone: [facility] Start: 01-21-2022 End: 01-21-[address] Krystina Murphy Work Phone: [facility] Work Phone: Start: 01-21-2022 End: 01-21-[address] Krystina Murphy Work Phone: [facility] Start: 12-15-2021 End: 12-15-[address] Krystina Murphy Work Phone: [facility] Start: 11-20-2021 End: 11-20-[address] Krystina Murphy Work Phone: [facility] Start: 10-23-2021 End: 10-23-[address] Krystina Murphy Work Phone: [facility] Start: 09-18-2021 End: 09-18-[address] Krystina Murphy Work Phone: [facility] Start: 09-11-2021 End: 09-11-2021 Patient encounter procedure [facility] Start: 09-11-2021 End: 09-11-2021 Patient encounter procedure [facility] Start: 08-20-2021 End: 08-20-2021 Patient encounter procedure [facility] Start: 08-18-2021 End: 08-18-2021 Patient encounter procedure [facility] Start: 06-12-2021 End: 06-12-2021 Patient encounter procedure Romana Rocha APRN.[facility] Work Phone: [facility] Comment on above: Cough (Primary Dx) Start: 08-17-2019 Encounter for genera l adult medical examination without abnormal findings [facility] Start: 08-17-2019 End: 08-17-2019 Patient [facility] Start: 07-21-2019 End: 07-21-2019 Patient encounter procedure ROMIE Suresh [facility] Procedures Date Procedure Procedure Detail Performing [...] HCV Quant by PCR testing - HCVPCR #[id number] Non Reactive: < 0.8 Equivocal: >/= 0.8 [...] [Identifier] in Cervix by Cyto stain.thin prep [facility] Start: 04-25-2022 Patient discharge [facility] Start: 04-24-2022 Administration of medication [facility] Start: 04-24-2022 Application of ice collar, cap or bag [facility] Start: 04-24-2022 Catheterization of vein [facility] Start: 04-24-2022 Introduction of urinary catheter [facility] Start: 04-24-2022 Measuring intake and output [facility] Start: 04-24-2022 Notification of physician [facility] Start: 04-24-2022 Procedure discontinued [facility] Start: 04-24-2022 Provision of activity privileges [facility] Start: 04-24-2022 Vital signs measurements [facility] Start: 04-24-2022 [facility] Start: 04-24-2022 Admission procedure [facility] Start: 03-19-2022 Iv infusion therapy/prophylaxis /dx 1st to 1 hr THER/PROPH/DIAG IV INF INIT [facility] Start: 03-19-2022 Source specific culture [facility] Work Phone: Start: 03-19-2022 Nonstress test [facility] Start: 03-19-2022 Obstetric monitoring [facility] Start: 03-19-2022 Vital signs measurements [facility] Start: 03-19-2022 [facility] Start: 03-19-2022 Patient discharge [facility] Start: 11-06-2021 Influenza [facility] Start: 09-18-2021 Chlamydia deoxyribonucleic acid detection [facility] Work Phone: Start: 09-18-2021 Liquid based cervical cytology screening [facility] Work Phone: Start: 12-20-2015 PAP TESTING PAP TESTING [facility] Start: 2012 HEPATITIS C SCREENING HEPATITIS C SCREENING [facility] Start: 2012 HIV SCREENING HIV SCREENING [facility] Start: 2008 PEDS TO ADULT TRANSITION ANNUAL ASSESSMENT PEDS TO ADULT TRANSITION ANNUAL ASSESSMENT [facility] Start: 2006 Adult depression screening assessment DEPRESSION SCREENING [facility] Start: 2006 PEDS TO ADULT TRANSITION INITIAL DISCUSSION PEDS TO ADULT TRANSITION INITIAL DISCUSSION [facility] Start: 2005 HPV VACCINE (1 - 2-dose series) HPV VACCINE (1 - 2-dose series) [facility] Start: 2005 Urine microalbumin profile DTAP,TDAP,TD (6 - Tdap) [facility] Start: 12-20-1999 COVID-19 VACCINE (1) COVID-19 VACCINE (1) [facility] CBC W Auto Different ial panel - Blood [facility] Cytopathology proced ure, preparation of smear, genital source Genital Culture [facility] Work Phone: Drugs identified in Urine by Screen method [facility] Work Phone: Measurement of gluco se 2 hours after glucose challenge for glucose tolerance test [facility] Neisseria gonorrhoea e rRNA [Presence] in Unspecified specimen by JAIMIE with probe detection [facility] Work Phone: Path report.final Dx Spec [facility] Work Phone: Patient Education [facility] Understanding Labor ED False Labor OB Triage: Return to Hospital or Notify Physician if you Experience: [facility] Work Phone: Patient referral [facility] Work Phone: PCR test for Chlamyd ia trachomatis [facility] Work Phone: Serologic test for syphilis [facility] Immunizations Immunization Date Immunization Notes Care Provider Antony hicks 02-03-2022 tetanus toxoid, redu tasia diphtheria toxoid, and acellular pertussis vaccine, adsorbed Dr. Krystina Murphy Work Phone: [facility] 06-18-2001 Chicken Pox (disease) Cornelia Rocha APRN.[employer] Work Phone: [facility] Work Phone: 10-19-2000 diphtheria, tetanus toxoids and acellular pertussis vaccine Romana Rocha APRN.[employer] Work Phone: [facility] Work Phone: 10-19-2000 hepatitis B vaccine, pediatric or pediatric/adolescent dosage Romana Rocha APRN.[employer] Work Phone: [facility] Work Phone: 10-19-2000 measles, mumps and rubella virus vaccine Romana Rocha APRN.[employer] Work Phone: [facility] Work Phone: 10-19-2000 poliovirus vaccine, inactivated Romana Rocha APRN.[employer] Work Phone: [facility] Work Phone: 03-29-2000 hepatitis B vaccine, pediatric or pediatric/adolescent dosage Romana Rocha APRN.[facility] Work Phone: [facility] Work Phone: 06-27-1998 diphtheria, tetanus toxoids and pertussis vaccine Romana Rocha APRN.[facility] Work Phone: [facility] Work Phone: 06-27-1998 haemophilus influenz ae type b vaccine, HbOC conjugate Romana Rocha APRN.[facility] Work Phone: [facility] Work Phone: 06-27-1998 hepatitis B vaccine, pediatric or pediatric/adolescent dosage Romana Rocha APRN.[facility] Work Phone: [facility] Work Phone: 06-27-1998 trivalent poliovirus vaccine, live, oral Romana Rocha APRN.[facility] Work Phone: [facility] Work Phone: 08-31-1996 measles, mumps and rubella virus vaccine Romana Rocha APRN.[facility] Work Phone: [facility] Work Phone: 02-21-1996 diphtheria, tetanus toxoids and pertussis vaccine Romana Rocha APRN.[facility] Work Phone: [facility] Work Phone: 02-21-1996 haemophilus influenz ae type b vaccine, HbOC conjugate Romana Rocha APRN.[facility] Work Phone: [facility] Work Phone: 09-17-1995 diphtheria, tetanus toxoids and pertussis vaccine Romana Rocha APRN.[facility] Work Phone: [facility] Work Phone: 09-17-1995 haemophilus influenz ae type b vaccine, HbOC conjugate Romana Rocha APRN.[facility] Work Phone: [facility] Work Phone: 09-17-1995 trivalent poliovirus vaccine, live, oral Romana Rocha MAKI.[employer] Work Phone: [facility] Work Phone: 02-12-1995 diphtheria, tetanus toxoids and pertussis vaccine Romana Rocha MAKI.[employer] Work Phone: [facility] Work Phone: 02-12-1995 haemophilus influenz ae type b vaccine, HbOC conjugate Romana James MAKI.[employer] Work Phone: [facility] Work Phone: 02-12-1995 trivalent poliovirus vaccine, live, oral Romana Rocha MAKI.[employer] Work Phone: [facility] Work Phone: Payers Date Payer Category Payer Unknown [id number] [id number] Self-pay [id number] 1995 Unknown [id number] 2.16.84 [id number] Unknown [id number] Unknown [id number] Unknown [facility] [id number] Unknown [id number] Unknown [id number] 2.16.8 [id number] Unknown [id number] 2.16.8 [id number] Unknown [id number] 2.16.8 [id number] Unknown [id number] 2.16.8 [id number] Unknown [id number] 2.16.8 [id number] Unknown [id number] 2.16.8 [id number] Unknown [id number] 2.16.8 [id number] Unknown [id number] 2.16.8 [id number] Unknown [id number] 2.16.8 [id number] Unknown [id number] 2.16.8 [id number] Unknown [id number] 2.16.8 [id number] Unknown [id number] 2.16.8 [id number] Social History Date Type Detail Facility [facility] Start: 06-12-2021 Alcohol intake Current non-dr powers of alcohol (finding) [facility] Start: 1995 Sex Assigned At Not on file [facility] Start: 02-12-2021 End: 06-09-2023 Tobacco smoking status NHIS Unknown if ever smoked [facility] Start: 1995 Sex Assigned At Female [facility] Start: 05-25-2024 End: 06-07-2024 Sex Female (finding) [facility] Goals Date Patient Goal Desired Activity /State Clinical Notes 06-12-2021 to 09-18-2024 Note Date & Type Note Facility 09-18-2024 Progress note [facility] 09-18-2024 Progress note Note Date/Time September 18, 2024 2:42pm [facility] [address], [address] [place] [address] OFFICE VISIT Date of Service: 09/18/24 MR#: [id number] Acct: [id number] Name: DAE DOAN Rep #: [id number] : 1995 Provider: Dr. 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 pets and animals: No leisure activities: other history of recent travel: Yes details: cruise [employer] out of state: Yes out of country: Yes sexually active: Yes Smoking Status: Never smoker alcohol intake: former details: social substance use type: does not use well-balanced diet: daily or most days caffeine: Yes Type: tea eating out: rarely or never during the past year weight has: decreased > 10 lbs what type of physical activity do you participate in: none fabiola/pentecostal: Spiritism seatbelt use: always do you feel safe at home: Yes additional social history: [employer] 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 [employer] History 3 Elective abortions Hx Para [...] venegas MD> Date _ Leslie Baires [facility] Signature: Date (if applicable) CC: ~ [facility] Work Phone: 1(807) 221-972806-19-2025 Progress [facility] [address], [facility] [address] [place] [address] OFFICE VISIT Date of Service: 08/24/24 MR#: [id number] Acct: [id number] Name: DAE DOAN Rep #: [id number] : 1995 Provider: HAKEEM Clark Age/Sex: 28/F Location: [facility] Status: Signed Intake Vital Signs 06/05/24 10:31 08/01/24 09:42 08/24/24 11:49 Height 5 ft 4 in 5 ft 4 in 5 ft 4 in Weight: 184 lb 8 oz 185 lb 2 oz BMI 31.6 31.7 BP 126/78 H 115/74 Intake Visit Reasons: 19wk ob *pt on vacation from 08/26 to 09/02 Chief Complaint: 19 Week OB Global Coordinator Required: No Is patient in pain?: No [...] occupational status: employed 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 pets and animals: No leisure activities: other history of recent travel: Yes details: cruise [employer] out of state: Yes out of country: Yes sexually active: Yes Smoking Status: Never smoker alcohol intake: former details: social substance use type: does not use well-balanced diet: daily or most days caffeine: Yes Type: tea eating out: rarely or never during the past year weight has: decreased > 10 lbs what type of physical activity do you participate in: none fabiola/pentecostal: Spiritism seatbelt use: always do you feel safe at home: Yes additional social history: [employer] student and works at [employer] 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 [employer] History 3 Elective abortions Hx Para [...] Cosigner Signature: Date (if applicable) CC: ~ [facility]03-31-2025 Evaluation note* Diagnosis Onset Date Resolution Status Admit Date Obesity affecting acute June 05, 2024 10:23am resolved June 05 10:23am Supervision of high-risk acute June 05, 2024 10:23am Hx of one miscarriage resolved Mar 2024 10:23am Supervision of normal resolved June 05, 2024 10:23am [facility] Work Phone: 1(267) 512-565803-31-2025 Evaluation note* Diagnosis Onset Date Resolution Status [...] high-risk acute August 01, 2024 9 :39am [facility] Work Phone: 1(765) 322-813203-31-2025 Evaluation note* Diagnosis Onset Date Resolution Status [...] of high-risk acute August 24, 2024 11:47am [facility] Work Phone: 1(964) 378-178103-31-2025 Evaluation note* Diagnosis Onset Date Resolution Status [...] of high-risk acute September 18, 2024 1:54pm [facility] Work Phone: 1(964) 203-875103-20-2025 Radiology Diagnostic study note [facility] Services [address] [place] [address] Transvaginal w/Preg US MR#: [id number] Acct: [id number] Name: DAE DOAN Rep #: [id number] : 1995 F 28 From: Ágnel Johnston MD PCP: Dr. Dominick Awad MD Status: REG CL I Study:Transvaginal w/Preg US Date of Exam: 05/25/24 Exam# [id number] Ordering Dr: Leslie Pillai MD PROCEDURE: TRANSVAGINAL [...] both ovaries. DIMENSIONS: Parameter Measurement / EGA Eighty Four Rump Length: 7 mm/6 weeks 5 days [...] cysts seen in both ovaries. Reading Location: [facility] CC: Dr. Dominick Awad MD; Dr. Leslie Baires MD ~ Supplemental Nurse: Signed [facility]04-03-2024 NotePap Smear Specimen AdequacyApril 2023 4:33pmComment.Satisfactory for evaluation. Endocervical and/or squamous metaplasticcells (endocervical component)are present.[facility] INTERFACED A#[id number] Valley Surgical HospitalComment on above:Satisfactory for evaluation. Endocervical and/or squamous metaplasticcells (endocervical component)are present.04-25-[address] Langston [facility] April 25, 2022 9:05am Note Date/Time April 25, 2022 9:04am [facility] Medical Records Department [address] [place] [address] Instructions for Home/Discharge Instructions 04/25/2204 MR#: [id number] Acct: [id number] Name: DAE DOAN Rep #:[id number] : [...] Up With: Lauren Tyson DO When: Call [phone] to make an appointment with your doctor [...] CC: Dr. Krystina Murphy MD ~ Signed [facility] Work Phone: 1(287) 359-874302-18-[address] Langston [facility] April 25, 2022 9:04am Note Date/Time April 25, 2022 9:04am [facility] Medical Records Department [address] [place] [address] Progress Note - OBGYN 04/25/22 0903 MR#: [id number] Acct: [id number] Name: DAE DOAN Rep #:[id number] : 1995 26 From: Lauren Tyson DO PCP: Dr. Krystina Murphy MD Status:A DM IN Location: [id number] Subjective Subjective Patient doing well without complaints. [...] Cosigner Signature (if applicable): CC: ~ Signed [facility] Work Phone: 1(220) 884-401302-17-2023 Procedure [facility] 04-24-2022 History and physical note Author Dr. 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 pets and animals: No leisure activities: other history of recent travel: Yes details: cruise [employer] out of state: Yes out of country: Yes sexually active: Yes Smoking Status: Never smoker alcohol intake: former details: social substance use type: does not use well-balanced diet: daily or most days caffeine: Yes eating out: rarely or never during the past year weight has: decreased > 10 lbs what type of physical activity do you participate in: none fabiola/pentecostal: Spiritism seatbelt use: always do you feel safe at home: Yes additional social history: [employer]- 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 04/24/22 0811 <Electronically signed by Lauren Tyson DO> Cosigner Signature (if applicable): CC: Dr. Lauren Tyson DO; Dr. Krystina Murphy MD~ Signed [facility] Work Phone: 1(137) 904-649204-07-2022 NoteHNO ID: [id number] Author: Romana Rocha APRN.[facility] Service: ? Author Type: Nurse Practitioner Type: [...] Patient agreeable to treatment plan. Romana Rocha APRN.[facility]04-07-2022 History of Present illness Narrative* Romana Rocha APRN.KI - 06/12/2021 7:39 PM EDT [...] Rocha APRN.CNP [facility] Diagnosis Cough- Primary [facility] in this encounter [facility] noteNo assessment information availableW[facility] Work Phone: evaluation note* Diagnosis Onset Date Resolution Status Hx of one miscarriage acute acute Supervision of normal [facility] Work Phone: evaluation note* Diagnosis Onset Date Resolution Status Abnormal uterine bleeding (AUB) acute Hx of one miscarriage acute acute Supervision of normal acute Abnormal uterine bleeding (AUB) acute Hx of one miscarriage acute acute Supervision of normal acute Hx of one miscarriage acute acute Supervision of normal acute acute RUQ abdominal pain acute Supervision of normal acute acute Supervision of normal [facility] Work Phone: evaluation note* Diagnosis Onset [...] abdominal pain acute Supervision of normal acute [facility] Work Phone: evaluation note* Diagnosis Onset [...] of normal acute Threatened labor acu te [facility] Work Phone: Evaluation note* Diagnosis Onset [...] of normal acute Threatened labor acu te [facility] Work Phone: Evaluation note* Diagnosis Onset [...] of normal acute Threatened labor acu te [facility] Work Phone: Evaluation note* Diagnosis Onset Date Resolution Status Encounter for routine gynecological examination noneactive [facility] Work Phone: Progress note Author Deanna Clark [facility] Note Date/Time August 24, 2024 12:0 2pm [facility] [address] [place] [address], [address] [place] [address] OFFICE VISIT Date of Service: 08/24/24 MR#: [id number] Acct: [id number] Name: DAE DOAN Rep #: [id number] : 1995 Provider: HAKEEM Clark Age/Sex: 28/F Location: [facility] Status: Signed Intake Vital Signs 06/05/24 10:31 08/01/24 09:42 08/24/24 11:49 Height 5 ft 4 in 5 ft 4 in 5 ft 4 in Weight: 184 lb 8 oz 185 lb 2 oz BMI 31.6 31.7 BP 126/78 H 115/74 Intake Visit Reasons: 19wk ob *pt on vacation from 08/26 to 09/02 Chief Complaint: 19 Week OB Global Coordinator Required: No Is patient in pain?: No [...] occupational status: employed 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 pets and animals: No leisure activities: other history of recent travel: Yes details: cruise [employer] out of state: Yes out of country: Yes sexually active: Yes Smoking Status: Never smoker alcohol intake: former details: social substance use type: does not use well-balanced diet: daily or most days caffeine: Yes Type: tea eating out: rarely or never during the past year weight has: decreased > 10 lbs what type of physical activity do you participate in: none fabiola/pentecostal: Spiritism seatbelt use: always do you feel safe at home: Yes additional social history: [employer] 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 [employer] History 3 Elective abortions Hx Para [...] Cosigner Signature: Date (if applicable) CC: ~ [facility] Work Phone: Reason for referral (narrative)No reason for referral information availableWDelaware County Hospital Work Phone: Summary Purpose Family History No Family History Records Found Relationship Condition Age at Onset Recorded Date/T jaspal mother Atrial fibrillation Unknown Relationship Condition Age at Onset Recorded Date/T jaspal mother Atrial fibrillation Unknown brother Seizure Unknown Advance Directives No Advanced Directives Records Found Advance Directive Response Recorded Date/ Time Living Will No February 06 12:28pm Power of Industrial Green Systems Designer No February 06, 2021 12:28pm Advance Directive Response Recorded Date/ Time Living Will No February 06 11:28am Power of Industrial Green Systems Designer No February 06, 2021 11:28am Advance Directive Response Recorded Date/ Time Name of Medical Power of Industrial Green Systems Designer Tj Doan April 24, 2022 7:42am Living Will Yes April 24 023 7:42am Power of Industrial Green Systems Designer Yes April 24, 2022 7:42am Advance Directive Response Recorded Date/ Time Living Will Yes April 24 023 8:42am Power of Industrial Green Systems Designer Yes April 24, 2022 8:42am Chief Complaint [...] of normal Threatened labor Chief Complaint 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 Reason for Visit Encounter for routin [...] section and content) DATE CREATED AUTHOR 07/23/2019 [facility] DATE CREATED AUTHOR AUTHOR'S ORGANIZ ATION 08/17/2019 [facility] DATE CREATED AUTHOR AUTHOR'S ORGANIZ ATION 06/15/2021 [facility] DATE CREATED AUTHOR AUTHOR'S ORGANIZ ATION 08/19/2024 [facility] DATE CREATED AUTHOR AUTHOR'S ORGANIZ ATION 09/22/2024 [facility] Source Comments (unrecognize d section and content) In the event this informatio n is protected by the Federal Confidentiality of Alcohol and Drug Abuse Patient Records regulations: The Federal rules restrict any use of the information to criminally investigate or prosecute any alcohol or drug abuse patient.[facility] Reason for Visit (unrecogniz ed section and content) Reason Comments Cough cough, St, [place] and bi lateral ear pain x 1 week Specialty Diagnoses / Procedures Referred By Contac t Referred To Contact URGENT CARE CLINIC Diagnoses Sore throat, headache, cough Procedures Sore throat, headache, cough Unger, Gina, ELECTRIC REFRIGERATOR SERVICER.HOT TAMALE MAN [address] [place] [address] [facility] [address] [place] [address] Referral ID Status Reason Start Date Expiration Date Visits Requested Visits Authorized [id number] Pending Review OON/Self Pay Override 06/12/2021 09/10/2021 [...] Provider, Refer ring Provider Active Jennifer Licona FLOWER CUTTER, FLOWER CUTTER-C Attending Provider Active Team Status: Inactive Member [...] Status: Inactive Member Role Status Dates Dr. Krystnia Murphy MD Referring Provider Active Dr. Leslie [...] MD Primary Care Provider Active Jennifer Licona FLOWER CUTTER, FLOWER CUTTER-C Attending Provider, Referring Provider Active Team Status: [...] End: August 01, 2024 Jennifer Licona NP, FLOWER CUTTER-C Attending Provider Active Start: August 01, 2024 [...] End: August 01, 2024 Jennifer Licona NP, FLOWER CUTTER-C Attending Provider Active Start: August 01, 2024 [...] September 18, 2024 End: September 18, 2024 Dominick Awad MD Referring Provider Active [...] BE BASED ON THE PRIMARY CLINICAL RECORDS. [facility]. provides no warranty or guarantee of the accuracy or completeness of information in this document.
[2024-10-16 12:37] LABS: Hematocrit 32.8 % (37-47); Hemoglobin 11.1 g/dL (12.0-15.0); Immature Granulocytes Count 0.160 X10^3/uL (0.0-0.0); Mean Corp Hgb Conc 33.8 g/dL (32-36); Mean Corpuscular Volume 91.4 fL (81-99); Mean Platelet Vol. 10.2 fl (6.2-12.0); NRBC Flagged by Analyzer 0 % (0-5); Platelet Count 225 K/mm3 (150-450); RBC Distribution Width CV 13.0 % (11.6-14.6); RBC Distribution Width SD 42.8 fl (35.1-43.9); Red Blood Count 3.59 M/mm3 (4.2-5.4); White Blood Count 9.1 K/mm3 (4.4-11.0)
[2024-10-16 13:15] LABS: HIV Nonreactive (Nonreactive); Syphilis Antibodies Nonreactive (Nonreactive)
[2024-10-16 13:17] LABS: Glucose Challenge Gest 1H 50g 139 mg/dL (70-140)
== END | disposition home or self-care (01) ==
PROVIDERS: Obstetrics & Gynecology; PCP Family Medicine; Visit Provider Obstetrics & Gynecology
DX: O09.92 Supervision of high risk pregnancy, unspecified, second trimester (principal); Z3A.00 Weeks of gestation of pregnancy not specified; Z13.1 Encounter for screening for diabetes mellitus
CPT/HCPCS: 36415; 82950; 85025; 86703; 86780

== ENCOUNTER → 2024-10-25 | Outpatient (CLI) | payer SELFPAY ==
--- OUTSIDE RECORDS SUMMARY | 2024-10-25 06:59 | XMS RPT_ITS | CCD ---
Author Organization [facility] CliniSyne Care Team Providers Care Reinsurance Claims Analyst Name Role Phone ROMIE VARELA Admitting Unavailable ROMIE VARELA Attending Unavailable ROMIE VARELA Primary Care Unavailable KRYSTINA MURPHY MD Admitting Unavailable RKYSTINA MURPHY MD Attending Unavailable KRYSTINA MURPHY MD Primary Care Unavailable KRYSTINA MURPHY MD Consulting Unavailable PROVIDER, UNKNOWN Consulting Unavailable PROVIDER, UNKNOWN Consulting Unavailable Unavailable Primary Care Provider UnavailDr. Krystina Harris Primary Care Provider Dr. Krystina Murphy Referring Provider Dr. Leslie Baires Attending Provider Dr. Krystina Murphy Primary Care Provider Dr. Krystina Murphy Referring Provider Dr. Lauren Tyson Attending Provider Livan WIRE TAPER, WIRE TAPER-C Jennifer Attending Provider Dr. Krystina Murphy Primary Care Provider Dr. Krystina Murphy Referring Provider Dr. Lauren Tyson Attending Provider HAKEEM Avila Attending Provider Dr. Lesile Baires Referring Provider Dr. Leslie Baires Other Provider Dr. Krystina Murphy Primary Care Provider Dr. Krystina Murphy Referring Provider Livan WIRE TAPER, WIRE TAPER-C Jennifer Attending Provider Dr. Lauren Tyson Attending Provider [phone] Dr. Lauren Tyson Other Provider Dr. Leslie Baires Attending Provider [phone] Dr. Lauren Tyson Admit Provider Dr. Krystina Murphy Primary Care Provider Dr. Krsytina Murphy Referring Provider HAKEEM Avila Attending Provider Adelina MORRIS, Dominick Primary Care Provider Dominick Sahu MD Attending Provider Dominick Sahu MD Referring Provider Deanna Clark CNM Attending Provider [phone] Deanna Clark CNM Referring Provider [phone] Dr. Leslie Baires MD Attending Provider Dr. Leslie Baires MD Referring Provider [phone] Adelina MORRIS, Dominick Primary Care Provider Dominick Sahu MD Referring Provider Dr. Lauren Tyson DO Attending Provider Livan WIRE TAPER-C, Jennifer Attending Provider CAROLYN ESPARZA Attending Unavailable LAUREN GUZMAN Referring Unavail DOMINICK Rodriguez Primary Care Unavailable Dominick Sahu MD Primary Care Provider Dr. Leslie Baires MD Attending Provider [phone] Dr. Leslie Baires MD Referring Provider Deanna Clark CNM Attending Provider Dominick Sahu MD Primary Care Provider Dominick Sahu MD Referring Provider Dr. Leslie Baires MD Attending Provider Adelina, Chalon Primary Care Unavailable Marcanthony, Leslie Referring Unavailable Marcanthony, Leslie Attending Unavailable Adelina, Chalon Primary Care Unavailable Marcanthony, Leslie Attending Unavailable Marcanthony, Leslie Referring Unavailable Adelina, Chalon Primary Care Unavailable Vande Velde, Lauren Attending Unavailabl e Adelina, Chalon Referring Unavailable Adelina, Chalon Attending Unavailable Adelina, Chalon Primary Care Unavailable Adelina, Chalon Primary Care Unavailable Adelina, Chalon Referring Unavailable Vande Velde, Lauren Attending Unavailabl e Adelina, Chalon Primary Care Unavailable Adelina, Chalon Referring Unavailable Livan WIRE TAPER, Jennifer Attending Unavailable Adelina, Chalon Primary Care Unavailable Adelina, Chalon Referring Unavailable Eduardo, Deanna Attending Unavailable Adelina, Chalon Primary Care Unavailable Adelina, Chalon Referring Unavailable Marcanthony, Leslie Attending Unavailable Adelina, Chalon Primary Care Unavailable Adelina, Chalon Referring Unavailable Grace WIRE TAPER, Jennifer Attending Unavailable Dusty WIRE TAPER, Lu Gdowin Attending Unavailabl e Kalisetti, Krystina Referring Unavailable Kalisetti, Krystina Primary Care Unavailable Adelina, Chalon Primary Care Unavailable Adelina, Chalon Referring Unavailable Marcanthony, Leslie Attending Unavailable Adelina, Chalon Primary Care Unavailable Eduardo, Deanna Referring Unavailable Eduardo, Deanna Attending Unavailable Adelina, Chalon Primary Care Unavailable Marcanthony, Leslie Referring Unavailable Marcanthony, Leslie Attending Unavailable Adelina, Chalon Primary Care Unavailable Marcanthony, Leslie Referring Unavailable Marcanthony, Leslie Attending Unavailable Medications Current Medications Medication Drug Class(es) Dates Sig (Normalized) Sig (Original) amoxicillin 500 mg oral capsule (1 source) Penicillin-class Antibacterial Start: 06-12-2021 End: 06-19-2021 take 1 capsule by mouth twice daily amoxicillin (POLYMOX, AMOXIL) 500 mg capsule Take 1 capsule by mouth twice daily for 7 days. 14 capsule 0 06/12/2021 06/19/2021 Active Comment on above: Take 1 capsule by mo [facility] twice daily for 7 days. cholecalciferol 0.025 mg oral capsule (9 sources) Vitamin D Start: 05-25-2024 take 1 [...] HOURS 16 2 March 19, 2022 12:00am [place] (Nk) (4 sources) Start: 09-18-2021 [place] (Nk) Active September 17, 2021 11:00pm Start: 09-18-2021 [place] (Nk) A ctive September 18, 2021 12:00am [...] Ac 65 mg iron- 1 mg Tablet (9 sources) Start: 03-19-2022 Vit-I yandel Fum-Folic Ac 65 mg iron- 1 mg Tablet Active 1 {tbl} PO DAILY March 19, 2022 1:00am Start: 03-19-2022 Vit-I yandel Fum-Folic Ac 65 mg iron- 1 mg Tablet Active 1 {tbl} PO DAILY March 19, 2022 1:00am promethazine hydrochloride 12.5 mg oral tablet (5 sources) Phenothiazine Start: 07-03-2024 take 1 tablet by mouth every six hours as needed for nausea and vomiting Promethazine 12.5 mg tablet Active 12.5 mg PO EVERY 6 HOURS as needed for nausea and vomiting 60 0 July 03, 2024 12:00am Completed/Discontinued Medications Medication Drug Class(es) Dates Sig (Normalized) Sig (Original) cephalexin 500 mg oral capsule (9 sources) Cephalosporin Antibacterial Start: 12-07-2023 End: 12-12-2023 take 1 capsule by mouth three times daily Cephalexin 500 mg capsule Discontinued 500 mg PO THREE TIMES A DAY 15 5 0 December 07, 2023 12:00am December 11, 2023 12:00am December 12, 2023 12:08am doxycycline monohydrate 100 mg oral capsule (9 sources) Tetracycline-class Drug Start: 12-07-2023 End: 12-14-2023 [...] DAILY September 17, 2020 12:00am Multivitamin tablet (9 sources) Start: 09-17-2020 End: 09-17-2021 Multivitamin tablet Discontinued 1 {tbl} PO DAILY September 17, 2020 12:00am September 17, 2021 4:06pm naproxen 500 mg oral tablet (11 sources) Nonsteroidal Anti-inflammatory Drug Start: 04-25-2022 End: [...] acids ordered. BILE ACIDS NORMAL Cardiac dysrhythmias (11 sources) Other specified cardiac arrhythmias; Translations: [Other [...] system] Onset: 08-17-2019 Episodic Other complications of (20 sources) Maternal obesity complicating , childbirth and [...] PC: Robin SO: Pineda PRR, , LIZ marv shea PC: Robin SO: Pineda Other complications of (9 sources) Spotting per vagina in ; Translations: [Spotting complicating , unspecified trimester] 05-15-2024 Episodic Comment on above: HCGx2 Other complications of (1 source) Supervision of high risk , unspecified, second trimester; Translations: [Supervision of high risk , unspecified, second trimester] Onset: 10-23-2024 Episodic Other connective tissue disease (9 sources) Pain in hallux; Translations: [Pain in right toe(s)] 05-25-2024 Episodic Other female genital disorders (20 sources) Abnormal uterine bleeding; Translations: [Abnormal uterine [...] the puerperium] 09-17-2021 Episodic Residual codes; unclassified (14 sources) H/O: miscarriage; Translations: [Personal history of other complications of , childbirth and the puerperium] 09-17-2021 Episodic Comment on above: Miscarriage 02/25 @ 5weeks Residual codes; unclassified (1 source) 19 weeks gestation of ; Translations: [19 weeks gestation of ] Onset: 08-24-2024 Episodic Skin and subcutaneous tissue infections (9 sources) Cellulitis of right toe; Translations: [Cellulitis of great toe of right foot] 05-25-2024 Episodic Spondylosis; intervertebral disc disorders; other back problems (10 sources) Pain in the coccyx; Translations: [Sacrococcygeal disorders, not elsewhere classified] 06-03-2022 Episodic Spontaneous (20 sources) Complete miscarriage; Translations: [Complete or unspecified spontaneous without complication] 02-14-2021 Episodic Unclassified (1 source) Invalid ICD10 Description; Translations: [Invalid ICD10 Description] Onset: 07-21-2019 Past or Other Problems Problem Classification Problem Date Documented Date Episodic/Chronic Allergic reactions (1 source) Inflammatory dermatosis; Translations: [Irritant contact dermatitis, unspecified cause] Onset: 11-26-2011 11-26-2011 Episodic Other complications of (1 source) Supervision of high risk , unspecified, unspecified trimester; Translations: [Supervision of high risk , unspecified, unspecified trimester] Onset: 07-03-2024 Episodic Other complications of (1 source) Spotting [...] 06-05-2024 Episodic Residual codes; unclassified (1 source) 12 weeks gestation of ; Translations: [12 weeks gestation of ] Onset: 07-03-2024 Episodic Residual codes; unclassified (1 source) 9 weeks gestation of ; Translations: [9 weeks gestation of ] Onset: 06-05-2024 Episodic Residual codes; unclassified (1 source) 39 weeks gestation of ; Translations: [39 weeks gestation of ] Onset: 06-05-2024 Episodic Results Test Name Value Interpretation Reference Range Facility Absolute lymphocyte countOrd ered By: Leslie Baires on 10-16-2024 Lymphocytes Auto (Unsp spec) [#/Vol] 1.64 10*3/uL 0.83-4.51 [facility] Absolute neutrophil countOrd ered By: Leslie Baires on 08-11-2025 Neutrophils (Bld) [#/Vol] 6.6 10*3/uL 2.0-7.7 [facility] Automated lymphocyte count a s percentage of total leukocytesOrdered By: Leslie Baires on 10-16-2024 Lymphocytes/100 WBC Auto (Unsp spec) 18.1 % Low 19-41 [facility] Basophil percentageOrdered B y: Leslie Baires on 10-16-2024 Basophils/100 WBC (Bld) 0.3 % 0-1 [facility] CBC W/Diff, Automatedon 10-06-2024 Absolute Lymph 1.64 X10 3/uL Normal 0.83-4.51 [facility] Comment on above: Performed By: #### L 700.8000 #### [facility] [address] [place], [address] Absolute Neut 6.6 X10 3/uL Normal 2.0-7.7 [facility] Comment on above: Performed By: #### L 700.8000 #### [facility] [address] [place], [address] Basophils/100 WBC (Bld) 0.3 % Normal 0-1 [facility] Comment on above: Performed By: #### L 700.8000 #### [facility] [address] [place], [address] Eosinophils/100 WBC (Bld) 2.9 % Normal 0-5 [facility] Comment on above: Performed By: #### L 700.8000 #### [facility] [address] [place], [address] Erythrocyte distribution width (RBC) [Ratio] 13.0 % Normal 11.6-14.6 [facility] Comment on above: Performed By: #### L 700.8000 #### [facility] [address] [place], [address] Hematocrit (Bld) [Volume fraction] 32.8 % Low 37-47 [facility] Comment on above: Performed By: #### L 700.8000 #### [facility] [address] [place], [address] Hemoglobin (Bld) [Mass/Vol] 11.1 g/dL Low 12.0-15.0 [facility] Comment on above: Performed By: #### L 700.8000 #### [facility] [address] [place], [address] IG% 1.800 High 0.0-0.9 [facility] Comment on above: Result Comment: IG% - Immature Granulocytes (promyelocytes, myelocytes and metamyelocytes) > 1% indicates that a LEFT SHIFT is Present. Performed By: #### L 700.8000 #### [facility] [address] [place], [address] Lymphocytes/100 WBC (Bld) 18.1 % Low 19-41 [facility] Comment on above: Performed By: #### L 700.8000 #### [facility] [address] [place], [address] MCH (RBC) [Entitic mass] 30.9 pg Normal 27.0-32.0 [facility] Comment on above: Performed By: #### L 700.8000 #### [facility] [address] [place], [address] MCHC (RBC) [Mass/Vol] 33.8 g/dL Normal 32-36 [facility] Comment on above: Performed By: #### L 700.8000 #### [facility] [address] [place], [address] MCV (RBC) [Entitic vol] 91.4 fL Normal 81-99 [facility] Comment on above: Performed By: #### L 700.8000 #### [facility] [address] [place], [address] Monocytes/100 WBC (Bld) 4.4 % Normal 0-10 [facility] Comment on above: Performed By: #### L [id number] #### [facility] [address] [place], [address] Neutrophils/100 WBC (Bld) 72.5 % High 47-70 [facility] Comment on above: Performed By: #### L 700.8000 #### [facility] [address] [place], [address] Nucleated RBC (Bld) [#/Vol] 0 10*3/uL Normal 0-5 [facility] Comment on above: Performed By: #### L 700.8000 #### [facility] [address] [place], [address] Platelet mean volume (Bld) [Entitic vol] 10.2 fL Normal 6.2-12.0 [facility] Comment on above: Performed By: #### L 700.8000 #### [facility] [address] [place], [address] Platelets (Bld) [#/Vol] 225 10*3/uL Normal 150-450 [facility] Comment on above: Performed By: #### L 700.8000 #### [facility] [address] [place], [address] RBC (Bld) [#/Vol] 3.59 10*6/uL Low 4.2-5.4 [facility] Comment on above: Performed By: #### L 700.8000 #### [facility] [address] [place], [address] RDW SD 42.8 fl Normal 35.1-43.9 [facility] Comment on above: Performed By: #### L 700.8000 #### [facility] [address] [place], [address] WBC (Bld) [#/Vol] 9.1 10*3/uL Normal 4.4-11.0 [facility] Comment on above: Performed By: #### L 700.8000 #### [facility] [address] [place], [place], [address] Eosinophil percentageOrdered By: Leslie Baires on 10-16-2024 Eosinophils/100 WBC (Bld) 2.9 % 0-5 [facility] Erythrocyte distribution wid th ratioOrdered By: Leslie Baires on 10-16-2024 Erythrocyte distribution width (RBC) [Ratio] 13.0 % 11.6-14.6 [facility] Erythrocyte distribution wid th standard deviationOrdered By: Leslie Baires on 10-16-2024 Erythrocyte distribution width (RBC) [Ratio] 42.8 fl 35.1-43.9 [facility] Glucose Challenge Gest 1H 50 sheryl 10-16-2024 GLU GEST 50g 1H 139 mg/dL Normal 70-140 [facility] Comment on above: Performed By: #### L 700.8000 #### [facility] [address] [place], [address] Glucose measurement at 2 arthur rs post-dose gestational glucose tolerance testOrdered By: Leslie Baires on 10-16-2024 Glucose [Mass/Vol] 139 mg/dL 70-140 [facility] HIVon 10-16-2024 HIV Non-Reactive Normal Nonreactive [facility] Comment on above: Result Comment: Non- Reactive Reactive Repeatedly reactive samples must be confirmed according to CDC recommended confirmatory algorithms. The subresults for either HIVAG or AHIV can be used as an aid in the selection of the confirmation algorithm for reactive samples. Send out specimens with Reactive results to [facility] for confirmation. Order the HIV antibody detection and differentiation: #[id number] Performed By: #### L 700.8000 #### [facility] [address] [place], [address] Hematocrit Auto (Bld) [Volum e fraction]Ordered By: Leslie Baires on 10-16-2024 Hematocrit (Bld) [Volume fraction] 32.8 % Low 37-47 [facility] Hemoglobin measurementOrdere d By: Leslie Baires on 10-16-2024 Hemoglobin (Bld) [Mass/Vol] 11.1 g/dL Low 12.0-15.0 [facility] Immature granulocytes/100 WB C Auto (Bld)Ordered By: Leslie Baires on 10-16-2024 Immature granulocytes/100 WBC (Bld) 1.800 % High 0.0-0.9 [facility] Comment on above: IG% - Immature Granu locytes (promyelocytes, myelocytes and metamyelocytes) > 1% indicates that a LEFT SHIFT is Present. Laboratory - Chemistry and C hemistry - challengeOrdered By: Jennifer Licona on 10-16-2024 Glucose Ql (U) 100 g/dL [facility] - UrinalysisOrder ed By: Jennifer Licona on 10-16-2024 Protein Ql (U) Negative [facility] MCV (mean corpuscular volume ) determinationOrdered By: Leslie Baires on 10-16-2024 MCV (RBC) [Entitic vol] 91.4 fL 81-99 [facility] Mean corpuscular hemoglobin (MCH) determinationOrdered By: Leslie Baires on 10-16-2024 MCH (RBC) [Entitic mass] 30.9 pg 27.0-32.0 [facility] Mean corpuscular hemoglobin concentration (MCHC) determinationOrdered By: Leslie Baires on 10-16-2024 MCHC (RBC) [Mass/Vol] 33.8 g/dL 32-36 [facility] Mean platelet volume determi nationOrdered By: Leslie Baires on 10-16-2024 Platelet mean volume (Bld) [Entitic vol] 10.2 fL 6.2-12.0 [facility] Monocyte percentageOrdered B y: Leslie Baires on 10-16-2024 Monocytes/100 WBC (Bld) 4.4 % 0-10 [facility] Neutrophil percentageOrdered By: Leslie Baires on 10-16-2024 Neutrophils/100 WBC (Bld) 72.5 % High 47-70 [facility] No Panel InformationOrdered By: Leslie Baires on 10-16-2024 HIV (1&2) Antibody Non-Reactive Nonreactive [facility] Comment on above: Non-ReactiveReactive Repeatedly reactive samples must be confirmed according to CDC recommended confirmatory algorithms. The subresults for either HIVAG or AHIV can be used as an aid in the selection of the confirmation algorithm for reactive samples.Send out specimens with Reactive results to [facility] for confirmation.Order the HIV antibody detection and differentiation: #[id number] Nucleated red blood cell per centageOrdered By: Leslie Baires on 10-16-2024 Nucleated RBC/100 WBC (Bld) [Ratio] 0 % 0-5 [facility] Global Commodity Manager Office Visit Reporton 10-16-2024 Global Commodity Manager Office Visit Report [facility] [address], [address] [place] [address] OFFICE VISIT Date of Service: 10/16/24 MR#: [id number] Acct: [id number] Name: DAE DOAN Rep #: [id number] 1 : 1995 Provider: ASHLI raymundo Age/Sex: 28/F Location: [facility] Status: Signed Intake Vital Signs 08/01/24 09:42 09/18/24 14:01 10/16/24 08:41 Height 5 ft 4 in 5 ft 4 in 5 ft 4 in Weight: 195 lb 8 oz BMI 33.5 BP 124/81 H Intake Visit Reasons: 27wk ob/glucose Editorial Assistant Required: No Is patient in pain?: No Allergies No Known Allergies Allergy (Verified 10/16/24 08:42) Medications ???Medication ???Instructions ???Recorded ???Confirmed ???Type vitamins-iron fumarate 65 1 tab PO DAILY 3 10/16/24 History mg iron-folic acid 1 mg tablet cholecalciferol (vitamin D3) 25 25 mcg PO QDAY 05/25/24 10/16/24 H istory mcg (1,000 unit) capsule promethazine 12.5 mg tablet 12.5 mg PO Q6H PRN nausea and 06/0710/16/24 Rx vomiting #60 tabs Last Menstrual Period: 04/02/24 Zika: Zika virus screening: Negative : Yes Have you fallen in the past year?: No PFSH PFSH Medical History care and examination Coccyx pain Pelvic and perineal pain Cellulitis of great toe of right foot Pain of right great toe Abnormal glucose affecting Abnormal uterine bleeding (AUB) Family History Mother Afib Brother Seizures Social History adopted: No household members: spouse housing: house number of children: 0 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 status: employed 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 pets and animals: No leisure activities: other history of recent travel: Yes details: cruise [place] out of state: Yes out of country: Yes sexually active: Yes Smoking Status: Never smoker alcohol intake: former details: social substance use type: does not use well-balanced diet: daily or most days caffeine: Yes Type: tea eating out: rarely or never during the past year weight has: decreased > 10 lbs what type of physical activity do you participate in: none fabiola/advent: Anabaptism seatbelt use: always do you feel safe at home: Yes additional social history: [employer] student and works at [employer] 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 Date Name GA/Weeks Outcome Route Bth Weight Gen Labor Lgth Anesthesia Del [facility] Provider FOB 04/24/22 Luke 40 Vande Velde HPI 27wk ob/glucose Details: DAE DOAN is a 28 year old who presents for routine OB visit. OB Visit LIZ Calculator Estimated Delivery Date Method Current WG Current Estimate 01/13/25 Ultrasound #1 27w 2d Other Estimates 01/07/25 LMP (Certain) 28w 1d 01/15/25 Ultrasound #2 27w 0d Expected Delivery Route/Plan Labor Preferences- CB/BF classes: no labor support person: Bora labor intervention preferences: [] pain management options preferred: epidural cut cord/dad catch: cord : yes PP control planned: discussed discussed possible routes of delivery and associated risks: [] special requests: [] Specific Issue/Plans Covid status: [] Flu vaccine: [] Tdap vaccine: [] Rhogam: na LARC form signed: yes Problem list reviewed and updated with the [...] ing or spotting. planning anatomy scan with (more content not included)... Normal [facility] Platelet countOrdered By: Roel Baires on 10-16-2024 Platelets (Bld) [#/Vol] 225 10*3/uL 150-450 [facility] RBC Auto (Bld) [#/Vol]Ordere d By: Leslie Baires on 10-16-2024 RBC (Bld) [#/Vol] 3.59 10*6/uL Low 4.2-5.4 [facility] Syphilis Antibodieson 2024 Syphilis Abs Non-Reactive Normal Nonreactive [facility] Comment on above: Performed By: #### L 700.8000 #### [facility] [address] [place], [place], [id number] White blood cell (WBC) count Ordered By: Leslie Baires on 10-16-2024 WBC (Bld) [#/Vol] 9.1 10*3/uL 4.4-11.0 [facility] - Chemistry and C hemistry - challengeOrdered By: Leslie Baires on 09-18-2024 Glucose Ql (U) Negative [facility] - UrinalysisOrder ed By: Leslie Baires on 09-18-2024 Protein Ql (U) Negative [facility] Global Commodity Manager Office Visit Reporton 09-18-2024 Global Commodity Manager Office Visit Report [facility]'s [address], [address] [place] [address] OFFICE VISIT Date of Service: 09/18/24 MR#: [id number] Acct: [id number] Name: DAE DOAN Rep #: [id number] 3 : 1995 Provider: Dr. 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 Date Name GA/Weeks Outcome Route Bth Weight Gen Labor [facility] Anest[facility] Locatn Provider FOB 04/24/22 Robin 40 Bj[address] Shresthakehinde HPI 23wk ob Details: DAE DOAN is [...] scan w (more content not included)... Normal [facility] - Chemistry and C hemistry - challengeOrdered By: Deanna Clark on 08-24-2024 Glucose Ql (U) Negative [facility] - UrinalysisOrder ed By: Deanna Clark on 08-24-2024 Protein Ql (U) Negative [facility] Global Commodity Manager Office Visit Reporton 08-24-2024 Global Commodity Manager Office Visit Report [facility]'s [address], [address] [place] [id number] OFFICE VISIT Date of Service: 08/24/24 MR#: [id number] Acct: [id number] Name: DAE DOAN Rep #: [id number] : 1995 Provider: HAKEEM Jamison ams Age/Sex: 28/F Location: [facility] Status: Signed Intake Vital Signs 06/05/24 10:31 08/01/24 09:42 08/24/24 11:49 Height 5 ft 4 in 5 ft 4 in 5 ft 4 in Weight: 184 lb 8 oz 185 lb 2 oz BMI 31.6 31.7 BP 126/78 H 115/74 Intake Visit Reasons: 19wk ob *pt on vacation from 08/26 to 09/02 Chief Complaint: 19 Week OB Editorial Assistant Required: No Is patient in pain?: No [...] occupational status: employed 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 pets and animals: No leisure activities: other history of recent travel: Yes details: cruise [place] out of state: Yes out of country: Yes sexually active: Yes Smoking Status: Never smoker alcohol intake: former details: social substance use type: does not use well-balanced diet: daily or most days caffeine: Yes Type: tea eating out: rarely or never during the past year weight has: decreased > 10 lbs what type of physical activity do you participate in: none fabiola/advent: Anabaptism seatbelt use: always do you feel safe at home: Yes additional social history: [employer] student and works at [employer] 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 Date Name GA/Weeks Outcome Route Bth Weight Gen Labor [facility] Provider FOB 04/24/22 Luke 40 V[address] Velde [...] -???-???-???-???-??? -???-? (more content not included)... Normal [facility] - Chemistry and C hemistry - challengeOrdered By: Jennifer Licona on 08-01-2024 Glucose Ql (U) Negative [facility] - UrinalysisOrder ed By: Jennifer Licona on 08-01-2024 Protein Ql (U) Negative [facility] Global Commodity Manager Office Visit Reporton 08-01-2024 Global Commodity Manager Office Visit Report [facility]'s [address], [address] [place] [address] OFFICE VISIT Date of Service: 08/01/24 MR#: [id number] Acct: [id number] Name: DAE DOAN Rep #: [id number] : 1995 Provider: ASHLI raymundo Age/Sex: 28/F Location: [facility] Status: Signed Intake Vital Signs 06/05/24 10:31 07/03/24 10:21 08/01/24 09:42 Height 5 ft 4 in 5 ft 4 in 5 ft 4 in Weight: 184 lb 8 oz BMI 31.6 BP 126/78 H Intake Visit Reasons: 16wk ob Chief Complaint: 16 Week OB Editorial Assistant Required: No Is patient in pain?: No [...] occupational status: employed 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 Date Name GA/Weeks Outcome Route Bth Weight Infant Gen Labor Lgth Anesthesia Del Locatn Provider FOB 04/24/22 Luke 40 V[address] Velde HPI 16wk ob Details: DAE DOAN [...] or spot (more content not included)... Normal [facility] - Chemistry and C hemistry - challengeOrdered By: Lauren Langston on 07-03-2024 Glucose Ql (U) Negative [facility] - UrinalysisOrder ed By: Lauren Langston on 07-03-2024 Protein Ql (U) Negative [facility] Global Commodity Manager Office Visit Reporton 07-03-2024 Global Commodity Manager Office Visit Report [facility]'s [address], [address] [place] [address] OFFICE VISIT Date of Service: 07/03/24 MR#: [id number] Acct: [id number] Name: DAE DOAN Rep #: [id number] : 1995 Provider: Dr. 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 pets and animals: No leisure activities: other history of recent travel: Yes details: cruise [employer] out of state: Yes out of country: Yes sexually active: Yes Smoking Status: Never smoker alcohol intake: former details: social substance use type: does not use well-balanced diet: daily or most days caffeine: Yes Type: tea eating out: rarely or never during the past year weight has: decreased > 10 lbs what type of physical activity do you participate in: none fabiola/advent: Anabaptism seatbelt use: always do you feel safe at home: Yes additional social history: [employer] student and works at [employer] 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 Date Name GA/Weeks Outcome Route Bth Weight Infant Gen Labor Lgth Anesthesia Del [facility] Provider FOB 04/24/22 Robin 39 Kaylee Langston HPI 12WK OB Details: DAE DOAN is [...] no crampi (more content not included)... Normal [facility] Chlamydia/GC JAIMIE aptimaon CHLAMY,NUC ACID Negative Normal Negative [facility] Comment on above: Performed By: #### L 700.8000 #### [facility] [address] [place], [place], [id number] GC BY NUC ACID Negative Normal Negative [facility] Comment on above: Result Comment: Perf ormed at: =G - [facility] [address] [id number] Manager Stone: Laura Fall MD, Phone: [phone] Performed By: #### L 700.8000 #### [facility] [address] [place], [place], [id number] Urine Cultureon 06-07-2024 URC Below infection level. Mixed Gram Positive Organisms [place] Count 1000-10,000 MIXC Mixed contaminants. Submit a new specimen if indicated. Normal [facility] Comment on above: Performed By: #### L 700.8000 #### [facility] [address] [place], [place], [address] Absolute lymphocyte countOrd ered By: Leslie Baires on 06-05-2024 Lymphocytes Auto (Unsp spec) [#/Vol] 1.67 10*3/uL 0.83-4.51 [facility] Absolute neutrophil countOrd ered By: Leslie Baires on 06-05-2024 Neutrophils (Bld) [#/Vol] 4.9 10*3/uL 2.0-7.7 [facility] Automated lymphocyte count a s percentage of total leukocytesOrdered By: Leslie Baires on 06-05-2024 Lymphocytes/100 WBC Auto (Unsp spec) 23.3 % 19-41 [facility] Basophil percentageOrdered B y: Leslie Baires on 06-05-2024 Basophils/100 WBC (Bld) 0.4 % 0-1 [facility] C. trachomatis rRNA JAIMIE+prob e Ql (Unsp spec)Ordered By: Leslie Baires on 06-05-2024 Chlamydia DNA (JAIMIE) Negative Negative [facility] CBC W/Diff, Automatedon - Absolute Lymph 1.67 X10 3/uL Normal 0.83-4.51 [facility] Comment on above: Performed By: #### L 509.4006, L100.0100, L501.9985, L3890.6301, L3890.6006, L509.8002, L3890.6102, BTS #### [facility] [address] [place], [address] Absolute Neut 4.9 X10 3/uL Normal 2.0-7.7 [facility] Comment on above: Performed By: #### L 509.4006, L100.0100, L501.9985, L3890.6301, L3890.6006, L509.8002, L3890.6102, BTS #### [facility] [address] [place], [address] Basophils/100 WBC (Bld) 0.4 % Normal 0-1 [facility] Comment on above: Performed By: #### L 509.4006, L100.0100, L501.9985, L3890.6301, L3890.6006, L509.8002, L3890.6102, BTS #### [facility] [address] [place], [address] Eosinophils/100 WBC (Bld) 2.2 % Normal 0-5 [facility] Comment on above: Performed By: #### L 509.4006, L100.0100, L501.9985, L3890.6301, L3890.6006, L509.8002, L3890.6102, BTS #### [facility] [address] [place], [address] Erythrocyte distribution width (RBC) [Ratio] 12.8 % Normal 11.6-14.6 [facility] Comment on above: Performed By: #### L 509.4006, L100.0100, L501.9985, L3890.6301, L3890.6006, L509.8002, L3890.6102, BTS #### [facility] [address] [place], [address] Hematocrit (Bld) [Volume fraction] 38.1 % Normal 37-47 [facility] Comment on above: Performed By: #### L 509.4006, L100.0100, L501.9985, L3890.6301, L3890.6006, L509.8002, L3890.6102, BTS #### [facility] [address] [place], [address] Hemoglobin (Bld) [Mass/Vol] 13.1 g/dL Normal 12.0-15.0 [facility] Comment on above: Performed By: #### L 509.4006, L100.0100, L501.9985, L3890.6301, L3890.6006, L509.8002, L3890.6102, BTS #### [facility] [address] [place], [address] IG% 0.300 Normal 0.0-0.9 [facility] Comment on above: Result Comment: IG% - Immature Granulocytes (promyelocytes, myelocytes and metamyelocytes) > 1% indicates that a LEFT SHIFT is Present. Performed By: #### L 509.4006, L100.0100, L501.9985, L3890.6301, L3890.6006, L509.8002, L3890.6102, BTS #### [facility] [address] [place], [address] Lymphocytes/100 WBC (Bld) 23.3 % Normal 19-41 [facility] Comment on above: Performed By: #### L 509.4006, L100.0100, L501.9985, L3890.6301, L3890.6006, L509.8002, L3890.6102, BTS #### [facility] [address] [place], [address] MCH (RBC) [Entitic mass] 29.4 pg Normal 27.0-32.0 [facility] Comment on above: Performed By: #### L 509.4006, L100.0100, L501.9985, L3890.6301, L3890.6006, L509.8002, L3890.6102, BTS #### [facility] [address] [place], [address] MCHC (RBC) [Mass/Vol] 34.4 g/dL Normal 32-36 [facility] Comment on above: Performed By: #### L 509.4006, L100.0100, L501.9985, L3890.6301, L3890.6006, L509.8002, L3890.6102, BTS #### [facility] [address] [place], [address] MCV (RBC) [Entitic vol] 85.4 fL Normal 81-99 [facility] Comment on above: Performed By: #### L 509.4006, L100.0100, L501.9985, L3890.6301, L3890.6006, L509.8002, L3890.6102, BTS #### [facility] [address] [place], [address] Monocytes/100 WBC (Bld) 6.1 % Normal 0-10 [facility] Comment on above: Performed By: #### L 509.4006, L100.0100, L501.9985, L3890.6301, L3890.6006, L509.8002, L3890.6102, BTS #### [facility] [address] [place], [address] Neutrophils/100 WBC (Bld) 67.7 % Normal 47-70 [facility] Comment on above: Performed By: #### L 509.4006, L100.0100, L501.9985, L3890.6301, L3890.6006, L509.8002, L3890.6102, BTS #### [facility] [address] [place], [address] Nucleated RBC (Bld) [#/Vol] 0 10*3/uL Normal 0-5 [facility] Comment on above: Performed By: #### L 509.4006, L100.0100, L501.9985, L3890.6301, L3890.6006, L509.8002, L3890.6102, BTS #### [facility] [address] [place], [address] Platelet mean volume (Bld) [Entitic vol] 10.1 fL Normal 6.2-12.0 [facility] Comment on above: Performed By: #### L 509.4006, L100.0100, L501.9985, L3890.6301, L3890.6006, L509.8002, L3890.6102, BTS #### [facility] [address] [place], [address] Platelets (Bld) [#/Vol] 261 10*3/uL Normal 150-450 [facility] Comment on above: Performed By: #### L 509.4006, L100.0100, L501.9985, L3890.6301, L3890.6006, L509.8002, L3890.6102, BTS #### [facility] [address] [place], [address] RBC (Bld) [#/Vol] 4.46 10*6/uL Normal 4.2-5.4 [facility] Comment on above: Performed By: #### L 509.4006, L100.0100, L501.9985, L3890.6301, L3890.6006, L509.8002, L3890.6102, BTS #### [facility] [address] [place], [place], [id number] (484 RDW SD 39.6 fl Normal 35.1-43.9 [facility] Comment on above: Performed By: #### L 509.4006, L100.0100, L501.9985, L3890.6301, L3890.6006, L509.8002, L3890.6102, BTS #### [facility] [address] [place], [address] WBC (Bld) [#/Vol] 7.2 10*3/uL Normal 4.4-11.0 [facility] Comment on above: Performed By: #### L 509.4006, L100.0100, L501.9985, L3890.6301, L3890.6006, L509.8002, L3890.6102, BTS #### [facility] [address] [place], [address] Chlamydia trachomatis rRNA d etection by probe and target amplification methodOrdered By: Leslie Baires on 06-05-2024 C. trachomatis rRNA JAIMIE+probe Ql (Unsp spec) Negative Negative [facility] Eosinophil percentageOrdered By: Leslie Baires on 06-05-2024 Eosinophils/100 WBC (Bld) 2.2 % 0-5 [facility] Erythrocyte distribution wid th (RBC) [Ratio]Ordered By: Leslie Baires on 06-05-2024 Erythrocyte distribution width (RBC) [Entitic vol] 39.6 fL 35.1-43.9 [facility] Erythrocyte distribution wid th ratioOrdered By: Leslie Baires on 06-05-2024 Erythrocyte distribution width (RBC) [Ratio] 12.8 % 11.6-14.6 [facility] Erythrocyte distribution wid th standard deviationOrdered By: Leslie Baires on 06-05-2024 Erythrocyte distribution width (RBC) [Ratio] 39.6 fl 35.1-43.9 [facility] HBV surface Ag Ql (S)Ordered By: Leslie Baires on 06-05-2024 Hepatitis B Surface Antigen Non-Reactive Nonreactive [facility] Comment on above: Reactive: Presumptiv e evidence of HBV. Repeatedly reactive samples must be confirmed using a neutralization test (ElecPlatformQs HBsAg Confirmatory Test)Non-Reactive: HBsAg not detected; does not exclude the possibility of exposure to HBV Hematocrit Auto (Bld) [Volum e fraction]Ordered By: Leslie Baires on 06-05-2024 Hematocrit (Bld) [Volume fraction] 38.1 % 37-47 [facility] Hemoglobin A1con 06-05-2024 HbA1c (Bld) [Mass fraction] 5.2 % Low <=5.6 [facility] Comment on above: Performed By: #### L 509.4006, L100.0100, L501.9985, L3890.6301, L3890.6006, L509.8002, L3890.6102, BTS #### [facility] [address] [place] [address]. [place], [address] Hemoglobin A1c percentageOrd ered By: Leslie Baires on 06-05-2024 HbA1c (Bld) [Mass fraction] 5.2 % Low >5.7 [facility] Hemoglobin measurementOrdere d By: Leslie Baires on 06-05-2024 Hemoglobin (Bld) [Mass/Vol] 13.1 g/dL 12.0-15.0 [facility] Hepatitis C antibodyOrdered By: Leslie Baires on 06-05-2024 Hepatitis C Antibody Non-Reactive Nonreactive [facility] Comment on above: Reactive: Presumptiv e evidence of antibodies to HCV. Follow CDC recommendations for supplemental testing.Non-Reactive: Antibodies to HCV were not detected; does not exclude the possibility of exposure to HCVReactive Results are presumptive evidence of antibodies to HCV. Follow CDC recommendations for supplemental testing.Order confirmation testing: HCV Quant by PCR testing - HCVPCR #[id number] Non Reactive: < 0.8 Equivocal: >/= 0.8 to < 1.0 Reactive: >/= 1.0The CDC requires that a reactive/equivocal HCV antibody result be sent out for confirmation. HCV Quant by PCR testing. Immature granulocytes/100 WB C Auto (Bld)Ordered By: Leslie Baires on 06-05-2024 Immature granulocytes/100 WBC (Bld) 0.300 % 0.0-0.9 [facility] Comment on above: IG% - Immature Granu locytes (promyelocytes, myelocytes and metamyelocytes) > 1% indicates that a LEFT SHIFT is Present. L3890.6006on 06-05-2024 HIV Non-Reactive Normal Nonreactive [facility] Comment on above: Result Comment: Non- Reactive Reactive Repeatedly reactive samples must be confirmed according to CDC recommended confirmatory algorithms. The subresults for either HIVAG or AHIV can be used as an aid in the selection of the confirmation algorithm for reactive samples. Send out specimens with Reactive results to [facility] for confirmation. Order the HIV antibody detection and differentiation: lc#[id number] Performed By: #### L 509.4006, L100.0100, L501.9985, L3890.6301, L3890.6006, L509.8002, L3890.6102, BTS #### [facility] [address] [facility] [place], [address] L3890.6102on 06-05-2024 HEP B Surf Ag Non-Reactive Normal Nonreactive [facility] Comment on above: Result Comment: Reac tive: Presumptive evidence of HBV. Repeatedly reactive samples must be confirmed using a neutralization test ([employer] HBsAg Confirmatory Test) Non-Reactive: HBsAg not detected; does not exclude the possibility of exposure to HBV Performed By: #### L 509.4006, L100.0100, L501.9985, L3890.6301, L3890.6006, L509.8002, L3890.6102, BTS #### [facility] [address] [place], [address] L3890.6301on 06-05-2024 Hepatitis C Ab Non-Reactive Normal Nonreactive [facility] Comment on above: Result Comment: Reac tive: Presumptive evidence of antibodies to HCV. Follow CDC recommendations for supplemental testing. Non-Reactive: Antibodies to HCV were not detected; does not exclude the possibility of exposure to HCV Reactive Results are presumptive evidence of antibodies to HCV. Follow CDC recommendations for supplemental testing. Order confirmation testing: HCV Quant by PCR testing - HCVPCR #[id number] Non Reactive: < 0.8 Equivocal: >/= 0.8 to < 1.0 Reactive: >/= 1.0 The [facility] requires that a reactive/equivocal HCV antibody result be sent out for confirmation. HCV Quant by PCR testing. Performed By: #### L 509.4006, L100.0100, L501.9985, L3890.6301, L3890.6006, L509.8002, L3890.6102, BTS #### [facility] [address] [place], [address] L509.4006on 06-05-2024 Rubella IgG REAC Normal [facility] Comment on above: Result Comment: Anti body Result: Interpretation Non-Reactive: Non-Immune Reactive: Immune The following results were obtained with the Elecsys Rubella IgG assay. Results from assays of other manufacturers cannot be used interchangeably. Performed By: #### L 509.4006, L100.0100, L501.9985, L3890.6301, L3890.6006, L509.8002, L3890.6102, BTS #### [facility] [address] [place], [address] L509.8002on 06-05-2024 Syphilis Abs Non-Reactive Normal Nonreactive [facility] Comment on above: Performed By: #### L 509.4006, L100.0100, L501.9985, L3890.6301, L3890.6006, L509.8002, L3890.6102, BTS #### [facility] [address] [place], [address] Laboratory - Microbiology an d Antimicrobial susceptibilityOrdered By: Leslie Baires on 06-05-2024 HBV surface Ag Ql (S) Non-Reactive Nonreactive [facility] Comment on above: Reactive: Presumptiv e evidence of HBV. Repeatedly reactive samples must be confirmed using a neutralization test (ElecPlatformQs HBsAg Confirmatory Test)Non-Reactive: HBsAg not detected; does not exclude the possibility of exposure to HBV Lymphocytes Auto (Unsp spec) [#/Vol]Ordered By: Leslie Baires on 06-05-2024 Lymphocytes (Bld) [#/Vol] 1.67 10*3/uL 0.83-4.51 [facility] Lymphocytes/100 WBC Auto (Un sp spec)Ordered By: Leslie Baires on 06-05-2024 Lymphocytes/100 WBC (Bld) 23.3 % 19-41 [facility] MCV (mean corpuscular volume ) determinationOrdered By: Leslie Baires on 06-05-2024 MCV (RBC) [Entitic vol] 85.4 fL 81-99 [facility] Mean corpuscular hemoglobin (MCH) determinationOrdered By: Leslie Baires on 06-05-2024 MCH (RBC) [Entitic mass] 29.4 pg 27.0-32.0 [facility] Mean corpuscular hemoglobin concentration (MCHC) determinationOrdered By: Leslie Baires on 06-05-2024 MCHC (RBC) [Mass/Vol] 34.4 g/dL 32-36 [facility] Mean platelet volume determi nationOrdered By: Leslie Baires on 06-05-2024 Platelet mean volume (Bld) [Entitic vol] 10.1 fL 6.2-12.0 [facility] Monocyte percentageOrdered B y: Leslie Baires on 06-05-2024 Monocytes/100 WBC (Bld) 6.1 % 0-10 [facility] Neisseria gonorrhoeae nuclei c acid detection by amplified probe techniqueOrdered By: Leslie Baires on 06-05-2024 N. gonorrhoeae DNA JAIMIE+probe Ql (Unsp spec) Negative Negative [facility] Comment on above: Performed at: =[address] [id number] Director: Laura Fall MD, Phone: [phone] Neutrophil percentageOrdered By: Leslie Baires on 06-05-2024 Neutrophils/100 WBC (Bld) 67.7 % 47-70 [facility] No Panel InformationOrdered By: Leslie Baires on 06-05-2024 HIV (1&2) Antibody Non-Reactive Nonreactive [facility] Comment on above: Non-ReactiveReactive Repeatedly reactive samples must be confirmed according to CDC recommended confirmatory algorithms. The subresults for either HIVAG or AHIV can be used as an aid in the selection of the confirmation algorithm for reactive samples.Send out specimens with Reactive results to [facility] for confirmation.Order the HIV antibody detection and differentiation: #[id number] Nucleated red blood cell per centageOrdered By: Leslie Baires on 06-05-2024 Nucleated RBC/100 WBC (Bld) [Ratio] 0 % 0-5 [facility] Global Commodity Manager Office Visit Reporton 06-05-2024 Global Commodity Manager Office Visit Report [facility] [address], [address] [place] [address] OFFICE VISIT Date of Service: 06/05/24 MR#: [id number] Acct: [id number] Name: DAE DOAN Rep #: [id number] : 1995 Provider: Dr. 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 pets and animals: No leisure activities: other history of recent travel: Yes details: cruise [employer] out of state: Yes out of country: Yes sexually active: Yes Smoking Status: Never smoker alcohol intake: former details: social substance use type: does not use well-balanced diet: daily or most days caffeine: Yes Type: tea eating out: rarely or never during the past year weight has: decreased > 10 lbs what type of physical activity do you participate in: none fabiola/advent: Anabaptism seatbelt use: always do you feel safe at home: Yes additional social history: [employer] student and works at [employer] 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 Date Name GA/Weeks Outcome Route Bth Weight Infant Gen Labor Lgth Anesthesia Del [facility] Provider FOB 04/24/22 [place] 40 Kaylee Langston HPI 9WK NOB LMP 04/02 LIZ 01/07 [...] Record Genetic (more content not included)... Normal [facility] Platelet countOrdered By: Roel Baires on 06-05-2024 Platelets (Bld) [#/Vol] 261 10*3/uL 150-450 [facility] RBC Auto (Bld) [#/Vol]Ordere d By: Leslie Baires on 06-05-2024 RBC (Bld) [#/Vol] 4.46 10*6/uL 4.2-5.4 [facility] Rubella immune status determ ination by IgG antibody assayOrdered By: Leslie Baires on 06-05-2024 Rubella IgG Antibody REAC Nonreactive [facility] Comment on above: Antibody Result: Int erpretationNon-Reactive: Non-ImmuneReactive: ImmuneThe following results were obtained with the [employer] Rubella IgG assay. Results from assays of other manufacturers cannot be used interchangeably. T. pallidum abOrdered By: Roel Baires on 06-05-2024 Syphilis Total Antibody Non-Reactive Nonreactiv e [facility] Type AND Screenon 06-05-2024 Ab SCREEN GEL Negative Normal [facility] Comment on above: Order Comment: PN Performed By: #### L 509.4006, L100.0100, L501.9985, L3890.6301, L3890.6006, L509.8002, L3890.6102, BTS #### [facility] [address] [place], [address] Urine cultureOrdered By: Ryan Baires on 06-05-2024 Bacteria identified Cx Nom (U) Positive Abnormal [facility] White blood cell (WBC) count Ordered By: Leslie Baires on 06-05-2024 WBC (Bld) [#/Vol] 7.2 10*3/uL 4.4-11.0 [facility] Transvaginal w/Preg USon Transvaginal w/Preg US [facility] Services [address] [place], [place] [address] Transvaginal w/Preg US MR#: [id number] Acct: [id number] Name: DAE DOAN Rep #: [id number] : 1995 F 28 From: Theodore emery MD PCP: Dr. Dominick Sahu MD Status: REG CLI Study: Transvaginal w/Preg US Date of Exam: 05/25/24 Exam# [id number] Ordering Dr: Leslie Baires PROCEDURE: TRANSVAGINAL W/PREG [...] both ovaries. DIMENSIONS: Parameter Measurement / EGA Garwin Rump Length: 7 mm/6 weeks 5 days [...] cysts seen in both ovaries. Reading Location: [place] [address] CC: Dr. Dominick Sahu MD; Dr. Leslie Baires MD Paste Mixer: Signed Normal [facility] HCG ( test) QlOrder ed By: Deanna Clark on 05-19-2024 Human Chorionic Gonadotropin, Quant mIU/mL High <9 [facility] Comment on above: Gestational Age0.2-1 Week: 5-50 mIU/mL1-2 Weeks: 50-500 mIU/mL2-3 Weeks: 100-5000 mIU/mL3-4 Weeks: 500-10,000 mIU/mL4-5 Weeks:1000-50,000 mIU/mL5-6 Weeks: 10,000-100,000 mIU/mL6-8 Weeks: 15,000-200,000 mIU/mL2-3 Months:10,000-100,000 mIU/mL Serum human chorionic gonado tropin detection for pregnancyOrdered By: Deanna Clark on 05-19-2024 HCG ( test) Ql mIU/mL High <9 [facility] Comment on above: Gestational Age0.2-1 Week: 5-50 mIU/mL1-2 Weeks: 50-500 mIU/mL2-3 Weeks: 100-5000 mIU/mL3-4 Weeks: 500-10,000 mIU/mL4-5 Weeks:1000-50,000 mIU/mL5-6 Weeks: 10,000-100,000 mIU/mL6-8 Weeks: 15,000-200,000 mIU/mL2-3 Months:10,000-100,000 mIU/mL hCG Titer Quant., Serumon HCG QUANT. mIU/mL High <9 non-preg [facility] Comment on above: Result Comment: Gest ational Age 0.2-1 Week: 5-50 mIU/mL 1-2 Weeks: 50-500 mIU/mL 2-3 Weeks: 100-5000 mIU/mL 3-4 Weeks: 500-10,000 mIU/mL 4-5 Weeks:1000-50,000 mIU/mL 5-6 Weeks: 10,000-100,000 mIU/mL 6-8 Weeks: 15,000-200,000 mIU/mL 2-3 Months:10,000-100,000 mIU/mL Performed By: #### L 700.8000 #### [facility] [address] [place], [address] HCG ( test) QlOrder ed By: Deanna Clark on 05-17-2024 Human Chorionic Gonadotropin, Quant 87519 mIU/mL High <9 [facility] Comment on above: Gestational Age0.2-1 Week: 5-50 mIU/mL1-2 Weeks: 50-500 mIU/mL2-3 Weeks: 100-5000 mIU/mL3-4 Weeks: 500-10,000 mIU/mL4-5 Weeks:1000-50,000 mIU/mL5-6 Weeks: 10,000-100,000 mIU/mL6-8 Weeks: 15,000-200,000 mIU/mL2-3 Months:10,000-100,000 mIU/mL Serum human chorionic gonado tropin detection for pregnancyOrdered By: Deanna Clark on 05-17-2024 H[place] ( [place] [address] mIU/mL High <9 [facility] Comment on above: Gestational Age0.2-1 Week: 5-50 mIU/mL1-2 Weeks: 50-500 mIU/mL2-3 Weeks: 100-5000 mIU/mL3-4 Weeks: 500-10,000 mIU/mL4-5 Weeks:1000-50,000 mIU/mL5-6 Weeks: 10,000-100,000 mIU/mL6-8 Weeks: 15,000-200,000 mIU/mL2-3 Months:10,000-100,000 mIU/mL hCG Titer Quant., Serumon HCG QUANT. 73457 mIU/mL High <9 non-preg [facility] Comment on above: Result Comment: Gest ational Age 0.2-1 Week: 5-50 mIU/mL 1-2 Weeks: 50-500 mIU/mL 2-3 Weeks: 100-5000 mIU/mL 3-4 Weeks: 500-10,000 mIU/mL 4-5 Weeks:1000-50,000 mIU/mL 5-6 Weeks: 10,000-100,000 mIU/mL 6-8 Weeks: 15,000-200,000 mIU/mL 2-3 Months:10,000-100,000 mIU/mL Performed By: #### L 509.4006, L100.0100, L501.9985, L3890.6301, L3890.6006, L509.8002, L3890.6102, BTS #### [facility] [address] [place], [address] HCG ( test) QlOrder ed By: Deanna Clark on 05-15-2024 Human Chorionic Gonadotropin, Quant 6998 mIU/mL High <9 [facility] Comment on above: Gestational Age0.2-1 Week: 5-50 mIU/mL1-2 Weeks: 50-500 mIU/mL2-3 Weeks: 100-5000 mIU/mL3-4 Weeks: 500-10,000 mIU/mL4-5 Weeks:1000-50,000 mIU/mL5-6 Weeks: 10,000-100,000 mIU/mL6-8 Weeks: 15,000-200,000 mIU/mL2-3 Months:10,000-100,000 mIU/mL Serum human chorionic gonado tropin detection for pregnancyOrdered By: Deanna Clark on 05-15-2024 HCG ( test) Ql 6998 mIU/mL High <9 [facility] Comment on above: Gestational Age0.2-1 Week: 5-50 mIU/mL1-2 Weeks: 50-500 mIU/mL2-3 Weeks: 100-5000 mIU/mL3-4 Weeks: 500-10,000 mIU/mL4-5 Weeks:1000-50,000 mIU/mL5-6 Weeks: 10,000-100,000 mIU/mL6-8 Weeks: 15,000-200,000 mIU/mL2-3 Months:10,000-100,000 mIU/mL hCG Titer Quant., Serumon HCG QUANT. 6998 mIU/mL High <9 non-preg [facility] Comment on above: Result Comment: Gest ational Age 0.2-1 Week: 5-50 mIU/mL 1-2 Weeks: 50-500 mIU/mL 2-3 Weeks: 100-5000 mIU/mL 3-4 Weeks: 500-10,000 mIU/mL 4-5 Weeks:1000-50,000 mIU/mL 5-6 Weeks: 10,000-100,000 mIU/mL 6-8 Weeks: 15,000-200,000 mIU/mL 2-3 Months:10,000-100,000 mIU/mL Performed By: #### L 700.8000 #### [facility] [address] [place], [place], [address] [id number] DOrdered By: Zain Sahu on 03-03-2024 Vitamin D 25-Hydroxy 24.5 ng/mL [facility] Comment on above: Vitamin D 25(OH) Sta tus Range Deficiency <20 ng/mL (50nmol/L) Insufficiency 20 - 30 ng/mL (50 - 75 nmol/L) Sufficiency 30 - 100 ng/mL (75 - 250 nmol/L) Toxicity >100 ng/mL (>250 nmol/L) Absolute neutrophil countOrd ered By: Dominick Sahu on 03-03-2024 Neutrophils (Bld) [#/Vol] 3.2 10*3/uL 2.0-7.7 [facility] Albumin to globulin ratioOrd ered By: Dominick Sahu on 03-03-2024 Albumin/Globulin [Mass ratio] 1.1 {ratio} 0.9-2.4 [facility] Basophil percentageOrdered B y: Dominick Sahu on 03-03-2024 Basophils/100 WBC (Bld) 0.8 % 0-1 [facility] Bilirubin, totalOrdered By: Dominick Sahu on 03-03-2024 Bilirubin [Mass/Vol] 1.30 mg/dL High 0.20-1.00 [facility] Comment on above: For patients on eltr ombopag therapy, use of Dimension [place] TBIL is not recommended. Blood urea nitrogen (BUN)/cr eatinine ratioOrdered By: Dominick Sahu on 03-03-2024 Urea nitrogen/Creatinine [Mass ratio] 23.6 mg/mg High 10-20 [facility] CBC W/Diff, Automatedon 02-06 Absolute Lymph 1.98 X10 3/uL Normal 0.83-4.51 [facility] Comment on above: Order Comment: Order Date: 03/03/24Order Info: 183- - CBCD Performed By: #### L 700.8000 #### [facility] [address] [place], [address] Absolute Neut 3.2 X10 3/uL Normal 2.0-7.7 [facility] Comment on above: Order Comment: Order Date: 03/03/24Order Info: 183- - CBCD Performed By: #### L 700.8000 #### [facility] [address] [place], [address] Basophils/100 WBC (Bld) 0.8 % Normal 0-1 [facility] Comment on above: Order Comment: Order Date: 03/03/24Order Info: 183- - CBCD Performed By: #### L 700.8000 #### [facility] [address] [place], [address] Eosinophils/100 WBC (Bld) 6.5 % High 0-5 [facility] Comment on above: Order Comment: Order Date: 03/03/24Order Info: 183-1 - CBCD Performed By: #### L 700.8000 #### [facility] [address] [place], [address] Erythrocyte distribution width (RBC) [Ratio] 12.4 % Normal 11.6-14.6 [facility] Comment on above: Order Comment: Order Date: 03/03/24Order Info: 018-1 - CBCD Performed By: #### L 700.8000 #### [facility] [address] [place], [address] Hematocrit (Bld) [Volume fraction] 36.8 % Low 37-47 [facility] Comment on above: Order Comment: Order Date: 03/03/24Order Info: 018- - CBCD Performed By: #### L 700.8000 #### [facility] [address] [place], [address] Hemoglobin (Bld) [Mass/Vol] 12.2 g/dL Normal 12.0-15.0 [facility] Comment on above: Order Comment: Order Date: 03/03/24Order Info: 018- - CBCD Performed By: #### L 700.8000 #### [facility] [address] [place], [address] IG% 0.200 Normal 0.0-0.9 [facility] Comment on above: Order Comment: Order Date: 03/03/24Order Info: 018- - CBCD Result Comment: IG% - Immature Granulocytes (promyelocytes, myelocytes and metamyelocytes) > 1% indicates that a LEFT SHIFT is Present. Performed By: #### L 700.8000 #### [facility] [address] [place], [address] Lymphocytes/100 WBC (Bld) 32.8 % Normal 19-41 [facility] Comment on above: Order Comment: Order Date: 03/03/24Order Info: 018- - CBCD Performed By: #### L 700.8000 #### [facility] [address] [place], [address] MCH (RBC) [Entitic mass] 28.1 pg Normal 27.0-32.0 [facility] Comment on above: Order Comment: Order Date: 03/03/24Order Info: 018- - CBCD Performed By: #### L 700.8000 #### [facility] [address] [place], [address] MCHC (RBC) [Mass/Vol] 33.2 g/dL Normal 32-36 [facility] Comment on above: Order Comment: Order Date: 03/03/24Order Info: 183-03 - CBCD Performed By: #### L 700.8000 #### [facility] [address] [place], [address] MCV (RBC) [Entitic vol] 84.8 fL Normal 81-99 [facility] Comment on above: Order Comment: Order Date: 03/03/24Order Info: 183- - CBCD Performed By: #### L 700.8000 #### [facility] [address] [place], [address] Monocytes/100 WBC (Bld) 6.3 % Normal 0-10 [facility] Comment on above: Order Comment: Order Date: 03/03/24Order Info: 183- - CBCD Performed By: #### L 700.8000 #### [facility] [address] [place], [address] Neutrophils/100 WBC (Bld) 53.4 % Normal 47-70 [facility] Comment on above: Order Comment: Order Date: 03/03/24Order Info: 183- - CBCD Performed By: #### L 700.8000 #### [facility] [address] [place], [address] Nucleated RBC (Bld) [#/Vol] 0 10*3/uL Normal 0-5 [facility] Comment on above: Order Comment: Order Date: 03/03/24Order Info: 183- - CBCD Performed By: #### L 700.8000 #### [facility] [address] [place], [address] Platelet mean volume (Bld) [Entitic vol] 9.7 fL Normal 6.2-12.0 [facility] Comment on above: Order Comment: Order Date: 03/03/24Order Info: 183- - CBCD Performed By: #### L 700.8000 #### [facility] [address] [place], [address] Platelets (Bld) [#/Vol] 271 10*3/uL Normal 150-450 [facility] Comment on above: Order Comment: Order Date: 03/03/24Order Info: 183- - CBCD Performed By: #### L 700.8000 #### [facility] [address] [place], [address] RBC (Bld) [#/Vol] 4.34 10*6/uL Normal 4.2-5.4 [facility] Comment on above: Order Comment: Order Date: 03/03/24Order Info: 183- - CBCD Performed By: #### L 700.8000 #### [facility] [address] [place], [address] RDW SD 38.5 fl Normal 35.1-43.9 [facility] Comment on above: Order Comment: Order Date: 03/03/24Order Info: 183- - CBCD Performed By: #### L 700.8000 #### [facility] [address] [place], [address] WBC (Bld) [#/Vol] 6.0 10*3/uL Normal 4.4-11.0 [facility] Comment on above: Order Comment: Order Date: 03/03/24Order Info: 018- - CBCD Performed By: #### L 700.8000 #### [facility] [address] [place], [address] Carbon dioxide measurementOr dered By: Dominick Sahu on 03-03-2024 CO2 [Moles/Vol] 27.0 mmol/L 21.0-32.0 [facility] Chloride measurementOrdered By: Dominick Sahu on 03-03-2024 Chloride [Moles/Vol] 110 mmol/L High 98-107 [facility] Comprehensive Metabolic Prof ilon 03-03-2024 Albumin [Mass/Vol] 3.7 g/dL Normal 3.2-5.0 [facility] Comment on above: Order Comment: Order Date: 03/03/24Order Info: 0786-1 - CMPOrder Info: 6-3 - TSH Performed By: #### L 700.8000 #### [facility] [address] [place], [address] Albumin/Globulin [Mass ratio] 1.1 {ratio} Normal 0.9-2.4 [facility] Comment on above: Order Comment: Order Date: 03/03/24Order Info: 86-1 - CMPOrder Info: 6-3 - TSH Performed By: #### L 700.8000 #### [facility] [address] [place], [address] ALK P 54 U/L Normal 45-117 [facility] Comment on above: Order Comment: Order Date: 03/03/24Order Info: 785-1 - CMPOrder Info: 3015-3 - TSH Performed By: #### L 700.8000 #### [facility] [address] [place], [address] ALT [Catalytic activity/Vol] 44 U/L Normal 13-56 [facility] Comment on above: Order Comment: Order Date: 03/03/24Order Info: 785- - CMPOrder Info: 3015-3 - TSH Performed By: #### L 700.8000 #### [facility] [address] [place], [address] AST [Catalytic activity/Vol] 26 U/L Normal 15-37 [facility] Comment on above: Order Comment: Order Date: 03/03/24Order Info: 0786-1 - CMPOrder Info: 3016-3 - TSH Performed By: #### L 700.8000 #### [facility] [address] [place], [address] Bilirubin [Mass/Vol] 1.30 mg/dL High 0.20-1.00 [facility] Comment on above: Order Comment: Order Date: 03/03/24Order Info: 86-1 - CMPOrder Info: 3016-3 - TSH Result Comment: For patients on eltrombopag therapy, use of Dimension [place] TBIL is not recommended. Performed By: #### L 700.8000 #### [facility] [address] [place], [address] BUN/CRE 23.6 RATIO High 10-20 [facility] Comment on above: Order Comment: Order Date: 03/03/24Order Info: 86-1 - CMPOrder Info: 3 - TSH Performed By: #### L 700.8000 #### [facility] [address] [place], [address] CA,Total 9.1 mg/dL Normal 8.5-10.1 [facility] Comment on above: Order Comment: Order Date: 03/03/24Order Info: 785-1 - CMPOrder Info: 3 - TSH Performed By: #### L 700.8000 #### [facility] [address] [place], [address] Chloride [Moles/Vol] 110 mmol/L High 98-107 [facility] Comment on above: Order Comment: Order Date: 03/03/24Order Info: 785-1 - CMPOrder Info: 3 - TSH Performed By: #### L 700.8000 #### [facility] [address] [place], [address] CO2 [Moles/Vol] 27.0 mmol/L Normal 21.0-32.0 [facility] Comment on above: Order Comment: Order Date: 03/03/24Order Info: 07-1 - CMPOrder Info: 3 - TSH Performed By: #### L 700.8000 #### [facility] [address] [place], [address] Creatinine [Mass/Vol] 0.68 mg/dL Normal 0.55-1.02 [facility] Comment on above: Order Comment: Order Date: 03/03/24Order Info: 0786-1 - CMPOrder Info: 3015-05 - TSH Result Comment: The validity of the calculated GFR GFRAA in patients over 70 years has not been determined. Clinical correlation is essential. Performed By: #### L 700.8000 #### [facility] [address] [place], [address] EST GFR - AA 132 mL/min Normal >60 [facility] Comment on above: Order Comment: Order Date: 03/03/24Order Info: 0786-1 - CMPOrder Info: 3015-05 - TSH Result Comment: Afri can Finnish GFR Calc Performed By: #### L 700.8000 #### [facility] [address] [place], [address] GAP 5 Normal 5-15 [facility] Comment on above: Order Comment: Order Date: 03/03/24Order Info: 0786- - CMPOrder Info: 3015-05 - TSH Performed By: #### L 700.8000 #### [facility] [address] [place], [address] GFR/1.73 sq M.predicted among non-blacks MDRD (S/P/Bld) [Vol rate/Area] 109 mL/min/{1.73_m2} Normal >60 [facility] Comment on above: Order Comment: Order Date: 03/03/24Order Info: 0786- - CMPOrder Info: 3015-05 - TSH Result Comment: Non- GFR Calc Performed By: #### L 700.8000 #### [facility] [address] [place], [address] Globulin (S) [Mass/Vol] 3.4 g/dL Normal 2.2-4.2 [facility] Comment on above: Order Comment: Order Date: 03/03/24Order Info: 0786-1 - CMPOrder Info: 3015-05 - TSH Performed By: #### L 700.8000 #### [facility] [address] [place], [address] Glucose [Mass/Vol] 95 mg/dL Normal 74-106 [facility] Comment on above: Order Comment: Order Date: 03/03/24Order Info: 785- - CMPOrder Info: 3015-05 - TSH Performed By: #### L 700.8000 #### [facility] [address] [place], [address] Potassium [Moles/Vol] 4.0 mmol/L Normal 3.5-5.1 [facility] Comment on above: Order Comment: Order Date: 03/03/24Order Info: 785-03 - CMPOrder Info: 3015-05 - TSH Performed By: #### L 700.8000 #### [facility] [address] [place], [address] Sodium [Moles/Vol] 142 mmol/L Normal 136-145 [facility] Comment on above: Order Comment: Order Date: 03/03/24Order Info: 785-03 - CMPOrder Info: 3015-05 - TSH Performed By: #### L 700.8000 #### [facility] [address] [place], [address] T PROT 7.1 g/dL Normal 6.4-8.2 [facility] Comment on above: Order Comment: Order Date: 03/03/24Order Info: 785-03 - CMPOrder Info: 3015-05 - TSH Performed By: #### L 700.8000 #### [facility] [address] [place], [address] Urea nitrogen [Mass/Vol] 16 mg/dL Normal 7-18 [facility] Comment on above: Order Comment: Order Date: 03/03/24Order Info: 785-03 - CMPOrder Info: 3 - TSH Performed By: #### L 700.8000 #### [facility] [address] [place], [address] Eosinophil percentageOrdered By: Dominick Sahu on 03-03-2024 Eosinophils/100 WBC (Bld) 6.5 % High 0-5 [facility] Erythrocyte distribution wid th ratioOrdered By: Dominick Sahu on 03-03-2024 Erythrocyte distribution width (RBC) [Ratio] 12.4 % 11.6-14.6 [facility] Erythrocyte distribution wid th standard deviationOrdered By: Dominick Sahu on 03-03-2024 Erythrocyte distribution width (RBC) [Entitic vol] 38.5 fL 35.1-43.9 [facility] Estimated glomerular filtrat ion rate (GFR) AmericanOrdered By: Dominick Sahu on 03-03-2024 Estimated GFR (MDRD) Amer 132 mL/min >60 [facility] Comment on above: GFR Calc Glomerular filtration rate ( GFR) estimationOrdered By: Dominick Sahu on 03-03-2024 Estimated GFR (MDRD) Non-Af Amer 109 mL/min >60 [facility] Comment on above: Non- GFR Calc Glucose measurementOrdered B y: Dominick Sahu on 03-03-2024 Glucose [Mass/Vol] 95 mg/dL 74-106 [facility] Hematocrit Auto (Bld) [Volum e fraction]Ordered By: Dominick Sahu on 03-03-2024 Hematocrit (Bld) [Volume fraction] 36.8 % Low 37-47 [facility] Hemoglobin measurementOrdere d By: Dominick Sahu on 03-03-2024 Hemoglobin (Bld) [Mass/Vol] 12.2 g/dL 12.0-15.0 [facility] Immature granulocytes/100 WB C Auto (Bld)Ordered By: Dominick Sahu on 03-03-2024 Immature granulocytes/100 WBC (Bld) 0.200 % 0.0-0.9 [facility] Comment on above: IG% - Immature Granu locytes (promyelocytes, myelocytes and metamyelocytes) > 1% indicates that a LEFT SHIFT is Present. Laboratory - Chemistry and C hemistry - challengeOrdered By: Dominick Sahu on 03-03-2024 AST [Catalytic activity/Vol] 26 U/L 15-37 [facility] Lymphocytes Auto (Unsp spec) [#/Vol]Ordered By: Dominick Sahu on 03-03-2024 Lymphocytes (Bld) [#/Vol] 1.98 10*3/uL 0.83-4.51 [facility] Lymphocytes/100 WBC Auto (Un sp spec)Ordered By: Dominick Sahu on 03-03-2024 Lymphocytes/100 WBC (Bld) 32.8 % 19-41 [facility] MCV (mean corpuscular volume ) determinationOrdered By: Dominick Sahu on 03-03-2024 MCV (RBC) [Entitic vol] 84.8 fL 81-99 [facility] Mean corpuscular hemoglobin (MCH) determinationOrdered By: Renettaalek Adelina on 03-03-2024 MCH (RBC) [Entitic mass] 28.1 pg 27.0-32.0 [facility] Mean corpuscular hemoglobin concentration (MCHC) determinationOrdered By: Dominick Sahu on 03-03-2024 MCHC (RBC) [Mass/Vol] 33.2 g/dL 32-36 [facility] Mean platelet volume determi nationOrdered By: Dominick Sahu on 03-03-2024 Platelet mean volume (Bld) [Entitic vol] 9.7 fL 6.2-12.0 [facility] Monocyte percentageOrdered B y: Dominick Sahu on 03-03-2024 Monocytes/100 WBC (Bld) 6.3 % 0-10 [facility] Neutrophil percentageOrdered By: Dominick Sahu on 03-03-2024 Neutrophils/100 WBC (Bld) 53.4 % 47-70 [facility] Nucleated red blood cell per centageOrdered By: Dominick Sahu on 03-03-2024 Nucleated RBC/100 WBC (Bld) [Ratio] 0 % 0-5 [facility] Platelet countOrdered By: Chris Sahu on 03-03-2024 Platelets (Bld) [#/Vol] 271 10*3/uL 150-450 [facility] Potassium measurementOrdered By: Dominick Sahu on 03-03-2024 Potassium [Moles/Vol] 4.0 mmol/L 3.5-5.1 [facility] RBC Auto (Bld) [#/Vol]Ordere d By: Dominick Sahu on 03-03-2024 RBC (Bld) [#/Vol] 4.34 10*6/uL 4.2-5.4 [facility] Serum anion gap measurementO rdered By: Dominick Sahu on 03-03-2024 Anion gap [Moles/Vol] 5 mmol/L 5-15 [facility] Serum globulin measurementOr dered By: Dominick Sahu on 03-03-2024 Globulin (S) [Mass/Vol] 3.4 g/dL 2.2-4.2 [facility] Serum or plasma alanine morelos otransferase (ALT) measurementOrdered By: Dominick Sahu on 03-03-2024 ALT [Catalytic activity/Vol] 44 U/L 13-56 [facility] Serum or plasma albumin keren urement (mass/volume)Ordered By: Dominick Sahu on 03-03-2024 Albumin [Mass/Vol] 3.7 g/dL 3.2-5.0 [facility] Serum or plasma alkaline hanna sphatase measurementOrdered By: Dominick Sahu on 03-03-2024 ALP [Catalytic activity/Vol] 54 U/L 45-117 [facility] Serum or plasma calcium keren urement (mass/volume)Ordered By: Dominick Sahu on 03-03-2024 Calcium [Mass/Vol] 9.1 mg/dL 8.5-10.1 [facility] Serum or plasma creatinine m easurement (mass/volume)Ordered By: Dominick Sahu on 03-03-2024 Creatinine [Mass/Vol] 0.68 mg/dL 0.55-1.02 [facility] Comment on above: The validity of the calculated GFR & GFRAA in patients over 70 years has not been determined. Clinical correlation is essential. Serum or plasma urea nitroge n measurement (mass/volume)Ordered By: Dominick Sahu on 03-03-2024 Urea nitrogen [Mass/Vol] 16 mg/dL 7-18 [facility] Sodium levelOrdered By: Renetta Sahu on 03-03-2024 Sodium [Moles/Vol] 142 mmol/L 136-145 [facility] TSH QnOrdered By: Dominick godwin on 03-03-2024 Thyroid Stimulating Hormone (TSH) 1.960 uIU/mL 0.358-3.740 [facility] Thyroid Stim Hormone (TSH)on 03-03-2024 TSH 1.960 uIU/mL Normal 0.358-3.740 [facility] Comment on above: Order Comment: Order Date: 03/03/24Order Info: [id number] - CMPOrder Info: [id number] - TSH Performed By: #### L 700.8000 #### [facility] [address] [place], [address] Total proteinOrdered By: Tanya Sahu on 03-03-2024 Protein [Mass/Vol] 7.1 g/dL 6.4-8.2 [facility] Vitamin D,25 Hydroxyon 03-03 Vitamin D 25-OH 24.5 ng/mL Normal [facility] Comment on above: Order Comment: Order Date: 03/03/24Order Info: [id number] - VITD25 Result Comment: Lyndsey min D 25(OH) Status Range Deficiency <20 ng/mL (50nmol/L) Insufficiency 20 - 30 ng/mL (50 - 75 nmol/L) Sufficiency 30 - 100 ng/mL (75 - 250 nmol/L) Toxicity >100 ng/mL (>250 nmol/L) Performed By: #### L 700.8000 #### [facility] [address] [place], [id number] White blood cell (WBC) count Ordered By: Dominick Sahu on 03-03-2024 WBC (Bld) [#/Vol] 6.0 10*3/uL 4.4-11.0 [facility] Office Visit Reporton 2023 Office Visit Report [facility] [address] [place] [address] OFFICE VISIT Date of Service: 12/07/23 MR#: [id number] Acct: [id number] Patient: DAE DOAN Rep #: [id number] : 1995 Provider: ASHLI rios Age/Sex: 27/F Location: [facility] Status: Signed Intake Vital Signs 06/09/23 13:54 [...] occupational status: employed 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 pets and animals: No leisure activities: other history of recent travel: Yes details: cruise [employer] out of state: Yes out of country: Yes sexually active: Yes Smoking Status: Never smoker alcohol intake: former details: social substance use type: does not use well-balanced diet: daily or most days caffeine: Yes eating out: rarely or never during the past year weight has: decreased > 10 lbs what type of physical activity do you participate in: none fabiola/advent: Anab[employer]ism seatbelt use: always do you feel safe at home: Yes additional social history: [employer] student and works at [employer] 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 Works at [employer] Female Reproductive History Menstrual Ab spontaneous: 1 [...] healthy appearing, well developed and well groomed [facility] Head: normocephalic and atraumatic Eyes General: appearance [...] of r (more content not included)... Normal [facility] Cervical or vagninal specime n microscopic examination by cytology stain (reported asOrdered By: Fe Avila on 06-09-2023 Cytology report Cyto stain Doc (Cvx/Vag) Comment . [facility] Comment on above: The Pap smear is a s creening test designed to aid in thedetection of premalignant and malignant conditions of theuterine cervix. It is not a diagnostic procedure andshould not be used as the sole means of detecting cervicalcancer. Both false-positive and false-negative reports dooccur. Laboratory - CytologyOrdered By: Fe Avila on 06-09-2023 Chute Greaser Cyto stain Nom (Cvx/Vag) [ID] Comment . [facility] Comment on above: Mir Barriga totechnologist (ASCP) Laboratory - Miscellaneous t estsOrdered By: Fe Avila on 06-09-2023 Service comment (Unsp spec) [Interp] . . [facility] No Panel InformationOrdered By: Fe Avila on 06-09-2023 Human Papillomavirus Screen Comment . [facility] Comment on above: The HPV DNA reflex c riteria were not met with this specimenresult therefore, no HPV testing was performed.Performed at: [address] [id number] Director: Laura Fall MD, Phone: [phone] Thin prep Papanicolaou smear with manual screeningOrdered By: Fe Avila on 06-09-2023 Thin prep Papanicolaou smear with manual screening Comment . [facility] Comment on above: NEGATIVE FOR INTRAEP ITHELIAL LESION OR MALIGNANCY. This liquid based Th inPrep(R) pap test was screened withthe use of an image guided system. Absolute lymphocyte countOrd ered By: Dr. Langston on 04-24-2022 Lymphocytes Auto (Unsp spec) [#/Vol] 1.67 10*3/uL 0.83-4.51 [facility] Basophil percentageOrdered B y: Dr. Langston on 04-24-2022 Basophils/100 WBC (Bld) 0.3 % 0-1 [facility] Eosinophils/100 WBC (Bld) 1.6 % 0-5 [facility] Neutrophils (Bld) [#/Vol] 7.4 10*3/uL 2.0-7.7 [facility] Neutrophils/100 WBC (Bld) 73.0 % 47-70 [facility] WBC (Bld) [#/Vol] 10.2 10*3/uL 4.4-11.0 [facility] Blood erythrocytes count (nu mber/volume)Ordered By: Dr. Langston on 04-24-2022 RBC (Bld) [#/Vol] 3.63 10*6/uL 4.2-5.4 [facility] Blood hemoglobin measurement (mass/volume)Ordered By: Dr. Langston on 04-24-2022 Hemoglobin (Bld) [Mass/Vol] 10.8 g/dL 12.0-15.0 [facility] Blood lymphocytes/100 leukoc ytesOrdered By: Dr. Langston on 04-24-2022 Lymphocytes/100 WBC (Bld) 16.5 % 19-41 [facility] Blood monocytes/100 leukocyt esOrdered By: Dr. Langston on 04-24-2022 Monocytes/100 WBC (Bld) 7.8 % 0-10 [facility] Blood platelet mean volumeOr dered By: Dr. Langston on 04-24-2022 Platelet mean volume (Bld) [Entitic vol] 10.9 fL 6.2-12.0 [facility] Determination of erythrocyte mean corpuscular volume (MCV)Ordered By: Dr. Langston on 04-24-2022 MCV (RBC) [Entitic vol] 85.7 fL 81-99 [facility] Hematocrit Auto (Bld) [Volum e fraction]Ordered By: Dr. Langston on 04-24-2022 Hematocrit (Bld) [Volume fraction] 31.1 % 37-47 [facility] Laboratory - Hematology and Cell countsOrdered By: Dr. Langston on 04-24-2022 Erythrocyte distribution width (RBC) [Entitic vol] 43.0 fL 35.1-43.9 [facility] Erythrocyte distribution width (RBC) [Ratio] 13.8 % 11.6-14.6 [facility] Immature granulocytes/100 WBC (Bld) 0.800 % 0.0-0.9 [facility] Comment on above: IG% - Immature Granu locytes (promyelocytes, myelocytes and metamyelocytes) > 1% indicates that a LEFT SHIFT is Present. MCH (RBC) [Entitic mass] 29.8 pg 27.0-32.0 [facility] Nucleated RBC/100 WBC (Bld) [Ratio] 0 % 0-5 [facility] MCHC Auto (RBC) [Mass/Vol]Or dered By: Dr. Langston on 04-24-2022 MCHC (RBC) [Mass/Vol] 34.7 g/dL 32-36 [facility] Platelets bldOrdered By: Dr. Langston on 04-24-2022 Platelets (Bld) [#/Vol] 215 10*3/uL 150-450 [facility] Laboratory - Chemistry and C hemistry - challengeon 04-22-2022 Glucose Ql (U) Negative [facility] Laboratory - Urinalysison Protein Ql (U) Negative [facility] Absolute lymphocyte countOrd ered By: Dr. Baires on 04-14-2022 Lymphocytes Auto (Unsp spec) [#/Vol] 1.70 10*3/uL 0.83-4.51 [facility] Basophil percentageOrdered B y: Dr. Baires on 04-14-2022 Basophils/100 WBC (Bld) 0.3 % 0-1 [facility] Eosinophils/100 WBC (Bld) 1.8 % 0-5 [facility] Neutrophils (Bld) [#/Vol] 8.5 10*3/uL 2.0-7.7 [facility] Neutrophils/100 WBC (Bld) 76.2 % 47-70 [facility] WBC (Bld) [#/Vol] 11.1 10*3/uL 4.4-11.0 [facility] Blood erythrocytes count (nu mber/volume)Ordered By: Dr. Baires on 04-14-2022 RBC (Bld) [#/Vol] 3.91 10*6/uL 4.2-5.4 [facility] Blood hemoglobin measurement (mass/volume)Ordered By: Dr. Baires on 04-14-2022 Hemoglobin (Bld) [Mass/Vol] 11.7 g/dL 12.0-15.0 [facility] Blood lymphocytes/100 leukoc ytesOrdered By: Dr. Baires on 04-14-2022 Lymphocytes/100 WBC (Bld) 15.3 % 19-41 [facility] Blood monocytes/100 leukocyt esOrdered By: Dr. Baires on 04-14-2022 Monocytes/100 WBC (Bld) 6.0 % 0-10 [facility] Blood platelet mean volumeOr dered By: Dr. Baires on 04-14-2022 Platelet mean volume (Bld) [Entitic vol] 10.2 fL 6.2-12.0 [facility] Determination of erythrocyte mean corpuscular volume (MCV)Ordered By: Dr. Baires on 04-14-2022 MCV (RBC) [Entitic vol] 86.2 fL 81-99 [facility] Hematocrit Auto (Bld) [Volum e fraction]Ordered By: Dr. Baires on 04-14-2022 Hematocrit (Bld) [Volume fraction] 33.7 % 37-47 [facility] - Chemistry and C hemistry - challengeon 04-14-2022 Glucose Ql (U) Negative [facility] - Hematology and Cell countsOrdered By: Dr. Baires on 04-14-2022 Erythrocyte distribution width (RBC) [Entitic vol] 42.1 fL 35.1-43.9 [facility] Erythrocyte distribution width (RBC) [Ratio] 13.6 % 11.6-14.6 [facility] Immature granulocytes/100 WBC (Bld) 0.400 % 0.0-0.9 [facility] Comment on above: IG% - Immature Granu locytes (promyelocytes, myelocytes and metamyelocytes) > 1% indicates that a LEFT SHIFT is Present. MCH (RBC) [Entitic mass] 29.9 pg 27.0-32.0 [facility] Nucleated RBC/100 WBC (Bld) [Ratio] 0 % 0-5 [facility] Laboratory - Urinalysison Protein Ql (U) Negative [facility] MCHC Auto (RBC) [Mass/Vol]Or dered By: Dr. Baires on 04-14-2022 MCHC (RBC) [Mass/Vol] 34.7 g/dL 32-36 [facility] No Panel InformationOrdered By: Dr. Baires on 04-14-2022 Fibrinogen 431 mg/dl 203-444 [facility] Platelets bldOrdered By: Dr. Baires on 04-14-2022 Platelets (Bld) [#/Vol] 219 10*3/uL 150-450 [facility] Laboratory - Chemistry and C hemistry - challengeon 04-08-2022 Glucose Ql (U) Negative [facility] - Urinalysison Protein Ql (U) Negative [facility] No Panel InformationOrdered By: Fe Avila on 03-30-2022 Group B Streptococcus Culture Group B Beta Streptococcus is not isolated. [facility] - Chemistry and C hemistry - challengeon 03-27-2022 Glucose Ql (U) Negative [facility] - Urinalysison Protein Ql (U) Negative [facility] Thin prep Papanicolaou smear with manual screeningOrdered By: Dr. Langston on 03-22-2022 Thin prep Papanicolaou smear with manual screening Neisseria or beta-hemolytic Streptococcus isolated. [facility] Gram stain for investigation of transfusion reactionOrdered By: Dr. Langston on 03-20-2022 Microscopic observation Gram stain Nom (Unsp spec) [facility] Basophil percentageOrdered B y: Dr. Langston on 03-19-2022 Basophil percentage 0-5 SEEN /hpf 0-5 [facility] Bilirubin Test strip Ql (U)O rdered By: Dr. Langston on 03-19-2022 Bilirubin Ql (U) Negative Negative [facility] Ketones Test strip Ql (U)Ord ered By: Dr. Langston on 03-19-2022 Ketones Ql (U) Negative Negative [facility] Laboratory - Chemistry and C hemistry - challengeon 03-19-2022 Glucose Ql (U) Negative [facility] Laboratory - Urinalysison Protein Ql (U) Negative [facility] Mucus LM Ql (Urine sed)Order ed By: Dr. Langston on 03-19-2022 Mucus Ql (Urine sed) 4+ /hpf [facility] Nitrite Test strip Ql (U)Ord ered By: Dr. Langston on 03-19-2022 Nitrite Ql (U) Negative Negative [facility] Protein Test strip Ql (U)Ord ered By: Dr. Langston on 03-19-2022 Protein Ql (U) 30 mg/dl Negative [facility] Squamous epithelial cells de tection in urine sediment by light microscopyOrdered By: Dr. Langston on 03-19-2022 Epithelial cells.squamous LM Ql (Urine sed) 0-5 SEEN /hpf 5-10 [facility] Urine blood detectionOrdered By: Dr. Langston on 03-19-2022 RBC Ql (U) 25 /ul Negative [facility] RBC Ql (U) 0 SEEN /hpf 0-5 [facility] Urine clarityOrdered By: Dr. Langston on 03-19-2022 Clarity (U) Clear Clear [facility] Urine color determinationOrd ered By: Dr. Langston on 03-19-2022 Color (U) Yellow Yellow [facility] Urine glucose detectionOrder ed By: Dr. Langston on 03-19-2022 Glucose Ql (U) Normal mg/dl Normal [facility] Urine leukocyte esterase det ection by dipstickOrdered By: Dr. Langston on 03-19-2022 Leukocyte esterase Test strip Ql (U) 25 /ul Negative [facility] Urine pHOrdered By: Dr. Uri godwin on 03-19-2022 pH (U) 6.0 [pH] 5.0 - 8.0 [facility] Urine sediment bacteria coun t by microscopy (number/high power field)Ordered By: Dr. Langston on 03-19-2022 Bacteria LM.HPF (Urine sed) [#/Area] 2 /[HPF] None Seen [facility] Urine specific gravity measu rementOrdered By: Dr. Langston on 03-19-2022 Specific gravity (U) [Rel density] 1.020 1.002-1.030 [facility] Urobilinogen Auto test strip Ql (U)Ordered By: Dr. Langston on 03-19-2022 Urobilinogen Ql (U) 1 mg/dl Normal [facility] Laboratory - Chemistry and C hemistry - challengeon 03-04-2022 Glucose Ql (U) Negative [facility] Laboratory - Urinalysison Protein Ql (U) Negative [facility] Laboratory - Chemistry and C hemistry - challengeon 02-17-2022 Glucose Ql (U) Negative [facility] Laboratory - Urinalysison Protein Ql (U) Negative [facility] Quantitative serum or plasma 3 hour gestational glucose tolerance panelOrdered By: Jennifer Licona on 02-10-2022 Glucose tolerance 3 hours gestational panel See comment [facility] Comment on above: FASTING 99 Col: 1208/27 0656GLUCOSE TOLERANCE TEST FOR Reference Interval GESTATIONAL DIABETES Fasting <105 mg/dL 1 hour <190 mg/dl 2 hour <165 mg/dl 3 hour <145 mg/dl 1 HR GLU 191 H Col: 02/10/22 0802 2 HR GLU 136 Col: 02/10/22 0902 3 HR GLU 114 Col: 02/10/22 1002 Absolute lymphocyte countOrd ered By: Jennifer Licona on 02-03-2022 Lymphocytes Auto (Unsp spec) [#/Vol] 1.61 10*3/uL 0.83-4.51 [facility] Basophil percentageOrdered B y: Jennifer Licona on 02-03-2022 Basophils/100 WBC (Bld) 0.2 % 0-1 [facility] Eosinophils/100 WBC (Bld) 2.4 % 0-5 [facility] Neutrophils (Bld) [#/Vol] 6.6 10*3/uL 2.0-7.7 [facility] Neutrophils/100 WBC (Bld) 73.5 % 47-70 [facility] WBC (Bld) [#/Vol] 9.0 10*3/uL 4.4-11.0 [facility] Blood erythrocytes count (nu mber/volume)Ordered By: Jennifer Licona on 02-03-2022 RBC (Bld) [#/Vol] 3.65 10*6/uL 4.2-5.4 [facility] Blood hemoglobin measurement (mass/volume)Ordered By: Jennifer Licona on 02-03-2022 Hemoglobin (Bld) [Mass/Vol] 10.9 g/dL 12.0-15.0 [facility] Blood lymphocytes/100 leukoc ytesOrdered By: Jennifer Licona on 02-03-2022 Lymphocytes/100 WBC (Bld) 17.8 % 19-41 [facility] Blood monocytes/100 leukocyt esOrdered By: Jennifer Licona on 02-03-2022 Monocytes/100 WBC (Bld) 5.1 % 0-10 [facility] Blood platelet mean volumeOr dered By: Jennifer Licona on 02-03-2022 Platelet mean volume (Bld) [Entitic vol] 10.3 fL 6.2-12.0 [facility] Determination of erythrocyte mean corpuscular volume (MCV)Ordered By: Jennifer Licona on 02-03-2022 MCV (RBC) [Entitic vol] 89.6 fL 81-99 [facility] Gestational diabetes screen 1-hour screen with 50g oral glucose loadOrdered By: Jennifer Licona on 02-03-2022 Glucose 1 Hr post 50 g glucose PO [Mass/Vol] 149 mg/dL 70-140 [facility] Hematocrit Auto (Bld) [Volum e fraction]Ordered By: Jennifer Licona on 02-03-2022 Hematocrit (Bld) [Volume fraction] 32.7 % 37-47 [facility] Laboratory - Chemistry and C hemistry - challengeon 02-03-2022 Glucose Ql (U) Negative [facility] - Hematology and Cell countsOrdered By: Jennifer iLcona on 02-03-2022 Erythrocyte distribution width (RBC) [Entitic vol] 40.3 fL 35.1-43.9 [facility] Erythrocyte distribution width (RBC) [Ratio] 12.4 % 11.6-14.6 [facility] Immature granulocytes/100 WBC (Bld) 1.000 % 0.0-0.9 [facility] Comment on above: IG% - Immature Granu locytes (promyelocytes, myelocytes and metamyelocytes) > 1% indicates that a LEFT SHIFT is Present. MCH (RBC) [Entitic mass] 29.9 pg 27.0-32.0 [facility] Nucleated RBC/100 WBC (Bld) [Ratio] 0 % 0-5 [facility] Laboratory - Urinalysison Protein Ql (U) Negative [facility] MCHC Auto (RBC) [Mass/Vol]Or dered By: Jennifer Licona on 02-03-2022 MCHC (RBC) [Mass/Vol] 33.3 g/dL 32-36 [facility] Platelets bldOrdered By: Rachele Licona on 02-03-2022 Platelets (Bld) [#/Vol] 225 10*3/uL 150-450 [facility] Absolute lymphocyte countOrd ered By: Jennifer Licona on 01-21-2022 Lymphocytes Auto (Unsp spec) [#/Vol] 1.72 10*3/uL 0.83-4.51 [facility] Basophil percentageOrdered B y: Jennifer Licona on 01-21-2022 Basophils/100 WBC (Bld) 0.3 % 0-1 [facility] Bilirubin [Mass/Vol] 0.80 mg/dL 0.20-1.00 [facility] Comment on above: For patients on eltr ombopag therapy, use of Dimension [place] TBIL is not recommended. Chloride [Moles/Vol] 107 mmol/L 98-107 [facility] Eosinophils/100 WBC (Bld) 2.6 % 0-5 [facility] Glucose [Mass/Vol] 102 mg/dL 74-106 [facility] Comment on above: Fasting Glucose resu lt from 100 to 125 mg/dL suggests IMPAIRED HOMEOSTASIS per A.D.A. criteria. Neutrophils (Bld) [#/Vol] 7.2 10*3/uL 2.0-7.7 [facility] Neutrophils/100 WBC (Bld) 72.9 % 47-70 [facility] Potassium [Moles/Vol] 3.9 mmol/L 3.5-5.1 [facility] Protein [Mass/Vol] 7.0 g/dL 6.4-8.2 [facility] Sodium [Moles/Vol] 139 mmol/L 136-145 [facility] WBC (Bld) [#/Vol] 9.9 10*3/uL 4.4-11.0 [facility] Blood erythrocytes count (nu mber/volume)Ordered By: Jennifer Amostings on 01-21-2022 RBC (Bld) [#/Vol] 3.77 10*6/uL 4.2-5.4 [facility] Blood hemoglobin measurement (mass/volume)Ordered By: Jennifer Amostings on 01-21-2022 Hemoglobin (Bld) [Mass/Vol] 11.5 g/dL 12.0-15.0 [facility] Blood lymphocytes/100 leukoc ytesOrdered By: Jennifer Licona on 01-21-2022 Lymphocytes/100 WBC (Bld) 17.4 % 19-41 [facility] Blood monocytes/100 leukocyt esOrdered By: Jennifer Licona on 01-21-2022 Monocytes/100 WBC (Bld) 5.9 % 0-10 [facility] Blood platelet mean volumeOr dered By: Jennifer Licona on 01-21-2022 Platelet mean volume (Bld) [Entitic vol] 10.0 fL 6.2-12.0 [facility] Determination of erythrocyte mean corpuscular volume (MCV)Ordered By: Jennifer Licona on 01-21-2022 MCV (RBC) [Entitic vol] 89.1 fL 81-99 [facility] Hematocrit Auto (Bld) [Volum e fraction]Ordered By: Jennifer Licona on 01-21-2022 Hematocrit (Bld) [Volume fraction] 33.6 % 37-47 [facility] Laboratory - Chemistry and C hemistry - challengeOrdered By: Jennifer Licona on 01-21-2022 ALP [Catalytic activity/Vol] 68 U/L 45-117 [facility] ALT [Catalytic activity/Vol] 35 U/L 13-56 [facility] CO2 [Moles/Vol] 22.0 mmol/L 21.0-32.0 [facility] Globulin (S) [Mass/Vol] 4.0 g/dL 2.2-4.2 [facility] Urea nitrogen/Creatinine [Mass ratio] 22.2 mg/mg 10-20 [facility] Laboratory - Chemistry and C hemistry - challengeon 01-21-2022 Glucose Ql (U) Negative [facility] - Hematology and Cell countsOrdered By: Jennifer Licona on 01-21-2022 Erythrocyte distribution width (RBC) [Entitic vol] 40.6 fL 35.1-43.9 [facility] Erythrocyte distribution width (RBC) [Ratio] 12.6 % 11.6-14.6 [facility] Immature granulocytes/100 WBC (Bld) 0.900 % 0.0-0.9 [facility] Comment on above: IG% - Immature Granu locytes (promyelocytes, myelocytes and metamyelocytes) > 1% indicates that a LEFT SHIFT is Present. MCH (RBC) [Entitic mass] 30.5 pg 27.0-32.0 [facility] Nucleated RBC/100 WBC (Bld) [Ratio] 0 % 0-5 [facility] Laboratory - Urinalysison Protein Ql (U) Negative [facility] MCHC Auto (RBC) [Mass/Vol]Or dered By: Jennifer Licona on 01-21-2022 MCHC (RBC) [Mass/Vol] 34.2 g/dL 32-36 [facility] No Panel InformationOrdered By: Jennifer Licona on 01-21-2022 Estimated GFR (MDRD) Amer 174 mL/min >60 [facility] Comment on above: GFR Calc Estimated GFR (MDRD) Non-Af Amer 144 mL/min >60 [facility] Comment on above: Non- GFR Calc Miscellaneous Test See comment [facility] Comment on above: TEST RESULT LIMITSBi le Acids, Fractionated LCMS Ursodeoxycholic Acids <0.10 umol/L Reference Range: All Ages: <1.9 Cholic Acids 1.2 umol/L Reference Range: All Ages: <2.2 Chenodeoxycholic Acids 0.40 umol/L Reference Range: All Ages: <5.8 Deoxycholic Acids 0.80 umol/L Reference Range: All Ages: <3.3 Total Bile Acids 2.4 umol/L This test was developed and its performance characteristics determined by [facility]. It has not been cleared or approved by the Food and Drug Administration. Reference Range: All Ages: <9.2 TESTING PERFORMED AT [facility]. ORIGINAL REPORT ON FILE IN LAB CONTAINS ADDITIONAL TEST SITE INFORMATION. Platelets bldOrdered By: Rachele Licona on 01-21-2022 Platelets (Bld) [#/Vol] 232 10*3/uL 150-450 [facility] [facility] Serum or plasma albumin keren urement (mass/volume)Ordered By: Jennifer Licona on 01-21-2022 Albumin [Mass/Vol] 3.0 g/dL 3.2-5.0 [facility] Serum or plasma albumin/glob ulin mass ratioOrdered By: Jenniferyobani Licona on 01-21-2022 Albumin/Globulin [Mass ratio] 0.8 {ratio} 0.9-2.4 [facility] Serum or plasma calcium keren urement (mass/volume)Ordered By: Jenniferyobani Licona on 01-21-2022 Calcium [Mass/Vol] 9.2 mg/dL 8.5-10.1 [facility] Serum or plasma creatinine m easurement (mass/volume)Ordered By: Jennifer Licona on 01-21-2022 Creatinine [Mass/Vol] 0.54 mg/dL 0.55-1.02 [facility] Comment on above: The validity of the calculated GFR & GFRAA in patients over 70 years has not been determined. Clinical correlation is essential. Serum or plasma urea nitroge n measurement (mass/volume)Ordered By: Jennifer Licona on 01-21-2022 Urea nitrogen [Mass/Vol] 12 mg/dL 7-18 [facility] Thin prep Papanicolaou smear with manual screeningOrdered By: Jennifer Licona on 01-21-2022 Thin prep Papanicolaou smear with manual screening 19 U/L 15-37 [facility] Thin prep Papanicolaou smear with manual screening 10 5-15 [facility] Laboratory - Chemistry and C hemistry - challengeon 12-15-2021 Glucose Ql (U) Negative [facility] Work Phone: Laboratory - Urinalysison Protein Ql (U) Negative [facility] Work Phone: Laboratory - Chemistry and C hemistry - challengeon 10-23-2021 Glucose Ql (U) Negative [facility] Work Phone: Laboratory - Urinalysison Protein Ql (U) Negative [facility] Work Phone: Absolute lymphocyte counton 09-18-2021 Lymphocytes Auto (Unsp spec) [#/Vol] 2.36 10*3/uL 0.83-4.51 [facility] Work Phone: Basophil percentageon 2021 Basophils/100 WBC (Bld) 0.4 % 0-1 [facility] Work Phone: Eosinophils/100 WBC (Bld) 3.3 % 0-5 [facility] Work Phone: Neutrophils (Bld) [#/Vol] 6.5 10*3/uL 2.0-7.7 [facility] Work Phone: Neutrophils/100 WBC (Bld) 65.4 % 47-70 [facility] Work Phone: WBC (Bld) [#/Vol] 10.0 10*3/uL 4.4-11.0 [facility]: Blood erythrocytes count (nu mber/volume)on 09-18-2021 RBC (Bld) [#/Vol] 4.07 10*6/uL 4.2-5.4 [facility] Work Phone: Blood hemoglobin measurement (mass/volume)on 09-18-2021 Hemoglobin (Bld) [Mass/Vol] 12.0 g/dL 12.0-15.0 [facility] Work Phone: Blood lymphocytes/100 leukoc yteson 09-18-2021 Lymphocytes/100 WBC (Bld) 23.7 % 19-41 [facility] Work Phone: Blood monocytes/100 leukocyt eson 09-18-2021 Monocytes/100 WBC (Bld) 6.9 % 0-10 [facility] Work Phone: Blood platelet mean volumeon 09-18-2021 Platelet mean volume (Bld) [Entitic vol] 9.3 fL 6.2-12.0 [facility] Work Phone: [phone] Determination of erythrocyte mean corpuscular volume (MCV)on 09-18-2021 MCV (RBC) [Entitic vol] 85.0 fL 81-99 [facility] Work Phone: [phone] HIV 1 and HIV-2 antibody ass ay with HIV-1 p24 antigen detectionon 09-18-2021 HIV 1+2 Ab+HIV1 p24 Ag IA Ql Non-Reactive Nonreactive [facility] Work Phone: [phone] Hematocrit Auto (Bld) [Volum e fraction]on 09-18-2021 Hematocrit (Bld) [Volume fraction] 34.6 % 37-47 [facility] Work Phone: [phone] Laboratory - Hematology and Cell countson 09-18-2021 Erythrocyte distribution width (RBC) [Entitic vol] 37.2 fL 35.1-43.9 [facility] Work Phone: [phone] Erythrocyte distribution width (RBC) [Ratio] 12.1 % 11.6-14.6 [facility] Work Phone: [phone] Immature granulocytes/100 WBC (Bld) 0.300 % 0.0-0.9 [facility] Work Phone: [phone] Comment on above: IG% - Immature Granu locytes (promyelocytes, myelocytes and metamyelocytes) > 1% indicates that a LEFT SHIFT is Present. MCH (RBC) [Entitic mass] 29.5 pg 27.0-32.0 [facility] Work Phone: [phone] Nucleated RBC/100 WBC (Bld) [Ratio] 0 % 0-5 [facility] Work Phone: [phone] MCHC Auto (RBC) [Mass/Vol]on 09-18-2021 MCHC (RBC) [Mass/Vol] 34.7 g/dL 32-36 [facility] Work Phone: [phone] No Panel Informationon 09-18 Hepatitis B Surface Antigen Non-Reactive Nonreactive [facility] Work Phone: Hepatitis C Antibody Non-Reactive Nonreactive [facility] Work Phone: Comment on above: Non Reactive: < 0.8 Equivocal: >/= 0.8 to < 1.0 Reactive: >/= 1.0The [facility] recommends that a reactive/equivocal HCV antibody result be followed up by the HCV Nucleic Acid Amplificationtest (307062) Rubella IgG Antibody Reactive Nonreactive [facility] Work Phone: Comment on above: Antibody Results Int erpretation of Immune Status Non Reactive Presumed Non-Immune Equivocal Equivocal Reactive Presumed Immune Platelets bldon 09-18-2021 Platelets (Bld) [#/Vol] 263 10*3/uL 150-450 [facility] Work Phone: Serum Treponema species anti body detectionon 09-18-2021 Treponema sp Ab Ql (S) Non-Reactive [facility] Work Phone: Serum or plasma choriogonado tropin detectionon 09-11-2021 HCG ( test) Ql 884791 mIU/mL <4 [facility] Work Phone: Comment on above: hCG levels with Gest ational AgeGestational Age hCG mIU/mL (IU/L)0.2 - 1 week 5 - 501-2 weeks 50 - 5002-3 weeks 100 - 27441-2 weeks 500 - 858967-5 weeks 1000 - 070730-0 weeks 71898 - 100,0006-8 weeks 04720 - 200,0002-3 months 61355 - 100,000 Serum or plasma choriogonado tropin detectionon 08-20-2021 HCG ( test) Ql 851 mIU/mL <4 [facility] Work Phone: Comment on above: hCG levels with Gest ational AgeGestational Age hCG mIU/mL (IU/L)0.2 - 1 week 5 - 501-2 weeks 50 - 5002-3 weeks 100 - 21543-4 weeks 500 - 365495-5 weeks 1000 - 102468-5 weeks 68212 - 100,0006-8 weeks 43772 - 200,0002-3 months 73631 - 100,000 Serum or plasma choriogonado tropin detectionon 06-13-2022 HCG ( test) Ql 268 mIU/mL <4 [facility] Work Phone: Comment on above: hCG levels with Gest ational AgeGestational Age hCG mIU/mL (IU/L)0.2 - 1 week 5 - 501-2 weeks 50 - 5002-3 weeks 100 - 43677-1 weeks 500 - 876194-1 weeks 1000 - 461250-4 weeks 44021 - 100,0006-8 weeks 93438 - 200,0002-3 months 96584 - 100,000 CNOVon 06-12-2021 CNOV Office Visit (UCWSTR) ASHLEIGHJONATHANDAE EDUARDO ([id number]) 1995 F Date Time Provider Department 06/12/21 7:45 PM ROMANA ROCHA [facility] During your visit today, we recorded the following information about you: Temperature Pulse Respiration Blood pressure 98.2 degrees 71/minute 18/minute 122/80 Weight 75.8 kg Romana Rocha APRN.PARTS ADMINISTRATOR 06/12/2021 7:47 PM Signed CC: Patient presents [...] Heart Sister sister had heart murmur as infant Social History Tobacco Use - Smoking status: [...] Patient agreeable to treatment plan. Romana Rocha APRN.PARTS ADMINISTRATOR Referring Provider: GINA UNGER [[id number]] Allergies As of Date: 06/12/2021 (No Known [...] Status:Closed by ROMANA ROCHA on 06/12/21 Normal [facility] CBC + DIFFon 08-17-2019 Basophils (Bld) [#/Vol] 0.00 x10EE3/UL Normal 0.00 - 0 .10 [facility] Comment on above: Performed By: #### 2 23741 #### [facility],[address] [place] [address] 74701 Basophils/100 WBC (Bld) 0.9 % Normal 0.0 - 2.0 [facility] Comment on above: Performed By: #### 2 57519 #### [facility],[address] [place] [address] CBC + DIFF Normal [facility] Comment on above: Result Comment: CBC- COMPLETE BLOOD COUNT Performed By: #### 2 95675 #### [facility],[address] [place] [address] 22784 Eosinophils (Bld) [#/Vol] 0.60 x10EE3/UL High 0.00 - 0.50 [facility] Comment on above: Performed By: #### 2 39279 #### [facility],[address] [place] [address] 03811 Eosinophils/100 WBC (Bld) 12.6 % High 0.0 - 7.0 [facility] Comment on above: Performed By: #### 2 36042 #### [facility],[address] [place] [address] Erythrocyte distribution width (RBC) [Ratio] 13.7 % Normal 12.0 - 15.6 [facility] Comment on above: Performed By: #### 2 36644 #### [facility],[address] [place] [address] Hematocrit (Bld) [Volume fraction] 39.0 % Normal 34.0 - 46.0 [facility] Comment on above: Performed By: #### 2 64120 #### [facility],[address] [place] [address] Hemoglobin (Bld) [Mass/Vol] 13.3 g/dL Normal 12.0 - 16.0 [facility] Comment on above: Performed By: #### 2 63130 #### [facility],[address] [place], [place] [id number] Lymphocytes (Bld) [#/Vol] 1.80 x10EE3/UL Normal 0.80 - 2.80 [facility] Comment on above: Performed By: #### 2 75244 #### [facility],[address] [place], [place] [phone] Lymphocytes/100 WBC (Bld) 37.8 % Normal 20.0 - 45.0 [facility] Comment on above: Performed By: #### 2 84213 #### [facility],[address] [place] [address] 01639 MANUAL DIFF N/A Normal [facility] Comment on above: Performed By: #### 2 63299 #### [facility],[address] [place] [address] 34052 MCH (RBC) [Entitic mass] 29 pg Normal 27 - 33 [facility] Comment on above: Performed By: #### 2 40885 #### [facility],[address] [place] [address] 18467 MCHC (RBC) [Mass/Vol] 34 X10 3 Normal 32 - 36 [facility] Comment on above: Performed By: #### 2 23906 #### [facility],[address] [place] [address] 03807 MCV (RBC) [Entitic vol] 84 fL Normal 80 - 99 [facility] Comment on above: Performed By: #### 2 86406 #### [facility],[address] [place] [address] 25303 Monocytes (Bld) [#/Vol] 0.30 x10EE3/UL Normal 0.20 - 1 .00 [facility] Comment on above: Performed By: #### 2 91435 #### [facility],[address] [place] [address] 70379 MONOS % 7.0 % Normal 0.0 - 10.0 [facility] Comment on above: Performed By: #### 2 41580 #### [facility],[address] [place] [address] 19911 Morphology Keshawn (Bld) [Interp] N/A Normal [facility] Comment on above: Performed By: #### 2 89622 #### [facility],[address] [place] [address] 21924 Neutrophils (Bld) [#/Vol] 2.00 x10EE3/UL Normal 1.50 - 7.10 [facility] Comment on above: Performed By: #### 2 32554 #### [facility],[address] [place] [address] 54453 Neutrophils/100 WBC (Bld) 41.7 % Low 46.0 - 76.0 [facility] Comment on above: Performed By: #### 2 31822 #### [facility],[address] [place] [address] 08365 Platelet mean volume (Bld) [Entitic vol] 8.2 fL Normal 6.6 - 10.5 [facility] Comment on above: Result Comment: AUTO MATED DIFFERENTIAL Performed By: #### 2 48633 #### [facility],[address] [place] [address] 54792 Platelets (Bld) [#/Vol] 262 x10EE3/UL Normal 150 - 450 [facility] Comment on above: Performed By: #### 2 68188 #### [facility],[address] [place] [address] 07867 RBC (Bld) [#/Vol] 4.65 x 10EE6/UL Normal 4.10 - 5.30 [facility] Comment on above: Performed By: #### 2 29746 #### [facility],[address] [place] [address] 56495 WBC (Bld) [#/Vol] 4.8 x 10EE3/UL Normal 4.5 - 10.8 [facility] Comment on above: Performed By: #### 2 83175 #### [facility],[address] [place] [address] 23943 CMP with eGFRon 08-17-2019 Age - Reported 23 years Normal [facility] Comment on above: Performed By: #### 2 75670 #### [facility],[address] [place] [address] 92141 Albumin [Mass/Vol] 4.4 g/dL Normal 3.4 - 4.8 [facility] Comment on above: Performed By: #### 2 26257 #### [facility],[address] [place] [address] 17611 Albumin/Globulin [Mass ratio] 1.6 {ratio} Normal 0.9 - 1.6 [facility] Comment on above: Performed By: #### 2 00067 #### [facility],[address] [place] [address] 83359 ALK PHOS 42 U/L Normal 38 - 126 [facility] Comment on above: Performed By: #### 2 85623 #### [facility],[address] [place] [address] 65852 ALT/SGPT 12 U/L Normal 8 - 35 [facility] Comment on above: Performed By: #### 2 48099 #### [facility],[address] [place] [address] 40702 Anion gap [Moles/Vol] 10 mmol/L Normal 10 - 20 [facility] Comment on above: Performed By: #### 2 25463 #### [facility],[address] [place] [address] 75598 AST/SGOT 14 U/L Normal 13 - 39 [facility] Comment on above: Performed By: #### 2 95375 #### [facility],[address] [place] [address] 55772 B/C RATIO 24 ratio Normal 0 - 30 [facility] Comment on above: Performed By: #### 2 61462 #### [facility],[address] [place] [address] 13692 Bilirubin [Mass/Vol] 1.4 mg/dL Normal 0.0 - 1.5 [facility] Comment on above: Performed By: #### 2 94371 #### [facility],[address] [place] [address] 57648 Calcium [Mass/Vol] 9.5 mg/dL Normal 8.6 - 10.2 [facility] Comment on above: Performed By: #### 2 62595 #### [facility],[address] [place] [address] 85436 Chloride [Moles/Vol] 103 mmol/L Normal 98 - 107 [facility] Comment on above: Performed By: #### 2 94572 #### [facility],[address] [place] [address] 34894 CO2 [Moles/Vol] 27.4 mmol/L Normal 21.0 - 31.0 [facility] Comment on above: Performed By: #### 2 99912 #### [facility],[address] [place] [address] 94785 Creatinine [Mass/Vol] 0.7 mg/dL Normal 0.6 - 1.2 [facility] Comment on above: Performed By: #### 2 79217 #### [facility],[address] [place] [address] 54954 GFR/1.73 sq M predicted among non-blacks MDRD (S/P/Bld) [Vol rate/Area] Normal [facility] Comment on above: Result Comment: COMP REHENSIVE METABOLIC PANEL Performed By: #### 2 74473 #### [facility],[address] [place] [address] 71855 GFR/1.73 sq M predicted among non-blacks MDRD (S/P/Bld) [Vol rate/Area] mL/min/{1.73_m2} Normal 60 - 999 [facility] Comment on above: Result Comment: ACCO RDING TO THE NATIONAL KIDNEY DISEASE EDUCATION PROGRAM(NKDE), A NORMAL eGFR IS A VALUE GREATER THAN OR EQUAL TO 60 ML/MIN/1.73 SQ METERS. CHRONIC KIDNEY DISEASE: <60mL/MIN/1.73 SQ METERS KIDNEY FAILURE: <15mL/MIN/1.73 SQ METERS THIS TEST SHOULD ONLY BE USED FOR PATIENTS 18 YEARS OF AGE AND OLDER. Performed By: #### 2 16401 #### [facility],[address] [place] [address] 87216 Globulin (S) [Mass/Vol] 2.7 g/dL Normal 1.5 - 3.8 [facility] Comment on above: Performed By: #### 2 33263 #### [facility],[address] [place] [address] 43376 Glucose [Mass/Vol] 101 mg/dL Normal 74 - 106 [facility] Comment on above: Performed By: #### 2 38308 #### [facility],[address] [place] [address] 97400 Potassium [Moles/Vol] 4.1 mmol/L Normal 3.5 - 5.1 [facility] Comment on above: Performed By: #### 2 72295 #### [address] [address] Protein [Mass/Vol] 7.1 g/dL Normal 6.4 - 8.3 [facility] Comment on above: Performed By: #### 2 05099 #### [facility],[address] [place] [address] 54166 Sodium [Moles/Vol] 136 mmol/L Normal 136 - 145 [facility] Comment on above: Performed By: #### 2 78209 #### [facility],[address] [place] [address] 93340 Urea nitrogen [Mass/Vol] 17 mg/dL Normal 6 - 20 [facility] Comment on above: Performed By: #### 2 12952 #### [facility],[address] [place] [address] 62507 LIPID PROFILEon 08-17-2019 Cholesterol [Mass/Vol] 182 mg/dL Normal 0 - 200 [facility] Comment on above: Performed By: #### 2 30264 #### [facility],[address] [place] [address] Cholesterol in HDL [Mass/Vol] 40 mg/dL Normal 40 - 60 [facility] Comment on above: Performed By: #### 2 51579 #### [facility],[address] [place] [address] 28580 Cholesterol in LDL [Mass/Vol] 123 mg/dL Normal 0 - 129 [facility] Comment on above: Performed By: #### 2 52649 #### [facility],[address] [place] [address] 42944 Cholesterol.total/Choles terol in HDL [Mass ratio] 4.6 {ratio} Normal 0.0 - 5.0 [facility] Comment on above: Performed By: #### 2 80287 #### [facility],[address] [place] [address] 79710 Lipid 1996 panel Normal [facility] Comment on above: Result Comment: LIPI D PROFILE Performed By: #### 2 43220 #### [facility],[address] [place] [address] 29427 Triglyceride [Mass/Vol] 96 mg/dL Normal 0 - 150 [facility] Comment on above: Performed By: #### 2 77754 #### [facility],[address] [place], [place] [phone] CORONAVIRUS [CCL]on 07-22-19 20 COVID 19 Result WIRE TAPER Positive Abnormal [facility] Comment on above: Result Comment: Posi tive for COVID19 (SARS CoV2) by PCR.(*) This test was developed and its performance characteristics determined by [facility]'s [facility] [place]. This test has been authorized by FDA under an Emergency Use Authorization (EUA). This test has been validated in accordance with the FDA's Guidance Document Policy for Diagnostics Testing in Laboratories Certified to Perform High Complexity Testing under CLIA prior to Emergency use Authorization for Coronavirus Disease 2019 during the Public Health Emergency issued on May 06, [place] [address] Tahir Rodriguez III, M.D. [id number] Performed By: #### 2 48443 #### [place] [id number] COVID 19 Source WIRE TAPER WIRE TAPER SWAB Normal [facility] Comment on above: Result Comment: Call ed to and read back by: Mike Clark [facility] 07/22/192022 Terese Millard Performed By: #### 2 06901 #### [facility],[address] [place] [address] 66351 Coronavirus 2019on 0 COVID 19 Source WIRE TAPER Normal [facility] Comment on above: Result Comment: WIRE TAPER S WAB Called to and read back by: Mike Clark [facility] 07/22/192022 Terese Millard COVID 19 Result WIRE TAPER Abnormal Negative for COVID19 (SARS CoV2) by PCR. [facility] Comment on above: Result Comment: Posi tive for This test was developed and its performance characteristics determined by [facility] [place]. This test has been authorized by FDA [...] developed and its performance characteristics determined by [facility]'s [facility] [place]. This test has been authorized by FDA [...] developed and its performance characteristics determined by [facility]'s [facility] [place]. This test has been authorized by FDA [...] developed and its performance characteristics determined by [facility] [place]. This test has been authorized by FDA [...] urine Bacteria identified Cx Nom (U) Positive [facility] Work Phone: Gram stain for investigation of transfusion reaction Microscopic observation Gram stain Nom (Unsp spec) [facility] Work Phone: Vital Signs Date Time Vital Sign Value Performing Clinician Jyotsna philippe 10-16-2024 08:41-0400 Body height 162.56 cm Dominick Sahu MD Work Phone: [facility] 10-16-2024 08:41-0400 Body mass index (BMI) [Ratio] 33.5 kg/m2 Dominick Sahu MD Work Phone: [facility] 10-16-2024 08:41-0400 Body weight 88.67 kg Dominick Sahu MD Work Phone: [facility] 10-16-2024 08:41-0400 Diastolic blood pressure 81 mm[Hg] Dominick Sahu MD Work Phone: [facility] 10-16-2024 08:41-0400 Systolic blood pressure 124 mm[Hg] Dominick Sahu MD Work Phone: [facility] 09-18-2024 14:01-0400 Body height 162.56 cm Dominick Sahu MD Work Phone: [facility] 09-18-2024 14:01-0400 Body mass index (BMI) [Ratio] 32.6 kg/m2 Dominick Sahu MD Work Phone: [facility] 09-18-2024 14:01-0400 Body weight 86.23 kg Dominick Sahu MD Work Phone: [facility] 09-18-2024 14:01-0400 Diastolic blood pressure 77 mm[Hg] Dominick Sahu MD Work Phone: [facility] 09-18-2024 14:01-0400 Systolic blood pressure 121 mm[Hg] Dominick Sahu MD Work Phone: [facility] 08-24-2024 11:49-0400 Body height 162.56 cm Dominick Sahu MD Work Phone: [facility] 08-24-2024 11:49-0400 Body mass index (BMI) [Ratio] 31.7 kg/m2 Dominick Sahu MD Work Phone: [facility] 08-24-2024 11:49-0400 Body weight 83.97 kg Dominick Sahu MD Work Phone: [facility] 08-24-2024 11:49-0400 Diastolic blood pressure 74 mm[Hg] Dominick Sahu MD Work Phone: [facility] 08-24-2024 11:49-0400 Systolic blood pressure 115 mm[Hg] Dominick Sahu MD Work Phone: [facility] 08-01-2024 09:42-0400 Body height 162.56 cm Dominick Sahu MD Work Phone: [facility] 08-01-2024 09:42-0400 Body mass index (BMI) [Ratio] 31.6 kg/m2 Dominick Sahu MD Work Phone: [facility] 08-01-2024 09:42-0400 Body weight 83.68 kg Dominick Sahu MD Work Phone: [facility] 08-01-2024 09:42-0400 Diastolic blood pressure 78 mm[Hg] Dominick Sahu MD Work Phone: [facility] 08-01-2024 09:42-0400 Systolic blood pressure 126 mm[Hg] Dominick Sahu MD Work Phone: [facility] 07-03-2024 10:40-0400 Body weight 82.46 kg Dominick Sahu MD Work Phone: [facility] 07-03-2024 10:20-0400 Diastolic blood pressure 81 mm[Hg] Dominick Sahu MD Work Phone: [facility] 07-03-2024 10:20-0400 Systolic blood pressure 135 mm[Hg] Dominick Sahu MD Work Phone: [facility] 06-05-2024 10:31-0400 Body height 162.56 cm Dominick Sahu MD Work Phone: [facility] 06-05-2024 10:31-0400 Body mass index (BMI) [Ratio] 30.7 kg/m2 Dominick Sahu MD Work Phone: [facility] 06-05-2024 10:31-0400 Body weight 81.36 kg Dominick Sahu MD Work Phone: [facility] 06-05-2024 10:31-0400 Diastolic blood pressure 84 mm[Hg] Dominick Sahu MD Work Phone: [facility] 06-05-2024 10:31-0400 Systolic blood pressure 133 mm[Hg] Dominick Sahu MD Work Phone: [facility] 06-09-2023 13:54-0400 Body height 162.[address] Krystina Murphy Work Phone: [facility] 06-09-2023 13:53-0400 Body mass index (BMI) [Ratio] 32.8 kg/m2 Dr. Krystina Murphy Work Phone: [facility] 06-09-2023 13:53-0400 Body weight 86.[address] Krystina Murphy Work Phone: [facility] 06-09-2023 13:53-0400 Diastolic blood pressure 82 mm[Hg] Dr. Krystina Murphy Work Phone: [facility] 06-09-2023 13:53-0400 Systolic blood pressure 117 mm[Hg] Dr. Krystina Murphy Work Phone: [facility] 04-25-2022 17:00-0500 Body temperature 98.2 [degF] Dr. Krystina Murphy Work Phone: [facility] 04-25-2022 17:00-0500 Diastolic blood pressure 64 mm[Hg] Dr. Krystina Murphy Work Phone: [facility] 04-25-2022 17:00-0500 Heart rate 98 /min Dr. Krystina Murphy Work Phone: [facility] 04-25-2022 17:00-0500 Respiratory rate 14 /min Dr. Krystina Murphy Work Phone: [facility] 04-25-2022 17:00-0500 Systolic blood pressure 116 mm[Hg] Dr. Krystina Murphy Work Phone: [facility] 04-24-2022 08:48-0500 SaO2% (BldA) [Mass fraction] 98 % Dr. Krystina Murphy Work Phone: [facility] 04-24-2022 06:59-0500 Body height 162.[address] Krystina Murphy Work Phone: [facility] 04-24-2022 06:59-0500 Body mass index (BMI) [Ratio] 36.7 kg/m2 Dr. Krystina Murphy Work Phone: [facility] 04-24-2022 06:59-0500 Body weight 97.[address] Krystina Murphy Work Phone: [facility] 04-22-2022 10:30-0500 Body height 162.[address] Krystina Murphy Work Phone: [facility] 04-22-2022 10:30-0500 Body mass index (BMI) [Ratio] 36 kg/m2 Dr. Krystina Murphy Work Phone: [facility] 04-22-2022 10:30-0500 Body weight 95.[address] Krystina Murphy Work Phone: [facility] 04-22-2022 10:30-0500 Diastolic blood pressure 82 mm[Hg] Dr. Krystina Murphy Work Phone: [facility] 04-22-2022 10:30-0500 Systolic blood pressure 117 mm[Hg] Dr. Krystina Murphy Work Phone: [facility] 04-14-2022 10:43-0500 Body mass index (BMI) [Ratio] 35.3 kg/m2 Dr. Krystina Murphy Work Phone: [facility] 04-14-2022 10:43-0500 Body weight 93.[address] Krystina Murphy Work Phone: [facility] 04-14-2022 10:43-0500 Diastolic blood pressure 88 mm[Hg] Dr. Krystina Murphy Work Phone: [facility] 04-14-2022 10:43-0500 Systolic blood pressure 130 mm[Hg] Dr. Krystina Murphy Work Phone: [facility] 04-08-2022 10:21-0500 Body mass index (BMI) [Ratio] 35.4 kg/m2 Dr. Krystina Murphy Work Phone: [facility] 04-08-2022 10:21-0500 Body weight 93.[address] Krystina Murphy Work Phone: [facility] 04-08-2022 10:21-0500 Diastolic blood pressure 83 mm[Hg] Dr. Krystina Murphy Work Phone: [facility] 04-08-2022 10:21-0500 Systolic blood pressure 125 mm[Hg] Dr. Krystina Murphy Work Phone: [facility] 03-27-2022 10:18-0500 Body mass index (BMI) [Ratio] 34.5 kg/m2 Dr. Krystina Murphy Work Phone: [facility] 03-27-2022 10:18-0500 Body weight 91.[address] Krystina Murphy Work Phone: [facility] 03-27-2022 10:18-0500 Diastolic blood pressure 76 mm[Hg] Dr. Krystina Murphy Work Phone: [facility] 03-27-2022 10:18-0500 Systolic blood pressure 107 mm[Hg] Dr. Krystina Murphy Work Phone: [facility] 03-20-2022 13:41-0500 Body height 162.[address] Krystina Murphy Work Phone: [facility] Work Phone: 03-20-2022 13:41-0500 Body mass index (BMI) [Ratio] 35.5 kg/m2 Dr. Krystina Murphy Work Phone: [facility] 03-20-2022 13:41-0500 Body weight [address] Krystina Murphy Work Phone: [facility] 03-19-2022 13:59-0500 Heart rate 89 /min Dr. Krystina Murphy Work Phone: [facility] 03-19-2022 13:59-0500 SaO2% (BldA) [Mass fraction] 98 % Dr. Krystina Murphy Work Phone: [facility] 03-19-2022 13:17-0500 Diastolic blood pressure 82 mm[Hg] Dr. Krystina Murphy Work Phone: [facility] 03-19-2022 13:17-0500 Systolic blood pressure 124 mm[Hg] Dr. Krystina Murphy Work Phone: [facility] 03-19-2022 12:38-0500 Body mass index (BMI) [Ratio] 34.4 kg/m2 Dr. Krystina Murphy Work Phone: [facility] 03-19-2022 12:38-0500 Body weight 91.[address] Krystina Murphy Work Phone: [facility] 03-19-2022 11:51-0500 Body temperature 98 [degF] Dr. Krystina Murphy Work Phone: [facility] 03-19-2022 10:41-0500 Body mass index (BMI) [Ratio] 34.5 kg/m2 Dr. Krystina Murphy Work Phone: [facility] 03-19-2022 10:41-0500 Body weight 91.[address] Krystina Murphy Work Phone: [facility] 03-19-2022 10:41-0500 Diastolic blood pressure 87 mm[Hg] Dr. Krystina Murphy Work Phone: [facility] 03-19-2022 10:41-0500 Systolic blood pressure 136 mm[Hg] Dr. Krystina Murphy Work Phone: [facility] 03-04-2022 10:36-0500 Body mass index (BMI) [Ratio] 34.8 kg/m2 Dr. Krystina Murphy Work Phone: 7(264)[phone] [place] [address] 03-04-2022 10:36-0500 Body weight 92.[address] Krystina Murphy Work Phone: 9(022)[phone] [place] [address] 03-04-2022 10:36-0500 Diastolic blood pressure 83 mm[Hg] Dr. Krystina Murphy Work Phone: [facility] 03-04-2022 10:36-0500 Systolic blood pressure 143 mm[Hg] Dr. Krystina Murphy Work Phone: [facility] 02-17-2022 11:50-0500 Body height 162.[address] Krystina Murphy Work Phone: [facility] Work Phone: 02-17-2022 11:48-0500 Body mass index (BMI) [Ratio] 33.9 kg/m2 Dr. Krystina Murphy Work Phone: [facility] 02-17-2022 11:48-0500 Body weight 89.[address] Krystina Murphy Work Phone: [facility] 02-17-2022 11:48-0500 Diastolic blood pressure 73 mm[Hg] Dr. Krystina Murphy Work Phone: 9(586)879-748641 [place] [address] 02-17-2022 11:48-0500 Systolic blood pressure 112 mm[Hg] Dr. Krystina Murphy Work Phone: [facility] 02-03-2022 09:35-0500 Body height 162.[address] Krystina Murphy Work Phone: [facility] Work Phone: 02-03-2022 09:35-0500 Body mass index (BMI) [Ratio] 34.2 kg/m2 Dr. Krystina Murphy Work Phone: [facility] 02-03-2022 09:35-0500 Body weight 90.[address] Krystina Murphy Work Phone: [facility] 02-03-2022 09:35-0500 Diastolic blood pressure 72 mm[Hg] Dr. Krystina Murphy Work Phone: [facility] 02-03-2022 09:35-0500 Systolic blood pressure 130 mm[Hg] Dr. Krystina Murphy Work Phone: [facility] 01-21-2022 10:50-0500 Body mass index (BMI) [Ratio] 33.5 kg/m2 Dr. Krystina Murphy Work Phone: [facility] 01-21-2022 10:50-0500 Body weight 88.[address] Krystina Murphy Work Phone: [facility] 01-21-2022 10:50-0500 Diastolic blood pressure 76 mm[Hg] Dr. Krystina Murphy Work Phone: [facility] 01-21-2022 10:50-0500 Systolic blood pressure 110 mm[Hg] Dr. Krystina Murphy Work Phone: [facility] 12-15-2021 16:09-0400 Body mass index (BMI) [Ratio] 31.9 kg/m2 Dr. Krystina Murphy Work Phone: [facility] Work Phone: 12-15-2021 16:09-0400 Body weight 84.[address] Krystina Murphy Work Phone: [facility] Work Phone: 12-15-2021 16:09-0400 Diastolic blood pressure 82 mm[Hg] Dr. Krystina Murphy Work Phone: [facility] Work Phone: 12-15-2021 16:09-0400 Systolic blood pressure 120 mm[Hg] Dr. Krystina Murphy Work Phone: [facility] Work Phone: 11-20-2021 13:38-0400 Body mass index (BMI) [Ratio] 31.1 kg/m2 Dr. Krystina Murphy Work Phone: [facility] Work Phone: 11-20-2021 13:38-0400 Body weight 82.[address] Krystina Murphy Work Phone: [facility] Work Phone: 11-20-2021 13:38-0400 Diastolic blood pressure 79 mm[Hg] Dr. Krystina Murphy Work Phone: [facility] Work Phone: 11-20-2021 13:38-0400 Systolic blood pressure 124 mm[Hg] Dr. Krystina Murphy Work Phone: [facility] Work Phone: 10-23-2021 15:48-0400 Body mass index (BMI) [Ratio] 30.4 kg/m2 Dr. Krystina Murphy Work Phone: [facility] Work Phone: 10-23-2021 15:48-0400 Body weight 80.[address] Krystina Murphy Work Phone: [facility] Work Phone: 10-23-2021 15:48-0400 Diastolic blood pressure 78 mm[Hg] Dr. Krystina Murphy Work Phone: [facility] Work Phone: 10-23-2021 15:48-0400 Systolic blood pressure 130 mm[Hg] Dr. Krystina Murphy Work Phone: [facility] Work Phone: 09-18-2021 14:30-0400 Body weight 79.[address] Krystina Murphy Work Phone: [facility] Work Phone: 09-18-2021 13:52-0400 Body height 162.[address] Krystina Murphy Work Phone: [facility] Work Phone: 09-18-2021 13:52-0400 Diastolic blood pressure 60 mm[Hg] Dr. Krystina Murphy Work Phone: [facility] Work Phone: 09-18-2021 13:52-0400 Systolic blood pressure 108 mm[Hg] Dr. Krystina Murphy Work Phone: [facility] Work Phone: 06-12-2021 19:37-0400 Body temperature 98.2 [degF] Romana Rocha APRN.PARTS ADMINISTRATOR Work Phone: [facility] 06-12-2021 19:37-0400 Body weight 75.84 kg Romana Rocha APRN.PARTS ADMINISTRATOR Work Phone: [facility] 06-12-2021 19:37-0400 Diastolic blood pressure 80 mm[Hg] Romana Rocha APRN.PARTS ADMINISTRATOR Work Phone: [facility] 06-12-2021 19:37-0400 Heart rate 71 /min Romana Rocha APRN.PARTS ADMINISTRATOR Work Phone: [facility] 06-12-2021 19:37-0400 Respiratory rate 18 /min Romana Kaiesr GAMBINO.PARTS ADMINISTRATOR Work Phone: [facility] 06-12-2021 19:37-0400 SaO2% (BldA) [Mass fraction] 98 % Romana James MAKI.PARTS ADMINISTRATOR Work Phone: [facility] 06-12-2021 19:37-0400 Systolic blood pressure 122 mm[Hg] Romana Rocha APRN.PARTS ADMINISTRATOR Work Phone: [facility] Encounters Encounter Date Encounter Type Care Provider Facility Start: 10-16-2024 End: 10-16-2024 Patient encounter procedure Jennifer CORNELIUS -[facility] Work Phone: Start: 10-16-2024 End: 10-16-2024 ambulatory Dominick Sahu MD Work Phone: -[facility] Start: 10-16-2024 End: 10-16-2024 ambulatory Dominick Sahu Facility:[facility] Start: 09-18-2024 End: 09-18-[address] Leslie Baires MD -[facility] Work Phone: Start: 09-18-2024 End: 09-18-2024 ambulatory Dominick Sahu MD Work Phone: -[facility] Start: 08-24-2024 End: 08-24-2024 Patient encounter procedure Deanna Clark CNM -[facility] Work Phone: Start: 08-24-2024 End: 08-24-2024 ambulatory Dominick Sahu MD Work Phone: [facility] Work Phone: Start: 08-17-2024 End: 08-17-2024 ambulatory CAROLYN ESPARZA [facility] Start: 08-01-2024 End: 08-01-2024 Patient encounter procedure Jennifer CORNELIUS -[facility] Work Phone: Start: 08-01-2024 End: 08-01-2024 ambulatory Dominick Sahu MD Work Phone: [facility] Work Phone: Start: 07-03-2024 End: 07-03-[address] Lauren Tyson DO -[facility] Work Phone: Start: 07-03-2024 End: 07-03-2024 ambulatory Dominick Sahu Facility:[facility] Start: 06-05-2024 End: 06-05-[address] Leslie Baires MD -[facility] Work Phone: Start: 06-05-2024 End: 06-05-2024 ambulatory Dominick Sahu MD Work Phone: [facility] Work Phone: Start: 06-05-2024 End: 06-05-2024 ambulatory Dominick Sahu Facility:[facility] Start: 05-25-2024 End: 05-25-2024 ambulatory Dominick Sahu MD Work Phone: [facility] Work Phone: Start: 05-25-2024 End: 05-25-[address] Leslie Baires MD -Ultrasound, [facility] Work Phone: Start: 05-25-2024 End: 05-25-2024 ambulatory Dominick Sahu Facility:[facility] Start: 05-19-2024 End: 05-19-2024 ambulatory Dominick Sahu MD Work Phone: [facility] Work Phone: Start: 05-19-2024 End: 05-19-[address] Leslie Baires MD -Lab, [facility] Start: 05-19-2024 End: 05-19-2024 ambulatory Dominick Sahu Facility:[facility] Start: 05-17-2024 End: 05-17-[address] Leslie Baires MD -Lab, [facility] Start: 05-17-2024 End: 05-17-2024 ambulatory Chalalek Adelina Facility:[facility] Start: 05-15-2024 End: 05-15-2024 ambulatory Dominick Sahu MD Work Phone: [facility] Work Phone: Start: 05-15-2024 End: 05-15-2024 Patient encounter procedure Deanna Clark CNM -Laboratory, [facility] Start: 05-15-2024 End: 05-15-[address] [facility] Start: 03-03-2024 End: 03-03-[address] Dominick Sahu MD -Laboratory, [place] Work Phone: Start: 03-03-2024 End: 03-03-2024 ambulatory Chalalek Adelina Facility:[facility] Start: 12-07-2023 End: 12-07-2023 ambulatory Lu Montano NP Facility:[facility] Start: 06-09-2023 End: 06-09-[address] Krystina Murphy Work Phone: [facility] Work Phone: Start: 06-09-2023 End: 06-09-[address] Krystina Murphy Work Phone: [facility]-Laboratory, Spec[facility] Work Phone: Start: 06-09-2023 End: 06-09-[address] Krystina Murphy Work Phone: [facility] Work Phone: Start: 04-25-2022 Non-patient / Non-visit Dr. Georgia Murphy Work Phone: [facility] Start: 04-24-2022 Non-patient / Non-visit Dr. Georgia Murphy Work Phone: [facility] Start: 04-24-2022 End: 04-25-2022 Evaluation and management of inpatient Dr. Krystina Murphy Work Phone: [facility] Start: 04-22-2022 End: 04-22-[address] Krystina Murphy Work Phone: [facility] Start: 04-14-2022 End: 04-14-[address] Krystina Murphy Work Phone: [facility] Work Phone: Start: 04-14-2022 End: 04-14-[address] [facility] Start: 04-14-2022 End: 04-14-[address] Krystina Murphy Work Phone: [facility] Start: 04-08-2022 End: 04-08-[address] Krystina Murphy Work Phone: [facility] Start: 03-27-2022 End: 03-27-[address] [facility]ryst[facility] Start: 03-27-2022 End: 03-27-[address] Krystina Murphy Work Phone: [facility] Start: 03-20-2022 Non-patient / Non-visit Dr. Georgia Murphy Work Phone: [facility] Start: 03-20-2022 End: 03-20-[address] Krystina Murphy Work Phone: [facility] Work Phone: Start: 03-20-2022 End: 03-20-[address] Krystina Murphy Work Phone: [facility] Start: 03-19-2022 Non-patient / Non-visit Dr. Georgia Murphy Work Phone: [facility] Start: 03-19-2022 End: 03-19-[address] Krystina Murphy Work Phone: [facility] Start: 03-19-2022 End: 03-19-[address] Krystina Murphy Work Phone: [facility] Start: 03-04-2022 End: 03-04-[address] Krystina Murphy Work Phone: [facility] Start: 02-17-2022 End: 02-17-[address] Krystina Murphy Work Phone: [facility] Start: 02-10-2022 End: 02-10-[address] Krystina Murphy Work Phone: [facility] Work Phone: Start: 02-10-2022 End: 02-10-[address] Krystina Murphy Work Phone: [facility]Laboratory Start: 02-03-2022 End: 02-03-[address] Krystina Murphy Work Phone: [facility] Work Phone: Start: 02-03-2022 End: 02-03-[address] Krystina Murphy Work Phone: [facility] Start: 01-21-2022 End: 01-21-[address] Krystina Murphy Work Phone: [facility] Work Phone: Start: 01-21-2022 End: 01-21-[address] Krystina Murphy Work Phone: [facility] Start: 12-15-2021 End: 12-15-[address] Krystina Murphy Work Phone: [facility] Start: 11-20-2021 End: 11-20-[address] Krystina Murphy Work Phone: [facility] Start: 10-23-2021 End: 10-23-[address] Krystina Murphy Work Phone: [facility] Start: 09-18-2021 End: 09-18-[address] Krystina Murphy Work Phone: [facility] Start: 09-11-2021 End: 09-11-2021 Patient encounter procedure [facility]Ul[facility]ound, [facility] Start: 09-11-2021 End: 09-11-2021 Patient encounter procedure [facility] Start: 08-20-2021 End: 08-20-2021 Patient encounter procedure [facility] Start: 08-18-2021 End: 08-18-2021 Patient encounter procedure [facility] Start: 06-12-2021 End: 06-12-2021 Patient encounter procedure Romana Rocha APRN.CNP Work Phone: [facility] Comment on above: Cough (Primary Dx) Start: 08-17-2019 Encounter for genera l adult medical [facility] Start: 08-17-2019 End: 08-17-2019 Patient encounter procedure KRYSTINA MURPHY [facility] Start: 07-21-2019 End: 07-21-2019 Patient encounter procedure ROMIE VARELA [facility] Procedures Date Procedure Procedure Detail Performing Clinician Start: 10-16-2024 Serologic test for syphilis Dominick Sahu MD Work Phone: Start: 06-05-2024 Urine culture Dominick edmond MD Work Phone: Start: 06-05-2024 Hepatitis C antibody measurement Dominick Sahu MD Work Phone: Comment on above: Reactive: Presumptiv e evidence of antibodies to HCV. Follow CDC recommendations for supplemental testing.Non-Reactive: Antibodies to HCV were not detected; does not exclude the possibility of exposure to HCVReactive Results are presumptive evidence of antibodies to HCV. Follow CDC recommendations for supplemental testing.Order confirmation testing: HCV Quant by PCR testing - HCVPCR lc#[id number] Non Reactive: < 0.8 Equivocal: >/= 0.8 to < 1.0 Reactive: >/= 1.0The CDC requires that a reactive/equivocal HCV antibody result be sent out for confirmation. HCV Quant by PCR testing. Start: 06-05-2024 Rubella IgG measurement Dominick Sahu MD Work Phone: Comment on above: Antibody Result: Int erpretationNon-Reactive: Non- ImmuneReactive: ImmuneThe following results were obtained with the [employer] Rubella IgG assay. Results from assays of other manufacturers cannot be used interchangeably. Start: 06-05-2024 Serologic test for syphilis Dominick Sahu MD Work Phone: Start: 05-25-2024 Transvaginal obstetr ic ultrasonography Dominick Sahu MD Work Phone: Start: 09-11-2021 Transvaginal obstetr [...] Treatment Date Care Activity Detail Author Start: 10-16-2024 CBC W Auto Differential panel - Blood [facility] Start: 10-16-2024 Measurement of glucose 2 hours after glucose challenge for glucose tolerance test [facility] Start: 10-16-2024 Serologic test for syphilis [facility] Start: 10-16-2024 [facility] Start: 06-09-2023 Microscopic observation [Identifier] in Cervix by Cyto stain.thin prep [facility] Start: 04-25-2022 Patient discharge [facility] Start: 04-24-2022 Administration of medication [facility] Start: 04-24-2022 Application of ice collar, cap or bag [facility] Start: 04-24-2022 Catheterization of vein [facility] Start: 04-24-2022 Introduction of urinary catheter [facility] Start: 04-24-2022 Measuring intake and output [facility] Start: 04-24-2022 Notification of physician [facility] Start: 04-24-2022 Procedure discontinued [facility] Start: 04-24-2022 Provision of activity privileges [facility] Start: 04-24-2022 Vital signs measurements [facility] [facility] Start: 04-24-2022 [facility] Start: 04-24-2022 Admission procedure [facility] Start: 03-19-2022 Iv infusion therapy/prophylaxis /dx 1st to 1 hr THER/PROPH/DIAG IV INF INIT [facility] Start: 03-19-2022 Source specific culture [facility] Work Phone: Start: 03-19-2022 Nonstress test [facility] Start: 03-19-2022 Obstetric monitoring [facility] Start: 03-19-2022 Vital signs measurements [facility] Start: 03-19-2022 [facility] Start: 03-19-2022 Patient discharge [facility] Start: 11-06-2021 Influenza vaccination INFLUENZA (Season Ended) [facility] Start: 09-18-2021 Chlamydia deoxyribonucleic acid detection [facility] Work Phone: Start: 09-18-2021 Liquid based cervical cytology screening [facility] Work Phone: Start: 12-20-2015 PAP TESTING PAP TESTING [facility] Start: 2012 HEPATITIS C SCREENING HEPATITIS C SCREENING [facility] Start: 2012 HIV SCREENING HIV SCREENING [facility] Start: 2008 PEDS TO ADULT TRANSITION ANNUAL ASSESSMENT PEDS TO ADULT TRANSITION ANNUAL ASSESSMENT [facility] Start: 2006 Adult depression screening assessment DEPRESSION SCREENING [facility] Start: 2006 PEDS TO ADULT TRANSITION INITIAL DISCUSSION PEDS TO ADULT TRANSITION INITIAL DISCUSSION [facility] Start: 2005 HPV VACCINE (1 - 2-dose series) HPV VACCINE (1 - 2-dose series) [facility] Start: 2005 Urine microalbumin profile DTAP,TDAP,TD (6 - Tdap) [facility] Start: 12-20-1999 COVID-19 VACCINE (1) COVID-19 VACCINE (1) [facility] CBC W Auto Different ial panel - Blood [facility] Cytopathology proced ure, preparation of smear, genital source Genital Culture [facility] Work Phone: Drugs identified in Urine by Screen method [facility] Work Phone: Erythrocyte mean corpuscular volume determination [facility] Hematocrit [Volume Fraction] of Blood [facility] Hemoglobin [Mass/vol ume] in Blood [facility] Leukocytes [#/volume ] in Blood [facility] Mean corpuscular hem oglobin concentration determination [facility] Mean corpuscular hem oglobin determination [facility] Measurement of gluco se 2 hours after glucose challenge for glucose tolerance test [facility] Neisseria gonorrhoea e rRNA [Presence] in Unspecified specimen by JAIMIE with probe detection [facility] Work Phone: Neutrophil count [facility] Neutrophil percent differential count [facility] Path report.final Dx Spec [facility] Work Phone: Patient Education Kick Counts Understanding Labor ED False Labor OB Triage: Return to Hospital or Notify Physician if you Experience: [facility] Work Phone: Patient referral [facility] Work Phone: PCR test for Chlamyd ia trachomatis [facility] Work Phone: Platelets [#/volume] in Blood [facility] Red blood cell count [facility] Red cell distributio n width determination [facility] Serologic test for syphilis [facility] Immunizations Immunization Date Immunization Notes Care Provider Antony hicks 02-03-2022 tetanus toxoid, redu tasia diphtheria toxoid, and acellular pertussis vaccine, adsorbed Dr. Krystina Murphy Work Phone: [facility] 06-18-2001 Chicken Pox (disease) Cornelia Rocha APRN.[facility] Work Phone: [facility] Work Phone: 10-19-2000 diphtheria, tetanus toxoids and acellular pertussis vaccine Romana Rocha APRN.PARTS ADMINISTRATOR Work Phone: [facility] Work Phone: 10-19-2000 hepatitis B vaccine, pediatric or pediatric/adolescent dosage Romana Rocha APRN.[facility] Work Phone: [facility] Work Phone: 10-19-2000 measles, mumps and rubella virus vaccine Romana Rocha APRN.[facility] Work Phone: [facility] Work Phone: 10-19-2000 poliovirus vaccine, inactivated Romana Rocha APRN.PARTS ADMINISTRATOR Work Phone: [facility] Work Phone: 03-29-2000 hepatitis B vaccine, pediatric or pediatric/adolescent dosage Romana Rocha APRN.PARTS ADMINISTRATOR Work Phone: [facility] Work Phone: 06-27-1998 diphtheria, tetanus toxoids and pertussis vaccine Romana Rocha APRN.PARTS ADMINISTRATOR Work Phone: [facility] Work Phone: 06-27-1998 haemophilus influenz ae type b vaccine, HbOC conjugate Romana Rocha APRN.[facility] Work Phone: [facility] Work Phone: 06-27-1998 hepatitis B vaccine, pediatric or pediatric/adolescent dosage Romana Rocha APRN.PARTS ADMINISTRATOR Work Phone: [facility] Work Phone: 06-27-1998 trivalent poliovirus vaccine, live, oral Romana Rocha APRN.PARTS ADMINISTRATOR Work Phone: [facility] Work Phone: 08-31-1996 measles, mumps and rubella virus vaccine Romana Rocha APRN.[facility] Work Phone: [facility] Work Phone: 02-21-1996 diphtheria, tetanus toxoids and pertussis vaccine Romana Rocha APRN.[facility] Work Phone: [facility] Work Phone: 02-21-1996 haemophilus influenz ae type b vaccine, HbOC conjugate Romana Rocha APRN.PARTS ADMINISTRATOR Work Phone: [facility] Work Phone: 09-17-1995 diphtheria, tetanus toxoids and pertussis vaccine Romana Rocha APRN.[facility] Work Phone: [facility] Work Phone: 09-17-1995 haemophilus influenz ae type b vaccine, HbOC conjugate Romana Rocha APRN.[facility] Work Phone: [facility] Work Phone: 09-17-1995 trivalent poliovirus vaccine, live, oral Romana Rocha APRN.PARTS ADMINISTRATOR Work Phone: [facility] Work Phone: 02-12-1995 diphtheria, tetanus toxoids and pertussis vaccine Romana Rocha APRN.PARTS ADMINISTRATOR Work Phone: [facility] Work Phone: 02-12-1995 haemophilus influenz ae type b vaccine, HbOC conjugate Romana Rocha APRN.PARTS ADMINISTRATOR Work Phone: [facility] Work Phone: 02-12-1995 trivalent poliovirus vaccine, live, oral Romana Rocha APRN.[facility] Work Phone: [facility] Work Phone: Payers Date Payer Category Payer Unknown [id number] [id number] Self-pay [id number] 1995 Unknown [id number] 2.16.84 [id number] Unknown [id number] Unknown [id number] [facility] [id number] Unknown [id number] Unknown [id number] 2.16.8 [id number] Unknown [id number] 2.16.8 [id number] Unknown [id number] 2.16.8 [id number] Unknown [id number] 2.16.8 [id number] Unknown [id number] 2.16.8 [id number] Unknown [id number] 2.16.8 [id number] Unknown [id number] 2.16.8 [id number] Unknown [id number] 2.16.8 [id number] Unknown [id number] 2.16.8 [id number] Unknown [id number] 2.16.8 [id number] Unknown [id number] 2.16.8 [id number] Unknown [id number] 2.16.8 [id number] Unknown [id number] 2.16.8 [id number] Unknown [id number] 2.16.8 [id number] Social History Date Type Detail Facility Start: 05-25-2024 Tobacco smoking stat us WIIS Never smoked tobacco [facility] Start: 06-12-2021 Alcohol intake Current non-dr powers of alcohol (finding) [facility] Start: 1995 Sex Assigned At Not on file C [facility] Start: 02-12-2021 End: 06-09-2023 Tobacco smoking status WIIS Unknown if ever smoked [facility] Start: 1995 Sex Assigned At Female W [facility] Start: 05-25-2024 End: 06-07-2024 Sex Female (finding) [facility] Goals Date Patient Goal Desired Activity /State Clinical Notes 06-12-2021 to 09-18-2024 Note Date & Type Note Facility 09-18-2024 Progress note [facility] 09-18-2024 Progress note Note Date/Time September 18, 2024 2:42pm [facility] [address], [address] [place] [address] OFFICE VISIT Date of Service: 09/18/24 MR#: [id number] Acct: [id number] Name: DAE DOAN Rep #: [id number] : 1995 Provider: Dr. 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 pets and animals: No leisure activities: other history of recent travel: Yes details: cruise [employer] out of state: Yes out of country: Yes sexually active: Yes Smoking Status: Never smoker alcohol intake: former details: social substance use type: does not use well-balanced diet: daily or most days caffeine: Yes Type: tea eating out: rarely or never during the past year weight has: decreased > 10 lbs what type of physical activity do you participate in: none fabiola/advent: Anabaptism seatbelt use: always do you feel safe at home: Yes additional social history: [employer] student and works at [employer] 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 Date Name GA/Weeks Outcome Route Bth Weight Gen Labor Lgth Anesthesia Del Locatn Provider FOB 04/24/22 Luke 40 Kaylee Langston HPI 23wk ob Details: [...] Supervision of high risk in second trimester O09. Trimester: second trimester 23 weeks gestation of [...] by Leslie venegas MD> Date _ Leslie Sosa Signature: Date (if applicable) CC: ~ [facility] Work Phone: 1(246) 904-477406-19-2025 [facility] [address] [place] [address], [address] [place] [address] OFFICE VISIT Date of Service: 08/24/24 MR#: [id number] Acct: [id number] Name: DAE DOAN Rep #: [id number] : 1995 Provider: HAKEEM Clark Age/Sex: 28/F Location: [facility] Status: Signed Intake Vital Signs 06/05/24 10:31 08/01/24 09:42 08/24/24 11:49 Height 5 ft 4 in 5 ft 4 in 5 ft 4 in Weight: 184 lb 8 oz 185 lb 2 oz BMI 31.6 31.7 BP 126/78 H 115/74 Intake Visit Reasons: 19wk ob *pt on vacation from 08/26 to 09/02 Chief Complaint: 19 Week OB Editorial Assistant Required: No Is patient in pain?: No [...] occupational status: employed 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 pets and animals: No leisure activities: other history of recent travel: Yes details: cruise [employer] out of state: Yes out of country: Yes sexually active: Yes Smoking Status: Never smoker alcohol intake: former details: social substance use type: does not use well-balanced diet: daily or most days caffeine: Yes Type: tea eating out: rarely or never during the past year weight has: decreased > 10 lbs what type of physical activity do you participate in: none fabiola/advent: Anabaptism seatbelt use: always do you feel safe at home: Yes additional social history: [employer] student and works at [employer] 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 Date Name GA/Weeks Outcome Route Bth Weight Gen Labor Lgth Anesthesia Del [facility] Provider FOB 04/24/22 [place] 40 Bjorne Velde HPI 19wk ob *pt on vacation [...] 1202 s CNM> Date _ Deanna Clark CNM Cosigner Signature: Date (if applicable) CC: ~ [facility]04-28-2025 Evaluation note* Diagnosis Onset Date Resolution Status Admit Date Obesity affecting acute July 03, 2024 10:15am [...] of high-risk acute September 18, 2024 1:54pm Obesity affecting acute October 16, 2024 8:27am acute October 16, 8:27am Supervision of high-risk acute October 16 8:27am [facility] Work Phone: 1(996) 516-489303-31-2025 Evaluation note* Diagnosis Onset Date Resolution Status Admit Date Obesity affecting acute June 05, 2024 10:23am resolved June 05 10:23am Supervision of high-risk acute June 05, 2024 10:23am Hx of one miscarriage resolved Mar 2024 10:23am Supervision of normal resolved June 05, 2024 10:23am [facility] Work Phone: 1(444) 446-827703-31-2025 Evaluation note* Diagnosis Onset Date Resolution Status [...] acute August 01, 2024 9 :39am [facility] Work Phone: 1(482) 308-588003-31-2025 Evaluation note* Diagnosis Onset Date Resolution Status [...] of high-risk acute August 24, 2024 11:47am [facility] Work Phone: 1(505) 317-109603-31-2025 Evaluation note* Diagnosis Onset Date Resolution Status [...] of high-risk acute September 18, 2024 1:54pm [facility] Work Phone: 1(217) 880-897103-20-2025 Radiology Diagnostic study note [facility] Imaging Services [address] [place], [place] [address] Transvaginal w/Preg US MR#: [id number] Acct: [id number] Name: DAE DOAN Rep #: [id number] : 1995 F 28 From: Ángel Johnston MD PCP: Dr. Dominick Sahu MD Status: REG CL I Study:Transvaginal w/Preg US Date of Exam: 05/25/24 Exam# [id number] Ordering Dr: Leslie Pillai MD PROCEDURE: TRANSVAGINAL [...] both ovaries. DIMENSIONS: Parameter Measurement / EGA Garwin Rump Length: 7 mm/6 weeks 5 days [...] cysts seen in both ovaries. Reading Location: [facility] CC: Dr. Dominick Sahu MD; Dr. Leslie Baires MD ~ Paste Mixer: Signed [facility]04-03-2024 NotePap Smear Specimen AdequacyApril 2023 4:33pmComment.Satisfactory for evaluation. Endocervical and/or squamous metaplasticcells (endocervical component)are present.[facility] INTER[facility]ACED A#[id number] Health Perrysburg HospitalComment on above:Satisfactory for evaluation. Endocervical and/or squamous metaplasticcells (endocervical component)are present.04-25-[address] Langston [facility] April 25, 2022 9:05am Note Date/Time April 25, 2022 9:04am [facility] Medical Records Department [address] [place] [address] Instructions for Home/Discharge Instructions 04/25/22 0904 MR#: [id number] Acct: [id number] Name: DAE DOAN Rep #:[id number] : [...] Up With: Lauren Tyson DO When: Call [phone] to make an appointment with your doctor [...] Order can be placed): Home, Self Care 04/25/22904<Electronically signed by Lauren Tyson DO>Lauren Tyson DO CC: Dr. Krystina Murphy MD ~ Signed [facility] Work Phone: 1(721) 262-907602-18-[address] Langston [facility] April 25, 2022 9:04am Note Date/Time April 25, 2022 9:04am [facility] Medical Records Department [address] [place] [address] Progress Note - OBGYN 04/25/22902 MR#: [id number] Acct: [id number] Name: DAE DOAN Rep #:[id number] : 1995 26 From: Lauren Tyson DO PCP: Dr. Krystina Murphy MD Status:A DM IN Location: [place] [address] Subjective Subjective Patient doing well without complaints. [...] Cosigner Signature (if applicable): CC: ~ Signed [facility] Work Phone: 1(572) 148-732502-17-2023 Procedure [facility] 04-24-2022 History and physical note Author Dr. Langston [facility] April 24, 2022 8:11am Note Date/Time April 24, 2022 8:11am [facility] Medical Records Department [address] [place] [address] H&P Exam - COMPLIANCE CLERK 04/24/22 0807 MR#: [id number] Acct: [id number] Name: DAE DOAN Rep #:[id number] : 1995 26 From: Lauren Tyson DO PCP: Dr. 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 pets and animals: No leisure activities: other history of recent travel: Yes details: cruise [employer] out of state: Yes out of country: Yes sexually active: Yes Smoking Status: Never smoker alcohol intake: former details: social substance use type: does not use well-balanced diet: daily or most days caffeine: Yes eating out: rarely or never during the past year weight has: decreased > 10 lbs what type of physical activity do you participate in: none fabiola/advent: Anabaptism seatbelt use: always do you feel safe at home: Yes additional social history: [employer] student and works at [employer] 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 G ood FM. 01/21/22 -?-?-?-?-?-?-?-?-?-?-?-?- 26w 5d 195 lb 110/76 Negative -?-?-?-?-?-?-?-?-?-?-?-?- Negative 153 -?-?-?-?-?-?-?-?-?-?-?-?- MH-No VB, LOF. G ood FM. Has had off and on RUQ pain and some itching of abdomen Will get labs today 02/03/22 -?-?-?-?-?-?-?-?-?-?-?-?- 28w 4d 199 lb 2 oz 130/72 Nega tive -?-?-?-?-?-?-?-?-?-?-?-?- Negative 139 28 -?-?-?-?-?-?-?-?-?-?-?-?- MH-No VB, LOF Go od FM. GCT pending. [...] any complications: none I have reviewed the [facility] and made any clinically relevant updates. 04/24/22 0811 <Electronically signed by Lauren Tyson DO> Cosigner Signature (if applicable): CC: Dr. Lauren Tyson DO; Dr. Krystina Murphy MD~ Signed [facility] Work Phone: 1(616) 334-918104-07-2022 NoteHNO ID: [id number] Author: Romana Rocha APRN.PARTS ADMINISTRATOR Service: ? Author Type: Nurse Practitioner Type: [...] Patient agreeable to treatment plan. Romana Rocha APRN.[facility]04-07-2022 History of Present illness Narrative* Romana Rocha APRN.PARTS ADMINISTRATOR - 06/12/2021 7:39 PM EDT CC: Patient [...] Wt 75.8 kg (167 lb 3.2 oz) 12/16/2013 SpO2 98% General appearance: alert, cooperative, [...] Patient agreeable to treatment plan. Romana Rocha APRN.KI [facility]* Diagnosis Cough- Primary documented in this encounter [facility] noteNo assessment information availableWMercy Health Perrysburg Hospital Work Phone: Evaluation note* Diagnosis Onset Date Resolution Status Hx of one miscarriage acute acute Supervision of normal [facility] Work Phone: evaluation note* Diagnosis [...] of normal acute acute Supervision of normal [facility] Work Phone: Evaluation note* Diagnosis Onset Date Resolution Status Abnormal [...] RUQ abdominal pain acute Supervision of normal [facility] Work Phone: Evaluation note* Diagnosis Onset Date Resolution Status Abnormal [...] of normal acute Threatened labor acu te [facility] Work Phone: Evaluation note* Diagnosis Onset [...] of normal acute Threatened labor acu te [facility] Work Phone: Evaluation note* Diagnosis Onset [...] of normal acute Threatened labor acu te [facility] Work Phone: Evaluation note* Diagnosis Onset Date Resolution Status Encounter for routine gynecological examination noneactive [facility] Work Phone: Progress note Author Deanna Clark [facility] Note Date/Time August 24, 2024 12:0 2pm [facility] [address] [place] [address], [address] [place] [address] OFFICE VISIT Date of Service: 08/24/24 MR#: [id number] Acct: [id number] Name: DAE DOAN Rep #: [id number] : 1995 Provider: HAKEEM Clark Age/Sex: 28/F Location: [facility] Status: Signed Intake Vital Signs 06/05/24 10:31 08/01/24 09:42 08/24/24 11:49 Height 5 ft 4 in 5 ft 4 in 5 ft 4 in Weight: 184 lb 8 oz 185 lb 2 oz BMI 31.6 31.7 BP 126/78 H 115/74 Intake Visit Reasons: 19wk ob *pt on vacation from 08/26 to 09/02 Chief Complaint: 19 Week OB Editorial Assistant Required: No Is patient in pain?: No [...] occupational status: employed 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 Date Name GA/Weeks Outcome Route Bth Weight Infant Gen Labor Lgth Anesthesia Del [facility] Provider FOB 04/24/22 Luke 40 V[address] Velde [...] Signature: Date (if applicable) CC: ~ [facility] Work Phone: Reason for referral (narrative)No reason for referral information availableWMercy Health [facility] Hospital Work Phone: Summary Purpose Family History No Family History Records Found Relationship Condition Age at Onset Recorded Date/T jaspal mother Atrial fibrillation Unknown Relationship Condition Age at Onset Recorded Date/T jaspal mother Atrial fibrillation Unknown brother Seizure Unknown Advance Directives No Advanced Directives Records Found Advance Directive Response Recorded Date/ Time Living Will No February 06 12:28pm Power of Corn Miller No February 06, 2021 12:28pm Advance Directive Response Recorded Date/ Time Living Will No February 06 11:28am Power of Corn Miller No February 06, 2021 11:28am Advance Directive Response Recorded Date/ Time Name of Medical Power of Corn Miller Tj Doan April 24, 2022 7:42am Living Will Yes April 24 7:42am Power of Corn Miller Yes April 24, 2022 7:42am Advance Directive Response Recorded Date/ Time Living Will Yes April 24 8:42am Power of Corn Miller Yes April 24, 2022 8:42am Chief Complaint [...] of normal Threatened labor Chief Complaint Annual (GRANTS DIRECTOR) PAP Reason for Visit Encounter for routin [...] August 24, 2024 11:47am Obesity affecting September 18 1:54pm September 18, 2024 1:54 pm Supervision of high-risk September 18, 2024 1:54pm Chief Complaint Admit Date 12WK OB July 03, 2024 10: 15am 16wk ob August 01, 2024 9:39a m 19wk ob *pt on vacation from 08/26 to August 24, 2024 11:47am 23wk ob September 18, 2024 1:54 pm 27wk ob/glucose October 16, 2024 8: 27am Reason for Visit Admit Date Obesity affecting July 03, 2024 10:15am July 03, 2024 10: 15am Supervision of high-risk July 03, 2024 10:15am Obesity affecting August 01 9:39am August 01, 2024 9:39a m Supervision of high-risk July 072024 9:39am Obesity affecting August 24 11:47am August 24, 2024 11:4 7am Supervision of high-risk August 24, 2024 11:47am Obesity affecting September 18 1:54pm September 18, 2024 1:54 pm Supervision of high-risk September 18, 2024 1:54pm Obesity affecting October 16, 2024 8:27am October 16, 2024 8: 27am Supervision of high-risk Augus t 2024 8:27am Additional Source Comments INFORMATION SOURCE (unrecogn ized section and content) DATE CREATED AUTHOR 07/23/2019 [facility] DATE CREATED AUTHOR AUTHOR'S ORGANIZ ATION 08/17/2019 [facility] DATE CREATED AUTHOR AUTHOR'S ORGANIZ ATION 06/15/2021 [facility] DATE CREATED AUTHOR AUTHOR'S ORGANIZ ATION 08/19/2024 [facility] DATE CREATED AUTHOR AUTHOR'S ORGANIZ ATION 10/24/2024 [facility] Source Comments (unrecognize d section and content) In the event this informatio n is protected by the Federal Confidentiality of Alcohol and Drug Abuse Patient Records regulations: The Federal rules restrict any use of the information to criminally investigate or prosecute any alcohol or drug abuse patient.[facility] Reason for Visit (unrecogniz ed section and content) Reason Comments Cough cough, St, MINA and bi lateral ear pain x 1 week Specialty Diagnoses / Procedures Referred By Contac t Referred To Contact URGENT [facility]ARE CL[facility] Diagnoses Sore throat, headache, cough Procedures Sore throat, headache, cough Unger, Gina, CNC ROUTER OPERATOR.PARTS ADMINISTRATOR [address] [place] [address] [facility] [address] [place] [address] Referral ID Status Reason Start Date Expiration Date Visits Requested Visits Authorized [id number] Pending Review OON/Self Pay Override 06/12/2021 09/10/2021 [...] Provider, Refer ring Provider Active Jennifer Licona WIRE TAPER, WIRE TAPER-C Attending Provider Active Team Status: Inactive Member [...] MD Primary Care Provider Active Jennifer Licona WIRE TAPER, WIRE TAPER-C Attending Provider, Referring Provider Active Team Status: [...] Status: Active Member Role Status Dates Dominick Sahu MD Primary Care Provider Active Team Status: Inactive Member Role Status Dates Dominick Sahu MD Primary Care Provider Active St art: March 03, 2024 End: March 03, 2024 Dominick Sahu MD Attending Provider Active Start : March 03, 2024 End: March 03, 2024 Dominick Sahu MD Referring Provider Active Start : March 03, 2024 End: March 03, 2024 Team Status: Inactive Member Role Status Dates Dominick Sahu MD Primary Care Provider Active St art: May 15, 2024 End: May 15, 2024 Deanna Clark CNM Attending Provider Active S tart: May 15, 2024 End: May 15, 2024 Deanna Clark CNM Referring Provider Active S tart: May 15, 2024 End: May 15, 2024 Team Status: Active Member Role Status Dates Dominick Sahu MD Primary Care Provider Active St art: May 17, 2024 Dr. Leslie Baires MD Attending Provider Active Start: May 17, 2024 Dr. Leslie Baires MD Referring Provider Active Start: May 17, 2024 Team Status: Active Member Role Status Dates Dominick Sahu MD Primary Care Provider Active St art: May 19, 2024 Dr. Leslie Baires MD Attending Provider Active Start: May 19, 2024 Dr. Leslie Baires MD Referring Provider Active Start: May 19, 2024 Team Status: Active Member Role Status Leeanna Sahu MD Primary Care Provider Active St art: May 25, 2024 Dr. Leslie Baires MD Attending Provider Active Start: May 25, 2024 Dr. Leslie Baires MD Referring Provider Active Start: May 25, 2024 Team Status: Inactive Member Role Status Leeanna Sahu MD Primary Care Provider Active St art: May 17, 2024 End: May 17, 2024 Dr. Leslie Baires MD Attending Provider Active Start: May 17, 2024 End: May 17, 2024 Dr. Leslie Baires MD Referring Provider Active Start: May 17, 2024 End: May 17, 2024 Team Status: Inactive Member Role Status Leeanna Sahu MD Primary Care Provider Active St art: May 19, 2024 End: May 19, 2024 Dr. Leslie Baires MD Attending Provider Active Start: May 19, 2024 End: May 19, 2024 Dr. Leslie Baires MD Referring Provider Active Start: May 19, 2024 End: May 19, 2024 Team Status: Inactive Member Role Status Leeanna Sahu MD Primary Care Provider Active St art: May 25, 2024 End: May 25, 2024 Dr. Leslie Baires MD Attending Provider Active Start: May 25, 2024 End: May 25, 2024 Dr. Leslie Baires MD Referring Provider Active Start: May 25, 2024 End: May 25, 2024 Team Status: Inactive Member Role Status Leeanna Sahu MD Primary Care Provider Active St art: June 05, 2024 End: June 05, 2024 Dominick Sahu MD Referring Provider Active Start : June 05, 2024 End: June 05, 2024 Dr. Leslie Baires MD Attending Provider Active Start: June 05, 2024 End: June 05, 2024 Team Status: Inactive Member Role Status Leeanna Sahu MD Primary Care Provider Active St art: June 05, 2024 End: June 05, 2024 Dr. Leslie Baires MD Attending Provider Active Start: June 05, 2024 End: June 05, 2024 Dr. Leslie Baires MD Referring Provider Active Start: June 05, 2024 End: June 05, 2024 Team Status: Inactive Member Role Status Leeanna Sahu MD Primary Care Provider Active St art: July 03, 2024 End: July 03, 2024 Dominick Sahu MD Referring Provider Active Start : July 03, 2024 End: July 03, 2024 Dr. Lauren Tyson DO Attending Provider Activ e Start: July 03, 2024 End: July 03, 2024 Team Status: Inactive Member Role Status Leeanna Sahu MD Primary Care Provider Active St art: August 01, 2024 End: August 01, 2024 Dominick Sahu MD Referring Provider Active Start : August 01, 2024 End: August 01, 2024 Jennifer Licona WIRE TAPER, WIRE TAPER-C Attending Provider Active Start: August 01, 2024 End: August 01, 2024 Team Status: Inactive Member Role Status Leeanna Sahu MD Primary Care Provider Active St art: August 24, 2024 End: August 24, 2024 Dominick Sahu MD Referring Provider Active Start : August 24, 2024 End: August 24, 2024 Deanna Clark CNM Attending Provider Active S tart: August 24, 2024 End: August 24, 2024 Team Status: Active Member Role/Relationship Status Leeanna Sahu MD Primary Care Provider Active Team Status: Inactive Member Role/Relationship Status Leeanna Sahu MD Primary Care Provider Active St art: May 25, 2024 End: May 25, 2024 Dr. Leslie Baires MD Attending Provider Active Start: May 25, 2024 End: May 25, 2024 Dr. Leslie Baires MD Referring Provider Active Start: May 25, 2024 End: May 25, 2024 Team Status: Inactive Member Role/Relationship Status Leeanna Sahu MD Primary Care Provider Active St art: June 05, 2024 End: June 05, 2024 Dominick Sahu MD Referring Provider Active Start : June 05, 2024 End: June 05, 2024 Dr. Leslie Baires MD Attending Provider Active Start: June 05, 2024 End: June 05, 2024 Team Status: Inactive Member Role/Relationship Status Leeanna Sahu MD Primary Care Provider Active St art: June 05, 2024 End: June 05, 2024 Dr. Leslie Baires MD Attending Provider Active Start: June 05, 2024 End: June 05, 2024 Dr. Leslie Baires MD Referring Provider Active Start: June 05, 2024 End: June 05, 2024 Team Status: Inactive Member Role/Relationship Status Leeanna Sahu MD Primary Care Provider Active St art: July 03, 2024 End: July 03, 2024 Dominick Sahu MD Referring Provider Active Start : July 03, 2024 End: July 03, 2024 Dr. Lauren Tyson DO Attending Provider Activ e Start: July 03, 2024 End: July 03, 2024 Team Status: Inactive Member Role/Relationship Status Leeanna Sahu MD Primary Care Provider Active St art: August 01, 2024 End: August 01, 2024 Dominick Sahu MD Referring Provider Active Start : August 01, 2024 End: August 01, 2024 Jennifer Licona WIRE TAPER, WIRE TAPER-C Attending Provider Active Start: August 01, 2024 End: August 01, 2024 Team Status: Inactive Member Role/Relationship Status Leeanna Sahu MD Primary Care Provider Active St art: August 24, 2024 End: August 24, 2024 Dominick Sahu MD Referring Provider Active Start : August 24, 2024 End: August 24, 2024 Deanna Clark CNM Attending Provider Active S tart: August 24, 2024 End: August 24, 2024 Team Status: Inactive Member Role/Relationship Status Leeanna Sahu MD Primary Care Provider Active St art: September 18, 2024 End: September 18, 2024 Dominick Sahu MD Referring Provider Active Start : September 18, 2024 End: September 18, 2024 Dr. Lelsie Baires MD Attending Provider Active Start: September 18, 2024 End: September 18, 2024 Team Status: Inactive Member Role/Relationship Status Leeanna Sahu MD Primary Care Provider Active St art: July 03, 2024 End: July 03, 2024 Dominick Sahu MD Referring Provider Active Start : July 03, 2024 End: July 03, 2024 Dr. Lauren Vande Velde , DO Attending Provider Activ e Start: July 03, 2024 End: July 03, 2024 Team Status: Inactive Member Role/Relationship Status Leeanna Sahu MD Primary Care Provider Active St art: August 01, 2024 End: August 01, 2024 Dominick Sahu MD Referring Provider Active Start : August 01, 2024 End: August 01, 2024 Jennifer Licona NP, WIRE TAPER-C Attending Provider Active Start: August 01, 2024 End: August 01, 2024 Team Status: Inactive Member Role/Relationship Status Leeanna Sahu MD Primary Care Provider Active St art: August 24, 2024 End: August 24, 2024 Dominick Sahu MD Referring Provider Active Start : August 24, 2024 End: August 24, 2024 Deanna Clark CNM Attending Provider Active S tart: August 24, 2024 End: August 24, 2024 Team Status: Inactive Member Role/Relationship Status Leeanna Sahu MD Primary Care Provider Active St art: September 18, 2024 End: September 18, 2024 Dominick Sahu MD Referring Provider Active Start : September 18, 2024 End: September 18, 2024 Dr. Leslie Baires MD Attending Provider Active Start: September 18, 2024 End: September 18, 2024 Team Status: Inactive Member Role/Relationship Status Leeanna Sahu MD Primary Care Provider Active St art: October 16, 2024 End: October 16, 2024 Dominick Sahu MD Referring Provider Active Start : October 16, 2024 End: October 16, 2024 Jennifer Licona NP, WIRE TAPER-C Attending Provider Active Start: October 16, 2024 End: October 16, 2024 Team Status: Active Member Role/Relationship Status Leeanna Sahu MD Primary Care Provider Active St art: October 16, 2024 Dr. Lauren Tyson DO Attending Provider Activ e Start: October 16, 2024 Team Status: Inactive Member Role/Relationship Status Leeanna Sahu MD Primary Care Provider Active St art: October 16, 2024 End: October 16, 2024 Dr. Lauren Tyson , Attending Provider Activ e Start: October 16, 2024 End: [place] 11th, 2025 FOR RECORDS PERTAINING TO PATIENTS WHO ARE [...] BE BASED ON THE PRIMARY CLINICAL RECORDS. [facility] [employer] [facility]. provides no warranty or guarantee of the accuracy or completeness of information in this document.
[2024-10-25 07:32] LABS: Glucose GTT-Gestation. Fasting 99 mg/dL (<105)
[2024-10-25 09:28] LABS: Glucose GTT-Gestational 1 Hr 130 mg/dL (<190)
[2024-10-25 11:02] LABS: Glucose GTT-Gestational 2 Hr 121 mg/dL (<165)
[2024-10-25 11:37] LABS: Glucose GTT-Gestational 3 Hr 100 L (<145)
== END | disposition home or self-care (01) ==
LOC: LAB 06:56
PROVIDERS: PCP Family Medicine; Referring Provider Nurse Practitioner Women's Health; Visit Provider Nurse Practitioner Women's Health
DX: Z13.1 Encounter for screening for diabetes mellitus (principal)
CPT/HCPCS: 36415; 82951; 82952

== ENCOUNTER 2024-10-27 16:40 | Outpatient (CLI) | payer SELFPAY ==
[2024-10-27 16:56] VITALS: BMI 33.4
--- NOTE | 2024-10-30 15:44 | OB.TRI.PN_ITS ---
Progress Notes Date of Service: 10/27/24 Progress Note: Patient presents for triage evaluation secondary to contractions FHT: 130 Moderate variability reactive no decelerations category I tracing [place]: no regular Contractions Assessment and plan: threatned labor 28 weeks no cervical dilation reassuring status Reactive NST, reassuring maternal and status patient discharged to home to follow-up as scheduled. See problem list details for additional plan information. Charges/Coding Procedures Urinary/Genital 52xxx-59xxx: 61199-83 non-stress test Interp
== END 2024-10-27 17:35 | disposition home or self-care (01) ==
LOC: WPOUT 16:49 → WP 16:50
PROVIDERS: PCP Family Medicine; Referring Provider Obstetrics & Gynecology; Visit Provider Obstetrics & Gynecology
DX: O47.03 False labor before 37 completed weeks of gestation, third trimester (principal); Z3A.28 28 weeks gestation of pregnancy
CPT/HCPCS: 59025; 59050; 99221; G0378

== ENCOUNTER → 2024-12-21 | Outpatient (CLI) | payer SELFPAY ==
[2024-12-21 10:59] LABS: Hematocrit 33.1 % (37-47); Hemoglobin 11.1 g/dL (12.0-15.0); Immature Granulocytes Count 0.060 X10^3/uL (0.0-0.0); Mean Corp Hgb Conc 33.5 g/dL (32-36); Mean Corpuscular Volume 87.6 fL (81-99); Mean Platelet Vol. 10.8 fl (6.2-12.0); NRBC Flagged by Analyzer 0 % (0-5); Platelet Count 214 K/mm3 (150-450); RBC Distribution Width CV 13.2 % (11.6-14.6); RBC Distribution Width SD 42.5 fl (35.1-43.9); Red Blood Count 3.78 M/mm3 (4.2-5.4); White Blood Count 9.0 K/mm3 (4.4-11.0)
[2024-12-21 11:23] LABS: Creatinine, Urine (random) 189.00 mg/dL (28.00-217.00); Protein, Urine (Random) 23.2 mg/dL (0.0-12.0); Protein:Creat Ratio 123 mg/g CRE (0-200)
[2024-12-21 11:34] LABS: AST(SGOT) 19 U/L (<=31); Alanine Aminotransfer ALT/SGPT 13 U/L (<=34); Albumin, Serum 3.7 g/dL (3.5-5.0); Alkaline Phosphatase 93 U/L (35-104); Anion Gap 13 (5-15); BUN 9 mg/dL (4-19); BUN/Creat Ratio 15.6 RATIO (10-20); Calcium,Total 9.2 mg/dL (7.6-11.0); Carbon Dioxide 21.5 mmol/L (21.0-32.0); Chloride 102 mmol/L (98-108); Globulin 2.8 g/dL (2.2-4.2); Glucose 142 mg/dL (70-99); Potassium 3.7 mmol/L (3.3-5.1)
== END | disposition home or self-care (01) ==
PROVIDERS: PCP Family Medicine; Referring Provider Advanced Practice Midwife; Visit Provider Advanced Practice Midwife
DX: O09.93 Supervision of high risk pregnancy, unspecified, third trimester (principal); O16.3 Unspecified maternal hypertension, third trimester; Z3A.36 36 weeks gestation of pregnancy
CPT/HCPCS: 36415; 80053; 82570; 84156; 85025; 87081

== ENCOUNTER 2024-12-26 09:52 | Outpatient (CLI) | payer SELFPAY ==
[2024-12-26] VITALS (13 sets, daily range): BP systolic 109–137; BP diastolic 63–82; PULSE 85–99; RESP 14; TEMP 36.8; O2SAT 99; BMI 34.8
[2024-12-26 11:05] LABS: Hematocrit 31.2 % (37-47); Hemoglobin 10.9 g/dL (12.0-15.0); Mean Corp Hgb Conc 34.9 g/dL (32-36); Mean Corpuscular Volume 86.2 fL (81-99); Mean Platelet Vol. 10.4 fl (6.2-12.0); Platelet Count 200 K/mm3 (150-450); RBC Distribution Width CV 13.4 % (11.6-14.6); RBC Distribution Width SD 41.8 fl (35.1-43.9); Red Blood Count 3.62 M/mm3 (4.2-5.4); White Blood Count 8.8 K/mm3 (4.4-11.0)
[2024-12-26 11:37] LABS: Creatinine, Urine (random) 177.00 mg/dL (28.00-217.00); Protein, Urine (Random) 47.9 mg/dL (0.0-12.0); Protein:Creat Ratio 271 mg/g CRE (0-200)
--- NOTE | 2024-12-26 12:28 | OB.TRI.HP_ITS ---
HPI - General HPI Narrative DAE DOAN, is a 29 F who presents to L&D at 37 weeks with home blood pressures in the 140-150/80-90 range. She has a 1/10 headache. Here her pressures are 120's-130's/70's. She denies vision changes, epigastric pain, nausea, vomiting, or diarrhea. PIH labs were collected and so far all all normal. Maternal Data Information LIZ Calculator Estimated Delivery Date Method Current WG Current Estimate 01/13/25 Ultrasound #1 37w 3d Other Estimates 01/07/25 LMP (Certain) 38w 2d 01/15/25 Ultrasound #2 37w 1d PFSH PFSH Medical History care and examination Coccyx pain Pelvic and perineal pain Cellulitis of great toe of right foot Pain of right great toe Abnormal glucose affecting Abnormal uterine bleeding (AUB) Home Medications Medication Instructions Recorded Last Taken Type vitamins-iron fumarate 65 1 tab PO DAILY preg tiarra 03/19/22 10/26/24 History mg iron-folic acid 1 mg tablet promethazine 12.5 mg tablet 12.5 mg PO Q6H PRN nausea and 07/03/24 10/26/24 Rx vomiting #60 tabs famotidine 20 mg tablet (Pepcid) 20 mg PO DAILY 10/26/24 History Allergy/AdvReac Type Severity Reaction Status Date / Time No Known Allergies Allergy Verified 12/21/24 09:17 Family History Mother Afib Brother Seizures Social History adopted: No household members: spouse housing: house number of children: 0 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 status: employed 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[employer] 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 exposures/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 pets and animals: No leisure activities: other history of recent travel: Yes details: cruise [place] out of state: Yes out of country: Yes sexually active: Yes Smoking Status: Never smoker alcohol intake: former details: social substance use type: does not use well-balanced diet: daily or most days caffeine: Yes Type: tea eating out: rarely or never during the past year weight has: decreased > 10 lbs what type of physical activity do you participate in: none fabiola/advent: [employer] seatbelt use: always do you feel safe at home: Yes additional social history: [employer] student and works at [employer] 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 Works at [employer] History 3 Elective abortions Hx Para 1 Spontaneous abortions 1 Hx # Term Pregnancies Ectopic pregnancies Hx # Pregnancies Multiple births # of living children 1 Past Pregnancies Del. Date Name GA/Weeks Outcome Route Bth Weight Gen Labor Lgth Anesthesia Del [facility] Provider FOB 04/24/22 Robin 40 Kaylee Langston Visit Details Expected Delivery Route/Plan Labor Preferences- CB/BF classes: no labor support person: [place] labor intervention preferences: [] pain management options preferred: epidural cut cord/dad catch: cord : yes PP control planned: discussed discussed possible routes of delivery and associated risks: [] special requests: [] Plans Covid status: [] Flu vaccine: [] Tdap vaccine: [] Rhogam: na LARC form signed: yes Problem list reviewed and updated with the most current plan of care details and appropriate orders placed. Relevant counseling for the gestational age provided. Continue routine care and follow up unless otherwise noted in visit notes/problem list details OB Flowsheet Initial Weight: 167 lb Date - - - - - - - - - - - - - EGA Weight BP Urine Prot - - - - - - - - - - - - - Glucose FHR FuHt Pres Dilation - - - - - - - - - - - - - Effaced St Visit Note 06/05/24 - - - - - - - - - - - - - 8w 2d 179 lb 6 oz (+12 lb 6 oz) 133/84 - - - - - - - - - - - - - 165 - - - - - - - - - - - - - Sm- CRL cons wit h US based LIZ 07/03/24 - - - - - - - - - - - - - 12w 2d 181 lb 12.8 oz (+14 lb 12.8 oz) 135/81 Negative - - - - - - - - - - - - - Negative 160 - - - - - - - - - - - - - JV- no cramping or spotting. planning anatomy scan with MFM. JV- no cramping or spotting. planning anatomy scan with MFM. promethazine sent to [facility] 08/01/24 - - - - - - - - - - - - - 16w 3d 184 lb 8 oz (+17 lb 8 oz) 126/78 Negative - - - - - - - - - - - - - Negative 157 - - - - - - - - - - - - - MH-No VB. No flu tters. Nausea improving. Br US confirm FHT. 08/24/24 - - - - - - - - - - - - - 19w 5d 185 lb 2 oz (+18 lb 2 oz) 115/74 Negative - - - - - - - - - - - - - Negative 140 - - - - - - - - - - - - - KW- no vb/crampi ng. + flutters. declines AFP screening. anatomy US reviewed 09/18/24 - - - - - - - - - - - - - 23w 2d 190 lb 2 oz (+23 lb 2 oz) 121/77 Negative - - - - - - - - - - - - - Negative 140 23 - - - - - - - - - - - - - SM- no vb lof go od fm co some cramping 10/16/24 - - - - - - - - - - - - - 27w 2d 195 lb 8 oz (+28 lb 8 oz) 124/81 Negative - - - - - - - - - - - - - 100 g/dL 138 26 - - - - - - - - - - - - - MH-No VB, LOF. Good Fm. Larc. 28 wk labs pending. 11/01/24 - - - - - - - - - - - - - 29w 4d 194 lb 9 oz (+27 lb 9 oz) 116/71 Trace - - - - - - - - - - - - - Negative 140 29 - - - - - - - - - - - - - JV- no lof, vagi nal bleeding, or dec fm. She had some dec movement last Wednesday, NST was reactive. 11/15/24 - - - - - - - - - - - - - 31w 4d 197 lb 1 oz (+30 lb 1 oz) 118/74 Negative - - - - - - - - - - - - - Negative 130 30 - - - - - - - - - - - - - KW- no vb/lof/ct x. good fm. no concerns today 11/27/24 - - - - - - - - - - - - - 33w 2d 199 lb 3 oz (+32 lb 3 oz) 117/80 Trace - - - - - - - - - - - - - Negative 135 32 - - - - - - - - - - - - - SM- no vb lof go od fm no regular ctx 12/12/24 - - - - - - - - - - - - - 35w 3d 198 lb 9 oz (+31 lb 9 oz) 128/76 Negative - - - - - - - - - - - - - Negative 145 35 - - - - - - - - - - - - - JV- got flu shot today. no lof, vaginal bleeding, or dec fm. 12/21/24 - - - - - - - - - - - - - 36w 5d 200 lb 7 oz (+33 lb 7 oz) 136/84 Negative - - - - - - - - - - - - - Negative 130 35 Cephalic 2 - - - - - - - - - - - - - 60 -2 KW- no vb/ lof. having irregular ctx. good fm. GBS today. slight headache on and off but mild. pre e labs- growth US ordered. ROS Constitutional Constitutional: Reports systems reviewed and no addt'l complaints, except as documented Gastrointestinal Gastrointestinal: Denies bloating, constipation, cramping, diarrhea, nausea or vomiting Genitourinary Genitourinary: Reports other Details: Denies vaginal odor, vaginal bleeding, or vaginal discharge ; Denies difficulty urinating or flank pain Physical Exam HEENT normocephalic Resp normal respiratory effort and normal air movement no CVA tenderness Extremity normal to inspection General Extremity: edema bilateral (trace ) NST FHR Rate Baby A Baseline: 140 Variability:: Moderate Accelerations:: 15 x 15 Decelerations:: None NST Reactive:: Yes FHR Category:: Category I Assessment & Plan (1) Hypertension affecting : COMMENT: no documentation in hospital. patient was given precautions and when to come back. PIH labs normal. (2) Abnormal glucose level: COMMENT: 3 HR GTT- normal (3) Obesity affecting : QUALIFIERS: Trimester: second trimester Obesity type affecting : unspecified obesity Qualified Code(s): O99.212 - Obesity complicating , second trimester COMMENT: bmi 30 hga1c ordered encouraged healthy weight gain (4) Supervision of high-risk : QUALIFIERS: Trimester: second trimester Qualified Code(s): O09.92 - Supervision of high risk , unspecified, second trimester COMMENT: PRR, , LIZ 01/07/25 boy shabbir PC: Robin SO: Pineda (5) : QUALIFIERS: Weeks of gestation: 36 weeks Qualified Code(s): Z3A.36 - 36 weeks gestation of COMMENT: GBS neg, NIPT w gender & carrier - declined, normal anatomy - consistent dates Charges/Coding Multi Select Codes Visit Charges Office Visit/Consults: 95904 OV L3 Est 20min Urinary/Genital Urinary/Genital CPT Codes: 43538-68 non-stress test Interp
--- NOTE | 2024-12-26 12:28 | OB.TRI.NOTE ---
HPI - General HPI Narrative DAE DOAN, is a 29 F who presents to L&D at 37 weeks with home blood pressures in the 140-150/80-90 range. She has a 1/10 headache. Here her pressures are 120's-130's/70's. She denies vision changes, epigastric pain, nausea, vomiting, or diarrhea. PIH labs were collected and so far all all normal. Maternal Data Information LIZ Calculator Estimated Delivery Date Method Current WG Current Estimate 01/13/25 Ultrasound #1 37w 3d Other Estimates 01/07/25 LMP (Certain) 38w 2d 01/15/25 Ultrasound #2 37w 1d PFSH PFSH Medical History care and examination Coccyx pain Pelvic and perineal pain Cellulitis of great toe of right foot Pain of right great toe Abnormal glucose affecting Abnormal uterine bleeding (AUB) Home Medications Medication Instructions Recorded Last Taken Type vitamins-iron fumarate 65 1 tab PO DAILY 03/19/22 10/26/24 History mg iron-folic acid 1 mg tablet promethazine 12.5 mg tablet 12.5 mg PO Q6H PRN nausea and 07/03/24 10/26/24 Rx vomiting #60 tabs famotidine 20 mg tablet (Pepcid) 20 mg PO DAILY 10/27/24 10/26/24 History Allergy/AdvReac Type Severity Reaction Status Date / Time No Known Allergies Allergy Verified 12/21/24 09:17 Family History Mother Afib Brother Seizures Social History adopted: No household members: spouse housing: house number of children: 0 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 status: employed 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/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 pets and animals: No leisure activities: other history of recent travel: Yes details: cruise [email or web address] out of state: Yes out of country: Yes sexually active: Yes Smoking Status: Never smoker alcohol intake: former details: social substance use type: does not use well-balanced diet: daily or most days caffeine: Yes Type: tea eating out: rarely or never during the past year weight has: decreased > 10 lbs what type of physical activity do you participate in: none faibola/jainism: Rastafari seatbelt use: always do you feel safe at home: Yes additional social history: [employer]- [employer] student and works at [employer] 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 Date Name GA/Weeks Outcome Route Bth Weight Infant Gen Labor [facility]22 Robin Tyson Visit Details Expected Delivery Route/Plan Labor Preferences- CB/BF classes: no labor support person: Bora labor intervention preferences: [] pain management options preferred: epidural cut cord/dad catch: cord : yes PP control planned: discussed discussed possible routes of delivery and associated risks: [] special requests: [] Plans Covid status: [] Flu vaccine: [] Tdap vaccine: [] Rhogam: na LARC form signed: yes Problem list reviewed and updated with the most current plan of care details and appropriate orders placed. Relevant counseling for the gestational age provided. Continue routine care and follow up unless otherwise noted in visit notes/problem list details OB Flowsheet Initial Weight: 167 lb Date <del> </del> EGA Weight BP Urine Prot <del> </del> Glucose FHR FuHt Pres Dilation <del> </del> Effaced St Visit Note 06/05/24 <del> </del> 8w 2d 179 lb 6 oz (+12 lb 6 oz) 133/84 <del> </del> 165 <del> </del> Sm- CRL cons with US based LIZ 07/03/24 <del> </del> 12w 2d 181 lb 12.8 oz (+14 lb 12.8 oz) 135/81 Negative <del> </del> Negative 160 <del> </del> JV- no cramping or spotting. planning anatomy scan with MFM. JV- no cramping or spotting. planning anatomy scan with MFM. [facility]azine [facility] 08/01/24 <del> </del> 16w 3d 184 lb 8 oz (+17 lb 8 oz) 126/78 Negative <del> </del> Negative 157 <del> </del> MH-No VB. No flutters. Nausea improving. Br US confirm FHT. 08/24/24 <del> </del> 19w 5d 185 lb 2 oz (+18 lb 2 oz) 115/74 Negative <del> </del> Negative 140 <del> </del> KW- no vb/cramping. + flutters. declines AFP screening. anatomy US reviewed 09/18/24 <del> </del> 23w 2d 190 lb 2 oz (+23 lb 2 oz) 121/77 Negative <del> </del> Negative 140 23 <del> </del> SM- no vb lof good fm co some cramping 10/16/24 <del> </del> 27w 2d 195 lb 8 oz (+28 lb 8 oz) 124/81 Negative <del> </del> 100 g/dL 138 26 <del> </del> MH-No VB, LOF. Good Fm. Larc. 28 wk labs pending. 11/01/24 <del> </del> 29w 4d 194 lb 9 oz (+27 lb 9 oz) 116/71 Trace <del> </del> Negative 140 29 <del> </del> JV- no lof, vaginal bleeding, or dec fm. She had some dec movement last Wednesday, NST was reactive. 11/15/24 <del> </del> 31w 4d 197 lb 1 oz (+30 lb 1 oz) 118/74 Negative <del> </del> Negative 130 30 <del> </del> KW- no vb/lof/ctx. good fm. no concerns today 11/27/24 <del> </del> 33w 2d 199 lb 3 oz (+32 lb 3 oz) 117/80 Trace <del> </del> Negative 135 32 <del> </del> SM- no vb lof good fm no regular ctx 12/12/24 <del> </del> 35w 3d 198 lb 9 oz (+31 lb 9 oz) 128/76 Negative <del> </del> Negative 145 35 <del> </del> JV- got flu shot today. no lof, vaginal bleeding, or dec fm. 12/21/24 <del> </del> 36w 5d 200 lb 7 oz (+33 lb 7 oz) 136/84 Negative <del> </del> Negative 130 35 Cephalic 2 <del> </del> 60 -2 KW- no vb/lof. having irregular ctx. good fm. GBS today. slight headache on and off but mild. pre e labs- growth US ordered. ROS Constitutional Constitutional: Reports systems reviewed and no addt'l complaints, except as documented Gastrointestinal Gastrointestinal: Denies bloating, constipation, cramping, diarrhea, nausea or vomiting Genitourinary Genitourinary: Reports other Details: Denies vaginal odor, vaginal bleeding, or vaginal discharge ; Denies difficulty urinating or flank pain Physical Exam HEENT normocephalic Resp normal respiratory effort and normal air movement no CVA tenderness Extremity normal to inspection General Extremity: edema bilateral (trace ) NST FHR Rate Baby A Baseline: 140 Variability:: Moderate Accelerations:: 15 x 15 Decelerations:: None NST Reactive:: Yes FHR Category:: Category I Assessment & Plan (1) Hypertension affecting : COMMENT: no documentation in hospital. patient was given precautions and when to come back. PIH labs normal. (2) Abnormal glucose level: COMMENT: 3 HR GTT- normal (3) Obesity affecting : QUALIFIERS: Trimester: second trimester Obesity type affecting : unspecified obesity Qualified Code(s): O99.212 - Obesity complicating , second trimester COMMENT: bmi 30 hga1c ordered encouraged healthy weight gain (4) Supervision of high-risk : QUALIFIERS: Trimester: second trimester Qualified Code(s): O09.92 - Supervision of high risk , unspecified, second trimester COMMENT: PRR, , LIZ 01/07/25 boy shabbir PC: Robin SO: Pineda (5) : QUALIFIERS: Weeks of gestation: 36 weeks Qualified Code(s): Z3A.36 - 36 weeks gestation of COMMENT: GBS neg, NIPT w gender & carrier - declined, normal anatomy - consistent dates Charges/Coding Multi Select Codes Visit Charges Office Visit/Consults: 26389 OV L3 Est 20min Urinary/Genital Urinary/Genital CPT Codes: 73423-28 non-stress test Interp
[2024-12-26 13:00] LABS: AST(SGOT) 23 U/L (<=31); Alanine Aminotransfer ALT/SGPT 13 U/L (<=34); Estimated Creatinine Clearance 177.35 ml/min (50-250)
[2024-12-26 13:46] LABS: LDH 173 U/L (84-246); Uric Acid 4.9 mg/dL (2.6-6.0)
== END 2024-12-26 13:45 | disposition home or self-care (01) ==
LOC: WPOUT 09:58 → WP 09:59
PROVIDERS: PCP Family Medicine; Referring Provider Obstetrics & Gynecology; Visit Provider Obstetrics & Gynecology
DX: O16.3 Unspecified maternal hypertension, third trimester (principal); O09.93 Supervision of high risk pregnancy, unspecified, third trimester; O99.213 Obesity complicating pregnancy, third trimester; Z3A.36 36 weeks gestation of pregnancy
CPT/HCPCS: 59025; 59050; 82565; 82570; 83615; 84156; 84450; 84460; 84550; 85027; 99221; G0378

== ENCOUNTER → 2024-12-26 | Outpatient (CLI) | payer SELFPAY ==
--- NOTE | 2024-12-26 16:25 | US_ITS ---
PROCEDURE: OB LIMITED WITH BIOMETRICS 12/26/2024 REASON FOR EXAM: GROWTH AT 36 WK SCHEDULE LEILA TECHNIQUE: Procedure Code: USOBGROWTH Modality: US Procedure: OB LIMITED WITH BIOMETRICS COMPARISON: None FINDINGS Number: 1 Position: Vertex Placental Position: Fundal in position. Placental Abnormalities: No evidence of previa. DIMENSIONS: Biparietal Diameter: 8.7 cm: 35 weeks and 1 day: 12th percentile/ Head Circumference: 31.8 cm: 35 weeks and 5 days: 4 percentile/ Abdominal Circumference: 31.5 cm: 35 weeks and 3 days: 13 percentile/ Femur Length: 7 cm: 35 weeks and 5 days: 13 percentile/ ESTIMATED WEIGHT: 2717 g plus/-480 g ESTIMATED WEIGHT PERCENTILE (24+ weeks): 16.6 ESTIMATED GESTATIONAL AGE: Baseline: 37 weeks and 3 days By Ultrasound: 35 weeks and 4 days ESTIMATED DATE OF DELIVERY: Baseline: January 13, 2025 By Ultrasound: January 26, 2025 BIOPHYSICAL ASSESSMENT: Amniotic Fluid Volume: 4.6 cm Amniotic Fluid Index: 12.1 cm (8-24 cm normal range) Cardiac Motion: 137 beats per minute (average) Trunk and Limb Motion: Present. MATERNAL ANATOMY: Adnexa: Neither maternal ovary is successfully identified. US/OB Limited With Biometrics IMPRESSION: Single live intrauterine gestation with a mean gestational age of 35 weeks and 4 days. Reading Location: [place] [id number]
== END | disposition home or self-care (01) ==
PROVIDERS: PCP Family Medicine; Referring Provider Advanced Practice Midwife; Visit Provider Advanced Practice Midwife
DX: O09.93 Supervision of high risk pregnancy, unspecified, third trimester (principal); O99.213 Obesity complicating pregnancy, third trimester; O99.810 Abnormal glucose complicating pregnancy; Z3A.36 36 weeks gestation of pregnancy
CPT/HCPCS: 76816

== ENCOUNTER 2024-12-28 14:15 | Outpatient (CLI) | payer SELFPAY ==
[2024-12-28] VITALS (7 sets, daily range): BP systolic 122–137; BP diastolic 72–78; PULSE 90–101; RESP 16; TEMP 37.1; O2SAT 97; BMI 34.6
[2024-12-28 15:20] LABS: Hematocrit 31.2 % (37-47); Hemoglobin 11.1 g/dL (12.0-15.0); Mean Corp Hgb Conc 35.6 g/dL (32-36); Mean Corpuscular Volume 84.3 fL (81-99); Mean Platelet Vol. 10.5 fl (6.2-12.0); Platelet Count 209 K/mm3 (150-450); RBC Distribution Width CV 13.2 % (11.6-14.6); RBC Distribution Width SD 40.6 fl (35.1-43.9); Red Blood Count 3.70 M/mm3 (4.2-5.4); White Blood Count 9.6 K/mm3 (4.4-11.0)
[2024-12-28 15:27] LABS: Creatinine, Urine (random) 213.00 mg/dL (28.00-217.00); Protein, Urine (Random) 43.6 mg/dL (0.0-12.0); Protein:Creat Ratio 205 mg/g CRE (0-200)
[2024-12-28 16:03] LABS: AST(SGOT) 19 U/L (<=31); Alanine Aminotransfer ALT/SGPT 11 U/L (<=34); Estimated Creatinine Clearance 183.98 ml/min (50-250)
[2024-12-28 16:31] LABS: Uric Acid 5.0 mg/dL (2.6-6.0)
== END 2024-12-28 17:05 | disposition home or self-care (01) ==
LOC: WPOUT 14:55 → WP 14:56
PROVIDERS: PCP Family Medicine; Referring Provider Obstetrics & Gynecology; Visit Provider Obstetrics & Gynecology
DX: O16.3 Unspecified maternal hypertension, third trimester (principal); O09.93 Supervision of high risk pregnancy, unspecified, third trimester; O99.213 Obesity complicating pregnancy, third trimester; Z3A.37 37 weeks gestation of pregnancy
CPT/HCPCS: 36415; 59025; 59050; 82565; 82570; 84156; 84450; 84460; 84550; 85027; 99221; G0378

== ENCOUNTER 2025-01-04 12:18 | Inpatient (IN) | payer SELFPAY ==
[2025-01-04] VITALS (69 sets, daily range): BP systolic 105–157; BP diastolic 55–95; PULSE 40–118; RESP 15–18; TEMP 36.6–37; O2SAT 78–100; BMI 34.3
[2025-01-04 13:46] LABS: Hematocrit 31.6 % (37-47); Hemoglobin 11.3 g/dL (12.0-15.0); Immature Granulocytes Count 0.040 X10^3/uL (0.0-0.0); Mean Corp Hgb Conc 35.8 g/dL (32-36); Mean Corpuscular Volume 84.7 fL (81-99); Mean Platelet Vol. 10.5 fl (6.2-12.0); NRBC Flagged by Analyzer 0 % (0-5); Platelet Count 204 K/mm3 (150-450); RBC Distribution Width CV 13.6 % (11.6-14.6); RBC Distribution Width SD 41.8 fl (35.1-43.9); Red Blood Count 3.73 M/mm3 (4.2-5.4); White Blood Count 10.5 K/mm3 (4.4-11.0)
[2025-01-04 14:34] LABS: Creatinine, Urine (random) 97.30 mg/dL (28.00-217.00); Protein, Urine (Random) 22.1 mg/dL (0.0-12.0); Protein:Creat Ratio 227 mg/g CRE (0-200)
[2025-01-04 14:35] LABS: AST(SGOT) 18 U/L (<=31); Alanine Aminotransfer ALT/SGPT 13 U/L (<=34); Albumin, Serum 3.8 g/dL (3.5-5.0); Alkaline Phosphatase 112 U/L (35-104); Anion Gap 12 (5-15); BUN 10 mg/dL (4-19); BUN/Creat Ratio 21.7 RATIO (10-20); Calcium,Total 9.5 mg/dL (7.6-11.0); Carbon Dioxide 19.5 mmol/L (21.0-32.0); Chloride 104 mmol/L (98-108); Estimated Creatinine Clearance 195.09 ml/min (50-250); Globulin 3.2 g/dL (2.2-4.2); Glucose 78 mg/dL (70-99); Potassium 3.9 mmol/L (3.3-5.1)
[2025-01-04 14:41] LABS: Syphilis Antibodies Nonreactive (Nonreactive)
[2025-01-04] MEDS: Lactated Ringers 1,000 ML 50 ML IV (14:46)
[2025-01-04] MEDS: Oxytocin 15 Units/NS 250ml 15 UNITS/250 ML IV.SOLN 2 UNITS IV (14:47)
[2025-01-04] MEDS: Lactated Ringers 1,000 ML 999 ML IV (20:25)
[2025-01-04] MEDS: fentaNYL-bupivacaine (epidural) 100 ML BAG EPIDURAL (20:50)
[2025-01-04] MEDS: Oxytocin 15 Units/NS 250ml 15 UNITS/250 ML IV.SOLN 334 UNITS IV (22:19)
--- NOTE | 2025-01-04 22:30 | HP.PCM_ITS ---
History and Physical
--- NOTE | 2025-01-04 22:30 | PCM.HP.BLA ---
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 Is patient in pain?: No Allergies No Known Allergies Allergy (Verified 01/04/25 11:29) Medications ?Medication ?Instructions ?Recorded ?Confirmed ?Type vitamins-iron fumarate 65 1 tab PO DAILY 03/19/22 01/04/25 History mg iron-folic acid 1 mg tablet famotidine 20 mg tablet (Pepcid) 20 mg PO DAILY heartburn 10/27/24 01/04/25 History Last Menstrual Period: 04/02/24 Zika: Zika virus screening: Negative : No PFSH PFSH Medical History care and examination Coccyx pain Pelvic and perineal pain Cellulitis of great toe of right foot Pain of right great toe Abnormal glucose affecting Abnormal uterine bleeding (AUB) Family History Mother Afib Brother Seizures Social History adopted: No household members: spouse housing: house number of children: 0 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 status: employed 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[employer] 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 exposures/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 pets and animals: No leisure activities: other history of recent travel: Yes details: cruise [employer] out of state: Yes out of country: Yes sexually active: Yes Smoking Status: Never smoker alcohol intake: former details: social substance use type: does not use well-balanced diet: daily or most days caffeine: Yes Type: tea eating out: rarely or never during the past year weight has: decreased > 10 lbs what type of physical activity do you participate in: none fabiola/orthodox: Zoroastrian seatbelt use: always do you feel safe at home: Yes additional social history: [employer]- [employer] student and works at [employer] 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 Works at [employer] History 3 Elective abortions Hx Para 1 Spontaneous abortions 1 Hx # Term Pregnancies Ectopic pregnancies Hx # Pregnancies Multiple births # of living children 1 Past Pregnancies Del. Date Name GA/Weeks Outcome Route Bth Weight Gen Labor Lgth Anesthesia Del Locatn Provider FOB 04/24/22 [place] 40 Kaylee Langston HPI 39 wk ob Details: DAE DOAN is a 29 year old who presents for routine OB visit. upon evaluation ji was found to be 3 cm denied lof admits good fm no regular ctx, has had borderline bps OB Visit LIZ Calculator Estimated Delivery Date Method Current WG Current Estimate 01/13/25 Ultrasound #1 38w 5d Other Estimates 01/07/25 LMP (Certain) 39w 4d 01/15/25 Ultrasound #2 38w 3d Expected Delivery Route/Plan Labor Preferences- CB/BF classes: no labor support person: Bora labor intervention preferences: [] pain management options preferred: epidural cut cord/dad catch: cord : yes PP control planned: discussed discussed possible routes of delivery and associated risks: [] special requests: [] Specific Issue/Plans Covid status: [] Flu vaccine: [] Tdap vaccine: [] Rhogam: na LARC form signed: yes Problem list reviewed and updated with the most current plan of care details and appropriate orders placed. Relevant counseling for the gestational age provided. Continue routine care and follow up unless otherwise noted in visit notes/problem list details Initial Weight: 167 lb Date <del>?</del> EGA Weight BP Urine Prot <del>?</del> Glucose FHR FuHt Pres Dilation <del>?</del> Effaced St Visit Note 06/05/24<del>?</del> 8w 2d 179 lb 6 oz(+12 lb 6 oz) 133/84 <del>?</del> 165 <del>?</del> Sm- CRL cons with US based LIZ 07/03/24<del>?</del> 12w 2d 181 lb 12.8 oz(+14 lb 12.8 oz) 135/81 Negative <del>?</del> Negative 160 <del>?</del> JV- no cramping or spotting. planning anatomy scan with MFM. JV- no cramping or spotting. planning anatomy scan with MFM. [facility]24<del>?</del> 16w 3d 184 lb 8 oz(+17 lb 8 oz) 126/78 Negative <del>?</del> Negative 157 <del>?</del> MH-No VB. No flutters. Nausea improving. Br US confirm FHT. 08/24/24<del>?</del> 19w 5d 185 lb 2 oz(+18 lb 2 oz) 115/74 Negative <del>?</del> Negative 140 <del>?</del> KW- no vb/cramping. + flutters. declines AFP screening. anatomy US reviewed 09/18/24<del>?</del> 23w 2d 190 lb 2 oz(+23 lb 2 oz) 121/77 Negative <del>?</del> Negative 140 23 <del>?</del> SM- no vb lof good fm co some cramping 10/16/24<del>?</del> 27w 2d 195 lb 8 oz(+28 lb 8 oz) 124/81 Negative <del>?</del> 100 g/dL 138 26 <del>?</del> MH-No VB, LOF. Good Fm. Larc. 28 wk labs pending. 11/01/24<del>?</del> 29w 4d 194 lb 9 oz(+27 lb 9 oz) 116/71 Trace <del>?</del> Negative 140 29 <del>?</del> JV- no lof, vaginal bleeding, or dec fm. She had some dec movement last Wednesday, NST was reactive. 11/15/24<del>?</del> 31w 4d 197 lb 1 oz(+30 lb 1 oz) 118/74 Negative <del>?</del> Negative 130 30 <del>?</del> KW- no vb/lof/ctx. good fm. no concerns today 11/27/24<del>?</del> 33w 2d 199 lb 3 oz(+32 lb 3 oz) 117/80 Trace <del>?</del> Negative 135 32 <del>?</del> SM- no vb lof good fm no regular ctx 12/12/24<del>?</del> 35w 3d 198 lb 9 oz(+31 lb 9 oz) 128/76 Negative <del>?</del> Negative 145 35 <del>?</del> JV- got flu shot today. no lof, vaginal bleeding, or dec fm. 12/21/24<del>?</del> 36w 5d 200 lb 7 oz(+33 lb 7 oz) 136/84 Negative <del>?</del> Negative 130 35 Cephalic 2<del>?</del> 60 -2 KW- no vb/lof. having irregular ctx. good fm. GBS today. slight headache on and off but mild. pre e labs- growth US ordered. 12/28/24<del>?</del> 37w 5d 201 lb 9 oz(+34 lb 9 oz) 130/87 Trace <del>?</del> Negative 167 Cephalic 2.5<del>?</del> 70 -3 JV- still has intermittent headaches. bp on arrival was 140's/90's. has trace protein. growth 16th%. sending to L&D to rule out pre-e ACOG First Trimester First Trimester: Discussed Second Trimester Second Trimester: Signs and Symptoms of Labor, Selecting a care provider, Reproductive Life Planning & Contreception, Care Planning, Depression/Anxiety and Intimate Partner Violence; Discussed Tobacco Cessation Third Trimester Third Trimester: Pain Management Plans, Labor support person(s), Immediate Larc, Circumcision preference, Movement Monitoring, Signs and Symptoms of Preeclampsia, Labor Signs, Feeding No and Family Medical Leave or Disability Forms ROS Const Reports system reviewed and no additional complaints, except as documented Card Reports system reviewed and no additional complaints, except as documented Resp Reports system reviewed and no additional complaints, except as documented GI Reports system reviewed and no additional complaints, except as documented and Reports nausea Reports system reviewed and no additional complaints, except as documented Musc Reports system reviewed and no additional complaints, except as documented Exam Const General: cooperative, healthy appearing, comfortable and anxious HENNH Head: normal to inspection Nose: external nose normal Face and sinus: normal facial exam Neck Neck: normal visual inspection, full ROM and no lymphadenopathy Thyroid: thyroid normal Chest Chest palpation & inspection: normal inspection of the chest Resp Effort & Inspection: normal respiratory effort GI Inspection: normal to inspection Palpation: soft and other (gravid uterus) Other: infant vertex and appropriate size for gestational age Other: Cervical Exam: Extrem General: pedal edema Results POC Urinalysis 2 Dip (Clinic) Office Urine Glucose Negative Last Edit by Jennifer Johnson on 01/04/25 11:36 Office Urine Protein 1+ Last Edit by Jennifer Johnson on 01/04/25 11:36 Coding Level of Care Code OB Routine Diagnoses Abnormal glucose level R73.09 Obesity affecting in second trimester, unspecified obesity type O99.212 Obesity type affecting : unspecified obesity Trimester: second trimester Supervision of high risk in second trimester O09.92 Trimester: second trimester 38 weeks gestation of Z3A.38 Weeks of gestation: 38 weeks Oligohydramnios in third trimester O41.03X0 Assessment and Plan Assessment and Plan (1) Abnormal glucose level: Status: Acute Comment: 3 HR GTT- normal (2) Obesity affecting : Status: Acute Qualifiers: Obesity type affecting : unspecified obesity Trimester: second trimester Qualified Code(s): O99.212 - Obesity complicating , second trimester Comment: bmi 30 hga1c ordered encouraged healthy weight gain (3) Supervision of high-risk : Status: Acute Qualifiers: Trimester: second trimester Qualified Code(s): O09.92 - Supervision of high risk , unspecified, second trimester Comment: PRR, , LIZ 01/07/25 boy shabbir PC: Robin SO: Pineda (4) : Status: Acute Qualifiers: Weeks of gestation: 38 weeks Qualified Code(s): Z3A.38 - 38 weeks gestation of Comment: GBS neg, NIPT w gender & carrier - declined, normal anatomy - consistent dates (5) Oligohydramnios in third trimester: Status: Acute Comment: ji 3 today Orders: Orders POC Urinalysis 2 Dip (Clinic) Today Protein+Creatinine Ratio,Urine Today R80.9 - Proteinuria, unspecified CBC W/Diff, Automated Today R80.9 - Proteinuria, unspecified Comprehensive Metabolic Profil Today R80.9 - Proteinuria, unspecified Patient presents IOL, plan management for with pitocin/AROM. Pain management: plans epidural. GBS negative. Management of any complications: oligo ji 3 I have reviewed the [facility] and made any clinically relevant updates.
--- NOTE | 2025-01-04 22:31 | EX.PCM.OBVAG ---
Assessment & Plan (1) Vaginal delivery: (2) Oligohydramnios in third trimester: COMMENT: ji 3 today (3) Abnormal glucose level: COMMENT: 3 HR GTT- normal (4) Obesity affecting : QUALIFIERS: Trimester: second trimester Obesity type affecting : unspecified obesity Qualified Code(s): O99.212 - Obesity complicating , second trimester COMMENT: bmi 30 hga1c ordered encouraged healthy weight gain (5) Supervision of high-risk : QUALIFIERS: Trimester: second trimester Qualified Code(s): O09.92 - Supervision of high risk , unspecified, second trimester COMMENT: PRR, , LIZ 01/07/25 boy shabbir PC: Robin SO: Pineda (6) : QUALIFIERS: Weeks of gestation: 38 weeks Qualified Code(s): Z3A.38 - 38 weeks gestation of COMMENT: GBS neg, NIPT w gender & carrier - declined, normal anatomy - consistent dates Maternal Data Information LIZ Calculator Estimated Delivery Date Method Current WG Current Estimate 01/13/25 Ultrasound #1 38w 5d Other Estimates 01/07/25 LMP (Certain) 39w 4d 01/15/25 Ultrasound #2 38w 3d Vaginal Delivery Maternal Presentation Maternal Presentation: see assessment and plan Vaginal Delivery Information Procedure Performed: Spontaneous Vaginal Delivery Surgeon/Practitioner: Leslie Baires Date of Procedure: 01/04/25 Pre-Procedure Diagnosis: see assessment and plan Post-Procedure Diagnosis: same Type of anesthesia: Epidural Estimated Blood Loss: 200 Findings Description of procedure: Patient began pushing and delivered the head in the ARCHANA presentation. The head was delivered atraumatically and a loose nuchal cord ?1 was identified and easily reduced over the 's head. The anterior and posterior shoulders delivered without complication followed by the rest of the and the was placed on the maternal abdomen. Delayed cord clamping was employed for approximately 60 seconds. Cord was clamped and cut and gentle traction was applied to the cord and the placenta delivered spontaneously immediately following it was noted to be intact with three-vessel cord. The perineum and vagina were inspected and was noted to have a first -degree laceration that was repaired in the usual fashion with 3-0 vicryl rapide . EBL was 200. Patient and infant tolerated delivery well. 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
--- NOTE | 2025-01-04 22:33 | DCINST_ITS ---
Discharge Instructions
--- NOTE | 2025-01-04 22:33 | PCM.DC ---
Discharge Instructions DC O2, CPAP, BIPAP needs Home O2 Discharge instructions: No Dressing / Incision Discharge Activity: Return to Normal Activity, May Not Drive (while taking narcotic pain medications.) and May Shower May resume sexual activity in: 4-6 weeks Dressing / Incision Call your doctor if your incision/area has: Continuous Slow Oozing, Sudden Increased Bleeding, Increased Pain/ Swelling, Increased Redness and Foul Smelling Discharge Follow Up Care Please Follow Up With: Leslie Baires MD When: Call [phone] to make an appointment with your doctor in 6 weeks. If you had elevated blood pressure or 4th degree laceration, you will need to be seen in 2 weeks. Test Results: Test results from this visit will be discussed in further detail at your follow-up appointment, if applicable. Discharge Plan Admission Admit Date/Time: 01/04/25 12:18 Attending Provider: Leslie Baires Primary Care Provider: Dominick Sahu Discharge Orders/Prescriptions Prescriptions: No Action vit-iron fum-folic ac 65 mg iron- 1 mg Tablet 1 tab PO DAILY famotidine [Pepcid] 20 mg tablet 20 mg PO DAILY Referrals / Follow Up: Dominick Sahu MD [Primary Care Provider, Family Practice] Disposition Disposition (needs filled in before D/C Order can be placed): Home, Self Care
[2025-01-04] MEDS: Oxytocin 15 Units/NS 250ml 15 UNITS/250 ML IV.SOLN 83 UNITS IV (22:50)
[2025-01-05] VITALS (14 sets, daily range): BP systolic 114–139; BP diastolic 58–78; PULSE 44–100; RESP 14–18; TEMP 36.3–36.9; O2SAT 97–99
[2025-01-06 01:08] VITALS: BP 115/66; PULSE 76; PULSE 77; RESP 16; TEMP 36.6; O2SAT 98
[2025-01-06 01:09] VITALS: BP 115/66; PULSE 39
--- NOTE | 2025-01-06 09:22 | PCM.PN.CNM ---
Subjective Subjective s/p on 01/04/25. Desires d/c to home today. Objective Data Objective Data Vital Signs: Vital Signs Temp Pulse Resp BP Pulse Ox O2 Del Method 97.9 F 39 L 16 115/66 98 Room Air 01/06/25 01:08 01/06/25 01:09 01/06/25 01:08 01/06/25 01:09 01/06/25 01:08 01/06/25 01:08 Oxygen Delivery Method Room Air Weight: 200 lb Body Mass Index (BMI) 34.3 Intake & Output: Intake and Output for Last 24 Hours 01/04/25 01/05/25 01/06/25 23:59 23:59 23:59 Intake Total 1607.97 / 1607.97 250 / 250 Output Total 400 / 400 400 / 400 Balance 1207.97 / 1207.97 -150 / -150 Lab / Micro Data Attestation: I reviewed the patient's lab results. 01/04/25 13:10 01/04/25 13:10 ROS Constitutional Constitutional: Reports systems reviewed and no addt'l complaints, except as documented Respiratory/Chest Respiratory/Chest: Reports systems reviewed and no addt'l complaints, except as documented Genitourinary Genitourinary: Reports systems reviewed and no addt'l complaints, except as documented Neurologic Neurologic: Reports systems reviewed and no addt'l complaints, except as documented Psychiatric Psychiatric: Reports systems reviewed and no addt'l complaints, except as documented Physical Exam Const alert, oriented x3 and no apparent distress General Appearance: cooperative, comfortable and well kempt Resp normal respiratory effort and normal air movement Resp Narrative: Respirtaions eased & unlabored. No s/s of distress noted. Uterus Palpation: uterus fundus firm (midline, u/1 to u/2, small dark red lochia, no odor.) Neuro oriented x3 Psych mental status grossly normal, thought process normal, cooperative and affect normal Charges/Coding Multi Select Codes Urinary/Genital Urinary/Genital CPT Codes: No Charge Assessment & Plan (1) Vaginal delivery: COMMENT: 01/04/25, Keven (2) Obesity affecting : QUALIFIERS: Trimester: second trimester Obesity type affecting : unspecified obesity Qualified Code(s): O99.212 - Obesity complicating , second trimester COMMENT: bmi 30 hga1c ordered encouraged healthy weight gain (3) Supervision of high-risk : QUALIFIERS: Trimester: second trimester Qualified Code(s): O09.92 - Supervision of high risk , unspecified, second trimester COMMENT: PRR, , LIZ 01/07/25 boy keven PC: Robin SO: Pineda PLAN: Plan s/p PPD # 2 1. routine post delivery care 2. breast feeding- support given 3. rh positive 4. rubella immune 5. d/c to home today.
[2025-01-06 10:00] VITALS: BP 117/71; PULSE 82; RESP 18; TEMP 36.7; O2SAT 98
[2025-01-06 10:02] VITALS: PULSE 83; O2SAT 97
[2025-01-06 10:03] VITALS: BP 117/71; PULSE 75
== END 2025-01-06 11:50 | disposition home or self-care (01) | DRG 807 ==
PROVIDERS: Admitting Provider Obstetrics & Gynecology; PCP Family Medicine; Referring Provider Obstetrics & Gynecology; Visit Provider Obstetrics & Gynecology
DX: O41.03X0 Oligohydramnios, third trimester, not applicable or unspecified (principal); Z37.0 Single live birth; O99.814 Abnormal glucose complicating childbirth; K21.9 Gastro-esophageal reflux disease without esophagitis; O99.214 Obesity complicating childbirth; O99.62 Diseases of the digestive system complicating childbirth; O69.81X0 Labor and delivery complicated by cord around neck, without compression, not applicable or unspecified; O70.0 First degree perineal laceration during delivery; Z3A.38 38 weeks gestation of pregnancy; Z79.899 Other long term (current) drug therapy; Z87.59 Personal history of other complications of pregnancy, childbirth and the puerperium
CPT/HCPCS: 59025; 59050; 80053; 82570; 84156; 85025; 86780; 86850; 86900; 86901; 99221; G0378

== ENCOUNTER → 2025-01-04 | Outpatient (CLI) | payer SELFPAY ==
[2025-01-04 12:49] LABS: Creatinine, Urine (random) 310.00 mg/dL (28.00-217.00); Protein, Urine (Random) 37.6 mg/dL (0.0-12.0); Protein:Creat Ratio 121 mg/g CRE (0-200)
== END | disposition home or self-care (01) ==
LOC: BWCLAB 11:55
PROVIDERS: PCP Family Medicine; Visit Provider Obstetrics & Gynecology
DX: R80.9 Proteinuria, unspecified (principal)
CPT/HCPCS: 82570; 84156